=== PATIENT | male | born 1965 | race African-American/Black ===

== ENCOUNTER 2016-05-16 15:18 | Inpatient (IN) | payer SELFPAY ==
[~2016-05-16] VITALS: Ht 185.4 cm; Wt 95.3 kg
[~2016-05-16 15:18] MED LIST: ACET325T9 PO; HYDR25TA9 PO; LISI40TA PO; METO-269 PO; SILD50TA PO
--- NOTE | 2016-05-16 15:57 | EKG ---
[facility] [address] [place] [address] Test Date: 2016-05-16 Test Time: 15:32:26 Pat Name: MACARIO VINES Department: Room: Gender: M Consumer Loan Officer: : 1965 Requested By: CONSTANCE CABRAL Order Number: [id number] Reading MD: Leatha Melendez Measurements Intervals [place] Rate: 89 P: -18 MS: 142 QRS: 4 QRSD: 102 T: 122 QT: 368 QTc: 449 Interpretive Statements SINUS RHYTHM LEFT ATRIAL ABNORMALITY LVH WITH REPOLARIZATION ABNORMALITY ALSO CONSIDER MYOCARDIAL ISCHEMIA Electronically Signed On 05-20-2016 15:35:16 VALVE INSPECTOR by Leatha Melendez
[2016-05-16 16:20] LABS: BASO % 0 % (0-3); EOS % 0 % (0-3); HEMATOCRIT 45.7 % (39.0-53.0); HEMOGLOBIN 15.4 g/dL (13.0-17.5); LYMPH # 1.4 x10^3/uL (1.0-4.8); LYMPH % 11 % (24-48); MEAN CORPUSCULAR HEMOGLOBIN 30 pg (25-35); MEAN CORPUSCULAR HGB CONC 34 g/dL (31-37); MEAN CORPUSCULAR VOLUME 89 fL (79-100); MONO % 12 % (0-9); NEUT % 77 % (31-73); PLATELET COUNT 177 x10^3/uL (140-400); RED BLOOD COUNT 5.12 x10^6/uL (4.30-5.70); RED CELL DISTRIBUTION WIDTH 13.4 % (11.5-14.5); WHITE BLOOD COUNT 12.6 x10^3/uL (4.0-11.0)
--- NOTE | 2016-05-16 16:33 | RAD ---
Portable AP upright view CXR: Clinical indications: Left-sided chest pain. Pain started 4 days ago. Difficulty breathing. Comparison: September 26, 2015. Findings: Old granulomatous disease is seen. No acute lung infiltrate or pleural effusion or pulmonary edema or lung mass or pneumothorax is seen. The heart size, pulmonary vasculature, mediastinum and both josie are stable. A sternotomy is again evident. Right axillary node dissection is evident. Impression: No acute radiographic abnormality is seen.
[2016-05-16 16:37] LABS: CREATININE 1.4 mg/dL (0.7-1.3); GFR 64.9; POTASSIUM 3.8 mmol/L (3.5-5.1)
[2016-05-16 16:42] LABS: ALBUMIN 3.6 g/dL (3.4-5.0); DIRECT BILIRUBIN 0.3 mg/dL (0.0-0.2); TOTAL BILIRUBIN 1.7 mg/dL (0.2-1.0); TOTAL PROTEIN 7.8 g/dL (6.4-8.2)
[2016-05-16] MEDS ORDERED: hydrALAZINE 20 MG/ML VIAL. IVP ONE (16:45)
[2016-05-16 16:58] LABS: CKMB MASS < 0.5 ng/mL (0.0-3.6); CREATINE KINASE 129 U/L (39-308)
[2016-05-16] MEDS ORDERED: IOHEXOL 300 MG/ML 75 ML VIAL IV ONE (17:00)
[2016-05-16] MEDS ORDERED: CONTRAST GIVEN MC PRN (17:00)
[2016-05-16] MEDS ORDERED: IOHEXOL 350 MG/ML 100ML VIAL. IV ONE (17:30)
[2016-05-16] MEDS ORDERED: CLONIDINE HCL 0.1 MG TABLET PO ONE (18:30)
[2016-05-16] MEDS ORDERED: HYDROCODONE/APAP 5/325MG TABLET. PO ONE (18:45)
--- NOTE | 2016-05-16 19:37 | RAD ---
CT angiogram of the chest, abdomen, and pelvis Indication: CP AND L SIDED PAIN SINCE SATURDAY LOUIS. HTN X 2 WEEKS. PREV H/O AORTIC DISSECTION AND STENT GRAFT REPAIR PER PT. INJ 90ML OMNI 350 PREV SENT Reason: H/O AORTA REPAIR, C/O LT SIDE WEAKNESS / Spl. Instructions: / History: Comparison: July 14, 2014 CT angiogram of the chest, abdomen, and pelvis Technique: Multiple contiguous axial images were obtained through the chest, abdomen, and pelvis after intravenous administration of iodinated contrast. Coronal and sagittal MIP reformations were created. Three-dimensional reformations were also created. Findings: Chest: Again noted is a Amol a dissection. The dissection flap originates proximal to the origin of the brachiocephalic artery. The true lumen supplies the great vessels with no evidence for propagation of the dissection into these great vessels. The dissection is unchanged in appearance when compared to the previous exam from July of 2014. The diameter of the descending thoracic aorta measures 4.4 centimeters compared with 4.4 centimeters on the prior exam. The heart is normal in size. No pericardial effusion. No mediastinal hematoma. There are postsurgical changes of previous median sternotomy and presumed intervention or repair of the thoracic aorta. Calcified granulomas are again noted in the mediastinum. There is no pneumothorax. Minimal atelectasis is noted in the left lung base. Calcified granulomas are noted in the lung parenchyma. No destructive osseous lesion. Abdomen pelvis: The dissection is unchanged in is again noted to extend to the origin of the left internal iliac artery. The true lumen supplies the celiac, SMA, and bilateral renal arteries. There is no focal aneurysm. The liver and spleen are normal in size with no evidence for enhancing lesion on the provided arterial and delayed phase images. The gallbladder is nondistended. The pancreas and adrenal glands are within normal limits. The kidneys demonstrate no hydronephrosis or enhancing mass. There is no adenopathy or ascites. The appendix is normal. Urinary bladder is within normal limits. Bowel loops are normal in caliber. No destructive osseous lesion. Impression: - Chest: Unchanged appearance of the [place] a thoracic aortic dissection when compared to the previous exam from 07/14/2014. The true lumen supplies the great vessels. No significant change in size of the thoracic aortic diameter. - Abdomen pelvis: Stable size and appearance of the abdominal aortic dissection. The true lumen supplies the celiac, SMA, and bilateral renal arteries. No focal aneurysmal dilatation. - No ascites or inflammatory mass. Electronically signed by: Gokul Bermudez (May 16, 2016 19:35:26)
[2016-05-16] MEDS ORDERED: CLON0.1T PO (20:16)
--- NOTE | 2016-05-16 20:16 | PHYS DOC ---
Past Medical History Past Medical History: Hypertension Past Surgical History: Other Additional Past Surgical Histo: Aortic Repair Alcohol Use: None Drug Use: None Adult General Chief Complaint Chief Complaint: CHEST PAIN HPI HPI Patient is a 50 year old male brought to the ED by his with multiple complaints. He's had left-sided chest pain for 1-2 days. He's had a sweat all over his body, he had chills but no fever. Denies cough. Saturday night while he was watching the [employer], he had an episode where the left side of his body "locked up". That went away and has not come back. The patient has been taking his antihypertensives as prescribed, but his blood pressure has been running high. Patient has a history of a problem with his aorta in 2009, he had a procedure to fix it. His dough molder hand is Dr. Gil. Patient does not have a PCP right now. Review of Systems Review of Systems Constitutional: He has had chills and sweats but does not believe he's had a fever Eyes: Denies change in visual acuity, redness, or eye pain [] HENT: Denies nasal congestion or sore throat [] Respiratory: Denies cough , has had shortness of breath [] Cardiovascular: As in history of present illness GI: Denies abdominal pain, nausea, vomiting, bloody stools or diarrhea [] : Denies dysuria or hematuria [] Musculoskeletal: Denies back pain or joint pain [] Integument: Denies rash or skin lesions [] Neurologic: He has had a headache, left-sided symptoms on Saturday as in history of present illness Current Medications Current Medications Current Medications Medications (Trade) Dose Ordered Sig/Daljit Start Time Stop Time Status Last Admin Dose Admin Acetaminophen/ Hydrocodone Bitart 1 tab 1 tab 1X ONCE 05/16/16 18:45 05/16/16 18:46 DC 05/16/16 18:46 1 TAB Clonidine HCl (Catapres) 0.2 mg 1X ONCE 05/16/16 18:30 05/16/16 18:31 DC 05/16/16 18:43 0.2 MG Hydralazine HCl (Apresoline) 10 mg 1X ONCE 05/16/16 16:45 05/16/16 16:46 DC 05/16/16 17:09 10 MG Info (Do NOT chart on this entry -- for MONITORING) 1 each PRN DAILY PRN 05/16/16 17:00 05/18/16 16:59 Iohexol (Omnipaque 300 Mg/ml) 75 ml 1X ONCE 05/16/16 17:00 05/16/16 17:01 DC Iohexol (Omnipaque 350 Mg/ml) 90 ml 1X ONCE 05/16/16 17:30 05/16/16 17:31 DC 05/16/16 17:33 90 ML Sodium Chloride (Iv Sodium Chloride 0.9% 1000ml Bag) 1,000 ml @ 100 mls/hr Q10H 05/16/16 20:49 05/17/16 20:48 Allergies Allergies Allergies Coded Allergies Type Severity Reaction Last Updated Verified No Known Drug Allergies 07/14/14 No Physical Exam Physical Exam Constitutional: Well developed, well nourished, no acute distress, non-toxic appearance. Blood pressure elevated at 219/110 HENT: Normocephalic, atraumatic, bilateral external ears normal, oropharynx moist, no oral exudates, nose normal. [] Eyes: conjunctiva normal, no discharge. [] Neck: Normal range of motion, no stridor. [] Cardiovascular:Heart rate regular rhythm, no murmur [] Lungs & Thorax: Bilateral breath sounds clear to auscultation [] Abdomen: Bowel sounds normal, soft, no tenderness, no masses, no pulsatile masses. [] Skin: Warm, dry, no erythema, no rash. [] Extremities: No tenderness, no cyanosis, no clubbing, ROM intact, no edema. [] Neurologic: Alert and oriented X 3, normal motor function, normal sensory function, no focal deficits noted. [] Current Patient Data Vital Signs Vital Signs Date Time Temp Pulse Resp B/P Pulse Ox O2 Delivery O2 Flow Rate FiO2 05/16/16 20:00 81 18 163/76 95 Room Air 05/16/16 15:18 98.4 98.4 Lab Values Laboratory Tests Test 05/16/16 15:30 05/16/16 15:35 White Blood Count 12.6x10^3/uL (4.0-11.0) H Red Blood Count 5.12x10^6/uL (4.30-5.70) Hemoglobin 15.4g/dL (13.0-17.5) Hematocrit 45.7% (39.0-53.0) Mean Corpuscular Volume 89fL (79-100) Mean Corpuscular Hemoglobin 30pg (25-35) Mean Corpuscular Hemoglobin Concent 34g/dL (31-37) Red Cell Distribution Width 13.4% (11.5-14.5) Platelet Count 177x10^3/uL (140-400) Neutrophils (%) (Auto) 77% (31-73) H Lymphocytes (%) (Auto) 11% (24-48) L Monocytes (%) (Auto) 12% (0-9) H Eosinophils (%) (Auto) 0% (0-3) Basophils (%) (Auto) 0% (0-3) Neutrophils # (Auto) 9.7x10^3uL (1.8-7.7) H Lymphocytes # (Auto) 1.4x10^3/uL (1.0-4.8) Monocytes # (Auto) 1.5x10^3/uL (0.0-1.1) H Eosinophils # (Auto) 0.1x10^3/uL (0.0-0.7) Basophils # (Auto) 0.0x10^3/uL (0.0-0.2) Sodium Level 141mmol/L (136-145) Potassium Level 3.8mmol/L (3.5-5.1) Chloride Level 102mmol/L (98-107) Carbon Dioxide Level 32mmol/L (21-32) Anion Gap 7 (6-14) Blood Urea Nitrogen 18mg/dL (8-26) Creatinine 1.4mg/dL (0.7-1.3) H Estimated GFR (Cockcroft-Gault) 64.9 Glucose Level 125mg/dL (70-99) H Calcium Level 9.0mg/dL (8.5-10.1) Magnesium Level 2.0mg/dL (1.8-2.4) Total Bilirubin 1.7mg/dL (0.2-1.0) H Direct Bilirubin 0.3mg/dL (0.0-0.2) H Aspartate Amino Transferase (AST) 16U/L (15-37) Alanine Aminotransferase (ALT) 19U/L (16-63) Alkaline Phosphatase 68U/L (46-116) Creatine Kinase 129U/L (39-308) Creatine Kinase MB (Mass) < 0.5ng/mL (0.0-3.6) Creatine Kinase MB Relative Index % (0-4) Troponin I Quantitative < 0.017ng/mL (0.000-0.055) RW-Phc-Y-Type Natriuretic Peptide 1423pg/mL (0-124) H Total Protein 7.8g/dL (6.4-8.2) Albumin 3.6g/dL (3.4-5.0) Laboratory Tests 05/16/16 15:30 Laboratory Tests 05/16/16 15:35 EKG EKG Total bleed EKG read by me . Sinus rhythm. Heart rate 89. LVH with strain pattern. No STEMI. 1532 [] Radiology/Procedures Radiology/Procedures CT scan of the chest and abdomen interpreted by the radiologist looking at the patient's aorta abnormality. There are no acute changes in the patient's stable aorta per the radiologist. [] Course & Med Decision Making Course & Med Decision Making Pertinent Labs and Imaging studies reviewed. (See chart for details) 50-year-old male presents with a number of symptoms including chest pain and headache and a markedly elevated blood pressure at 219/110 even though he is taking antihypertensives as prescribed by his doctor. I advised the patient that I would like to start some IV blood pressure control and work him up for chest pain with the goal to admit him to the hospital. The patient was very reluctant to start on IV blood pressure control, feeling like he really did not want to be admitted to the hospital, despite the fact that his wants him to be admitted. We discussed this and agreed to try blood pressure controlled that was not an IV drip while doing his ED evaluation. The patient had an IV dose of hydralazine which didn't make much impact on his blood pressure. He had a [place] for his headache. After returning from CT, I gave him a dose of clonidine 0.2 mg. He is a fairly big rosangela, weight 229, a tall gentleman, I felt a starting dose of clonidine 0.2 for persistently elevated systolic over 200 would be a good starting point. The patient's blood pressure came down to systolic of the 160s. He felt better, his headache was gone after the [place]. CT scan did not show any acute findings. Labs unremarkable for acute findings. I returned to discuss the case with the patient and his . The patient still prefers to be discharged from the ED. I didn't have a strong reason to absolutely insists that he be admitted so I did not ask him to sign out AGAINST MEDICAL ADVICE. I prepared his discharge paperwork including a prescription for clonidine to add to his at home antihypertensive regimen. With the nurse went back to her the patient for discharge, which she had the patient stand up, he became very lightheaded, he broke out into a sweat, he had a near syncopal event and had to be helped back down on to the bed writhing ED nurse. His blood pressure at this time was systolic about 120s. I revisited the patient and his . He is now in favor of being admitted to the hospital. His blood pressure was up again to 160 after he got settled back down in bed but he was diffusely diaphoretic. We will admit the patient for chest pain and blood pressure control. I spoke with Dr. rebollar, [facility]. He will admit the patient. I wrote bridge orders. [] Dragon Disclaimer Dragon Disclaimer This electronic medical record was generated, in whole or in part, using a voice recognition dictation system. Departure Departure Impression: Primary Impression: Chest pain Additional Impression: Hypertension Disposition: 01 HOME, SELF-CARE Condition: STABLE Referrals: BRITTANY CHATMAN MD (PCP) Additional Instructions: Your blood pressure was very high in the emergency department. It did come down with clonidine. We will start you on clonidine 0.1 mg every 12 hours. Take this in addition to your blood pressure medicine that you already take. Follow-up with your doctor for a recheck of your blood pressure and recheck of your symptoms. Return to force or new symptoms. Scripts Clonidine Hcl 0.1 Mg Tablet0.1 Mg PO BID #60 TAB For high blood pressure Take this with the other medicines you are already taking Prov:CONSTANCE CABRAL MD 05/16/16 Problem Qualifiers CONSTANCE CABRAL MD May 16, 2016 20:16
[2016-05-16] MEDS: IV NORMAL SALINE 1000ML BAG 1,000 ML IV SCH (21:14)
[2016-05-16 21:54] LABS: OBC FLU VALID
--- NOTE | 2016-05-16 22:38 | PDOC1 ---
History and Physical Date of Admission Date of Admission DATE: 05/16/16 TIME: 22:28 Identification/Chief Complaint Chief Complaint chest pain, diaphoresis Source Source: Caregiver, Chart review, Patient History of Present Illness History of Present Illness Mr. Templeton, is a 50 year old male admt from ED for chest pain, diaphoresis, uncontrolled HTN on admit, now presyncope as he was trying to leave. He has unexplained marked sweats at times, and had severe left sided pain to arm and leg with weakness "my left side just locked up" Weakness was painful , muscle pain to extremities, started at rest, last 2 hours, and has not recurred. . Now, left-sided chest pain for > 24 hours. compliant with meds, has followed w. Dr. Gil Patient has a history of a problem with his aorta in 2009, he had a procedure to fix it. His environmental advisor is Dr. Gil. Past Medical History Cardiovascular: HTN, Other (aortic dissection) Past Surgical History Past Surgical History: Other (aortic repair, 2009, Dr. Augustin) Family History Family History: No Significant Social History Smoke: No ALCOHOL: none Drugs: None Current Problem List Problem List Problems Medical Problems: (1) Chest pain Status: Acute (2) Hypertension Status: Acute Problems: Current Medications Current Medications Current Medications Hydralazine HCl (Apresoline) 10 mg 1X ONCE IVP Last administered on 05/16/16 17:09; Start 05/16/16 at 16:45; Stop 05/16/16 at 16:46; Status DC Iohexol (Omnipaque 300 Mg/ml) 75 ml 1X ONCE IV ; Start 05/16/16 at 17:00; Stop 05/16/16 at 17:01; Status DC Info (Do NOT chart on this entry -- for MONITORING) 1 each PRN DAILY PRN MC SEE COMMENTS; Start 05/16/16 at 17:00; Stop 05/18/16 at 16:59 Iohexol (Omnipaque 350 Mg/ml) 90 ml 1X ONCE IV Last administered on 05/16/16 17:33; Start 05/16/16 at 17:30; Stop 05/16/16 at 17:31; Status DC Clonidine HCl (Catapres) 0.2 mg 1X ONCE PO Last administered on 05/16/16 18:43 ; Start 05/16/16 at 18:30; Stop 05/16/16 at 18:31; Status DC Acetaminophen/ Hydrocodone Bitart 1 tab 1 tab 1X ONCE PO Last administered on 05/16/16 18:46; Start 05/16/16 at 18:45; Stop 05/16/16 at 18:46; Status DC Sodium Chloride (Iv Sodium Chloride 0.9% 1000ml Bag) 1,000 ml @ 100 mls/hr Q10H IV Last administered on 05/16/16 21:14; Start 05/16/16 at 20:49; Stop at 20:48 Active Scripts Active Clonidine Hcl 0.1 Mg Tablet 0.1 Mg PO BID For high blood pressure Take this with the other medicines you are already taking Reported Hydrochlorothiazide Tablet (Hydrochlorothiazide) 25 Mg Tablet 25 Mg PO DAILY Toprol Xl (Metoprolol Succinate) 50 Mg Tab.er.24h 50 Mg PO DAILY Lisinopril 40 Mg Tablet 40 Mg PO DAILY Viagra (Sildenafil Citrate) 50 Mg Tablet 50 Mg PO ONCE Tylenol (Acetaminophen) 325 Mg Tablet 325 Mg PO Allergies Allergies: Coded Allergies: No Known Drug Allergies (Unverified , 07/14/14) ROS General: YES: Chills, Fatigue, Night Sweats, No: Appetite, Malaise, Other PSYCHOLOGICAL ROS: No: Anxiety, Behavioral Disorder, Concentration difficultie , Decreased libido, Depression, Disorientation, Hallucinations, Hostility, Irritablity, Memory difficulties, Mood Swings, Obsessive thoughts, Other, Physical abuse, Sexual abuse, Sleep disturbances, Suicidal ideation Eyes: No Blurry vision, No Decreased vision, No Double vision, No Dry eyes, No Excessive tearing, No Eye Pain, No Itchy Eyes, No Loss of vision, No Other, No Photophobia, No Scotomata, No Uses contacts, No Uses glasses HEENT: No: Epistaxis, Heacaches, Hearing change, Nasal congestion, Nasal discharge, Oral lesions, Other, Sinus pain, Sneezing, Snoring, Sore Throat, Tinnitus, Vertigo, Visual Changes, Vocal changes ENDOCRINE: No: Breast Changes, Galactorrhea, Hair Pattern Changes, Hot Flashes , Malaise/lethargy, Mood Swings, Other, Palpitations, Polydipsia/polyuria, Skin Changes, Temperature Intolerance, Unexpected Weight Changes Respiratory: No: Cough, Hemoptysis, Orthopnea, Other, Pleuritic Pain, SOB with excertion, Shortness of breath, Sputum Changes, Stridor, Tachypnea, Wheezing Cardiovascular: yes Chest Pain, No Edema, No Lt Headedness, No Orthopnea, No Other, No Palpitations, No Paroxysmal Noc. Dyspnea Gastrointestinal: Yes Nausea, No Abdominal Pain, No Constipation, No Diarrhea, No Hematochezia, No Melena, No Other, No Vomiting Genitourinary: No , No , No , No , No , No , No , No Discharge, No Dysuria, No Flank Pain, No Frequency, No Hematuria, No Incontinence, No Other, No Pain, No Retention, No Urgency Musculoskeletal: Yes Muscle Pain, Yes Muscular Weakness, No Gait Disturbance, No Joint Pain, No Joint Stiffness, No Joint Swelling, No Other, No Pain In:, No Swelling In: Neurological: No Behavorial Changes, No Bowel/Bladder ControlChng, No Confusion , No Dizziness, No Gait Disturbance, No Headaches, No Impaired Coord/balance, No Memory Loss, No Numbness/Tingling, No Other, No Seizures, No Speech Problems , No Tremors, No Visual Changes, No Weakness Skin: No Acne, No Dry Skin, No Eczema, No Hair Changes, No Lumps, No Mole Changes, No Mottling, No Nail Changes, No Other, No Pruritus, No Rash, No Skin Lesion Changes Physical Exam General: Alert, Oriented X3, Cooperative, No acute distress HEENT: Atraumatic, PERRLA, EOMI, Mucous membr. moist/pink Lungs: Clear to auscultation, Normal air movement Heart: S1S2, no murmurs Abdomen: Normal bowel sounds, Soft, No tenderness, No hepatosplenomegaly Rectal Exam: not examined Extremities: No clubbing, No edema, Normal pulses Skin: No rashes, No significant lesion Neuro: Normal gait, Normal speech, Normal tone Psych/Mental Status: Mental status NL, Mood NL Vitals Vitals Vital Signs Date Time Temp Pulse Resp B/P Pulse Ox O2 Delivery O2 Flow Rate FiO2 05/16/16 20:00 81 18 163/76 95 Room Air 05/16/16 15:18 98.4 98.4 Labs Labs Laboratory Tests Test 05/16/16 15:30 05/16/16 15:35 05/16/16 21:16 White Blood Count 12.6x10^3/uL (4.0-11.0) Red Blood Count 5.12x10^6/uL (4.30-5.70) Hemoglobin 15.4g/dL (13.0-17.5) Hematocrit 45.7% (39.0-53.0) Mean Corpuscular Volume 89fL (79-100) Mean Corpuscular Hemoglobin 30pg (25-35) Mean Corpuscular Hemoglobin Concent 34g/dL (31-37) Red Cell Distribution Width 13.4% (11.5-14.5) Platelet Count 177x10^3/uL (140-400) Neutrophils (%) (Auto) 77% (31-73) Lymphocytes (%) (Auto) 11% (24-48) Monocytes (%) (Auto) 12% (0-9) Eosinophils (%) (Auto) 0% (0-3) Basophils (%) (Auto) 0% (0-3) Neutrophils # (Auto) 9.7x10^3uL (1.8-7.7) Lymphocytes # (Auto) 1.4x10^3/uL (1.0-4.8) Monocytes # (Auto) 1.5x10^3/uL (0.0-1.1) Eosinophils # (Auto) 0.1x10^3/uL (0.0-0.7) Basophils # (Auto) 0.0x10^3/uL (0.0-0.2) Sodium Level 141mmol/L (136-145) Potassium Level 3.8mmol/L (3.5-5.1) Chloride Level 102mmol/L (98-107) Carbon Dioxide Level 32mmol/L (21-32) Anion Gap 7 (6-14) Blood Urea Nitrogen 18mg/dL (8-26) Creatinine 1.4mg/dL (0.7-1.3) Estimated GFR (Cockcroft-Gault) 64.9 Glucose Level 125mg/dL (70-99) Calcium Level 9.0mg/dL (8.5-10.1) Magnesium Level 2.0mg/dL (1.8-2.4) Total Bilirubin 1.7mg/dL (0.2-1.0) Direct Bilirubin 0.3mg/dL (0.0-0.2) Aspartate Amino Transf (AST/SGOT) 16U/L (15-37) Alanine Aminotransferase (ALT/SGPT) 19U/L (16-63) Alkaline Phosphatase 68U/L (46-116) Creatine Kinase 129U/L (39-308) Creatine Kinase MB (Mass) < 0.5ng/mL (0.0-3.6) Creatine Kinase MB Relative Index % (0-4) Troponin I Quantitative < 0.017ng/mL (0.000-0.055) XG-Ddz-Y-Type Natriuretic Peptide 1423pg/mL (0-124) Total Protein 7.8g/dL (6.4-8.2) Albumin 3.6g/dL (3.4-5.0) Influenza Type A Antigen Negative (NEGATIVE) Influenza Type B Antigen Negative (NEGATIVE) Laboratory Tests Test 05/16/16 15:30 05/16/16 15:35 05/16/16 21:16 White Blood Count 12.6x10^3/uL (4.0-11.0) Red Blood Count 5.12x10^6/uL (4.30-5.70) Hemoglobin 15.4g/dL (13.0-17.5) Hematocrit 45.7% (39.0-53.0) Mean Corpuscular Volume 89fL (79-100) Mean Corpuscular Hemoglobin 30pg (25-35) Mean Corpuscular Hemoglobin Concent 34g/dL (31-37) Red Cell Distribution Width 13.4% (11.5-14.5) Platelet Count 177x10^3/uL (140-400) Neutrophils (%) (Auto) 77% (31-73) Lymphocytes (%) (Auto) 11% (24-48) Monocytes (%) (Auto) 12% (0-9) Eosinophils (%) (Auto) 0% (0-3) Basophils (%) (Auto) 0% (0-3) Neutrophils # (Auto) 9.7x10^3uL (1.8-7.7) Lymphocytes # (Auto) 1.4x10^3/uL (1.0-4.8) Monocytes # (Auto) 1.5x10^3/uL (0.0-1.1) Eosinophils # (Auto) 0.1x10^3/uL (0.0-0.7) Basophils # (Auto) 0.0x10^3/uL (0.0-0.2) Sodium Level 141mmol/L (136-145) Potassium Level 3.8mmol/L (3.5-5.1) Chloride Level 102mmol/L (98-107) Carbon Dioxide Level 32mmol/L (21-32) Anion Gap 7 (6-14) Blood Urea Nitrogen 18mg/dL (8-26) Creatinine 1.4mg/dL (0.7-1.3) Estimated GFR (Cockcroft-Gault) 64.9 Glucose Level 125mg/dL (70-99) Calcium Level 9.0mg/dL (8.5-10.1) Magnesium Level 2.0mg/dL (1.8-2.4) Total Bilirubin 1.7mg/dL (0.2-1.0) Direct Bilirubin 0.3mg/dL (0.0-0.2) Aspartate Amino Transf (AST/SGOT) 16U/L (15-37) Alanine Aminotransferase (ALT/SGPT) 19U/L (16-63) Alkaline Phosphatase 68U/L (46-116) Creatine Kinase 129U/L (39-308) Creatine Kinase MB (Mass) < 0.5ng/mL (0.0-3.6) Creatine Kinase MB Relative Index % (0-4) Troponin I Quantitative < 0.017ng/mL (0.000-0.055) VI-Nez-E-Type Natriuretic Peptide 1423pg/mL (0-124) Total Protein 7.8g/dL (6.4-8.2) Albumin 3.6g/dL (3.4-5.0) Influenza Type A Antigen Negative (NEGATIVE) Influenza Type B Antigen Negative (NEGATIVE) VTE Prophylaxis Ordered VTE Prophylaxis Devices: No VTE Pharmacological Prophylaxi: Yes Assessment/Plan Assessment/Plan chest pain, w/ diaphoresis angina, concern for stability, r.o Acute coronary, Obs Pt has hx aortic dissection presented with Malignant Htn, clonidine given, and now relative hypotension and symptoms of orthostasis resume home htn meds, hold clonidine until CV team eval if chest w.u for symptoms neg, would consider TIA, but less likely as episode was very painful Creatinine 1.4, consider CKD 2, recheck, check UA Consult Dr. Gil, he follows KANDICE SPENCER MD May 16, 2016 22:38
[2016-05-16 22:45] VITALS: BP 127/70
[2016-05-16] MEDS ORDERED: ACETAMINOPHEN 325 MG TABLET. PO PRN (22:45)
[2016-05-17 03:27] VITALS: BP 140/72
[2016-05-17 04:32] LABS: BILIRUBIN,URINE SMALL (NEG); GLUCOSE,URINE NEGATIVE (NEG); NITRITE,URINE NEGATIVE (NEG); PROTEIN,URINE 30 mg/dL (NEG-TRACE)
[2016-05-17 04:42] LABS: BACTERIA,URINE 0 /HPF (0-FEW); SQUAMOUS EPITHELIAL CELL,UR FEW /LPF
[2016-05-17 04:44] LABS: BASO % 0 % (0-3); EOS % 0 % (0-3); HEMATOCRIT 42.1 % (39.0-53.0); HEMOGLOBIN 13.8 g/dL (13.0-17.5); LYMPH # 1.6 x10^3/uL (1.0-4.8); LYMPH % 13 % (24-48); MEAN CORPUSCULAR HEMOGLOBIN 30 pg (25-35); MEAN CORPUSCULAR HGB CONC 33 g/dL (31-37); MEAN CORPUSCULAR VOLUME 90 fL (79-100); MONO % 12 % (0-9); NEUT % 74 % (31-73); PLATELET COUNT 155 x10^3/uL (140-400); RED BLOOD COUNT 4.66 x10^6/uL (4.30-5.70); RED CELL DISTRIBUTION WIDTH 13.9 % (11.5-14.5); WHITE BLOOD COUNT 12.8 x10^3/uL (4.0-11.0)
[2016-05-17 05:17] LABS: ALBUMIN 3.1 g/dL (3.4-5.0); ALBUMIN/GLOBULIN RATIO 0.9 (1.0-1.7); CALCIUM 8.4 mg/dL (8.5-10.1); CREATININE 1.5 mg/dL (0.7-1.3); GFR 59.9; POTASSIUM 4.2 mmol/L (3.5-5.1); TOTAL BILIRUBIN 1.8 mg/dL (0.2-1.0); TOTAL PROTEIN 6.4 g/dL (6.4-8.2)
[2016-05-17 05:18] LABS: CHOLESTEROL/HDL RATIO 2.5
[2016-05-17 07:15] VITALS: BP 147/83
[2016-05-17] MEDS: IV NORMAL SALINE 1000ML BAG 1,000 ML IV SCH ×2 (08:38→16:49)
[2016-05-17] MEDS: LISINOPRIL 40 MG TABLET. PO SCH (08:38)
[2016-05-17] MEDS: METOPROLOL SUCC 24HR ER 50 MG TAB.ER.24H. PO SCH (08:39)
[2016-05-17] MEDS ORDERED: INFLUENZA VAX SCREEN BY RX. MC ONE (09:00)
[2016-05-17] MEDS ORDERED: HYDROCHLOROTHIAZIDE 25 MG TABLET PO SCH (09:00)
[2016-05-17] MEDS ORDERED: FLU VACC QUAD 2016-17 (36MOS+)/PF 0.5 ML SYRINGE. VAX IM ONE (09:00)
--- NOTE | 2016-05-17 10:17 | PDOC2 ---
OSCAR AGUILERA ELECTRICAL ASSISTANT 05/17/16 1017: CARDIAC CONSULT DATE OF CONSULT Date of Consult DATE: 05/17/16 TIME: 10:06 REASON FOR CONSULT Reason for Consult: Chest pain REFERRING PHYSICIAN Referring Physician: Javier SOURCE Source: Chart review, Patient HISTORY OF PRESENT ILLNESS HISTORY OF PRESENT ILLNESS This is a pleasant 50 yo male admitted for complains of chest pain. Reports that this started Saturday with left chest pressure to his left side and actually even radiated to his hip area. He did have some nausea, diaphoresis with it. Denies any palpitations nor dizziness. This lasted about 30 minutes at least. He also felt that he could not move his left side , feeling weak. There was no sign of visual or auditory disturbances nor facial droop, [place] or dysarthria. This weekend he had 2 episodes of diarrhea which has resolved. He has been having insomnia in the last 3 days feeling miserable. At the same time he has been taking medications which has decongestants and 3 cans of energy drinks. There was no fever but reported some chills. Reports high BP with SBP 170-190s. PAST MEDICAL HISTORY Cardiovascular: HTN, Hyperlipidemia, Other (aortic dissection; PAD) CENTRAL NERVOUS SYSTEM: Other (No pertinent history) GI: GERD Heme/Onc: No pertinent hx Hepatobiliary: No pertinent hx Psych: No pertinent hx, Other (past alcoholism) Musculoskeletal: Osteoarthritis Rheumatologic: No pertinent hx Infectious disease: No pertinent hx ENT: No pertinent hx Renal/: Chronic renal insuff (CKD3), Other (erectile dysfunction) Endocrine: No pertinent hx Dermatology: No pertinent hx PAST SURGICAL HISTORY Past Surgical History: Other (Aortic dissection type 1 12/09/2009; left aorto iliac bypass 12/26/2010) FAMILY HISTORY Family History: Coronary Artery Disease SOCIAL HISTORY Smoke: No ALCOHOL: none (quit 8 yrs ago) Drugs: None Lives: with Family CURRENT MEDICATIONS CURRENT MEDICATIONS Current Medications Medications (Trade) Dose Ordered Sig/Daljit Route PRN Reason Start Time Stop Time Status Last Admin Dose Admin Hydralazine HCl (Apresoline) 10 mg 1X ONCE IVP 05/16/16 16:45 05/16/16 16:46 DC 05/16/16 17:09 Iohexol (Omnipaque 350 Mg/ml) 90 ml 1X ONCE IV 05/16/16 17:30 05/16/16 17:31 DC 05/16/16 17:33 Clonidine HCl (Catapres) 0.2 mg 1X ONCE PO 05/16/16 18:30 05/16/16 18:31 DC 05/16/16 18:43 Acetaminophen/ Hydrocodone Bitart 1 tab 1 tab 1X ONCE PO 05/16/16 18:45 05/16/16 18:46 DC 05/16/16 18:46 Sodium Chloride (Iv Sodium Chloride 0.9% 1000ml Bag) 1,000 ml @ 100 mls/hr Q10H IV 05/16/16 20:49 05/17/16 20:48 05/17/16 08:38 Hydrochlorothiazide (Hydrodiuril) 25 mg DAILY PO 05/17/16 09:00 05/17/16 08:38 Lisinopril (Prinivil) 40 mg DAILY PO 05/17/16 09:00 05/17/16 08:38 Metoprolol Succinate (Toprol Xl) 50 mg DAILY PO 05/17/16 09:00 05/17/16 08:39 ALLERGIES ALLERGIES: Coded Allergies: No Known Drug Allergies (Unverified , 07/14/14) ROS Review of System 14 point ROS evaluated with pertinent positives noted per HPI PHYSICAL EXAM General: Alert, Oriented X3, Cooperative, No acute distress HEENT: Atraumatic, Mucous membr. moist/pink Lungs: Clear to auscultation, Normal air movement Heart: Regular rate, Normal S1, Normal S2 Abdomen: Soft, No tenderness Extremities: No cyanosis, No edema Skin: No breakdown, No significant lesion Neuro: Normal speech, Sensation intact Psych/Mental Status: Mental status NL, Mood NL MUSCULOSKELETAL: Osteoarthritic changes both hands VITALS VITALS Vital Signs Date Time Temp Pulse Resp B/P Pulse Ox O2 Delivery O2 Flow Rate FiO2 05/17/16 08:39 70 147/83 05/17/16 08:15 Nasal Cannula 2.0 05/17/16 07:15 98.8 18 98 98.8 LABS Lab: Laboratory Tests Test 05/16/16 15:30 05/16/16 15:35 05/16/16 21:16 05/17/16 04:20 White Blood Count 12.6x10^3/uL (4.0-11.0) 12.8x10^3/uL (4.0-11.0) Red Blood Count 5.12x10^6/uL (4.30-5.70) 4.66x10^6/uL (4.30-5.70) Hemoglobin 15.4g/dL (13.0-17.5) 13.8g/dL (13.0-17.5) Hematocrit 45.7% (39.0-53.0) 42.1% (39.0-53.0) Mean Corpuscular Volume 89fL (79-100) 90fL (79-100) Mean Corpuscular Hemoglobin 30pg (25-35) 30pg (25-35) Mean Corpuscular Hemoglobin Concent 34g/dL (31-37) 33g/dL (31-37) Red Cell Distribution Width 13.4% (11.5-14.5) 13.9% (11.5-14.5) Platelet Count 177x10^3/uL (140-400) 155x10^3/uL (140-400) Neutrophils (%) (Auto) 77% (31-73) 74% (31-73) Lymphocytes (%) (Auto) 11% (24-48) 13% (24-48) Monocytes (%) (Auto) 12% (0-9) 12% (0-9) Eosinophils (%) (Auto) 0% (0-3) 0% (0-3) Basophils (%) (Auto) 0% (0-3) 0% (0-3) Neutrophils # (Auto) 9.7x10^3uL (1.8-7.7) 9.5x10^3uL (1.8-7.7) Lymphocytes # (Auto) 1.4x10^3/uL (1.0-4.8) 1.6x10^3/uL (1.0-4.8) Monocytes # (Auto) 1.5x10^3/uL (0.0-1.1) 1.6x10^3/uL (0.0-1.1) Eosinophils # (Auto) 0.1x10^3/uL (0.0-0.7) 0.0x10^3/uL (0.0-0.7) Basophils # (Auto) 0.0x10^3/uL (0.0-0.2) 0.0x10^3/uL (0.0-0.2) Sodium Level 141mmol/L (136-145) 141mmol/L (136-145) Potassium Level 3.8mmol/L (3.5-5.1) 4.2mmol/L (3.5-5.1) Chloride Level 102mmol/L (98-107) 103mmol/L (98-107) Carbon Dioxide Level 32mmol/L (21-32) 27mmol/L (21-32) Anion Gap 7 (6-14) 11 (6-14) Blood Urea Nitrogen 18mg/dL (8-26) 22mg/dL (8-26) Creatinine 1.4mg/dL (0.7-1.3) 1.5mg/dL (0.7-1.3) Estimated GFR (Cockcroft-Gault) 64.9 59.9 Glucose Level 125mg/dL (70-99) 102mg/dL (70-99) Calcium Level 9.0mg/dL (8.5-10.1) 8.4mg/dL (8.5-10.1) Magnesium Level 2.0mg/dL (1.8-2.4) Total Bilirubin 1.7mg/dL (0.2-1.0) 1.8mg/dL (0.2-1.0) Direct Bilirubin 0.3mg/dL (0.0-0.2) Aspartate Amino Transf (AST/SGOT) 16U/L (15-37) 13U/L (15-37) Alanine Aminotransferase (ALT/SGPT) 19U/L (16-63) 18U/L (16-63) Alkaline Phosphatase 68U/L (46-116) 57U/L (46-116) Creatine Kinase 129U/L (39-308) Creatine Kinase MB (Mass) < 0.5ng/mL (0.0-3.6) Creatine Kinase MB Relative Index % (0-4) Troponin I Quantitative < 0.017ng/mL (0.000-0.055) < 0.017ng/mL (0.000-0.055) XH-Cob-V-Type Natriuretic Peptide 1423pg/mL (0-124) Total Protein 7.8g/dL (6.4-8.2) 6.4g/dL (6.4-8.2) Albumin 3.6g/dL (3.4-5.0) 3.1g/dL (3.4-5.0) Influenza Type A Antigen Negative (NEGATIVE) Influenza Type B Antigen Negative (NEGATIVE) BUN/Creatinine Ratio 15 (6-20) Albumin/Globulin Ratio 0.9 (1.0-1.7) Triglycerides Level 35mg/dL (0-150) Cholesterol Level 127mg/dL (0-200) LDL Cholesterol, Calculated 70mg/dL (0-100) VLDL Cholesterol, Calculated 7mg/dL (0-40) HDL Cholesterol 50mg/dL (40-60) Cholesterol/HDL Ratio 2.5 Test 05/17/16 04:22 Urine Collection Type Unknown Urine Color [place] Urine Clarity Clear Urine pH 6.0 Urine Specific [place] >=1.030 Urine Protein 30mg/dL (NEG-TRACE) Urine Glucose (UA) Negativemg/dL (NEG) Urine Ketones (Stick) Negativemg/dL (NEG) Urine Blood Trace (NEG) Urine Nitrite Negative (NEG) Urine Bilirubin Small (NEG) Urine Urobilinogen Dipstick 2.0mg/dL (0.2 mg/dL) Urine Leukocyte Esterase Negative (NEG) Urine RBC 6-10/HPF (0-2) Urine WBC 1-4/HPF (0-4) Urine Squamous Epithelial Cells Few/LPF Urine Bacteria 0/HPF (0-FEW) Urine Mucus Mod/LPF ASSESSMENT/PLAN ASSESSMENT/PLAN 1. Chest pain 2. HTN 3. HLP: lipids well controlled, has been off statin for a while 4. CKD3 5. Hx of Thoracic aortic dissection with repair in 2009: CTA chest no acute changes 6. Hx of left aorto-iliac bypass in 2010: no claudications 7. Transient left unilateral weakness 8. Dehydration: likely from prior diarrhea, decreased po hydration and significant use of caffeine Recommendations 1. TTE/MPI today 2. CT head today 3. TSH 4. Discussed avoidance of energy drinks and decongestants 5. Start on daily ECASA 81 mg. 6. Continue with antiHTN regimen 7. IVF per PCP and renal. Problems: ARMANDO ENCARNACION MD 05/17/16 2322: CARDIAC CONSULT ALLERGIES ALLERGIES: Coded Allergies: No Known Drug Allergies (Unverified , 4/8/15) ASSESSMENT/PLAN ASSESSMENT/PLAN Pt. seen and examined. Agree with above ALLERGY SPECIALIST note. 50 y.o male presenting with atypical CP Normal CV exam Echo/MPI wnl. Thanks for this consult. Pls call with questions. Problems: OSCAR AGUILERA APRN May 17, 2016 10:17 ARMANDO ENCARNACION MD May 17, 2016 23:22
[2016-05-17] MEDS ORDERED: REGADENOSON 0.4 MG/5 ML DISP.SYRIN. IV ONE (11:00)
[2016-05-17 11:04] VITALS: BP 160/88
--- NOTE | 2016-05-17 11:16 | PDOC2 ---
CONSULT Date of Consult Date of Consult DATE: 05/17/16 TIME: 11:14 Reason for Consult Reason for Consult: ^ed Creat Referring Physician Referring Physician: Dr [email or web address] Identification/Chief Complaint Chief Complaint CP Problems: Source Source: Chart review, Patient History of Present Illness Reason for Visit: as dictated Past Medical History Cardiovascular: HTN, Hyperlipidemia, Other (aortic dissection; PAD) Psych: Other (past alcoholism) Musculoskeletal: Osteoarthritis Renal/: Chronic renal insuff (CKD3), Other (erectile dysfunction) Past Surgical History Past Surgical History: Other (Aortic dissection type 1 12/09/2009; left aorto iliac bypass 12/26/2010) Family History Family History: No Significant Social History No ALCOHOL: none Drugs: None Current Problem List Problem List Problems Medical Problems: (1) Angina at rest Status: Acute (2) Chest pain Status: Acute (3) Hypertension Status: Acute Current Medications Current Medications Current Medications Hydralazine HCl (Apresoline) 10 mg 1X ONCE IVP Last administered on 05/16/16 17:09; Start 05/16/16 at 16:45; Stop 05/16/16 at 16:46; Status DC Iohexol (Omnipaque 300 Mg/ml) 75 ml 1X ONCE IV ; Start 05/16/16 at 17:00; Stop 05/16/16 at 17:01; Status DC Info (Do NOT chart on this entry -- for MONITORING) 1 each PRN DAILY PRN MC SEE COMMENTS; Start 05/16/16 at 17:00; Stop 05/18/16 at 16:59 Iohexol (Omnipaque 350 Mg/ml) 90 ml 1X ONCE IV Last administered on 05/16/16 17:33; Start 05/16/16 at 17:30; Stop 05/16/16 at 17:31; Status DC Clonidine HCl (Catapres) 0.2 mg 1X ONCE PO Last administered on 05/16/16 18:43 ; Start 05/16/16 at 18:30; Stop 05/16/16 at 18:31; Status DC Acetaminophen/ Hydrocodone Bitart 1 tab 1 tab 1X ONCE PO Last administered on 05/16/16 18:46; Start 05/16/16 at 18:45; Stop 05/16/16 at 18:46; Status DC Sodium Chloride (Iv Sodium Chloride 0.9% 1000ml Bag) 1,000 ml @ 100 mls/hr Q10H IV Last administered on 05/17/16 08:38; Start 05/16/16 at 20:49; Stop at 20:48 Acetaminophen (Tylenol) 325 mg PRN Q6HRS PRN PO pain; Start 05/16/16 at 22:45 Hydrochlorothiazide (Hydrodiuril) 25 mg DAILY PO Last administered on 05/17/16 08:38; Start 05/17/16 at 09:00 Lisinopril (Prinivil) 40 mg DAILY PO Last administered on 05/17/16 08:38; Start 05/17/16 at 09:00 Metoprolol Succinate (Toprol Xl) 50 mg DAILY PO Last administered on 05/17/16 08:39; Start 05/17/16 at 09:00 Info (Do NOT chart on this placeholder) 1 each 1X ONCE MC ; Start 05/17/16 at 09 :00; Stop 05/17/16 at 09:01; Status UNV Influenza Virus Vaccine Quadrival (Fluarix Quad 1966-1471 Syringe) 0.5 ml ONCE ONCE VAX IM ; Start 05/17/16 at 09:00; Stop 05/17/16 at 09:01; Status DC Regadenoson (Lexiscan) 0.4 mg 1X ONCE IV ; Start 05/17/16 at 11:00; Stop at 11:01; Status DC Active Scripts Active Clonidine Hcl 0.1 Mg Tablet 0.1 Mg PO BID For high blood pressure Take this with the other medicines you are already taking Reported Hydrochlorothiazide Tablet (Hydrochlorothiazide) 25 Mg Tablet 25 Mg PO DAILY Toprol Xl (Metoprolol Succinate) 50 Mg Tab.er.24h 50 Mg PO DAILY Lisinopril 40 Mg Tablet 40 Mg PO DAILY Viagra (Sildenafil Citrate) 50 Mg Tablet 50 Mg PO ONCE Tylenol (Acetaminophen) 325 Mg Tablet 325 Mg PO Allergies Allergies: Coded Allergies: No Known Drug Allergies (Unverified , 07/14/14) ROS Review of System GEN: no Fevers no Chills EYES: no new Visual Complaints ENT: no EN Drainage no Hearing deficiets CVS: no Orthopnea ? CP RESP: no SOB no OSEGUERA GI: no Nausea no Vomiting : no Dysuria no Urgency HEME: no easy bruising no Palp Ly Nodes NEURO no Focal Weakness no Sz PSYCH: no Suicidal Ideation no Depression SKIN: no Rashes ENDO: no Polyuria or Polydipsia no Hot/Cold Intolerance MU SK: occ Arthraigia no Myalgia Physical Exam Physical Exam General Appearance: Awake Alert Oriented x 3 In no Distress Eyes: VIsion Unchanged Conjunctiva Normal EN: No EN Drainage Mucous Memb. moist Neck: no JVD no JVP Supple no Thyromegaly CVS: S1 S2 ? soft Murmur No Gallop No Rub no Edema Resp: no Rales no Rhonchi no Acc. Muscle use GI: BAS +ve NO Bruit Non Tender Non Distended : no CVA tenderness; no Suprapubic Tenderness SKIN: no Rashes Breast Exam deferred Mu.Sk: Adequate ROM no Muscle Atrophy Heme: Unable to palpate Obvious LAD no palp Splenomegaly NEURO: Good Strength and Tone Cranial Nerves II - XII grossly intact Psych: not Depressed no Active hallucination Vital Signs Vital Signs Date Time Temp Pulse Resp B/P Pulse Ox O2 Delivery O2 Flow Rate FiO2 05/17/16 11:04 99.0 69 20 160/88 98 Nasal Cannula 2.0 99.0 Assessment & Plan Torie - ? CAn and Vol depletion (VMN) watch trend. ATN cannot be ruled out. Current FLuid and E-lyte status does notl necessitate emergent need for Dialysis. Will re-evaluate in am vol depeltion - IVF as Ongoing Suspect Underlying CKD III from Previously untreated HTN (since a teenager) and from AAA/ Dissection surgery HTN: Current BP meds reviewed. See orders for changes. Counselled pt re refraining from NSAIDs, hydration and BP watch. RD education Discussed Plan of Care and prognosis etc. at length with family. Labs Labs Laboratory Tests Test 05/16/16 15:30 05/16/16 15:35 05/16/16 21:16 05/17/16 04:20 White Blood Count 12.6x10^3/uL (4.0-11.0) 12.8x10^3/uL (4.0-11.0) Red Blood Count 5.12x10^6/uL (4.30-5.70) 4.66x10^6/uL (4.30-5.70) Hemoglobin 15.4g/dL (13.0-17.5) 13.8g/dL (13.0-17.5) Hematocrit 45.7% (39.0-53.0) 42.1% (39.0-53.0) Mean Corpuscular Volume 89fL (79-100) 90fL (79-100) Mean Corpuscular Hemoglobin 30pg (25-35) 30pg (25-35) Mean Corpuscular Hemoglobin Concent 34g/dL (31-37) 33g/dL (31-37) Red Cell Distribution Width 13.4% (11.5-14.5) 13.9% (11.5-14.5) Platelet Count 177x10^3/uL (140-400) 155x10^3/uL (140-400) Neutrophils (%) (Auto) 77% (31-73) 74% (31-73) Lymphocytes (%) (Auto) 11% (24-48) 13% (24-48) Monocytes (%) (Auto) 12% (0-9) 12% (0-9) Eosinophils (%) (Auto) 0% (0-3) 0% (0-3) Basophils (%) (Auto) 0% (0-3) 0% (0-3) Neutrophils # (Auto) 9.7x10^3uL (1.8-7.7) 9.5x10^3uL (1.8-7.7) Lymphocytes # (Auto) 1.4x10^3/uL (1.0-4.8) 1.6x10^3/uL (1.0-4.8) Monocytes # (Auto) 1.5x10^3/uL (0.0-1.1) 1.6x10^3/uL (0.0-1.1) Eosinophils # (Auto) 0.1x10^3/uL (0.0-0.7) 0.0x10^3/uL (0.0-0.7) Basophils # (Auto) 0.0x10^3/uL (0.0-0.2) 0.0x10^3/uL (0.0-0.2) Sodium Level 141mmol/L (136-145) 141mmol/L (136-145) Potassium Level 3.8mmol/L (3.5-5.1) 4.2mmol/L (3.5-5.1) Chloride Level 102mmol/L (98-107) 103mmol/L (98-107) Carbon Dioxide Level 32mmol/L (21-32) 27mmol/L (21-32) Anion Gap 7 (6-14) 11 (6-14) Blood Urea Nitrogen 18mg/dL (8-26) 22mg/dL (8-26) Creatinine 1.4mg/dL (0.7-1.3) 1.5mg/dL (0.7-1.3) Estimated GFR (Cockcroft-Gault) 64.9 59.9 Glucose Level 125mg/dL (70-99) 102mg/dL (70-99) Calcium Level 9.0mg/dL (8.5-10.1) 8.4mg/dL (8.5-10.1) Magnesium Level 2.0mg/dL (1.8-2.4) Total Bilirubin 1.7mg/dL (0.2-1.0) 1.8mg/dL (0.2-1.0) Direct Bilirubin 0.3mg/dL (0.0-0.2) Aspartate Amino Transf (AST/SGOT) 16U/L (15-37) 13U/L (15-37) Alanine Aminotransferase (ALT/SGPT) 19U/L (16-63) 18U/L (16-63) Alkaline Phosphatase 68U/L (46-116) 57U/L (46-116) Creatine Kinase 129U/L (39-308) Creatine Kinase MB (Mass) < 0.5ng/mL (0.0-3.6) Creatine Kinase MB Relative Index % (0-4) Troponin I Quantitative < 0.017ng/mL (0.000-0.055) < 0.017ng/mL (0.000-0.055) JI-Fdf-V-Type Natriuretic Peptide 1423pg/mL (0-124) Total Protein 7.8g/dL (6.4-8.2) 6.4g/dL (6.4-8.2) Albumin 3.6g/dL (3.4-5.0) 3.1g/dL (3.4-5.0) Influenza Type A Antigen Negative (NEGATIVE) Influenza Type B Antigen Negative (NEGATIVE) BUN/Creatinine Ratio 15 (6-20) Albumin/Globulin Ratio 0.9 (1.0-1.7) Triglycerides Level 35mg/dL (0-150) Cholesterol Level 127mg/dL (0-200) LDL Cholesterol, Calculated 70mg/dL (0-100) VLDL Cholesterol, Calculated 7mg/dL (0-40) HDL Cholesterol 50mg/dL (40-60) Cholesterol/HDL Ratio 2.5 Test 05/17/16 04:22 05/17/16 08:45 Urine Collection Type Unknown Urine Color [place] Urine Clarity Clear Urine pH 6.0 Urine Specific [place] >=1.030 Urine Protein 30mg/dL (NEG-TRACE) Urine Glucose (UA) Negativemg/dL (NEG) Urine Ketones (Stick) Negativemg/dL (NEG) Urine Blood Trace (NEG) Urine Nitrite Negative (NEG) Urine Bilirubin Small (NEG) Urine Urobilinogen Dipstick 2.0mg/dL (0.2 mg/dL) Urine Leukocyte Esterase Negative (NEG) Urine RBC 6-10/HPF (0-2) Urine WBC 1-4/HPF (0-4) Urine Squamous Epithelial Cells Few/LPF Urine Bacteria 0/HPF (0-FEW) Urine Mucus Mod/LPF Magnesium Level 2.1mg/dL (1.8-2.4) Troponin I Quantitative < 0.017ng/mL (0.000-0.055) Thyroid Stimulating Hormone (TSH) 1.231uIU/mL (0.358-3.74) Laboratory Tests Test 05/16/16 15:30 05/16/16 15:35 05/16/16 21:16 05/17/16 04:20 White Blood Count 12.6x10^3/uL (4.0-11.0) 12.8x10^3/uL (4.0-11.0) Red Blood Count 5.12x10^6/uL (4.30-5.70) 4.66x10^6/uL (4.30-5.70) Hemoglobin 15.4g/dL (13.0-17.5) 13.8g/dL (13.0-17.5) Hematocrit 45.7% (39.0-53.0) 42.1% (39.0-53.0) Mean Corpuscular Volume 89fL (79-100) 90fL (79-100) Mean Corpuscular Hemoglobin 30pg (25-35) 30pg (25-35) Mean Corpuscular Hemoglobin Concent 34g/dL (31-37) 33g/dL (31-37) Red Cell Distribution Width 13.4% (11.5-14.5) 13.9% (11.5-14.5) Platelet Count 177x10^3/uL (140-400) 155x10^3/uL (140-400) Neutrophils (%) (Auto) 77% (31-73) 74% (31-73) Lymphocytes (%) (Auto) 11% (24-48) 13% (24-48) Monocytes (%) (Auto) 12% (0-9) 12% (0-9) Eosinophils (%) (Auto) 0% (0-3) 0% (0-3) Basophils (%) (Auto) 0% (0-3) 0% (0-3) Neutrophils # (Auto) 9.7x10^3uL (1.8-7.7) 9.5x10^3uL (1.8-7.7) Lymphocytes # (Auto) 1.4x10^3/uL (1.0-4.8) 1.6x10^3/uL (1.0-4.8) Monocytes # (Auto) 1.5x10^3/uL (0.0-1.1) 1.6x10^3/uL (0.0-1.1) Eosinophils # (Auto) 0.1x10^3/uL (0.0-0.7) 0.0x10^3/uL (0.0-0.7) Basophils # (Auto) 0.0x10^3/uL (0.0-0.2) 0.0x10^3/uL (0.0-0.2) Sodium Level 141mmol/L (136-145) 141mmol/L (136-145) Potassium Level 3.8mmol/L (3.5-5.1) 4.2mmol/L (3.5-5.1) Chloride Level 102mmol/L (98-107) 103mmol/L (98-107) Carbon Dioxide Level 32mmol/L (21-32) 27mmol/L (21-32) Anion Gap 7 (6-14) 11 (6-14) Blood Urea Nitrogen 18mg/dL (8-26) 22mg/dL (8-26) Creatinine 1.4mg/dL (0.7-1.3) 1.5mg/dL (0.7-1.3) Estimated GFR (Cockcroft-Gault) 64.9 59.9 Glucose Level 125mg/dL (70-99) 102mg/dL (70-99) Calcium Level 9.0mg/dL (8.5-10.1) 8.4mg/dL (8.5-10.1) Magnesium Level 2.0mg/dL (1.8-2.4) Total Bilirubin 1.7mg/dL (0.2-1.0) 1.8mg/dL (0.2-1.0) Direct Bilirubin 0.3mg/dL (0.0-0.2) Aspartate Amino Transf (AST/SGOT) 16U/L (15-37) 13U/L (15-37) Alanine Aminotransferase (ALT/SGPT) 19U/L (16-63) 18U/L (16-63) Alkaline Phosphatase 68U/L (46-116) 57U/L (46-116) Creatine Kinase 129U/L (39-308) Creatine Kinase MB (Mass) < 0.5ng/mL (0.0-3.6) Creatine Kinase MB Relative Index % (0-4) Troponin I Quantitative < 0.017ng/mL (0.000-0.055) < 0.017ng/mL (0.000-0.055) EE-Oah-M-Type Natriuretic Peptide 1423pg/mL (0-124) Total Protein 7.8g/dL (6.4-8.2) 6.4g/dL (6.4-8.2) Albumin 3.6g/dL (3.4-5.0) 3.1g/dL (3.4-5.0) Influenza Type A Antigen Negative (NEGATIVE) Influenza Type B Antigen Negative (NEGATIVE) BUN/Creatinine Ratio 15 (6-20) Albumin/Globulin Ratio 0.9 (1.0-1.7) Triglycerides Level 35mg/dL (0-150) Cholesterol Level 127mg/dL (0-200) LDL Cholesterol, Calculated 70mg/dL (0-100) VLDL Cholesterol, Calculated 7mg/dL (0-40) HDL Cholesterol 50mg/dL (40-60) Cholesterol/HDL Ratio 2.5 Test 05/17/16 04:22 05/17/16 08:45 Urine Collection Type Unknown Urine Color [place] Urine Clarity Clear Urine pH 6.0 Urine Specific [place] >=1.030 Urine Protein 30mg/dL (NEG-TRACE) Urine Glucose (UA) Negativemg/dL (NEG) Urine Ketones (Stick) Negativemg/dL (NEG) Urine Blood Trace (NEG) Urine Nitrite Negative (NEG) Urine Bilirubin Small (NEG) Urine Urobilinogen Dipstick 2.0mg/dL (0.2 mg/dL) Urine Leukocyte Esterase Negative (NEG) Urine RBC 6-10/HPF (0-2) Urine WBC 1-4/HPF (0-4) Urine Squamous Epithelial Cells Few/LPF Urine Bacteria 0/HPF (0-FEW) Urine Mucus Mod/LPF Magnesium Level 2.1mg/dL (1.8-2.4) Troponin I Quantitative < 0.017ng/mL (0.000-0.055) Thyroid Stimulating Hormone (TSH) 1.231uIU/mL (0.358-3.74) Images Images - Chest: Unchanged appearance of the Amol a thoracic aortic dissection when compared to the previous exam from 07/14/2014. The true lumen supplies the great vessels. No significant change in size of the thoracic aortic diameter. - Abdomen pelvis: Stable size and appearance of the abdominal aortic dissection. The true lumen supplies the celiac, SMA, and bilateral renal arteries. No focal aneurysmal dilatation. - No ascites or inflammatory mass JERARDO TINAJERO MD May 17, 2016 11:16
[2016-05-17] MEDS ORDERED: MAGNESIUM SULFATE 2GM 50 ML IV PRN (11:30)
--- NOTE | 2016-05-17 12:50 | RAD ---
Indication transient left unilateral weakness. Axial images through the head were obtained and are compared to a study 06/28/2010. The calvarium appears unremarkable. The visualized paranasal sinuses appear normal. There is no subdural or epidural hematoma. The ventricles and sulci appear normal. No mass or midline shift is seen. An acute finding is not apparent. IMPRESSION: No acute or significant finding seen in the head PQRS Compliance Statement: One or more of the following individualized dose reduction techniques were utilized for this examination: 1. Automated exposure control 2. Adjustment of the mA and/or kV according to patient size 3. Use of iterative reconstruction technique
--- NOTE | 2016-05-17 13:25 | RAD ---
Indication right upper quadrant pain. Grayscale imaging was obtained and targeted to the right upper quadrant. No similar imaging is available. The liver appears unremarkable. The gallbladder appears normal. The common bile duct diameter of approximately 5 mm is normal. The visualized pancreas appears normal. The right kidney appears unremarkable. The visualized inferior vena cava appeared normal. IMPRESSION: Normal right upper quadrant abdominal ultrasound exam
--- NOTE | 2016-05-17 14:31 | PDOC ---
PROGRESS NOTES Chief Complaint Chief Complaint chest pain, w/ diaphoresis angina, hx aortic dissection Creatinine 1.4, consider CKD 2, or KORY History of Present Illness History of Present Illness feels well hoping to DC soon MPI today Vitals Vitals Vital Signs Date Time Temp Pulse Resp B/P Pulse Ox O2 Delivery O2 Flow Rate FiO2 05/17/16 11:04 99.0 69 20 160/88 98 Nasal Cannula 2.0 99.0 Physical Exam General: Alert, Oriented X3, Cooperative, No acute distress Heart: Regular rate Lungs: Clear Abdomen: Normal bowel sounds, Soft, No tenderness, No hepatosplenomegaly Extremities: No clubbing, No edema, Normal pulses Skin: No rashes, No significant lesion Labs LABS Laboratory Tests Test 05/16/16 15:30 05/16/16 15:35 05/16/16 21:16 05/17/16 04:20 White Blood Count 12.6x10^3/uL (4.0-11.0) 12.8x10^3/uL (4.0-11.0) Red Blood Count 5.12x10^6/uL (4.30-5.70) 4.66x10^6/uL (4.30-5.70) Hemoglobin 15.4g/dL (13.0-17.5) 13.8g/dL (13.0-17.5) Hematocrit 45.7% (39.0-53.0) 42.1% (39.0-53.0) Mean Corpuscular Volume 89fL (79-100) 90fL (79-100) Mean Corpuscular Hemoglobin 30pg (25-35) 30pg (25-35) Mean Corpuscular Hemoglobin Concent 34g/dL (31-37) 33g/dL (31-37) Red Cell Distribution Width 13.4% (11.5-14.5) 13.9% (11.5-14.5) Platelet Count 177x10^3/uL (140-400) 155x10^3/uL (140-400) Neutrophils (%) (Auto) 77% (31-73) 74% (31-73) Lymphocytes (%) (Auto) 11% (24-48) 13% (24-48) Monocytes (%) (Auto) 12% (0-9) 12% (0-9) Eosinophils (%) (Auto) 0% (0-3) 0% (0-3) Basophils (%) (Auto) 0% (0-3) 0% (0-3) Neutrophils # (Auto) 9.7x10^3uL (1.8-7.7) 9.5x10^3uL (1.8-7.7) Lymphocytes # (Auto) 1.4x10^3/uL (1.0-4.8) 1.6x10^3/uL (1.0-4.8) Monocytes # (Auto) 1.5x10^3/uL (0.0-1.1) 1.6x10^3/uL (0.0-1.1) Eosinophils # (Auto) 0.1x10^3/uL (0.0-0.7) 0.0x10^3/uL (0.0-0.7) Basophils # (Auto) 0.0x10^3/uL (0.0-0.2) 0.0x10^3/uL (0.0-0.2) Sodium Level 141mmol/L (136-145) 141mmol/L (136-145) Potassium Level 3.8mmol/L (3.5-5.1) 4.2mmol/L (3.5-5.1) Chloride Level 102mmol/L (98-107) 103mmol/L (98-107) Carbon Dioxide Level 32mmol/L (21-32) 27mmol/L (21-32) Anion Gap 7 (6-14) 11 (6-14) Blood Urea Nitrogen 18mg/dL (8-26) 22mg/dL (8-26) Creatinine 1.4mg/dL (0.7-1.3) 1.5mg/dL (0.7-1.3) Estimated GFR (Cockcroft-Gault) 64.9 59.9 Glucose Level 125mg/dL (70-99) 102mg/dL (70-99) Calcium Level 9.0mg/dL (8.5-10.1) 8.4mg/dL (8.5-10.1) Magnesium Level 2.0mg/dL (1.8-2.4) Total Bilirubin 1.7mg/dL (0.2-1.0) 1.8mg/dL (0.2-1.0) Direct Bilirubin 0.3mg/dL (0.0-0.2) Aspartate Amino Transf (AST/SGOT) 16U/L (15-37) 13U/L (15-37) Alanine Aminotransferase (ALT/SGPT) 19U/L (16-63) 18U/L (16-63) Alkaline Phosphatase 68U/L (46-116) 57U/L (46-116) Creatine Kinase 129U/L (39-308) Creatine Kinase MB (Mass) < 0.5ng/mL (0.0-3.6) Creatine Kinase MB Relative Index % (0-4) Troponin I Quantitative < 0.017ng/mL (0.000-0.055) < 0.017ng/mL (0.000-0.055) TE-Twn-C-Type Natriuretic Peptide 1423pg/mL (0-124) Total Protein 7.8g/dL (6.4-8.2) 6.4g/dL (6.4-8.2) Albumin 3.6g/dL (3.4-5.0) 3.1g/dL (3.4-5.0) Influenza Type A Antigen Negative (NEGATIVE) Influenza Type B Antigen Negative (NEGATIVE) BUN/Creatinine Ratio 15 (6-20) Albumin/Globulin Ratio 0.9 (1.0-1.7) Triglycerides Level 35mg/dL (0-150) Cholesterol Level 127mg/dL (0-200) LDL Cholesterol, Calculated 70mg/dL (0-100) VLDL Cholesterol, Calculated 7mg/dL (0-40) HDL Cholesterol 50mg/dL (40-60) Cholesterol/HDL Ratio 2.5 Test 05/17/16 04:22 05/17/16 08:45 Urine Collection Type Unknown Urine Color [place] Urine Clarity Clear Urine pH 6.0 Urine Specific [place] >=1.030 Urine Protein 30mg/dL (NEG-TRACE) Urine Glucose (UA) Negativemg/dL (NEG) Urine Ketones (Stick) Negativemg/dL (NEG) Urine Blood Trace (NEG) Urine Nitrite Negative (NEG) Urine Bilirubin Small (NEG) Urine Urobilinogen Dipstick 2.0mg/dL (0.2 mg/dL) Urine Leukocyte Esterase Negative (NEG) Urine RBC 6-10/HPF (0-2) Urine WBC 1-4/HPF (0-4) Urine Squamous Epithelial Cells Few/LPF Urine Bacteria 0/HPF (0-FEW) Urine Mucus Mod/LPF Magnesium Level 2.1mg/dL (1.8-2.4) Troponin I Quantitative < 0.017ng/mL (0.000-0.055) Thyroid Stimulating Hormone (TSH) 1.231uIU/mL (0.358-3.74) Review of Systems Review of Systems no n.v.d no pain today Assessment and Plan Assessmemt and Plan MPI today renal following vasomotor or KORY or CKD 3, unsure Problems Medical Problems: (1) Angina at rest Status: Acute (2) Chest pain Status: Acute (3) Hypertension Status: Acute Problems: Comment Review of Relevant I have reviewed the following items josh (where applicable) has been applied. Labs Laboratory Tests Test 05/16/16 15:30 05/16/16 15:35 05/16/16 21:16 05/17/16 04:20 White Blood Count 12.6x10^3/uL (4.0-11.0) 12.8x10^3/uL (4.0-11.0) Red Blood Count 5.12x10^6/uL (4.30-5.70) 4.66x10^6/uL (4.30-5.70) Hemoglobin 15.4g/dL (13.0-17.5) 13.8g/dL (13.0-17.5) Hematocrit 45.7% (39.0-53.0) 42.1% (39.0-53.0) Mean Corpuscular Volume 89fL (79-100) 90fL (79-100) Mean Corpuscular Hemoglobin 30pg (25-35) 30pg (25-35) Mean Corpuscular Hemoglobin Concent 34g/dL (31-37) 33g/dL (31-37) Red Cell Distribution Width 13.4% (11.5-14.5) 13.9% (11.5-14.5) Platelet Count 177x10^3/uL (140-400) 155x10^3/uL (140-400) Neutrophils (%) (Auto) 77% (31-73) 74% (31-73) Lymphocytes (%) (Auto) 11% (24-48) 13% (24-48) Monocytes (%) (Auto) 12% (0-9) 12% (0-9) Eosinophils (%) (Auto) 0% (0-3) 0% (0-3) Basophils (%) (Auto) 0% (0-3) 0% (0-3) Neutrophils # (Auto) 9.7x10^3uL (1.8-7.7) 9.5x10^3uL (1.8-7.7) Lymphocytes # (Auto) 1.4x10^3/uL (1.0-4.8) 1.6x10^3/uL (1.0-4.8) Monocytes # (Auto) 1.5x10^3/uL (0.0-1.1) 1.6x10^3/uL (0.0-1.1) Eosinophils # (Auto) 0.1x10^3/uL (0.0-0.7) 0.0x10^3/uL (0.0-0.7) Basophils # (Auto) 0.0x10^3/uL (0.0-0.2) 0.0x10^3/uL (0.0-0.2) Sodium Level 141mmol/L (136-145) 141mmol/L (136-145) Potassium Level 3.8mmol/L (3.5-5.1) 4.2mmol/L (3.5-5.1) Chloride Level 102mmol/L (98-107) 103mmol/L (98-107) Carbon Dioxide Level 32mmol/L (21-32) 27mmol/L (21-32) Anion Gap 7 (6-14) 11 (6-14) Blood Urea Nitrogen 18mg/dL (8-26) 22mg/dL (8-26) Creatinine 1.4mg/dL (0.7-1.3) 1.5mg/dL (0.7-1.3) Estimated GFR (Cockcroft-Gault) 64.9 59.9 Glucose Level 125mg/dL (70-99) 102mg/dL (70-99) Calcium Level 9.0mg/dL (8.5-10.1) 8.4mg/dL (8.5-10.1) Magnesium Level 2.0mg/dL (1.8-2.4) Total Bilirubin 1.7mg/dL (0.2-1.0) 1.8mg/dL (0.2-1.0) Direct Bilirubin 0.3mg/dL (0.0-0.2) Aspartate Amino Transf (AST/SGOT) 16U/L (15-37) 13U/L (15-37) Alanine Aminotransferase (ALT/SGPT) 19U/L (16-63) 18U/L (16-63) Alkaline Phosphatase 68U/L (46-116) 57U/L (46-116) Creatine Kinase 129U/L (39-308) Creatine Kinase MB (Mass) < 0.5ng/mL (0.0-3.6) Creatine Kinase MB Relative Index % (0-4) Troponin I Quantitative < 0.017ng/mL (0.000-0.055) < 0.017ng/mL (0.000-0.055) CQ-Zno-G-Type Natriuretic Peptide 1423pg/mL (0-124) Total Protein 7.8g/dL (6.4-8.2) 6.4g/dL (6.4-8.2) Albumin 3.6g/dL (3.4-5.0) 3.1g/dL (3.4-5.0) Influenza Type A Antigen Negative (NEGATIVE) Influenza Type B Antigen Negative (NEGATIVE) BUN/Creatinine Ratio 15 (6-20) Albumin/Globulin Ratio 0.9 (1.0-1.7) Triglycerides Level 35mg/dL (0-150) Cholesterol Level 127mg/dL (0-200) LDL Cholesterol, Calculated 70mg/dL (0-100) VLDL Cholesterol, Calculated 7mg/dL (0-40) HDL Cholesterol 50mg/dL (40-60) Cholesterol/HDL Ratio 2.5 Test 05/17/16 04:22 05/17/16 08:45 Urine Collection Type Unknown Urine Color [place] Urine Clarity Clear Urine pH 6.0 Urine Specific [place] >=1.030 Urine Protein 30mg/dL (NEG-TRACE) Urine Glucose (UA) Negativemg/dL (NEG) Urine Ketones (Stick) Negativemg/dL (NEG) Urine Blood Trace (NEG) Urine Nitrite Negative (NEG) Urine Bilirubin Small (NEG) Urine Urobilinogen Dipstick 2.0mg/dL (0.2 mg/dL) Urine Leukocyte Esterase Negative (NEG) Urine RBC 6-10/HPF (0-2) Urine WBC 1-4/HPF (0-4) Urine Squamous Epithelial Cells Few/LPF Urine Bacteria 0/HPF (0-FEW) Urine Mucus Mod/LPF Magnesium Level 2.1mg/dL (1.8-2.4) Troponin I Quantitative < 0.017ng/mL (0.000-0.055) Thyroid Stimulating Hormone (TSH) 1.231uIU/mL (0.358-3.74) Laboratory Tests Test 05/16/16 15:30 05/16/16 15:35 05/16/16 21:16 05/17/16 04:20 White Blood Count 12.6x10^3/uL (4.0-11.0) 12.8x10^3/uL (4.0-11.0) Red Blood Count 5.12x10^6/uL (4.30-5.70) 4.66x10^6/uL (4.30-5.70) Hemoglobin 15.4g/dL (13.0-17.5) 13.8g/dL (13.0-17.5) Hematocrit 45.7% (39.0-53.0) 42.1% (39.0-53.0) Mean Corpuscular Volume 89fL (79-100) 90fL (79-100) Mean Corpuscular Hemoglobin 30pg (25-35) 30pg (25-35) Mean Corpuscular Hemoglobin Concent 34g/dL (31-37) 33g/dL (31-37) Red Cell Distribution Width 13.4% (11.5-14.5) 13.9% (11.5-14.5) Platelet Count 177x10^3/uL (140-400) 155x10^3/uL (140-400) Neutrophils (%) (Auto) 77% (31-73) 74% (31-73) Lymphocytes (%) (Auto) 11% (24-48) 13% (24-48) Monocytes (%) (Auto) 12% (0-9) 12% (0-9) Eosinophils (%) (Auto) 0% (0-3) 0% (0-3) Basophils (%) (Auto) 0% (0-3) 0% (0-3) Neutrophils # (Auto) 9.7x10^3uL (1.8-7.7) 9.5x10^3uL (1.8-7.7) Lymphocytes # (Auto) 1.4x10^3/uL (1.0-4.8) 1.6x10^3/uL (1.0-4.8) Monocytes # (Auto) 1.5x10^3/uL (0.0-1.1) 1.6x10^3/uL (0.0-1.1) Eosinophils # (Auto) 0.1x10^3/uL (0.0-0.7) 0.0x10^3/uL (0.0-0.7) Basophils # (Auto) 0.0x10^3/uL (0.0-0.2) 0.0x10^3/uL (0.0-0.2) Sodium Level 141mmol/L (136-145) 141mmol/L (136-145) Potassium Level 3.8mmol/L (3.5-5.1) 4.2mmol/L (3.5-5.1) Chloride Level 102mmol/L (98-107) 103mmol/L (98-107) Carbon Dioxide Level 32mmol/L (21-32) 27mmol/L (21-32) Anion Gap 7 (6-14) 11 (6-14) Blood Urea Nitrogen 18mg/dL (8-26) 22mg/dL (8-26) Creatinine 1.4mg/dL (0.7-1.3) 1.5mg/dL (0.7-1.3) Estimated GFR (Cockcroft-Gault) 64.9 59.9 Glucose Level 125mg/dL (70-99) 102mg/dL (70-99) Calcium Level 9.0mg/dL (8.5-10.1) 8.4mg/dL (8.5-10.1) Magnesium Level 2.0mg/dL (1.8-2.4) Total Bilirubin 1.7mg/dL (0.2-1.0) 1.8mg/dL (0.2-1.0) Direct Bilirubin 0.3mg/dL (0.0-0.2) Aspartate Amino Transf (AST/SGOT) 16U/L (15-37) 13U/L (15-37) Alanine Aminotransferase (ALT/SGPT) 19U/L (16-63) 18U/L (16-63) Alkaline Phosphatase 68U/L (46-116) 57U/L (46-116) Creatine Kinase 129U/L (39-308) Creatine Kinase MB (Mass) < 0.5ng/mL (0.0-3.6) Creatine Kinase MB Relative Index % (0-4) Troponin I Quantitative < 0.017ng/mL (0.000-0.055) < 0.017ng/mL (0.000-0.055) HP-Ttt-Y-Type Natriuretic Peptide 1423pg/mL (0-124) Total Protein 7.8g/dL (6.4-8.2) 6.4g/dL (6.4-8.2) Albumin 3.6g/dL (3.4-5.0) 3.1g/dL (3.4-5.0) Influenza Type A Antigen Negative (NEGATIVE) Influenza Type B Antigen Negative (NEGATIVE) BUN/Creatinine Ratio 15 (6-20) Albumin/Globulin Ratio 0.9 (1.0-1.7) Triglycerides Level 35mg/dL (0-150) Cholesterol Level 127mg/dL (0-200) LDL Cholesterol, Calculated 70mg/dL (0-100) VLDL Cholesterol, Calculated 7mg/dL (0-40) HDL Cholesterol 50mg/dL (40-60) Cholesterol/HDL Ratio 2.5 Test 05/17/16 04:22 05/17/16 08:45 Urine Collection Type Unknown Urine Color [place] Urine Clarity Clear Urine pH 6.0 Urine Specific [place] >=1.030 Urine Protein 30mg/dL (NEG-TRACE) Urine Glucose (UA) Negativemg/dL (NEG) Urine Ketones (Stick) Negativemg/dL (NEG) Urine Blood Trace (NEG) Urine Nitrite Negative (NEG) Urine Bilirubin Small (NEG) Urine Urobilinogen Dipstick 2.0mg/dL (0.2 mg/dL) Urine Leukocyte Esterase Negative (NEG) Urine RBC 6-10/HPF (0-2) Urine WBC 1-4/HPF (0-4) Urine Squamous Epithelial Cells Few/LPF Urine Bacteria 0/HPF (0-FEW) Urine Mucus Mod/LPF Magnesium Level 2.1mg/dL (1.8-2.4) Troponin I Quantitative < 0.017ng/mL (0.000-0.055) Thyroid Stimulating Hormone (TSH) 1.231uIU/mL (0.358-3.74) Medications Current Medications Hydralazine HCl (Apresoline) 10 mg 1X ONCE IVP Last administered on 05/16/16 17:09; Start 05/16/16 at 16:45; Stop 05/16/16 at 16:46; Status DC Iohexol (Omnipaque 300 Mg/ml) 75 ml 1X ONCE IV ; Start 05/16/16 at 17:00; Stop 05/16/16 at 17:01; Status DC Info (Do NOT chart on this entry -- for MONITORING) 1 each PRN DAILY PRN MC SEE COMMENTS; Start 05/16/16 at 17:00; Stop 05/18/16 at 16:59 Iohexol (Omnipaque 350 Mg/ml) 90 ml 1X ONCE IV Last administered on 05/16/16 17:33; Start 05/16/16 at 17:30; Stop 05/16/16 at 17:31; Status DC Clonidine HCl (Catapres) 0.2 mg 1X ONCE PO Last administered on 05/16/16 18:43 ; Start 05/16/16 at 18:30; Stop 05/16/16 at 18:31; Status DC Acetaminophen/ Hydrocodone Bitart 1 tab 1 tab 1X ONCE PO Last administered on 05/16/16 18:46; Start 05/16/16 at 18:45; Stop 05/16/16 at 18:46; Status DC Sodium Chloride (Iv Sodium Chloride 0.9% 1000ml Bag) 1,000 ml @ 100 mls/hr Q10H IV Last administered on 05/17/16 08:38; Start 05/16/16 at 20:49; Stop at 20:48 Acetaminophen (Tylenol) 325 mg PRN Q6HRS PRN PO pain; Start 05/16/16 at 22:45 Hydrochlorothiazide (Hydrodiuril) 25 mg DAILY PO Last administered on 05/17/16 08:38; Start 05/17/16 at 09:00; Stop 05/17/16 at 11:35; Status DC Lisinopril (Prinivil) 40 mg DAILY PO Last administered on 05/17/16 08:38; Start 05/17/16 at 09:00 Metoprolol Succinate (Toprol Xl) 50 mg DAILY PO Last administered on 05/17/16 08:39; Start 05/17/16 at 09:00 Info (Do NOT chart on this placeholder) 1 each 1X ONCE MC ; Start 05/17/16 at 09 :00; Stop 05/17/16 at 09:01; Status UNV Influenza Virus Vaccine Quadrival (Fluarix Quad [id number] Syringe) 0.5 ml ONCE ONCE VAX IM ; Start 05/17/16 at 09:00; Stop 05/17/16 at 09:01; Status DC Regadenoson (Lexiscan) 0.4 mg 1X ONCE IV Last administered on 05/17/16 12:31; Start 05/17/16 at 11:00; Stop 05/17/16 at 11:01; Status DC Aspirin 81 mg 81 mg DAILYWBKFT PO ; Start 05/17/16 at 11:30 Magnesium Sulfate/ Dextrose (Magnesium Sulfate PREMIX 2GM) 50 ml @ 25 mls/hr PRN DAILY PRN IV for Mag < 1.7 on am labs; Start 05/17/16 at 11:30 Active Scripts Active Clonidine Hcl 0.1 Mg Tablet 0.1 Mg PO BID For high blood pressure Take this with the other medicines you are already taking Reported Hydrochlorothiazide Tablet (Hydrochlorothiazide) 25 Mg Tablet 25 Mg PO DAILY Toprol Xl (Metoprolol Succinate) 50 Mg Tab.er.24h 50 Mg PO DAILY Lisinopril 40 Mg Tablet 40 Mg PO DAILY Viagra (Sildenafil Citrate) 50 Mg Tablet 50 Mg PO ONCE Tylenol (Acetaminophen) 325 Mg Tablet 325 Mg PO Vitals/I & O Vital Sign - Last 24 Hours 05/16/16 05/16/16 05/16/16 05/16/16 15:18 17:09 17:10 18:15 Temp 98.4 98.4 Pulse 57 90 91 92 Resp 24 22 22 B/P 229/108 222/117 190/114 209/101 Pulse Ox 94 98 95 O2 Delivery Room Air Room Air Room Air 05/16/16 05/16/16 05/16/16 05/16/16 18:43 18:46 19:15 19:21 Pulse 98 93 94 Resp 22 18 18 B/P 209/101 196/101 197/101 Pulse Ox 96 96 O2 Delivery Room Air Room Air 05/16/16 05/16/16 05/16/16 05/16/16 19:30 19:45 20:00 20:14 Pulse 89 82 81 77 Resp 22 18 18 B/P 187/88 174/89 163/76 138/58 Pulse Ox 96 96 95 93 O2 Delivery Room Air Room Air Room Air Room Air 05/16/16 05/16/16 05/16/16 05/16/16 20:16 20:20 20:46 21:16 Pulse 77 88 86 Resp 18 B/P 121/74 130/81 168/97 151/77 Pulse Ox 93 90 94 O2 Delivery Room Air Room Air Nasal Cannula O2 Flow Rate 2 05/16/16 05/16/16 05/16/16 05/16/16 21:46 22:16 22:45 22:45 Temp 97.7 97.7 97.7 97.7 Pulse 72 72 72 72 Resp 18 18 16 16 B/P 117/61 117/66 127/70 127/70 Pulse Ox 94 95 97 97 O2 Delivery Nasal Cannula Nasal Cannula Nasal Cannula Nasal Cannula O2 Flow Rate 2 2 2.0 2.0 05/17/16 05/17/16 05/17/16 05/17/16 03:27 07:15 08:15 08:38 Temp 98.4 98.8 98.4 98.8 Pulse 69 70 70 Resp 20 18 B/P 140/72 147/83 147/83 Pulse Ox 98 98 O2 Delivery Nasal Cannula Nasal Cannula Nasal Cannula O2 Flow Rate 2.0 2.0 2.0 05/17/16 05/17/16 08:39 11:04 Temp 99.0 99.0 Pulse 70 69 Resp 20 B/P 147/83 160/88 Pulse Ox 98 O2 Delivery Nasal Cannula O2 Flow Rate 2.0 Intake and Output 05/16/16 05/16/16 05/17/16 15:00 23:00 07:00 Intake Total 300 ml Balance 300 ml KANDICE SPENCER MD May 17, 2016 14:31
--- NOTE | 2016-05-17 14:57 | RAD ---
APPROVED REPORT Test Type: Pharmacological Stress Nurse/Tech: SANDRA Sandoval RN Test Indications: Chest pain Cardiac History: Aorta repair, HTN, see EHR Medications: see EHR Medical History: see EHR Resting ECG: SR twave inversion/biphasic in Inferolateral leads Resting Heart Rate: 75 bpm Resting Blood Pressure: 169/91mmHg Pretest Chest Pain: No chest pain Nurse/Tech Notes Lungs CTA, heart tones WNL Consent: The procedure was explained to the patient in lay terms. Informed consent was witnessed. Perez eout was entered into [employer]. History and Stress Test performed by RT Crista (Taye) (N) Pharm. Details Pharmacologic stress testing was performed using 0.4mg per 5ml of regadenoson given intravenously ove r 7-10 seconds. Stress Symptoms No chest pain, c/o dizziness. POST EXERCISE Reason for Termination: Infusion complete Max HR: 103 bpm 71% of Maximum Predicted HR: 144 bpm Max Blood Pressure: 177/88mmHg Chest Pain: No. Arrhythmia: Yes. PVC's with stress ST Change: No. No change from baseline, II, III, AVF, V5, V6 INTERPRETATION Stress EKG Conclusion: Baseline EKG showed sinus rhythm, LVH with repolarization abnormality. Non di agnostic changes at peak stress. PVC's without any significant arrhythmias. Imaging Protocol IMAGE PROTOCOL: Rest Tc-99m/stress Tc-99m 1 day Rest: Stress: Viability: Radiopharm.Tc99m IclyeshiqBv17u Sestamibi Dvaa60xBl 35mCi Duration 20min. 15min. Img Date 05/17/2016 05/17/2016 Inj-Img [id number]. 90min. Rest Admin Site:IV - Left AntecubitalAdministrator:RT Crista (R)(N) Stress Admin Site: IV - Left AntecubitalAdministrator: RT Donato (Taye)(N) STRESS DATA End Diast. Vol.257.0mlAv. Heart Rate84.0bpm LVEDV index BSA4.0mlCardiac Output0.1L/min End Syst. Vol.149.0mlCO Index BSA9.0L/min LVESV index BSA2.0mlMyocardial Bhey637.0g Eject. Exlzxdez99.0% Stress Rates Pk. Fill Rate2.19EDV/secLVtime Pk. Fill 163.14msec Pk. Empty Rate2.70ESV/secLVtime Pk. Dzhpd090.64msec 1/3 Pk. Fill1.08EDV/sec Stress Scores Regional WT3.00Summed WT34.00 Regional WM0.00Summed WM18.00 Study quality was good. Left Ventricular size was Normal at Rest and Stress. Lung uptake was Normal. Left Ventricular ejection fraction is 55%. LV Perfusion Scintigraphic images did not show any significant fixed or reversible defects. Wall Motion Abnormal septal motion with ejection fraction 55%. LV Perf. Quant 17 Seg. SSS6.00 17 Seg. SRS6.00 17 Seg. SDS4.00 Stress Defect Extent (% LAD)0.00Rest Defect Extent (% LAD)26.30Rev. Defect Extent (% LAD)0.00 Stress Defect Extent (% LCX) 32.50Rest Defect Extent (% LCX)35.00Rev. Defect Extent (% LCX)32.50 Stress Defect Extent (% RCA)11.10Rest Defect Extent (% RCA)4.40Rev. Defect Extent (% RCA)11.10 Stress Defect Extent (% KESHAV)9.10Rest Defect Extent (% KESHAV)19.10Rev. Defect Extent (% KESHAV)9.10 Conclusion 1. Regadenoson cardioisotope stress test did not show any evidence of ischemia or infarct. 2. Abnormal septal motion with ejection fraction 55%. 3. Low risk for cardiac events.
[2016-05-17] MEDS: ASPIRIN ENTERIC COATED 81 MG TABLET.DR. PO SCH (15:09)
[2016-05-17 15:15] VITALS: BP 159/86
--- NOTE | 2016-05-17 17:12 | CARD ---
APPROVED REPORT EXAM: Two-dimensional and M-mode echocardiogram with Doppler and color Doppler. Other Information Quality : Average Rhythm : NSR INDICATION Chest Pain history of thoracic aortic dissection 2D DIMENSIONS RVDd2.5 (2.9-3.5cm)Left Atrium(2D)3.2 (1.6-4.0cm) IVSd1.7 (0.7-1.1cm)Aortic Root(2D)3.5 (2.0-3.7cm) LVDd5.6 (3.9-5.9cm)LVOT Diameter2.3 (1.8-2.4cm) PWd1.7 (0.7-1.1cm)LVDs4.1 (2.5-4.0cm) FS (%) 27.1 %SV80.1 ml LVEF(%)52.2 (>50%) Aortic Valve AoV Peak Mainor.143.3cm/sAoV VTI31.3cm AO Peak GR.8.2mmHgLVOT Peak Mainor.88.9cm/s AO Mean GR.5mmHgAVA (VMAX)2.57cm2 MONTEZ (VTI)2.80dq5EM P 1/2 Vuxn830cm Mitral Valve MV E Cquqwhqb49.6cm/sMV E Peak Gr.4mmHg MV DECEL [id number] A Wlwvjzkm63.7cm/s MV E Mean Gr.2mmHgMV CJX37pz E/A Ratio1.2MV A Rtjbqcmi836rt MVA (PHT)4.56cm2 Tricuspid Valve TR P. Qrrtqebf874vd/sRAP OINTCDLJ6wmOc TR Peak Gr.97teBuKJWC16jmZy LEFT VENTRICLE The left ventricle is normal size. There is moderate concentric left ventricular hypertrophy. Left ve ntricle systolic function is normal. The Ejection Fraction is 55%. There is normal LV segmental wall motion. The left ventricular diastolic function and filling is normal for age. RIGHT VENTRICLE The right ventricle is normal size. The right ventricular systolic function is normal. ATRIA The left atrium size is normal. The right atrium size is normal. The interatrial septum is intact wit h no evidence for an atrial septal defect or patent foramen ovale as noted on 2-D or Doppler imaging. AORTIC VALVE The aortic valve is normal in structure and function. The aortic valve is trileaflet. Doppler and Col or Flow revealed mild aortic regurgitation. There is no significant aortic valvular stenosis. MITRAL VALVE The mitral valve is normal in structure and function. There is no mitral valve stenosis. Doppler and Color Flow revealed no mitral valve regurgitation noted. TRICUSPID VALVE The tricuspid valve is normal in structure and function. Doppler and Color Flow revealed trace tricus pid regurgitation. The PA pressure was estimated at 23 mmHg. There is no tricuspid valve stenosis. PULMONIC VALVE The pulmonic valve is not well visualized. Doppler and Color Flow revealed no pulmonic valvular regur gitation. There is no pulmonic valvular stenosis. GREAT VESSELS The aortic root is normal in size. The IVC is normal in size and collapses >50% with inspiration. PERICARDIAL EFFUSION There is no evidence of significant pericardial effusion. Critical Notification Critical Value: No <Conclusion> Left ventricle systolic function is normal. The Ejection Fraction is 55%. There is normal LV segmental wall motion. Mild aortic regurgitation. Trace tricuspid regurgitation. The PA pressure was estimated at 23 mmHg. There is no evidence of significant pericardial effusion.
[2016-05-17 19:20] VITALS: BP 175/98
[2016-05-17] MEDS ORDERED: ZOLPIDEM 5 MG TABLET. PO PRN (22:00)
[2016-05-17 23:31] VITALS: BP 188/80
[2016-05-18 03:23] VITALS: BP 179/104
[2016-05-18 05:53] LABS: ALBUMIN 3.2 g/dL (3.4-5.0); CALCIUM 8.5 mg/dL (8.5-10.1); CREATININE 1.3 mg/dL (0.7-1.3); GFR 70.7; PHOSPHORUS 3.1 mg/dL (2.6-4.7); POTASSIUM 3.8 mmol/L (3.5-5.1)
[2016-05-18 07:32] VITALS: BP 161/90
[2016-05-18] MEDS: LISINOPRIL 40 MG TABLET. PO SCH (08:25)
[2016-05-18] MEDS: METOPROLOL SUCC 24HR ER 50 MG TAB.ER.24H. PO SCH (08:25)
[2016-05-18] MEDS: ASPIRIN ENTERIC COATED 81 MG TABLET.DR. PO SCH (08:25)
--- NOTE | 2016-05-18 10:40 | PDOC ---
SUBJECTIVE ROS KORY f/up doing better OBJECTIVE Vital Signs Vital Signs Date Time Temp Pulse Resp B/P Pulse Ox O2 Delivery O2 Flow Rate FiO2 05/18/16 08:25 69 161/90 05/18/16 08:00 Room Air 05/18/16 07:32 98.3 18 96 98.3 05/17/16 11:04 2.0 I & 0 Intake and Output 05/18/16 07:00 Intake Total 3191 ml Output Total 500 ml Balance 2691 ml Intake Oral 1191 ml IV Total 2000 ml Output Urine Total 500 ml # Voids 3 PHYSICAL EXAM Physical Exam General Appearance: Awake: Alert Oriented x 3 Neck: No JVD or JVP Chest: CTA German Heart: S1 S2 Abdomen - Soft NTND Extremities - No Edema DIAGNOSIS/ASSESSMENT Assessment & Plan Kory - Multifactorial (VMN) now resolved. vol depeltion - resolved IVF as Ongoing HTN:defer to cardiology to optimize for CV risk factors Counselled pt re refraining from NSAIDs, hydration and BP watch. RD education mallorie be avail prn - pl call Problems: COMMENT/RELEVANT DATA Meds Current Medications Medications (Trade) Dose Ordered Sig/Daljit Start Time Stop Time Status Last Admin Dose Admin Acetaminophen (Tylenol) 325 mg PRN Q6HRS PRN 05/16/16 22:45 05/18/16 03:06 325 MG Acetaminophen/ Hydrocodone Bitart 1 tab 1 tab 1X ONCE 05/16/16 18:45 05/16/16 18:46 DC 05/16/16 18:46 1 TAB Aspirin 81 mg 81 mg [id number] 05/17/16 11:30 05/18/16 08:25 81 MG Clonidine HCl (Catapres) 0.2 mg 1X ONCE 05/16/16 18:30 05/16/16 18:31 DC 05/16/16 18:43 0.2 MG Hydralazine HCl (Apresoline) 10 mg 1X ONCE 05/16/16 16:45 05/16/16 16:46 DC 05/16/16 17:09 10 MG Hydrochlorothiazide (Hydrodiuril) 25 mg DAILY 05/17/16 09:00 05/17/16 11:35 DC 05/17/16 08:38 25 MG Influenza Virus Vaccine Quadrival (Fluarix Quad [id number] Syringe) 0.5 ml ONCE ONCE 05/17/16 09:00 05/17/16 09:01 DC Info (Do NOT chart on this entry -- for MONITORING) 1 each PRN DAILY PRN 05/16/16 17:00 05/18/16 16:59 Info (Do NOT chart on this placeholder) 1 each 1X ONCE 05/17/16 09:00 05/17/16 09:01 UNV Iohexol (Omnipaque 300 Mg/ml) 75 ml 1X ONCE 05/16/16 17:00 05/16/16 17:01 DC Iohexol (Omnipaque 350 Mg/ml) 90 ml 1X ONCE 05/16/16 17:30 05/16/16 17:31 DC 05/16/16 17:33 90 ML Lisinopril (Prinivil) 40 mg DAILY 05/17/16 09:00 05/18/16 08:25 40 MG Magnesium Sulfate/ Dextrose (Magnesium Sulfate PREMIX 2GM) 50 ml @ 25 mls/hr PRN DAILY PRN 05/17/16 11:30 Metoprolol Succinate (Toprol Xl) 50 mg DAILY 05/17/16 09:00 05/18/16 08:25 50 MG Regadenoson (Lexiscan) 0.4 mg 1X ONCE 05/17/16 11:00 05/17/16 11:01 DC 05/17/16 12:31 0.4 MG Sodium Chloride (Iv Sodium Chloride 0.9% 1000ml Bag) 1,000 ml @ 100 mls/hr Q10H 05/16/16 20:49 05/17/16 20:48 DC 05/17/16 08:38 100 MLS/HR Zolpidem Tartrate (Ambien) 5 mg PRN QHS PRN 05/17/16 22:00 05/17/16 22:16 5 MG Lab Laboratory Tests Test 05/18/16 04:02 Hemoglobin 13.6g/dL (13.0-17.5) Sodium Level 140mmol/L (136-145) Potassium Level 3.8mmol/L (3.5-5.1) Chloride Level 103mmol/L (98-107) Carbon Dioxide Level 27mmol/L (21-32) Anion Gap 10 (6-14) Blood Urea Nitrogen 22mg/dL (8-26) Creatinine 1.3mg/dL (0.7-1.3) Estimated GFR (Cockcroft-Gault) 70.7 Glucose Level 96mg/dL (70-99) Calcium Level 8.5mg/dL (8.5-10.1) Phosphorus Level 3.1mg/dL (2.6-4.7) Albumin 3.2g/dL (3.4-5.0) JERARDO TINAJERO MD May 18, 2016 10:40
[2016-05-18 10:57] VITALS: BP 168/101
--- NOTE | 2016-05-18 14:17 | CONS ---
DATE OF CONSULTATION: PRIMARY PHYSICIAN: Gracy Miranda MD REASON FOR CONSULTATION: Elevated creatinine. HISTORY OF PRESENT ILLNESS: The patient has a 50-year-old -[place]ese gentleman, who is known to have had aortic dissection/questionable AAA in 2009. He underwent open repair of the same by Dr. Gregory, by his reports. He was informed that he may have CKD as a result of the same. They also thought he might have diabetes as a result of the same. He was admitted with chest pain to this facility. He underwent a CTA for evaluation of the same. This does not show any renal compromise per se. He claims he has always hydrated himself pretty well. He is known to have hypertension since he was a teenager. He claims he has been taking his antihypertensives, but blood pressures have been running somewhat on the high side. He does admit that his hypertension was untreated for quite a while. He does drink energy drinks also at least 3 a day. Of late, he has had some nasal congestion, has been taking decongestants. His blood pressures were elevated on arrival, are much better now. For rest of details, see electronic records. JERARDO TINAJERO MD DR: JULIA/meghann JOB#: [id number] / [id number]
[2016-05-18 15:00] VITALS: BP 160/89
== END 2016-05-18 16:15 | disposition home or self-care (01) | DRG 684 ==
LOC: ER 15:18 → 5 SOUTH 21:05
PROVIDERS: ADMIT Internal Medicine; ATTEND Internal Medicine
DX: N17.0 Acute kidney failure with tubular necrosis (principal); E78.5 Hyperlipidemia, unspecified; F10.21 Alcohol dependence, in remission; G47.00 Insomnia, unspecified; I12.9 Hypertensive chronic kidney disease with stage 1 through stage 4 chronic kidney disease, or unspecified chronic kidney disease; K21.9 Gastro-esophageal reflux disease without esophagitis; N18.3 Chronic kidney disease, stage 3 (moderate); M19.90 Unspecified osteoarthritis, unspecified site; I95.9 Hypotension, unspecified; R55 Syncope and collapse; Z82.49 Family history of ischemic heart disease and other diseases of the circulatory system
CPT/HCPCS: 36415; 70450; 71010; 71275; 74174; 76705; 78452; 80048; 80053; 80061; 80069; 80076; 81001; 82533; 82553; 83735; 83880; 84443; 84484; 85018; 85027; 87804; 93005; 93017; 93306; 96374; 96375; 96376; A9500; J0360; J2785; J7030; Q9967; 99285-25

== ENCOUNTER 2018-06-18 08:03 | Inpatient (IN) | payer SELFPAY ==
[~2018-06-18] VITALS: Ht 182.9 cm; Wt 92.1 kg
[2018-06-18] VITALS (8 sets, daily range): BP systolic 151–182; BP diastolic 76–118
[~2018-06-18 08:03] MED LIST changes: +CLON0.1T PO; +HYDR-2145 PO; -HYDR25TA9 PO; +LISI-130 PO; -LISI40TA PO
[2018-06-18] MEDS ORDERED: ASPIRIN 325 MG TABLET PO ONE (08:15)
[2018-06-18] MEDS ORDERED: NITROGLYCERIN SUBLINGUAL 0.4 MG BOTTLE OF 25. SL PRN ×2 (08:15→10:30)
[2018-06-18] MEDS ORDERED: MORPHINE SULFATE 2 MG/ML VIAL. IV/SQ PRN (08:15)
[2018-06-18] MEDS ORDERED: METOPROLOL TARTRATE 5 MG/5 ML VIAL. IVP ONE (08:45)
[2018-06-18 08:50] LABS: CALCIUM 8.7 mg/dL (8.5-10.1); CREATININE 1.9 mg/dL (0.7-1.3); GFR 45.3; POTASSIUM 3.8 mmol/L (3.5-5.1)
[2018-06-18 08:56] LABS: ALBUMIN 3.6 g/dL (3.4-5.0); ALBUMIN/GLOBULIN RATIO 1.2 (1.0-1.7); MAGNESIUM 2.1 mg/dL (1.8-2.4); TOTAL BILIRUBIN 1.6 mg/dL (0.2-1.0); TOTAL PROTEIN 6.7 g/dL (6.4-8.2)
[2018-06-18] MEDS ORDERED: IPRATRPIUM/ALBUTEROL 0.5/2.5MG 3 ML NEBU. NEB ONE (09:00)
--- NOTE | 2018-06-18 09:01 | PHYS DOC ---
Past Medical History Past Medical History: Hypertension, Other Additional Past Medical Histor: AAA REPAIR Past Surgical History: Other Additional Past Surgical Histo: Aortic Repair Alcohol Use: None Drug Use: None Adult General Chief Complaint Chief Complaint: CHEST PAIN HPI HPI Patient is a 52 year old female with history of hypertension, aorta collapse who presents to the ED today complaining of a 10 out of 10 bilateral anterior chest pain described as "people stepping on my chest" that began a week ago. Patient denies anything specifically exacerbating the pain though he states he was diagnosed with pneumonia a month ago and has been treated twice at urgent care, he states he just completed a round of antibiotic a week ago. Patient cannot remember the name of the antibiotic. He states he has episodes of shortness of breath on exertion. Denies any fever. Review of Systems Review of Systems Constitutional: Denies fever or chills [] Eyes: Denies change in visual acuity, redness, or eye pain [] HENT: Denies nasal congestion or sore throat [] Respiratory: Reports cough. Shortness of breath [] Cardiovascular: Reports chest pain GI: Denies abdominal pain, nausea, vomiting, bloody stools or diarrhea [] : Denies dysuria or hematuria [] Musculoskeletal: Denies back pain or joint pain [] Integument: Denies rash or skin lesions [] Neurologic: Denies headache, focal weakness or sensory changes [] All other systems were reviewed and found to be within normal limits, except as documented in this note. Current Medications Current Medications Current Medications Medications (Trade) Dose Ordered Sig/Daljit Start Time Stop Time Status Last Admin Dose Admin Albuterol/ Ipratropium (Duoneb) 3 ml 1X ONCE 06/18/18 09:00 06/18/18 09:01 DC 06/18/18 09:09 3 ML Aspirin (Dorinda Aspirin) 325 mg 1X ONCE 06/18/18 08:15 06/18/18 08:22 DC 06/18/18 08:51 325 MG Furosemide (Lasix) 40 mg 1X ONCE 06/18/18 10:30 06/18/18 10:31 Metoprolol Tartrate (Lopressor Vial) 5 mg 1X ONCE 06/18/18 08:45 06/18/18 08:46 DC 06/18/18 08:53 5 MG Morphine Sulfate (Morphine Sulfate) 2 mg PRN Q15MIN PRN 06/18/18 08:15 06/19/18 08:14 06/18/18 09:03 2 MG Nitroglycerin (Nitrostat) 0.4 mg PRN Q5MIN PRN 06/18/18 08:15 06/19/18 08:14 06/18/18 09:21 0.4 MG Allergies Allergies Allergies Coded Allergies Type Severity Reaction Last Updated Verified No Known Drug Allergies 07/14/14 No Physical Exam Physical Exam Constitutional: Well developed, well nourished, no acute distress, non-toxic appearance. [] HENT: Normocephalic, atraumatic, bilateral external ears normal, oropharynx moist, no oral exudates, nose normal. [] Eyes: PERRLA, EOMI, conjunctiva normal, no discharge. [] Neck: Normal range of motion, no tenderness, supple, no stridor. [] Cardiovascular:Heart rate regular rhythm, no murmur [] Lungs & Thorax: Bilateral breath sounds clear to auscultation [] Abdomen: Bowel sounds normal, soft, no tenderness, no masses, no pulsatile masses. [] Skin: Warm, dry, no erythema, no rash. [] Back: No tenderness, no CVA tenderness. [] Extremities: No tenderness, no cyanosis, no clubbing, ROM intact, no edema. [] Neurologic: Alert and oriented X 3, normal motor function, normal sensory function, no focal deficits noted. [] Psychologic: Affect normal, judgement normal, mood normal. [] Current Patient Data Vital Signs Vital Signs Date Time Temp Pulse Resp B/P (MAP) Pulse Ox O2 Delivery O2 Flow Rate FiO2 06/18/18 09:21 84 191/118 06/18/18 09:09 96 Nasal Cannula 2.0 06/18/18 09:03 16 06/18/18 08:04 97.8 97.8 Lab Values Laboratory Tests Test 06/18/18 08:20 06/18/18 09:15 Sodium Level 141 mmol/L (136-145) Potassium Level 3.8 mmol/L (3.5-5.1) Chloride Level 104 mmol/L (98-107) Carbon Dioxide Level 24 mmol/L (21-32) Anion Gap 13 (6-14) Blood Urea Nitrogen 26 mg/dL (8-26) Creatinine 1.9 mg/dL (0.7-1.3) H Estimated GFR (Cockcroft-Gault) 45.3 BUN/Creatinine Ratio 14 (6-20) Glucose Level 164 mg/dL (70-99) H Calcium Level 8.7 mg/dL (8.5-10.1) Magnesium Level 2.1 mg/dL (1.8-2.4) Total Bilirubin 1.6 mg/dL (0.2-1.0) H Aspartate Amino Transferase (AST) 43 U/L (15-37) H Alanine Aminotransferase (ALT) 62 U/L (16-63) Alkaline Phosphatase 62 U/L (46-116) Creatine Kinase 196 U/L (39-308) Creatine Kinase MB (Mass) 2.0 ng/mL (0.0-3.6) Creatine Kinase MB Relative Index 1.0 % (0-4) Troponin I Quantitative 0.060 ng/mL (0.000-0.055) VH-Ztj-I-Type Natriuretic Peptide 05589 pg/mL (0-124) H Total Protein 6.7 g/dL (6.4-8.2) Albumin 3.6 g/dL (3.4-5.0) Albumin/Globulin Ratio 1.2 (1.0-1.7) Thyroid Stimulating Hormone (TSH) 3.110 uIU/mL (0.358-3.74) White Blood Count 9.3 x10^3/uL (4.0-11.0) Red Blood Count 4.68 x10^6/uL (4.30-5.70) Hemoglobin 14.1 g/dL (13.0-17.5) Hematocrit 43.2 % (39.0-53.0) Mean Corpuscular Volume 92 fL (79-100) Mean Corpuscular Hemoglobin 30 pg (25-35) Mean Corpuscular Hemoglobin Concent 33 g/dL (31-37) Red Cell Distribution Width 14.4 % (11.5-14.5) Platelet Count 228 x10^3/uL (140-400) Neutrophils (%) (Auto) 78 % (31-73) H Lymphocytes (%) (Auto) 14 % (24-48) L Monocytes (%) (Auto) 7 % (0-9) Eosinophils (%) (Auto) 1 % (0-3) Basophils (%) (Auto) 0 % (0-3) Neutrophils # (Auto) 7.2 x10^3uL (1.8-7.7) Lymphocytes # (Auto) 1.3 x10^3/uL (1.0-4.8) Monocytes # (Auto) 0.7 x10^3/uL (0.0-1.1) Eosinophils # (Auto) 0.1 x10^3/uL (0.0-0.7) Basophils # (Auto) 0.0 x10^3/uL (0.0-0.2) Prothrombin Time 17.0 SEC (11.7-14.0) H Prothrombin Time INR 1.4 (0.8-1.1) H Laboratory Tests 06/18/18 09:15 Laboratory Tests 06/18/18 08:20 EKG EKG Interpreted by Dr. Apple Sinus rhythm, left ventricular strain, HR 89 no STEMI, EKg similar to the one done 05/16/2016[] Radiology/Procedures Radiology/Procedures []PROCEDURE: PORTABLE CHEST 1V Single view chest dated 06/18/2018. Comparison made to 05/16/2016. CLINICAL INDICATION: Difficulty breathing. Chest pain. FINDINGS: Single upright portable exam performed. Heart size is mildly enlarged. Patient is status post median sternotomy. Lungs are somewhat hyperinflated but otherwise clear. No consolidation or pleural effusion. No pneumothorax. Tortuosity and ectasia of the thoracic aorta, unchanged. IMPRESSION: 1. No apparent acute abnormality. 2. Mild cardiomegaly Electronically signed by: Bryan Chen MD (06/18/2018 8:58 AM) [id number] DICTATED and SIGNED BY: BRYAN CHEN MD DATE: 06/18/18 0858 Course & Med Decision Making Course & Med Decision Making Pertinent Labs and Imaging studies reviewed. (See chart for details) This is a 52-year-old male patient presented to the ED today with chest pain. See history of present illness, patient has been treated for pneumonia twice in the last 1 month. Patient was given an aspirin on arrival to the ED. CBC with a normal WBC, CMP with creatinine of 1.9, BUN is normal. BNP 27,571- given lasik 40 mg IV X1. Troponin 0.060. Also given metoprolol for his blood pressure which she takes daily. Called Dr. Ocasio office. Spoke with Beena who will pass msg to polysomnography tech. Chest xray is negative. Spoke with Arielle cardiology [employer] TECHNICIAN who requested Echo to be ordered Spoke with Dr. Buchanan who accepted patient for admission. Dorcas Disclaimer Madyon Disclaimer This electronic medical record was generated, in whole or in part, using a voice recognition dictation system. Departure Departure Impression: Primary Impression: Chest pain Additional Impressions: NSTEMI (non-ST elevated myocardial infarction) Acute renal failure Hypertension Disposition: ADMITTED INPATIENT Condition: STABLE Problem Qualifiers Primary Impression: Chest pain Chest pain type: unspecified Qualified Codes: R07.9 - Chest pain, unspecified Additional Impressions: Acute renal failure Acute renal failure type: unspecified Qualified Codes: N17.9 - Acute kidney failure, unspecified Hypertension Hypertension type: unspecified Qualified Codes: I10 - Essential (primary) hypertension PEPE GOMEZ APRN Jun 18, 2018 09:01
[2018-06-18 09:30] LABS: BASO % 0 % (0-3); EOS # 0.1 x10^3/uL (0.0-0.7); EOS % 1 % (0-3); HEMATOCRIT 43.2 % (39.0-53.0); HEMOGLOBIN 14.1 g/dL (13.0-17.5); LYMPH # 1.3 x10^3/uL (1.0-4.8); LYMPH % 14 % (24-48); MEAN CORPUSCULAR HEMOGLOBIN 30 pg (25-35); MEAN CORPUSCULAR HGB CONC 33 g/dL (31-37); MEAN CORPUSCULAR VOLUME 92 fL (79-100); MONO # 0.7 x10^3/uL (0.0-1.1); MONO % 7 % (0-9); NEUT # 7.2 x10^3uL (1.8-7.7); NEUT % 78 % (31-73); PLATELET COUNT 228 x10^3/uL (140-400); RED BLOOD COUNT 4.68 x10^6/uL (4.30-5.70); RED CELL DISTRIBUTION WIDTH 14.4 % (11.5-14.5); WHITE BLOOD COUNT 9.3 x10^3/uL (4.0-11.0)
[2018-06-18] MEDS ORDERED: FUROSEMIDE 40 MG/4 ML VIAL. IVP ONE ×2 (10:30→23:00)
[2018-06-18] MEDS ORDERED: ONDANSETRON PF 4 MG/2 ML VIAL. IV PRN ×2 (10:30→10:45)
[2018-06-18] MEDS ORDERED: NON FORMULARY ITEM (Sildenafil Citrate (Viagra) 50 MG) PO SCH (10:45)
[2018-06-18] MEDS ORDERED: LABETALOL 20 MG/4 ML DISP.SYRIN. IVP PRN (10:45)
[2018-06-18] MEDS ORDERED: ACETAMINOPHEN 500 MG TABLET PO PRN (10:45)
[2018-06-18] MEDS: cloNIDine HCL 0.1 MG TABLET PO SCH ×2 (11:22→21:00)
[2018-06-18] MEDS: hydroCHLOROthiazide 25 MG TABLET PO SCH (11:24)
[2018-06-18] MEDS: METOPROLOL SUCC 24HR ER 50 MG TAB.ER.24H. PO SCH (11:25)
[2018-06-18] MEDS: LISINOPRIL 20 MG TABLET PO SCH (11:26)
[2018-06-18 12:03] LABS: INFLUENZA A PATIENT NEGATIVE (NEGATIVE); INFLUENZA B PATIENT NEGATIVE (NEGATIVE)
[2018-06-18 12:05] LABS: BILIRUBIN,URINE NEGATIVE (NEG); CLARITY,URINE CLEAR; COLOR,URINE YELLOW; NITRITE,URINE NEGATIVE (NEG); PH,URINE 5.5; PROTEIN,URINE 100 mg/dL (NEG-TRACE)
[2018-06-18 12:09] LABS: AMPHETAMINE/METHAMPHETAMINE NEG (NEG); BARBITURATES NEG (NEG); BENZODIAZEPINES NEG (NEG); CANNABINOIDS NEG (NEG); COCAINE NEG (NEG); METHADONE NEG (NEG); OPIATES POS (NEG); PHENCYCLIDINE NEG (NEG)
[2018-06-18 12:14] LABS: HYALINE CASTS, URINE MODERATE /HPF; SQUAMOUS EPITHELIAL CELL,UR FEW /LPF
[2018-06-18 12:15] LABS: BACTERIA,URINE 0 /HPF (0-FEW); WBC,URINE OCC /HPF (0-4)
[2018-06-18] MEDS ORDERED: guaiFENesin DM 200MG/20MG 10 ML SYRUP PO PRN (12:15)
--- NOTE | 2018-06-18 12:15 | PDOC1 ---
History and Physical Date of Admission Date of Admission DATE: 06/18/18 TIME: 12:09 Identification/Chief Complaint Chief Complaint Chest pain Source Source: Caregiver, Chart review, Patient History of Present Illness History of Present Illness 62-year-old -[place] male known patient of Dr. Gil, history of aortic rupture needed open heart surgery 2009. Maintained on lisinopril beta jeanne and other medications- no aspirin. Comes in because of chest pain and high blood pressure. His symptoms are actually more like infectious in origin he claims he thinks he has a pneumonia, sinus congestion, coughing, no fever, maybe pleuritic chest pain. But admitted because troponin is 0.06 with a BNP of 27,000. He maintains compliance with his beta jeanne and lisinopril. Total bili is 1.8 no abd sxs. . His aortic rupture surgery was in 2009. He was just seen by cards as OP 3 months ago or 3 weeks ago and was everything was okay. Blood pressure on the high side today Looking at May 28 records when he was last here, creatinine was already elevated and diagnosis of CK D stage III which he is unaware of. Creatinine today is 1.9. I did discuss with's with patient and family at bedside about long-standing hypertension and CKD We will admit, cards consulted, avoid nephrotoxins, resume ROD inhibitor and beta jeanne. Treat symptomatically for sinus congestion and some URI symptoms. Can check for flu. He tells me few days ago he was at urgent care was told units 2 spots of pneumonia diagnosed by 2 views of chest x-ray. We'll treat for now, if symptoms persist and may be warranted to repeat a chest x-ray 2 views this time. Plan of care discussed with family, family and is agreeable. Past Medical History Cardiovascular: HTN, Hyperlipidemia, Other CENTRAL NERVOUS SYSTEM: Other GI: GERD Heme/Onc: No pertinent hx Hepatobiliary: No pertinent hx Psych: No pertinent hx, Other Musculoskeletal: Osteoarthritis Rheumatologic: No pertinent hx Infectious disease: No pertinent hx Renal/: Chronic renal insuff, Other Endocrine: No pertinent hx Past Surgical History Past Surgical History: Other (open heart surgery for aortic rupture repair) Family History Family History: Coronary Artery Disease Social History Smoke: No ALCOHOL: none Drugs: None Current Problem List Problem List Problems Medical Problems: (1) Acute renal failure Status: Acute (2) Chest pain Status: Acute (3) Hypertension Status: Acute (4) NSTEMI (non-ST elevated myocardial infarction) Status: Acute Current Medications Current Medications Current Medications Aspirin ([employer] Aspirin) 325 mg 1X ONCE PO Last administered on 06/18/18at 08:51 ; Start 06/18/18 at 08:15; Stop 06/18/18 at 08:22; Status DC Nitroglycerin (Nitrostat) 0.4 mg PRN Q5MIN PRN SL CP RATING > 1/10 Last administered on 06/18/18at 09:21; Start 06/18/18 at 08:15; Stop 06/19/18 at 08:14 Morphine Sulfate (Morphine Sulfate) 2 mg PRN Q15MIN PRN IV/SQ PAIN GREATER THAN 3/10 Last administered on 06/18/18at 09:03; Start 06/18/18 at 08:15; Stop at 18:00 Metoprolol Tartrate (Lopressor Vial) 5 mg 1X ONCE IVP Last administered on at 08:53; Start 06/18/18 at 08:45; Stop 06/18/18 at 08:46; Status DC Albuterol/ Ipratropium (Duoneb) 3 ml 1X ONCE NEB Last administered on at 09:09; Start 06/18/18 at 09:00; Stop 06/18/18 at 09:01; Status DC Furosemide (Lasix) 40 mg 1X ONCE IVP Last administered on 06/18/18at 11:12; Start 06/18/18 at 10:30; Stop 06/18/18 at 10:31; Status DC Ondansetron HCl (Zofran) 4 mg PRN Q8HRS PRN IV NAUSEA/VOMITING; Start 06/18/18 at 10:30; Stop 06/18/18 at 10:39; Status DC Morphine Sulfate (Morphine Sulfate) 4 mg PRN Q2HR PRN IV PAIN; Start 06/18/18 at 10:30; Stop 06/19/18 at 10:29 Nitroglycerin (Nitrostat) 0.4 mg PRN Q5MIN PRN SL CHEST PAIN; Start 06/18/18 at 10:30; Stop 06/19/18 at 10:29; Status Cancel Ondansetron HCl (Zofran) 4 mg PRN Q6HRS PRN IV NAUSEA/VOMITING; Start 06/18/18 at 10:45 Acetaminophen (Tylenol) 500 mg PRN Q6HRS PRN PO MILD PAIN / TEMP; Start at 10:45 Acetaminophen/ Codeine Phosphate (Tylenol #3) 1 tab PRN Q6HRS PRN PO MODERATE PAIN; Start 06/18/18 at 10:45 Labetalol HCl (Normodyne Iv Push) 10 mg PRN Q2HR PRN IVP GIVE FOR SBP > 160; Start 06/18/18 at 10:45 Acetaminophen (Tylenol) 325 mg DAILY PO ; Start 06/19/18 at 09:00 Clonidine HCl (Catapres) 0.1 mg BID PO Last administered on 06/18/18at 11:22; Start 06/18/18 at 11:00 Hydrochlorothiazide (Hydrodiuril) 25 mg DAILY PO Last administered on at 11:24; Start 06/18/18 at 11:00 Lisinopril (Prinivil) 40 mg DAILY PO Last administered on 06/18/18at 11:26; Start 06/18/18 at 11:00 Metoprolol Succinate (Toprol Xl) 50 mg DAILY PO Last administered on 06/18/18at 11:25; Start 06/18/18 at 11:00 Non-Formulary Medication (Sildenafil Citrate (Viagra)) 50 mg ONCE PO ; Start at 10:45; Status UNV Active Scripts Active Clonidine Hcl 0.1 Mg Tablet 0.1 Mg PO BID For high blood pressure Take this with the other medicines you are already taking Reported Hydrochlorothiazide Tablet (Hydrochlorothiazide) 25 Mg Tablet 25 Mg PO DAILY Toprol Xl (Metoprolol Succinate) 50 Mg Tab.er.24h 50 Mg PO DAILY Lisinopril 40 Mg Tablet 40 Mg PO DAILY Viagra (Sildenafil Citrate) 50 Mg Tablet 50 Mg PO ONCE Tylenol (Acetaminophen) 325 Mg Tablet 325 Mg PO Allergies Allergies: Coded Allergies: No Known Drug Allergies (Unverified , 07/14/14) ROS Review of System History of present illness, the rest of ROS 14 point negative Physical Exam General: Alert, Oriented X3, Cooperative, No acute distress HEENT: PERRLA Lungs: Clear to auscultation, Normal air movement Heart: S1S2, RRR, no thrills, no rubs Cardiovascular: S1, S2 Breasts: Normal, Rt breast nml w/o mass, Lt breast nml w/o mass, Nipples normal Abdomen: Normal bowel sounds, Soft, No tenderness, No hepatosplenomegaly, No masses Rectal Exam: not examined PELVIC: Nml ext genitalia Extremities: No clubbing, No cyanosis, No edema, Normal pulses, No tenderness/ swelling Skin: No rashes, No breakdown, No significant lesion Neuro: Normal gait, Normal speech, Strength at 5/5 X4 ext, Normal tone, Sensation intact, Cranial nerves 3-12 NL, Reflexes 2+ Psych/Mental Status: Mental status NL, Mood NL Vitals Vitals Vital Signs Date Time Temp Pulse Resp B/P (MAP) Pulse Ox O2 Delivery O2 Flow Rate FiO2 06/18/18 11:30 88 24 196/145 (162) 95 Nasal Cannula 2.0 06/18/18 08:04 97.8 97.8 Labs Labs Laboratory Tests Test 06/18/18 08:20 06/18/18 09:15 06/18/18 11:31 Sodium Level 141 mmol/L (136-145) Potassium Level 3.8 mmol/L (3.5-5.1) Chloride Level 104 mmol/L (98-107) Carbon Dioxide Level 24 mmol/L (21-32) Anion Gap 13 (6-14) Blood Urea Nitrogen 26 mg/dL (8-26) Creatinine 1.9 mg/dL (0.7-1.3) Estimated GFR (Cockcroft-Gault) 45.3 BUN/Creatinine Ratio 14 (6-20) Glucose Level 164 mg/dL (70-99) Calcium Level 8.7 mg/dL (8.5-10.1) Magnesium Level 2.1 mg/dL (1.8-2.4) Total Bilirubin 1.6 mg/dL (0.2-1.0) Aspartate Amino Transf (AST/SGOT) 43 U/L (15-37) Alanine Aminotransferase (ALT/SGPT) 62 U/L (16-63) Alkaline Phosphatase 62 U/L (46-116) Creatine Kinase 196 U/L (39-308) Creatine Kinase MB (Mass) 2.0 ng/mL (0.0-3.6) Creatine Kinase MB Relative Index 1.0 % (0-4) Troponin I Quantitative 0.060 ng/mL (0.000-0.055) KK-Zrl-T-Type Natriuretic Peptide 75563 pg/mL (0-124) Total Protein 6.7 g/dL (6.4-8.2) Albumin 3.6 g/dL (3.4-5.0) Albumin/Globulin Ratio 1.2 (1.0-1.7) Thyroid Stimulating Hormone (TSH) 3.110 uIU/mL (0.358-3.74) White Blood Count 9.3 x10^3/uL (4.0-11.0) Red Blood Count 4.68 x10^6/uL (4.30-5.70) Hemoglobin 14.1 g/dL (13.0-17.5) Hematocrit 43.2 % (39.0-53.0) Mean Corpuscular Volume 92 fL (79-100) Mean Corpuscular Hemoglobin 30 pg (25-35) Mean Corpuscular Hemoglobin Concent 33 g/dL (31-37) Red Cell Distribution Width 14.4 % (11.5-14.5) Platelet Count 228 x10^3/uL (140-400) Neutrophils (%) (Auto) 78 % (31-73) Lymphocytes (%) (Auto) 14 % (24-48) Monocytes (%) (Auto) 7 % (0-9) Eosinophils (%) (Auto) 1 % (0-3) Basophils (%) (Auto) 0 % (0-3) Neutrophils # (Auto) 7.2 x10^3uL (1.8-7.7) Lymphocytes # (Auto) 1.3 x10^3/uL (1.0-4.8) Monocytes # (Auto) 0.7 x10^3/uL (0.0-1.1) Eosinophils # (Auto) 0.1 x10^3/uL (0.0-0.7) Basophils # (Auto) 0.0 x10^3/uL (0.0-0.2) Prothrombin Time 17.0 SEC (11.7-14.0) Prothromb Time International Ratio 1.4 (0.8-1.1) Influenza Type A Antigen Negative (NEGATIVE) Influenza Type B Antigen Negative (NEGATIVE) Laboratory Tests Test 06/18/18 08:20 06/18/18 09:15 06/18/18 11:31 Sodium Level 141 mmol/L (136-145) Potassium Level 3.8 mmol/L (3.5-5.1) Chloride Level 104 mmol/L (98-107) Carbon Dioxide Level 24 mmol/L (21-32) Anion Gap 13 (6-14) Blood Urea Nitrogen 26 mg/dL (8-26) Creatinine 1.9 mg/dL (0.7-1.3) Estimated GFR (Cockcroft-Gault) 45.3 BUN/Creatinine Ratio 14 (6-20) Glucose Level 164 mg/dL (70-99) Calcium Level 8.7 mg/dL (8.5-10.1) Magnesium Level 2.1 mg/dL (1.8-2.4) Total Bilirubin 1.6 mg/dL (0.2-1.0) Aspartate Amino Transf (AST/SGOT) 43 U/L (15-37) Alanine Aminotransferase (ALT/SGPT) 62 U/L (16-63) Alkaline Phosphatase 62 U/L (46-116) Creatine Kinase 196 U/L (39-308) Creatine Kinase MB (Mass) 2.0 ng/mL (0.0-3.6) Creatine Kinase MB Relative Index 1.0 % (0-4) Troponin I Quantitative 0.060 ng/mL (0.000-0.055) GH-Qxm-N-Type Natriuretic Peptide 64729 pg/mL (0-124) Total Protein 6.7 g/dL (6.4-8.2) Albumin 3.6 g/dL (3.4-5.0) Albumin/Globulin Ratio 1.2 (1.0-1.7) Thyroid Stimulating Hormone (TSH) 3.110 uIU/mL (0.358-3.74) White Blood Count 9.3 x10^3/uL (4.0-11.0) Red Blood Count 4.68 x10^6/uL (4.30-5.70) Hemoglobin 14.1 g/dL (13.0-17.5) Hematocrit 43.2 % (39.0-53.0) Mean Corpuscular Volume 92 fL (79-100) Mean Corpuscular Hemoglobin 30 pg (25-35) Mean Corpuscular Hemoglobin Concent 33 g/dL (31-37) Red Cell Distribution Width 14.4 % (11.5-14.5) Platelet Count 228 x10^3/uL (140-400) Neutrophils (%) (Auto) 78 % (31-73) Lymphocytes (%) (Auto) 14 % (24-48) Monocytes (%) (Auto) 7 % (0-9) Eosinophils (%) (Auto) 1 % (0-3) Basophils (%) (Auto) 0 % (0-3) Neutrophils # (Auto) 7.2 x10^3uL (1.8-7.7) Lymphocytes # (Auto) 1.3 x10^3/uL (1.0-4.8) Monocytes # (Auto) 0.7 x10^3/uL (0.0-1.1) Eosinophils # (Auto) 0.1 x10^3/uL (0.0-0.7) Basophils # (Auto) 0.0 x10^3/uL (0.0-0.2) Prothrombin Time 17.0 SEC (11.7-14.0) Prothromb Time International Ratio 1.4 (0.8-1.1) Influenza Type A Antigen Negative (NEGATIVE) Influenza Type B Antigen Negative (NEGATIVE) VTE Prophylaxis Ordered VTE Prophylaxis Devices: Yes VTE Pharmacological Prophylaxi: Yes Assessment/Plan Assessment/Plan Chest pain, sinus congestion Recent diagnosis of pneumonia, 2 spots urgent care Elevated total Bili with no abd symptoms Elevated BNP CK D stage III Accel hypertension POA History of aortic rupture with open heart surgery 2009 Trop leak PLAN: admit 2 mN cardiac floor, cards consulted, trend cardiac enzymes Avoid nephrotoxins Check for flu If symptoms don't get better might need to check 2 views x-ray few days to come Address high BP, reconciled home meds H1 antagonists for sinus symptoms Seen at ER, discussed with him ISMAEL SHAH MD Jun 18, 2018 12:15
--- NOTE | 2018-06-18 12:58 | EKG ---
[facility] [address] [place] [address] Test Date: 2018-06-18 Test Time: 08:15:49 Pat Name: MACARIO VINES Department: Room: ED HOLD 18 Gender: M Client Service Supervisor: : 1965 Requested By: PEPE GOMEZ Order Number: [id number] Reading MD: Omi Galarza MD Measurements Intervals [place] Rate: 89 P: 29 AK: 202 QRS: 46 QRSD: 108 T: 180 QT: 402 QTc: 490 Interpretive Statements SINUS RHYTHM LEFT ATRIAL ABNORMALITY LVH WITH REPOLARIZATION ABNORMALITY CONSIDER ANTEROLATERAL ISCHEMIA Electronically Signed On 06-26-2018 9:41:50 CDT by Omi Galarza MD
[2018-06-18] MEDS: CETIRIZINE HCL 10 MG TABLET. PO SCH (13:21)
--- NOTE | 2018-06-18 14:52 | PDOC2 ---
JASON CASTILLO AMMUNITION STORAGE SUPERINTENDENT 06/18/18 1452: CARDIAC CONSULT DATE OF CONSULT Date of Consult DATE: 06/18/18 TIME: 14:51 REASON FOR CONSULT Reason for Consult: cp HISTORY OF PRESENT ILLNESS HISTORY OF PRESENT ILLNESS Mr Templeton is a 52 year old male with a prior history of thoracic aortic aneurysm rupture and repair and hypertension who presented to the ED with complaints of dyspnea and chest pain. He report recent pneumonia with outpatient antibiotics but no improvement in symptoms of dyspnea or fatigue. He reports chest pressure across his upper chest with heaviness in both arms off and on, mostly with exertion for several days. He reports associated dyspnea, nausea and diaphoresis. His symptoms typically last for about 5 minutes and resolve spontaneously. He had been having significantly elevated blood pressure due to not taking meds for a couple weeks but was able to get refills about 1 week ago and despite taking his antihypertensives regularly his blood pressure was remaining significantly elevated. He is currently pain free after tx with NTG, morphine and aspirin in the ED. He denies congestive symptoms or edema. He complains of progressive fatigue. He does complain of some sharp intermittent chest pain as well that is brief and atypical in nature. PAST MEDICAL HISTORY Past Medical History aortic aneurysm with repair by Dr Augustin in about 2009, accelerated hypertension , hyperlipidemia, recent pneumonia, PAST SURGICAL HISTORY Past Surgical History aortic aneurysm repair FAMILY HISTORY Family History: Cancer, Coronary Artery Disease SOCIAL HISTORY Social History non smoker, no significant ETOH, no illicit drugs CURRENT MEDICATIONS CURRENT MEDICATIONS Current Medications Medications (Trade) Dose Ordered Sig/Daljit Route PRN Reason Start Time Stop Time Status Last Admin Dose Admin Aspirin (Dorinda Aspirin) 325 mg 1X ONCE PO 06/18/18 08:15 06/18/18 08:22 DC 06/18/18 08:51 Nitroglycerin (Nitrostat) 0.4 mg PRN Q5MIN PRN SL CP RATING > 1/10 06/18/18 08:15 06/19/18 08:14 06/18/18 09:21 Morphine Sulfate (Morphine Sulfate) 2 mg PRN Q15MIN PRN IV/SQ PAIN GREATER THAN 3/10 06/18/18 08:15 06/18/18 18:00 06/18/18 09:03 Metoprolol Tartrate (Lopressor Vial) 5 mg 1X ONCE IVP 06/18/18 08:45 06/18/18 08:46 DC 06/18/18 08:53 Albuterol/ Ipratropium (Duoneb) 3 ml 1X ONCE NEB 06/18/18 09:00 06/18/18 09:01 DC 06/18/18 09:09 Furosemide (Lasix) 40 mg 1X ONCE IVP 06/18/18 10:30 06/18/18 10:31 DC 06/18/18 11:12 Clonidine HCl (Catapres) 0.1 mg BID PO 06/18/18 11:00 06/18/18 11:22 Hydrochlorothiazide (Hydrodiuril) 25 mg DAILY PO 06/18/18 11:00 06/18/18 11:24 Lisinopril (Prinivil) 40 mg DAILY PO 06/18/18 11:00 06/18/18 11:26 Metoprolol Succinate (Toprol Xl) 50 mg DAILY PO 06/18/18 11:00 06/18/18 11:25 Cetirizine HCl (ZyrTEC) 10 mg DAILY PO 06/18/18 12:15 06/18/18 13:21 ALLERGIES ALLERGIES: Coded Allergies: No Known Drug Allergies (Unverified , 07/14/14) ROS Review of System as per HPI or neg PHYSICAL EXAM General: Alert, Oriented X3, Cooperative, No acute distress HEENT: Atraumatic, EOMI, Other (mild JVD) Lungs: Clear to auscultation Heart: Normal S1, Normal S2, Other (no gallops, clicks or rubs) Abdomen: Normal bowel sounds, Soft, No tenderness Extremities: No cyanosis, No edema, Normal pulses Neuro: Normal speech, Strength at 5/5 X4 ext Psych/Mental Status: Mental status NL, Mood NL VITALS VITALS Vital Signs Date Time Temp Pulse Resp B/P (MAP) Pulse Ox O2 Delivery O2 Flow Rate FiO2 06/18/18 14:08 80 20 169/106 (127) 96 Nasal Cannula 2.0 06/18/18 08:04 97.8 97.8 LABS Lab: Laboratory Tests Test 06/18/18 08:20 06/18/18 09:15 06/18/18 11:31 06/18/18 11:55 Sodium Level 141 mmol/L (136-145) Potassium Level 3.8 mmol/L (3.5-5.1) Chloride Level 104 mmol/L (98-107) Carbon Dioxide Level 24 mmol/L (21-32) Anion Gap 13 (6-14) Blood Urea Nitrogen 26 mg/dL (8-26) Creatinine 1.9 mg/dL (0.7-1.3) Estimated GFR (Cockcroft-Gault) 45.3 BUN/Creatinine Ratio 14 (6-20) Glucose Level 164 mg/dL (70-99) Calcium Level 8.7 mg/dL (8.5-10.1) Magnesium Level 2.1 mg/dL (1.8-2.4) Total Bilirubin 1.6 mg/dL (0.2-1.0) Aspartate Amino Transf (AST/SGOT) 43 U/L (15-37) Alanine Aminotransferase (ALT/SGPT) 62 U/L (16-63) Alkaline Phosphatase 62 U/L (46-116) Creatine Kinase 196 U/L (39-308) Creatine Kinase MB (Mass) 2.0 ng/mL (0.0-3.6) Creatine Kinase MB Relative Index 1.0 % (0-4) Troponin I Quantitative 0.060 ng/mL (0.000-0.055) KX-Ntn-U-Type Natriuretic Peptide 11885 pg/mL (0-124) Total Protein 6.7 g/dL (6.4-8.2) Albumin 3.6 g/dL (3.4-5.0) Albumin/Globulin Ratio 1.2 (1.0-1.7) Thyroid Stimulating Hormone (TSH) 3.110 uIU/mL (0.358-3.74) White Blood Count 9.3 x10^3/uL (4.0-11.0) Red Blood Count 4.68 x10^6/uL (4.30-5.70) Hemoglobin 14.1 g/dL (13.0-17.5) Hematocrit 43.2 % (39.0-53.0) Mean Corpuscular Volume 92 fL (79-100) Mean Corpuscular Hemoglobin 30 pg (25-35) Mean Corpuscular Hemoglobin Concent 33 g/dL (31-37) Red Cell Distribution Width 14.4 % (11.5-14.5) Platelet Count 228 x10^3/uL (140-400) Neutrophils (%) (Auto) 78 % (31-73) Lymphocytes (%) (Auto) 14 % (24-48) Monocytes (%) (Auto) 7 % (0-9) Eosinophils (%) (Auto) 1 % (0-3) Basophils (%) (Auto) 0 % (0-3) Neutrophils # (Auto) 7.2 x10^3uL (1.8-7.7) Lymphocytes # (Auto) 1.3 x10^3/uL (1.0-4.8) Monocytes # (Auto) 0.7 x10^3/uL (0.0-1.1) Eosinophils # (Auto) 0.1 x10^3/uL (0.0-0.7) Basophils # (Auto) 0.0 x10^3/uL (0.0-0.2) Prothrombin Time 17.0 SEC (11.7-14.0) Prothromb Time International Ratio 1.4 (0.8-1.1) Influenza Type A Antigen Negative (NEGATIVE) Influenza Type B Antigen Negative (NEGATIVE) Urine Collection Type Void Urine Color Yellow Urine Clarity Clear Urine pH 5.5 Urine Specific [place] 1.015 Urine Protein 100 mg/dL (NEG-TRACE) Urine Glucose (UA) Negative mg/dL (NEG) Urine Ketones (Stick) Negative mg/dL (NEG) Urine Blood Moderate (NEG) Urine Nitrite Negative (NEG) Urine Bilirubin Negative (NEG) Urine Urobilinogen Dipstick 1.0 mg/dL (0.2 mg/dL) Urine Leukocyte Esterase Negative (NEG) Urine RBC 1-2 /HPF (0-2) Urine WBC Occ /HPF (0-4) Urine Squamous Epithelial Cells Few /LPF Urine Bacteria 0 /HPF (0-FEW) Urine Hyaline Casts Moderate /HPF Urine Mucus Mod /LPF Urine Opiates Screen Pos (NEG) Urine Methadone Screen Neg (NEG) Urine Barbiturates Neg (NEG) Urine Phencyclidine Screen Neg (NEG) Urine Amphetamine/Methamphetamine Neg (NEG) Urine Benzodiazepines Screen Neg (NEG) Urine Cocaine Screen Neg (NEG) Urine Cannabinoids Screen Neg (NEG) Urine Ethyl Alcohol Neg (NEG) Test 06/18/18 12:35 Troponin I Quantitative 2.997 ng/mL (0.000-0.055) IMAGES IMAGES CXR - IMPRESSION: 1. No apparent acute abnormality. 2. Mild cardiomegaly EKG - EKG EKG sinus rhythm, diffuse nonspecific st/t on current EKG ECHOCARDIOGRAM ECHOCARDIOGRAM 05/17/16 Left ventricle systolic function is normal. The Ejection Fraction is 55%. There is normal LV segmental wall motion. Mild aortic regurgitation. Trace tricuspid regurgitation. The PA pressure was estimated at 23 mmHg. There is no evidence of significant pericardial effusion. Repeat echo pending STRESS TEST STRESS TEST 05/16/16 Conclusion 1. Regadenoson cardioisotope stress test did not show any evidence of ischemia or infarct. 2. Abnormal septal motion with ejection fraction 55%. 3. Low risk for cardiac events. ASSESSMENT/PLAN ASSESSMENT/PLAN 1. NSTEMI, unstable angina - heparin, nitrates, aspirin, beta jeanne, npo after MN and plan for cath in am. await echo and lipids. monitor serial cardiac enzymes. 2. uncontrolled hypertension - resume beta jeanne, ACEI, add prn Hydralazine, . 3. Elevated BNP - no pulmonary congsetion by CXR, ? ischemic 4. renal insufficiency - Hold HCTZ for now. IV lasix given in ED. IVF in prep for cardiac cath CHANDAN CONTRERAS MD 06/19/18 0658: CARDIAC CONSULT ASSESSMENT/PLAN ASSESSMENT/PLAN Patient seen and examined 06/18/18. Agree with LEAD SYSTEMS ENGINEER's assessment and plan. Patient with non-STEMI complaining of chest pain not relieved with nitroglycerin Continue heparin infusion per protocol 2-D echo showed LVEF 10-15%, significantly decreased from prior 2-D echocardiogram in 2016 Plan for cardiac catheterization and possible angioplasty Risks and benefits were explained Continue to titrate oral antihypertensives for better blood pressure control Thank you for your consultation JASON CASTILLO APRN Jun 18, 2018 14:52 CHANDAN CONTRERAS MD Jun 19, 2018 06:58
--- NOTE | 2018-06-18 15:09 | EKG ---
[facility] [address] [place] [address] Test Date: 2018-06-18 Test Time: 14:59:50 Pat Name: MACARIO VINES Department: Room: 248 1 Gender: M Chief Port Director: AT : 1965 Requested By: JASON CASTILLO Order Number: [id number] Reading MD: Omi Galarza MD Measurements Intervals [place] Rate: 82 P: 34 LA: 210 QRS: 79 QRSD: 106 T: -116 QT: 434 QTc: 511 Interpretive Statements SINUS RHYTHM LEFT ATRIAL ABNORMALITY LVH WITH REPOLARIZATION ABNORMALITY CONSIDER LATERAL ISCHEMIA Electronically Signed On 06-18-2018 19:32:21 CDT by Omi Galarza MD
[2018-06-18] MEDS ORDERED: IV 1/2 NORMAL SALINE 1,000 ML IV SCH (15:17)
[2018-06-18] MEDS ORDERED: hydrALAZINE 20 MG/ML VIAL. IVP PRN (15:30)
[2018-06-18] MEDS: HEPARIN 25,000UTS/500ML PREMIX 500 ML IV PRN (15:53)
[2018-06-18] MEDS: MORPHINE SULFATE 4 MG/ML VIAL. IV PRN ×3 (16:00→23:53)
[2018-06-18] MEDS: NITROGLYCERIN OINT 1 GM PACKET. TP SCH (16:04)
[2018-06-18] MEDS ORDERED: HEPARIN for IV BOLUS 10,000 UNIT/10 ML VIAL. IV ONE (16:15)
--- NOTE | 2018-06-18 17:34 | CARD ---
MR#: [id number] Date of Study: 06/18/2018 Ordering Physician: PEPE GOMEZ, Referring Physician: ISMAEL SHAH, Tech: Arlene Henderson APPROVED REPORT EXAM: Two-dimensional and M-mode echocardiogram with Doppler and color Doppler. Other Information Quality : GoodHR: 77bpm Rhythm : NSR INDICATION Chest Pain RISK FACTORS Hypertension 2D DIMENSIONS RVDd3.6 (2.9-3.5cm)Left Atrium(2D)3.5 (1.6-4.0cm) IVSd1.8 (0.7-1.1cm)Aortic Root(2D)3.6 (2.0-3.7cm) LVDd6.3 (3.9-5.9cm)LVOT Diameter2.3 (1.8-2.4cm) PWd1.5 (0.7-1.1cm)LVDs4.7 (2.5-4.0cm) FS (%) 25.6 %SV98.6 ml Aortic Valve AoV Peak Mainor.99.2cm/sAoV VTI17.9cm AO Peak GR.3.9mmHgLVOT VTI 11.04cm AO Mean GR.3mmHgAI P 1/2 [id number] Mitral Valve MV E Twytgptp80.7cm/sMV DECEL DHBS225tp MV A Whipuyhb83.8cm/sE/A Ratio2.3 TDI Lateral E' P. V3.96cm/sMedial E' P. V4.57cm/s E/Lateral E'22.9E/Medial E'19.8 Tricuspid Valve TR P. Gsbzgjky591cb/sRAP MRLVYAPQ0nwDo TR Peak Gr.42szAhPYAP79dtVt Pulmonary Vein S1 Odxcuwgl12.5cm/sS2 Zwiufyad08.40cm/s D2 Aooclhtv06.4cm/sPVa [id number] LEFT VENTRICLE The Left Ventricle is mildly dilated. There is moderate to severe concentric left ventricular hypertr ophy. The left ventricular systolic function is severely impaired. The Ejection Fraction is 10-15%. T here is global hypokinesis of the left ventricle. The left ventricular diastolic function and filling is normal for age. RIGHT VENTRICLE The right ventricle is normal size. There is normal right ventricular wall thickness. The right ventr icular systolic function is normal. ATRIA The left atrium is mildly dilated. The right atrium is mildly dilated. The interatrial septum is inta ct with no evidence for an atrial septal defect or patent foramen ovale as noted on 2-D or Doppler im aging. AORTIC VALVE The aortic valve is normal in structure and function. Doppler and Color Flow revealed mild aortic reg urgitation. There is no significant aortic valvular stenosis. MITRAL VALVE The mitral valve is normal in structure and function. There is no evidence of mitral valve prolapse. There is no mitral valve stenosis. Doppler and Color-flow revealed trace mitral regurgitation. TRICUSPID VALVE The tricuspid valve is normal in structure and function. Doppler and Color Flow revealed trace tricus pid regurgitation. There is no tricuspid valve stenosis. PULMONIC VALVE The pulmonary valve is normal in structure and function. Doppler and Color Flow revealed trace pulmon ic valvular regurgitation. GREAT VESSELS The aortic root is normal in size. The IVC is dilated and collapses >50% with inspiration. PERICARDIAL EFFUSION There is no evidence of significant pericardial effusion. Critical Notification Physician Notified Date: 06/18/2018 Time: 17:07 Critical Value: Yes <Conclusion> The left ventricular systolic function is severely impaired. The Ejection Fraction is 10-15%. Mild aortic regurgitation. Trace mitral regurgitation. Trace tricuspid regurgitation. There is no evidence of significant pericardial effusion. Signed by : Dwayne Trejo, Electronically Approved : 06/18/2018 17:33:36
[2018-06-18] MEDS ORDERED: NITROGLYCERIN PREMIX 250 ML IV ONE ×2 (19:45→21:48)
--- NOTE | 2018-06-18 20:43 | PDOC ---
Provider Note Provider Note Called by nursing staff regarding persistent chest pain. Discussed with patient regarding his NSTEMI progression, severe CMP and persistent chest pain despite hep, ntg and morphine and continued elevated troponins discussed r/b/a to urgent cath. Patient and family wish to proceed. Discussed high risk nature due to his current state. ARMANDO ENCARNACION MD Jun 18, 2018 20:41
[2018-06-18] MEDS ORDERED: LIDOCAINE 1% Multi-Dose 20 ML VIAL. ONE (20:56)
[2018-06-18] MEDS ORDERED: IODIXANOL 320 MG/ML 100 ML VIAL. ONE (20:56)
[2018-06-18] MEDS ORDERED: HEPARIN for ARTERIAL LINE 1,500 ML ONE (20:56)
[2018-06-18] MEDS ORDERED: fentaNYL PF VIAL 100 MCG/2 ML VIAL ONE (20:57)
[2018-06-18] MEDS ORDERED: HEPARIN for IV BOLUS 10,000 UNIT/10 ML VIAL. ONE (20:58)
[2018-06-18] MEDS ORDERED: VERAPAMIL 5 MG/2 ML VIAL. ONE ×2 (20:58→21:00)
[2018-06-18] MEDS ORDERED: MIDAZOLAM HCL/PF 5 MG/5 ML VIAL. ONE (20:58)
[2018-06-18] MEDS ORDERED: NITROGLYCERIN 200 MCG/2 ML SYRINGE FOR CATH/VASC LAB. ONE (20:58)
[2018-06-18] MEDS ORDERED: hydrALAZINE 20 MG/ML VIAL. ONE (21:28)
[2018-06-18] MEDS ORDERED: MIDAZOLAM HCL/PF 5 MG/5 ML VIAL. IV ONE (21:45)
[2018-06-18] MEDS ORDERED: IODIXANOL 320 MG/ML 100 ML VIAL. IART ONE (22:00)
[2018-06-18] MEDS ORDERED: LIDOCAINE 1% Multi-Dose 20 ML VIAL. INJ ONE (22:00)
[2018-06-18] MEDS ORDERED: hydrALAZINE 20 MG/ML VIAL. IVP ONE (22:00)
[2018-06-18] MEDS ORDERED: fentaNYL PF VIAL 100 MCG/2 ML VIAL IV ONE (22:00)
[2018-06-19] VITALS (24 sets, daily range): BP systolic 89–172; BP diastolic 52–98
--- NOTE | 2018-06-19 00:38 | NUR ---
Patient arrived on unit at 2225 accompanied by CL RNs. Patient alert and oriented, able to answer questions appropriately when asked, denied any pain, felt slightly short of air but is more related to anxiety than oxygenation problem. Family at bedside. Spoke with Dr. Galarza regarding orders, received the order to hold clonidine PO, only use the nitro gtt, and titrate to keep BP around 120/80. Sepsis screen on transfer was negative. Will continue to monitor.
[2018-06-19] MEDS ORDERED: NITROGLYCERIN PREMIX 250 ML IV PRN (03:30)
[2018-06-19] MEDS: MORPHINE SULFATE 4 MG/ML VIAL. IV PRN (04:04)
[2018-06-19 05:23] LABS: BASO % 0 % (0-3); EOS # 0.1 x10^3/uL (0.0-0.7); EOS % 1 % (0-3); HEMATOCRIT 39.6 % (39.0-53.0); HEMOGLOBIN 13.3 g/dL (13.0-17.5); LYMPH # 0.8 x10^3/uL (1.0-4.8); LYMPH % 8 % (24-48); MEAN CORPUSCULAR HEMOGLOBIN 31 pg (25-35); MEAN CORPUSCULAR HGB CONC 34 g/dL (31-37); MEAN CORPUSCULAR VOLUME 92 fL (79-100); MONO # 1.2 x10^3/uL (0.0-1.1); MONO % 12 % (0-9); NEUT # 7.7 x10^3uL (1.8-7.7); NEUT % 79 % (31-73); PLATELET COUNT 223 x10^3/uL (140-400); RED BLOOD COUNT 4.33 x10^6/uL (4.30-5.70); RED CELL DISTRIBUTION WIDTH 14.6 % (11.5-14.5); WHITE BLOOD COUNT 9.8 x10^3/uL (4.0-11.0)
[2018-06-19] MEDS: NITROGLYCERIN OINT 1 GM PACKET. TP SCH ×2 (05:33)
[2018-06-19 05:47] LABS: CALCIUM 8.1 mg/dL (8.5-10.1); CREATININE 1.5 mg/dL (0.7-1.3); GFR 59.5; POTASSIUM 3.1 mmol/L (3.5-5.1)
[2018-06-19] MEDS: hydroCHLOROthiazide 25 MG TABLET PO SCH (08:56)
[2018-06-19] MEDS: METOPROLOL SUCC 24HR ER 50 MG TAB.ER.24H. PO SCH (08:57)
[2018-06-19] MEDS: ACETAMINOPHEN/CODEINE 300/30MG TABLET. PO PRN ×2 (08:58→19:25)
[2018-06-19] MEDS: cloNIDine HCL 0.1 MG TABLET PO SCH (08:58)
[2018-06-19] MEDS: CETIRIZINE HCL 10 MG TABLET. PO SCH (08:59)
[2018-06-19] MEDS: LISINOPRIL 20 MG TABLET PO SCH (09:00)
[2018-06-19] MEDS ORDERED: ACETAMINOPHEN 325 MG TABLET. PO SCH (09:00)
--- NOTE | 2018-06-19 09:24 | NUR ---
NN: C/O generalized SWEENEY. PO analgesic w other ordered am meds. Ice bag to back of neck and forehead. NTG gtt off at this time w CLASS C DRIVER ( [place] ).Refused breakfast... NOT to his taste
--- NOTE | 2018-06-19 09:35 | PDOC ---
OSCAR AGUILERA MEAT TEAM LEAD 06/19/18 0935: CARDIO Progress Notes Date and Time Date of Service 06/19/2018 Time of Evaluation 0920 Subjective Subjective: No Chest Pain, No shortness of breath, No Palpitations Vitals Vitals Vital Signs Date Time Temp Pulse Resp B/P (MAP) Pulse Ox O2 Delivery O2 Flow Rate FiO2 06/19/18 09:00 97 150/88 06/19/18 08:58 26 90 Room Air 06/19/18 06:00 2.0 06/19/18 04:00 98.7 98.7 Weight Weight [ ] Input and Output Intake and Output Intake and Output 06/19/18 06:59 Intake Total 514 ml Output Total 3000 ml Balance -2486 ml Intake Oral 100 ml IV Total 414 ml Output Urine Total 3000 ml Laboratory Labs Laboratory Tests Test 06/18/18 11:31 06/18/18 11:55 06/18/18 12:35 06/18/18 17:15 Influenza Type A Antigen Negative (NEGATIVE) Influenza Type B Antigen Negative (NEGATIVE) Urine Collection Type Void Urine Color Yellow Urine Clarity Clear Urine pH 5.5 Urine Specific [place] 1.015 Urine Protein 100 mg/dL (NEG-TRACE) Urine Glucose (UA) Negative mg/dL (NEG) Urine Ketones (Stick) Negative mg/dL (NEG) Urine Blood Moderate (NEG) Urine Nitrite Negative (NEG) Urine Bilirubin Negative (NEG) Urine Urobilinogen Dipstick 1.0 mg/dL (0.2 mg/dL) Urine Leukocyte Esterase Negative (NEG) Urine RBC 1-2 /HPF (0-2) Urine WBC Occ /HPF (0-4) Urine Squamous Epithelial Cells Few /LPF Urine Bacteria 0 /HPF (0-FEW) Urine Hyaline Casts Moderate /HPF Urine Mucus Mod /LPF Urine Opiates Screen Pos (NEG) Urine Methadone Screen Neg (NEG) Urine Barbiturates Neg (NEG) Urine Phencyclidine Screen Neg (NEG) Urine Amphetamine/Methamphetamine Neg (NEG) Urine Benzodiazepines Screen Neg (NEG) Urine Cocaine Screen Neg (NEG) Urine Cannabinoids Screen Neg (NEG) Urine Ethyl Alcohol Neg (NEG) Troponin I Quantitative 2.997 ng/mL (0.000-0.055) 12.948 ng/mL (0.000-0.055) Test 06/19/18 04:50 White Blood Count 9.8 x10^3/uL (4.0-11.0) Red Blood Count 4.33 x10^6/uL (4.30-5.70) Hemoglobin 13.3 g/dL (13.0-17.5) Hematocrit 39.6 % (39.0-53.0) Mean Corpuscular Volume 92 fL (79-100) Mean Corpuscular Hemoglobin 31 pg (25-35) Mean Corpuscular Hemoglobin Concent 34 g/dL (31-37) Red Cell Distribution Width 14.6 % (11.5-14.5) Platelet Count 223 x10^3/uL (140-400) Neutrophils (%) (Auto) 79 % (31-73) Lymphocytes (%) (Auto) 8 % (24-48) Monocytes (%) (Auto) 12 % (0-9) Eosinophils (%) (Auto) 1 % (0-3) Basophils (%) (Auto) 0 % (0-3) Neutrophils # (Auto) 7.7 x10^3uL (1.8-7.7) Lymphocytes # (Auto) 0.8 x10^3/uL (1.0-4.8) Monocytes # (Auto) 1.2 x10^3/uL (0.0-1.1) Eosinophils # (Auto) 0.1 x10^3/uL (0.0-0.7) Basophils # (Auto) 0.0 x10^3/uL (0.0-0.2) Heparin Anti-Xa Act, Unfractionated 0.22 IU/mL (0.30-0.70) Sodium Level 141 mmol/L (136-145) Potassium Level 3.1 mmol/L (3.5-5.1) Chloride Level 103 mmol/L (98-107) Carbon Dioxide Level 29 mmol/L (21-32) Anion Gap 9 (6-14) Blood Urea Nitrogen 21 mg/dL (8-26) Creatinine 1.5 mg/dL (0.7-1.3) Estimated GFR (Cockcroft-Gault) 59.5 Glucose Level 132 mg/dL (70-99) Calcium Level 8.1 mg/dL (8.5-10.1) Physical Exam HEENT: Neck Supple W Full Motion Chest: Symmetric LUNGS: Clear to Auscultation Heart: S1S2, RRR (SR with PVCs) Abdomen: Soft N/T Extremities: Other (1+ bilateral LE pitting edema) Neurology: alert, oriented, follow commands Other Exams right groin arteriotomy site intact with moderate bruising, no swelling or erythema, neurovascular status intact,. Assessment Assessment 1. NSTEMI: likely embolic in etiology. LHC revealed nonobstructive CAD 2. NICM: EF at 10-15%, clinically compensated 3. HTN: labile episodes 4. Acute systolic CHF: appears compensated 5. KORY: Cr better Recommendations 1. DC heparin 24 hours post LHC. Repeat trop 2. DC NTG drip and paste with associated SWEENEY 3. Will need to titrate off clonidine. Change toprol to coreg for better BP control and will start on hydralazine and imdur 4. Continue on lisinopril. Will eval as an outp for entresto use. 5. Consider for lifevest if pt is able to afford 6. ASA, lipitor. Optimize BP control. Continue with lasix therapy. Replace K. 7. Cardiac rehab and CHF clinic as an outpt. CHANDAN CONTRERAS MD 06/20/18 0922: CARDIO Progress Notes Assessment Assessment Patient seen and examined 06/19/18. Agree with RECEIVING MANAGER's assessment and plan. Non-STEMI secondary to thrombus in the diagonal branch, probably embolic Acute systolic heart failure better compensated Consider LifeVest upon discharge Optimize medical therapy and repeat 2-D echo in 3 months to evaluate the need for AICD implantation OSCAR AGUILERA APRN Jun 19, 2018 09:35 CHANDAN CONTRERAS MD Jun 20, 2018 09:22
[2018-06-19] MEDS: ASPIRIN ENTERIC COATED 81 MG TABLET.DR. PO SCH (10:17)
[2018-06-19] MEDS: FLUTICASONE 50MCG/NASAL SPRAY 16GM BOTTLE. NS SCH (10:17)
[2018-06-19] MEDS: FUROSEMIDE 40 MG TABLET. PO SCH (10:17)
[2018-06-19] MEDS: POTASSIUM CHLORIDE 20 MEQ TABLET.ER. PO SCH ×2 (10:19→15:38)
--- NOTE | 2018-06-19 10:23 | PDOC ---
PROGRESS NOTES History of Present Illness History of Present Illness Assessment/Plan Assessment/Plan Chest pain, sinus congestion Recent diagnosis of pneumonia, 2 spots urgent care Elevated total Bili with no abd symptoms Elevated BNP CK D stage III Accel hypertension POA History of aortic rupture with open heart surgery 2009 acute VT, embolic PLAN: icu bed cards consulted, trend cardiac enzymes Avoid nephrotoxins Check for flu Address high BP, reconciled home meds H1 antagonists for sinus symptoms 34 min cc time PROCEDURE NARRATIVE After explaining the risks and benefits of the procedure and alternatives, informed consent was obtained. The patient was brought electively to the cardiac catheterization lab in a fasting state. A timeout was performed confirming the patient's name, date of , procedure, and site of procedure. All necessary personnel were wearing the appropriate protective equipment and radiation monitor devices. (See nursing notes for medications administered). The right groin was sterilely prepped and draped in the usual fashion. The right groin was infiltrated with 10 mL of 2% lidocaine for subcutaneous anesthesia. A 6 F sheath was inserted into the right femoral artery without difficulty. Right and left coronary angiography was performed using a JR4 and JL4 catheter. Left ventricular end diastolic pressure was obtained with a pigtail catheter and pullback was performed and supravalvular aortography was performed. All catheter exchanges and advancements were performed over a guidewire. At case completion the right femoral sheath was removed and hemostasis was achieved with an Angioseal Device after limited femoral angiography confirmed adequate vessel size and anatomy. There were no acute complications. HEMODYNAMICS: AO: 160/80 LVEDP 32 mm Hg No gradient on LV to aortic pullback. LEFT VENTRICULOGRAM: Deferred due to renal insufficiency. SUPRAVALVULAR AORTOGRAPHY: The aortic sinuses are enlarged, the proximal ascending aorta is normal in caliber, no staining or obvious dissection is evident. CORONARY ANGIOGRAPHY: LM is a large caliber vessel with normal angiographic appearance. LAD is a large caliber vessel with normal angiographic appearance. LCx is a large caliber non-dominant vessel with normal angiographic appearance. OM1 is a moderate caliber vessel with normal angiographic appearance. LPL1 is a large caliber vessel with thrombus noted in the apical segments, likely culprit for NSTEMI. RCA is a large caliber dominant vessel with a mid 50% stenosis. RPDA is a moderate caliber vessels with normal angiographic appearance. Conclusion 1. Severe non-ischemic CMP with culprit for NSTEMI likely embolic. 2. LVEDP 33 mm Hg consistent with severe left ventricular volume overload. 3. Mild to moderate non-obstructive coronary disease. Recommendations Aggressive Medical Therapy Signed by : Armando Galarza, Electronically Approved : 06/19/2018 10:29:37 DICTATED and SIGNED BY: ARMANDO GALARZA MD DATE: 06/19/18 1029 [id number] 0 [id number] CC: ARMANDO GALARZA MD; NO PCP; ISMAEL SHAH MD ~ Page of Vitals Vitals Vital Signs Date Time Temp Pulse Resp B/P (MAP) Pulse Ox O2 Delivery O2 Flow Rate FiO2 06/19/18 09:00 98 32 138/98 (111) 93 Room Air 06/19/18 07:00 99.1 99.1 06/19/18 06:00 2.0 Physical Exam General: Alert, Oriented X3, Cooperative, No acute distress Heart: Normal S1, Normal S2, Other (no gallops, clicks or rubs) Lungs: Clear Abdomen: Normal bowel sounds, Soft, No tenderness Extremities: No cyanosis, No edema, Normal pulses Skin: No rashes, No breakdown, No significant lesion Labs LABS Comparison made to 05/16/2016. CLINICAL INDICATION: Difficulty breathing. Chest pain. FINDINGS: Single upright portable exam performed. Heart size is mildly enlarged. Patient is status post median sternotomy. Lungs are somewhat hyperinflated but otherwise clear. No consolidation or pleural effusion. No pneumothorax. Tortuosity and ectasia of the thoracic aorta, unchanged. IMPRESSION: 1. No apparent acute abnormality. 2. Mild cardiomegaly Electronically signed by: Bryan Chen MD (06/18/2018 8:58 AM) [id number] DICTATED and SIGNED BY: BRYAN CHEN MD DATE: 06/18/18 0858 Laboratory Tests Test 06/18/18 11:31 06/18/18 11:55 06/18/18 12:35 06/18/18 17:15 Influenza Type A Antigen Negative (NEGATIVE) Influenza Type B Antigen Negative (NEGATIVE) Urine Collection Type Void Urine Color Yellow Urine Clarity Clear Urine pH 5.5 Urine Specific [place] 1.015 Urine Protein 100 mg/dL (NEG-TRACE) Urine Glucose (UA) Negative mg/dL (NEG) Urine Ketones (Stick) Negative mg/dL (NEG) Urine Blood Moderate (NEG) Urine Nitrite Negative (NEG) Urine Bilirubin Negative (NEG) Urine Urobilinogen Dipstick 1.0 mg/dL (0.2 mg/dL) Urine Leukocyte Esterase Negative (NEG) Urine RBC 1-2 /HPF (0-2) Urine WBC Occ /HPF (0-4) Urine Squamous Epithelial Cells Few /LPF Urine Bacteria 0 /HPF (0-FEW) Urine Hyaline Casts Moderate /HPF Urine Mucus Mod /LPF Urine Opiates Screen Pos (NEG) Urine Methadone Screen Neg (NEG) Urine Barbiturates Neg (NEG) Urine Phencyclidine Screen Neg (NEG) Urine Amphetamine/Methamphetamine Neg (NEG) Urine Benzodiazepines Screen Neg (NEG) Urine Cocaine Screen Neg (NEG) Urine Cannabinoids Screen Neg (NEG) Urine Ethyl Alcohol Neg (NEG) Troponin I Quantitative 2.997 ng/mL (0.000-0.055) 12.948 ng/mL (0.000-0.055) Test 06/19/18 04:50 White Blood Count 9.8 x10^3/uL (4.0-11.0) Red Blood Count 4.33 x10^6/uL (4.30-5.70) Hemoglobin 13.3 g/dL (13.0-17.5) Hematocrit 39.6 % (39.0-53.0) Mean Corpuscular Volume 92 fL (79-100) Mean Corpuscular Hemoglobin 31 pg (25-35) Mean Corpuscular Hemoglobin Concent 34 g/dL (31-37) Red Cell Distribution Width 14.6 % (11.5-14.5) Platelet Count 223 x10^3/uL (140-400) Neutrophils (%) (Auto) 79 % (31-73) Lymphocytes (%) (Auto) 8 % (24-48) Monocytes (%) (Auto) 12 % (0-9) Eosinophils (%) (Auto) 1 % (0-3) Basophils (%) (Auto) 0 % (0-3) Neutrophils # (Auto) 7.7 x10^3uL (1.8-7.7) Lymphocytes # (Auto) 0.8 x10^3/uL (1.0-4.8) Monocytes # (Auto) 1.2 x10^3/uL (0.0-1.1) Eosinophils # (Auto) 0.1 x10^3/uL (0.0-0.7) Basophils # (Auto) 0.0 x10^3/uL (0.0-0.2) Heparin Anti-Xa Act, Unfractionated 0.22 IU/mL (0.30-0.70) Sodium Level 141 mmol/L (136-145) Potassium Level 3.1 mmol/L (3.5-5.1) Chloride Level 103 mmol/L (98-107) Carbon Dioxide Level 29 mmol/L (21-32) Anion Gap 9 (6-14) Blood Urea Nitrogen 21 mg/dL (8-26) Creatinine 1.5 mg/dL (0.7-1.3) Estimated GFR (Cockcroft-Gault) 59.5 Glucose Level 132 mg/dL (70-99) Calcium Level 8.1 mg/dL (8.5-10.1) Assessment and Plan Assessmemt and Plan Problems Medical Problems: (1) Acute renal failure Status: Acute (2) Chest pain Status: Acute (3) Hypertension Status: Acute (4) NSTEMI (non-ST elevated myocardial infarction) Status: Acute Comment Review of Relevant I have reviewed the following items josh (where applicable) has been applied. Labs Laboratory Tests Test 06/18/18 08:20 06/18/18 09:15 06/18/18 11:31 06/18/18 11:55 Sodium Level 141 mmol/L (136-145) Potassium Level 3.8 mmol/L (3.5-5.1) Chloride Level 104 mmol/L (98-107) Carbon Dioxide Level 24 mmol/L (21-32) Anion Gap 13 (6-14) Blood Urea Nitrogen 26 mg/dL (8-26) Creatinine 1.9 mg/dL (0.7-1.3) Estimated GFR (Cockcroft-Gault) 45.3 BUN/Creatinine Ratio 14 (6-20) Glucose Level 164 mg/dL (70-99) Calcium Level 8.7 mg/dL (8.5-10.1) Magnesium Level 2.1 mg/dL (1.8-2.4) Total Bilirubin 1.6 mg/dL (0.2-1.0) Aspartate Amino Transf (AST/SGOT) 43 U/L (15-37) Alanine Aminotransferase (ALT/SGPT) 62 U/L (16-63) Alkaline Phosphatase 62 U/L (46-116) Creatine Kinase 196 U/L (39-308) Creatine Kinase MB (Mass) 2.0 ng/mL (0.0-3.6) Creatine Kinase MB Relative Index 1.0 % (0-4) Troponin I Quantitative 0.060 ng/mL (0.000-0.055) [id number]-[id number]-Type Natriuretic Peptide 49673 pg/mL (0-124) Total Protein 6.7 g/dL (6.4-8.2) Albumin 3.6 g/dL (3.4-5.0) Albumin/Globulin Ratio 1.2 (1.0-1.7) Triglycerides Level 55 mg/dL (0-150) Cholesterol Level 116 mg/dL (0-200) LDL Cholesterol, Calculated 76 mg/dL (0-100) VLDL Cholesterol, Calculated 11 mg/dL (0-40) Non-HDL Cholesterol Calculated 87 mg/dL (0-129) HDL Cholesterol 29 mg/dL (40-60) Cholesterol/HDL Ratio 4.0 Thyroid Stimulating Hormone (TSH) 3.110 uIU/mL (0.358-3.74) White Blood Count 9.3 x10^3/uL (4.0-11.0) Red Blood Count 4.68 x10^6/uL (4.30-5.70) Hemoglobin 14.1 g/dL (13.0-17.5) Hematocrit 43.2 % (39.0-53.0) Mean Corpuscular Volume 92 fL (79-100) Mean Corpuscular Hemoglobin 30 pg (25-35) Mean Corpuscular Hemoglobin Concent 33 g/dL (31-37) Red Cell Distribution Width 14.4 % (11.5-14.5) Platelet Count 228 x10^3/uL (140-400) Neutrophils (%) (Auto) 78 % (31-73) Lymphocytes (%) (Auto) 14 % (24-48) Monocytes (%) (Auto) 7 % (0-9) Eosinophils (%) (Auto) 1 % (0-3) Basophils (%) (Auto) 0 % (0-3) Neutrophils # (Auto) 7.2 x10^3uL (1.8-7.7) Lymphocytes # (Auto) 1.3 x10^3/uL (1.0-4.8) Monocytes # (Auto) 0.7 x10^3/uL (0.0-1.1) Eosinophils # (Auto) 0.1 x10^3/uL (0.0-0.7) Basophils # (Auto) 0.0 x10^3/uL (0.0-0.2) Prothrombin Time 17.0 SEC (11.7-14.0) Prothromb Time International Ratio 1.4 (0.8-1.1) Influenza Type A Antigen Negative (NEGATIVE) Influenza Type B Antigen Negative (NEGATIVE) Urine Collection Type Void Urine Color Yellow Urine Clarity Clear Urine pH 5.5 Urine Specific [place] 1.015 Urine Protein 100 mg/dL (NEG-TRACE) Urine Glucose (UA) Negative mg/dL (NEG) Urine Ketones (Stick) Negative mg/dL (NEG) Urine Blood Moderate (NEG) Urine Nitrite Negative (NEG) Urine Bilirubin Negative (NEG) Urine Urobilinogen Dipstick 1.0 mg/dL (0.2 mg/dL) Urine Leukocyte Esterase Negative (NEG) Urine RBC 1-2 /HPF (0-2) Urine WBC Occ /HPF (0-4) Urine Squamous Epithelial Cells Few /LPF Urine Bacteria 0 /HPF (0-FEW) Urine Hyaline Casts Moderate /HPF Urine Mucus Mod /LPF Urine Opiates Screen Pos (NEG) Urine Methadone Screen Neg (NEG) Urine Barbiturates Neg (NEG) Urine Phencyclidine Screen Neg (NEG) Urine Amphetamine/Methamphetamine Neg (NEG) Urine Benzodiazepines Screen Neg (NEG) Urine Cocaine Screen Neg (NEG) Urine Cannabinoids Screen Neg (NEG) Urine Ethyl Alcohol Neg (NEG) Test 06/18/18 12:35 06/18/18 17:15 06/19/18 04:50 Troponin I Quantitative 2.997 ng/mL (0.000-0.055) 12.948 ng/mL (0.000-0.055) White Blood Count 9.8 x10^3/uL (4.0-11.0) Red Blood Count 4.33 x10^6/uL (4.30-5.70) Hemoglobin 13.3 g/dL (13.0-17.5) Hematocrit 39.6 % (39.0-53.0) Mean Corpuscular Volume 92 fL (79-100) Mean Corpuscular Hemoglobin 31 pg (25-35) Mean Corpuscular Hemoglobin Concent 34 g/dL (31-37) Red Cell Distribution Width 14.6 % (11.5-14.5) Platelet Count 223 x10^3/uL (140-400) Neutrophils (%) (Auto) 79 % (31-73) Lymphocytes (%) (Auto) 8 % (24-48) Monocytes (%) (Auto) 12 % (0-9) Eosinophils (%) (Auto) 1 % (0-3) Basophils (%) (Auto) 0 % (0-3) Neutrophils # (Auto) 7.7 x10^3uL (1.8-7.7) Lymphocytes # (Auto) 0.8 x10^3/uL (1.0-4.8) Monocytes # (Auto) 1.2 x10^3/uL (0.0-1.1) Eosinophils # (Auto) 0.1 x10^3/uL (0.0-0.7) Basophils # (Auto) 0.0 x10^3/uL (0.0-0.2) Heparin Anti-Xa Act, Unfractionated 0.22 IU/mL (0.30-0.70) Sodium Level 141 mmol/L (136-145) Potassium Level 3.1 mmol/L (3.5-5.1) Chloride Level 103 mmol/L (98-107) Carbon Dioxide Level 29 mmol/L (21-32) Anion Gap 9 (6-14) Blood Urea Nitrogen 21 mg/dL (8-26) Creatinine 1.5 mg/dL (0.7-1.3) Estimated GFR (Cockcroft-Gault) 59.5 Glucose Level 132 mg/dL (70-99) Calcium Level 8.1 mg/dL (8.5-10.1) Laboratory Tests Test 06/18/18 11:31 06/18/18 11:55 06/18/18 12:35 06/18/18 17:15 Influenza Type A Antigen Negative (NEGATIVE) Influenza Type B Antigen Negative (NEGATIVE) Urine Collection Type Void Urine Color Yellow Urine Clarity Clear Urine pH 5.5 Urine Specific [place] 1.015 Urine Protein 100 mg/dL (NEG-TRACE) Urine Glucose (UA) Negative mg/dL (NEG) Urine Ketones (Stick) Negative mg/dL (NEG) Urine Blood Moderate (NEG) Urine Nitrite Negative (NEG) Urine Bilirubin Negative (NEG) Urine Urobilinogen Dipstick 1.0 mg/dL (0.2 mg/dL) Urine Leukocyte Esterase Negative (NEG) Urine RBC 1-2 /HPF (0-2) Urine WBC Occ /HPF (0-4) Urine Squamous Epithelial Cells Few /LPF Urine Bacteria 0 /HPF (0-FEW) Urine Hyaline Casts Moderate /HPF Urine Mucus Mod /LPF Urine Opiates Screen Pos (NEG) Urine Methadone Screen Neg (NEG) Urine Barbiturates Neg (NEG) Urine Phencyclidine Screen Neg (NEG) Urine Amphetamine/Methamphetamine Neg (NEG) Urine Benzodiazepines Screen Neg (NEG) Urine Cocaine Screen Neg (NEG) Urine Cannabinoids Screen Neg (NEG) Urine Ethyl Alcohol Neg (NEG) Troponin I Quantitative 2.997 ng/mL (0.000-0.055) 12.948 ng/mL (0.000-0.055) Test 06/19/18 04:50 White Blood Count 9.8 x10^3/uL (4.0-11.0) Red Blood Count 4.33 x10^6/uL (4.30-5.70) Hemoglobin 13.3 g/dL (13.0-17.5) Hematocrit 39.6 % (39.0-53.0) Mean Corpuscular Volume 92 fL (79-100) Mean Corpuscular Hemoglobin 31 pg (25-35) Mean Corpuscular Hemoglobin Concent 34 g/dL (31-37) Red Cell Distribution Width 14.6 % (11.5-14.5) Platelet Count 223 x10^3/uL (140-400) Neutrophils (%) (Auto) 79 % (31-73) Lymphocytes (%) (Auto) 8 % (24-48) Monocytes (%) (Auto) 12 % (0-9) Eosinophils (%) (Auto) 1 % (0-3) Basophils (%) (Auto) 0 % (0-3) Neutrophils # (Auto) 7.7 x10^3uL (1.8-7.7) Lymphocytes # (Auto) 0.8 x10^3/uL (1.0-4.8) Monocytes # (Auto) 1.2 x10^3/uL (0.0-1.1) Eosinophils # (Auto) 0.1 x10^3/uL (0.0-0.7) Basophils # (Auto) 0.0 x10^3/uL (0.0-0.2) Heparin Anti-Xa Act, Unfractionated 0.22 IU/mL (0.30-0.70) Sodium Level 141 mmol/L (136-145) Potassium Level 3.1 mmol/L (3.5-5.1) Chloride Level 103 mmol/L (98-107) Carbon Dioxide Level 29 mmol/L (21-32) Anion Gap 9 (6-14) Blood Urea Nitrogen 21 mg/dL (8-26) Creatinine 1.5 mg/dL (0.7-1.3) Estimated GFR (Cockcroft-Gault) 59.5 Glucose Level 132 mg/dL (70-99) Calcium Level 8.1 mg/dL (8.5-10.1) Medications Current Medications Aspirin (Relative.ai Aspirin) 325 mg 1X ONCE PO Last administered on 06/18/18at 08:51 ; Start 06/18/18 at 08:15; Stop 06/18/18 at 08:22; Status DC Nitroglycerin (Nitrostat) 0.4 mg PRN Q5MIN PRN SL CP RATING > 1/10 Last administered on 06/18/18at 09:21; Start 06/18/18 at 08:15; Stop 06/19/18 at 08:14 ; Status DC Morphine Sulfate (Morphine Sulfate) 2 mg PRN Q15MIN PRN IV/SQ PAIN GREATER THAN 3/10 Last administered on 06/18/18at 09:03; Start 06/18/18 at 08:15; Stop at 18:00; Status DC Metoprolol Tartrate (Lopressor Vial) 5 mg 1X ONCE IVP Last administered on at 08:53; Start 06/18/18 at 08:45; Stop 06/18/18 at 08:46; Status DC Albuterol/ Ipratropium (Duoneb) 3 ml 1X ONCE NEB Last administered on at 09:09; Start 06/18/18 at 09:00; Stop 06/18/18 at 09:01; Status DC Furosemide (Lasix) 40 mg 1X ONCE IVP Last administered on 06/18/18 11:12; Start 06/18/18 at 10:30; Stop 06/18/18 at 10:31; Status DC Ondansetron HCl (Zofran) 4 mg PRN Q8HRS PRN IV NAUSEA/VOMITING; Start 06/18/18 at 10:30; Stop 06/18/18 at 10:39; Status DC Morphine Sulfate (Morphine Sulfate) 4 mg PRN Q2HR PRN IV PAIN Last administered on 06/19/18 04:04; Start 06/18/18 at 10:30; Stop 06/19/18 at 10:29 Nitroglycerin (Nitrostat) 0.4 mg PRN Q5MIN PRN SL CHEST PAIN; Start 06/18/18 at 10:30; Stop 06/19/18 at 10:29; Status Cancel Ondansetron HCl (Zofran) 4 mg PRN Q6HRS PRN IV NAUSEA/VOMITING; Start 06/18/18 at 10:45 Acetaminophen (Tylenol) 500 mg PRN Q6HRS PRN PO MILD PAIN / TEMP; Start at 10:45 Acetaminophen/ Codeine Phosphate (Tylenol #3) 1 tab PRN Q6HRS PRN PO MODERATE PAIN Last administered on 06/19/18 08:58; Start 06/18/18 at 10:45 Labetalol HCl (Normodyne Iv Push) 10 mg PRN Q2HR PRN IVP GIVE FOR SBP > 160 Last administered on 06/18/18 19:20; Start 06/18/18 at 10:45 Acetaminophen (Tylenol) 325 mg DAILY PO Last administered on 06/19/18 10:17; Start 06/19/18 at 09:00 Clonidine HCl (Catapres) 0.1 mg BID PO Last administered on 06/19/18 08:58; Start 06/18/18 at 11:00 Hydrochlorothiazide (Hydrodiuril) 25 mg DAILY PO Last administered on 08:56; Start 06/18/18 at 11:00 Lisinopril (Prinivil) 40 mg DAILY PO Last administered on 06/19/18 09:00; Start 06/18/18 at 11:00 Metoprolol Succinate (Toprol Xl) 50 mg DAILY PO Last administered on 06/19/18 08:57; Start 06/18/18 at 11:00 Non-Formulary Medication (Sildenafil Citrate (Viagra)) 50 mg ONCE PO ; Start at 10:45; Status UNV Fluticasone Propionate (Flonase) 2 spray DAILY NS Last administered on 10:17; Start 06/19/18 at 09:00 Guaifenesin (Robitussin Dm) 10 ml PRN Q6HRS PRN PO COUGH; Start 06/18/18 at 12: 15 Cetirizine HCl (ZyrTEC) 10 mg DAILY PO Last administered on 06/19/18 08:59; Start 06/18/18 at 12:15 Heparin Sodium/ Dextrose 500 ml @ 20 mls/hr CONT PRN IV SEE I/O RECORD Last administered on 06/18/18at 15:53; Start 06/18/18 at 15:15 Heparin Sodium (Porcine) (Heparin Sodium) 2,350 unit PRN Q6HRS PRN IV FOR UFH LEVEL LESS THAN 0.2; Start 06/18/18 at 15:15 Nitroglycerin (Nitro-Bid Oint) 1 inch Q6HRS TP Last administered on 06/18/18 16:04; Start 06/18/18 at 16:00; Stop 06/19/18 at 09:34; Status DC Sodium Chloride 1,000 ml @ 60 mls/hr [id number] IV Last administered on 16:15; Start 06/18/18 at 15:17; Stop 06/19/18 at 00:41; Status DC Hydralazine HCl (Apresoline Inj) 10 mg PRN Q4HRS PRN IVP ELEVATED BP, SEE COMMENTS Last administered on 06/18/18at 17:05; Start 06/18/18 at 15:30 Heparin Sodium (Porcine) (Heparin Sodium) 4,000 unit 1X ONCE IV Last administered on 06/18/18 16:04; Start 06/18/18 at 16:15; Stop 06/18/18 at 16:16 ; Status DC Nitroglycerin/ Dextrose 250 ml @ 9 mls/hr 1X ONCE IV Last administered on 3/13 /19at 22:17; Start 06/18/18 at 19:45; Stop 06/19/18 at 23:31 Iodixanol (Visipaque 320) 100 ml STK-MED ONCE .ROUTE ; Start 06/18/18 at 20:56; Stop 06/18/18 at 20:57; Status DC Lidocaine HCl (Lidocaine 1% 20ml Vial) 20 ml STK-MED ONCE .ROUTE ; Start at 20:56; Stop 06/18/18 at 20:57; Status DC Heparin Sodium/ Sodium Chloride 1,500 ml @ As Directed STK-MED ONCE .ROUTE ; Start 06/18/18 at 20:56; Stop 06/18/18 at 20:57; Status DC Fentanyl Citrate (Fentanyl 2ml Vial) 100 mcg STK-MED ONCE .ROUTE ; Start at 20:57; Stop 06/18/18 at 20:58; Status DC Midazolam HCl (Versed) 5 mg STK-MED ONCE .ROUTE ; Start 06/18/18 at 20:58; Stop 06/18/18 at 20:59; Status DC Heparin Sodium (Porcine) (Heparin Sodium) 10,000 unit STK-MED ONCE .ROUTE ; Start 06/18/18 at 20:58; Stop 06/18/18 at 20:59; Status DC Verapamil HCl (Verapamil) 5 mg STK-MED ONCE .ROUTE ; Start 06/18/18 at 20:58; Stop 06/18/18 at 20:59; Status DC Nitroglycerin (Nitroglycerin) 200 mcg STK-MED ONCE .ROUTE ; Start 06/18/18 at 20 :58; Stop 06/18/18 at 20:59; Status DC Hydralazine HCl (Apresoline Inj) 20 mg STK-MED ONCE .ROUTE ; Start 06/18/18 at 21:28; Stop 06/18/18 at 21:29; Status DC Heparin Sodium/ Sodium Chloride (HEPARIN for ARTERIAL LINE FLUSH) 1,000 unit 1X ONCE IART Last administered on 06/18/18at 22:13; Start 06/18/18 at 22:00; Stop 06/18/18 at 22:01; Status DC Heparin Sodium/ Sodium Chloride (HEPARIN for ARTERIAL LINE FLUSH) 1,000 unit 1X ONCE IART Last administered on 06/18/18 22:13; Start 06/18/18 at 22:00; Stop 06/18/18 at 22:01; Status DC Midazolam HCl (Versed) 5 mg 1X ONCE IV Last administered on 06/18/18 22:15; Start 06/18/18 at 21:45; Stop 06/18/18 at 21:47; Status DC Fentanyl Citrate (Fentanyl 2ml Vial) 100 mcg 1X ONCE IV Last administered on 22:15; Start 06/18/18 at 22:00; Stop 06/18/18 at 22:01; Status DC Iodixanol (Visipaque 320) 100 ml 1X ONCE IART Last administered on 06/18/18 22:13; Start 06/18/18 at 22:00; Stop 06/18/18 at 22:01; Status DC Lidocaine HCl (Lidocaine 1% 20ml Vial) 20 ml 1X ONCE INJ Last administered on 06/18/18 22:14; Start 06/18/18 at 22:00; Stop 06/18/18 at 22:01; Status DC Hydralazine HCl (Apresoline Inj) 20 mg 1X ONCE IVP Last administered on 22:15; Start 06/18/18 at 22:00; Stop 06/18/18 at 22:01; Status DC Nitroglycerin/ Dextrose 250 ml @ As Directed STK-MED ONCE IV ; Start 06/18/18 at 21:48; Stop 06/18/18 at 21:49; Status DC Furosemide (Lasix) 40 mg 1X ONCE IVP Last administered on 06/18/18at 22:50; Start 06/18/18 at 23:00; Stop 06/18/18 at 23:01; Status DC Nitroglycerin/ Dextrose 250 ml @ 1.5 mls/hr CONT PRN IV SEE I/O RECORD Last administered on 06/19/18 03:24; Start 06/19/18 at 03:30; Stop 06/19/18 at 09:27 ; Status DC Verapamil HCl (Verapamil) 5 mg STK-MED ONCE .ROUTE ; Start 06/18/18 at 21:00; Stop 06/19/18 at 08:56; Status DC Aspirin (Ecotrin) 81 mg DAILYWBKFT PO Last administered on 06/19/18at 10:17; Start 06/19/18 at 10:00 Atorvastatin Calcium (Lipitor) 40 mg QHS PO ; Start 06/19/18 at 21:00 Potassium Chloride (Klor-Con) 40 meq Q4H PO Last administered on 06/19/18at 10: 19; Start 06/19/18 at 10:00; Stop 06/19/18 at 14:01 Furosemide (Lasix) 40 mg DAILY PO Last administered on 06/19/18at 10:17; Start 06/19/18 at 10:00 Active Scripts Active Clonidine Hcl 0.1 Mg Tablet 0.1 Mg PO BID For high blood pressure Take this with the other medicines you are already taking Reported Hydrochlorothiazide Tablet (Hydrochlorothiazide) 25 Mg Tablet 25 Mg PO DAILY Toprol Xl (Metoprolol Succinate) 50 Mg Tab.er.24h 50 Mg PO DAILY Lisinopril 40 Mg Tablet 40 Mg PO DAILY Viagra (Sildenafil Citrate) 50 Mg Tablet 50 Mg PO ONCE Tylenol (Acetaminophen) 325 Mg Tablet 325 Mg PO Vitals/I & O Vital Sign - Last 24 Hours 06/18/18 06/18/18 06/18/18 06/18/18 10:30 11:00 11:22 11:25 Pulse 86 88 87 88 Resp 24 23 B/P (MAP) 198/136 (156) 177/144 (155) 177/144 177/144 Pulse Ox 97 96 O2 Delivery Nasal Cannula Nasal Cannula O2 Flow Rate 2.0 2.0 06/18/18 06/18/18 06/18/18 06/18/18 11:26 11:30 12:08 12:38 Pulse 86 88 84 88 Resp 24 10 31 B/P (MAP) 196/145 196/145 (162) 196/123 (147) 188/123 (144) Pulse Ox 95 95 O2 Delivery Nasal Cannula Nasal Cannula Nasal Cannula O2 Flow Rate 2.0 2.0 2.0 06/18/18 06/18/18 06/18/18 06/18/18 13:08 13:25 13:38 14:08 Pulse 82 80 80 80 Resp 19 20 20 20 B/P (MAP) 187/114 (138) 168/97 (120) 176/101 (126) 169/106 (127) Pulse Ox 97 96 94 96 O2 Delivery Nasal Cannula Nasal Cannula Nasal Cannula Nasal Cannula O2 Flow Rate 2.0 2.0 2.0 2.0 06/18/18 06/18/18 06/18/18 06/18/18 15:04 16:00 16:04 17:05 Temp 97.5 97.5 Pulse 78 78 78 Resp 18 20 B/P (MAP) 182/104 (130) 182/104 192/132 Pulse Ox 96 O2 Delivery Nasal Cannula O2 Flow Rate 2.0 06/18/18 06/18/18 06/18/18 06/18/18 17:19 19:05 19:20 20:36 Temp 97.5 97.5 Pulse 86 83 83 Resp 16 18 B/P (MAP) 162/118 (133) 173/107 (129) 173/107 Pulse Ox 95 95 O2 Delivery Nasal Cannula Nasal Cannula O2 Flow Rate 2.0 2.0 06/18/18 06/18/18 06/18/18 06/18/18 22:06 22:15 22:15 22:30 Temp 98.6 98.6 Pulse 92 92 85 Resp 21 21 16 B/P (MAP) 180/121 151/87 (108) Pulse Ox 94 95 94 O2 Delivery Nasal Cannula Nasal Cannula Nasal Cannula O2 Flow Rate 2.0 2.0 2.0 06/18/18 06/18/18 06/18/18 06/18/18 22:45 22:45 23:00 23:15 Pulse 88 88 86 Resp 16 20 18 16 B/P (MAP) 156/87 (110) 154/76 (102) 162/78 (106) Pulse Ox 94 95 95 94 O2 Delivery Nasal Cannula Nasal Cannula Nasal Cannula Nasal Cannula O2 Flow Rate 2.0 2.0 2.0 2.0 06/18/18 06/19/18 06/19/18 06/19/18 23:53 00:00 00:00 00:30 Pulse 89 Resp 20 19 B/P (MAP) 164/84 (110) 127/75 (92) Pulse Ox 94 94 O2 Delivery Nasal Cannula Nasal Cannula Nasal Cannula O2 Flow Rate 2.0 2.0 2.0 06/19/18 06/19/18 06/19/18 06/19/18 01:00 02:00 02:30 03:00 Pulse 95 93 94 Resp 22 20 23 B/P (MAP) 128/65 (86) 150/52 (84) 89/56 (67) 117/69 (85) Pulse Ox 95 93 96 O2 Delivery Nasal Cannula Nasal Cannula Nasal Cannula O2 Flow Rate 2.0 2.0 2.0 06/19/18 06/19/18 06/19/18 06/19/18 03:30 04:00 04:04 04:34 Temp 98.7 98.7 Pulse 94 Resp 20 22 17 B/P (MAP) 114/67 (83) Pulse Ox 92 96 95 O2 Delivery Nasal Cannula Nasal Cannula Nasal Cannula Nasal Cannula O2 Flow Rate 2.0 2.0 2.0 2.0 06/19/18 06/19/18 06/19/18 06/19/18 05:00 06:00 07:00 08:00 Temp 99.1 99.1 Pulse 97 93 98 Resp 24 14 16 B/P (MAP) 136/67 (90) 109/75 (86) 150/81 (104) Pulse Ox 95 94 96 O2 Delivery Nasal Cannula Nasal Cannula Room Air Room Air O2 Flow Rate 2.0 2.0 06/19/18 06/19/18 06/19/18 06/19/18 08:00 08:57 08:58 08:58 Pulse 92 98 91 Resp 26 26 B/P (MAP) 172/78 (109) 150/79 150/88 Pulse Ox 92 90 O2 Delivery Room Air Room Air 06/19/18 06/19/18 09:00 09:00 Pulse 97 98 Resp 32 B/P (MAP) 150/88 138/98 (111) Pulse Ox 93 O2 Delivery Room Air Intake and Output 06/18/18 06/18/18 06/19/18 15:00 23:00 07:00 Intake Total 0 ml 514 ml Output Total 850 ml 2150 ml Balance -850 ml -1636 ml SOPHIA SANDOVAL MD Jun 19, 2018 10:23
--- NOTE | 2018-06-19 10:30 | CARD ---
MR#: [id number] Date of Study: 06/18/2018 Ordering Physician: ARMANDO ENCARNACION, Referring Physician: ISMAEL SHAH Tech: RT Dusty (R) APPROVED REPORT Technologist: RT Dusty (R) Nurse: Maryjo Marie R.N. Procedure(s) performed: Sedation Time: 48 Minutes [facility] Clinical Frailty Scale [facility] Clinical Frailty Scale: Severely Frail Heart Failure Heart Failure: Yes If Yes, Newly Diagnosed: Yes If Yes, HF Type: Diastolic Systolic If Yes, NYHA Class: Class III CASE TECHNIQUE During this case, Fluoroscopy and low osmolar contrast were used for imaging. PROCEDURE NARRATIVE After explaining the risks and benefits of the procedure and alternatives, informed consent was obtai yury. The patient was brought electively to the cardiac catheterization lab in a fasting state. A ronald eout was performed confirming the patient's name, date of , procedure, and site of procedure. A ll necessary personnel were wearing the appropriate protective equipment and radiation monitor device s. (See nursing notes for medications administered). The right groin was sterilely prepped and drap ed in the usual fashion. The right groin was infiltrated with 10 mL of 2% lidocaine for subcutaneous anesthesia. A 6 F sheath was inserted into the right femoral artery without difficulty. Right and left coronary angiography was performed using a JR4 and JL4 catheter. Left ventricular end diastolic pressure was obtained with a pigtail catheter and pullback was performed and supravalvular aortograp hy was performed. All catheter exchanges and advancements were performed over a guidewire. At case completion the right femoral sheath was removed and hemostasis was achieved with an Angioseal Device after limited femoral angiography confirmed adequate vessel size and anatomy. There were no acute co mplications. HEMODYNAMICS: AO: 160/80 LVEDP 32 mm Hg No gradient on LV to aortic pullback. LEFT VENTRICULOGRAM: Deferred due to renal insufficiency. SUPRAVALVULAR AORTOGRAPHY: The aortic sinuses are enlarged, the proximal ascending aorta is normal in caliber, no staining or obvious dissection is evident. CORONARY ANGIOGRAPHY: LM is a large caliber vessel with normal angiographic appearance. LAD is a large caliber vessel with normal angiographic appearance. LCx is a large caliber non-dominant vessel with normal angiographic appearance. OM1 is a moderate caliber vessel with normal angiographic appearance. LPL1 is a large caliber vessel with thrombus noted in the apical segments, likely culprit for NSTEMI. RCA is a large caliber dominant vessel with a mid 50% stenosis. RPDA is a moderate caliber vessels with normal angiographic appearance. Conclusion 1. Severe non-ischemic CMP with culprit for NSTEMI likely embolic. 2. LVEDP 33 mm Hg consistent with severe left ventricular volume overload. 3. Mild to moderate non-obstructive coronary disease. Recommendations Aggressive Medical Therapy Signed by : Armando Encarnacion, Electronically Approved : 06/19/2018 10:29:37
[2018-06-19] MEDS ORDERED: MORPHINE SULFATE 2 MG/ML VIAL. IV ONE (13:30)
[2018-06-19] MEDS ORDERED: hydrALAZINE 25 MG TABLET PO SCH (14:00)
[2018-06-19] MEDS: ISOSORBIDE MONONITRATE ER 30 MG TAB.ER.24H PO SCH (15:39)
--- NOTE | 2018-06-19 15:58 | NUR ---
SS following for discharge planning. SS reviewed pt chart. Pt is self pay pt. Pt is from home and is currently on room air. No discharge needs noted at this time. SS will continue to follow for pending discharge needs.
--- NOTE | 2018-06-19 16:06 | NUR ---
Venous oozing from earlier am abated after 15 min manual pressure/pressure dressing/immobility. Dr Trejo in ,detailed information on NSTEMI,possible clot related ie reasons for him being on blood thinners. Weak LV function "may have been caused " by a virus also explained to patient and family with 'Hopeful " improvement of LV w ordered meds expected to be seen in an approximate 3 month period of time. Life vest covered and reason for vest pending AICD/pacer placement in prevention of sudden related to low EF statistics. Need for diuretics and K+ replacement explained. Pertinent questions answered. No transfer orders ay this time. Continue POC
[2018-06-19] MEDS ORDERED: POTASSIUM CHLORIDE 20 MEQ TABLET.ER. PO ONE (16:30)
[2018-06-19] MEDS: CARVEDILOL 12.5 MG TABLET. PO SCH (17:38)
[2018-06-19] MEDS: ATORVASTATIN CALCIUM 40 MG TABLET. PO SCH (20:36)
[2018-06-20] VITALS (9 sets, daily range): BP systolic 91–129; BP diastolic 43–80
[2018-06-20 04:48] LABS: BASO % 0 % (0-3); EOS # 0.1 x10^3/uL (0.0-0.7); EOS % 1 % (0-3); HEMATOCRIT 38.5 % (39.0-53.0); HEMOGLOBIN 12.3 g/dL (13.0-17.5); LYMPH # 1.3 x10^3/uL (1.0-4.8); LYMPH % 11 % (24-48); MEAN CORPUSCULAR HEMOGLOBIN 30 pg (25-35); MEAN CORPUSCULAR HGB CONC 32 g/dL (31-37); MEAN CORPUSCULAR VOLUME 93 fL (79-100); MONO # 1.7 x10^3/uL (0.0-1.1); MONO % 14 % (0-9); NEUT % 74 % (31-73); PLATELET COUNT 183 x10^3/uL (140-400); RED BLOOD COUNT 4.15 x10^6/uL (4.30-5.70); RED CELL DISTRIBUTION WIDTH 14.6 % (11.5-14.5); WHITE BLOOD COUNT 12.1 x10^3/uL (4.0-11.0)
[2018-06-20 05:25] LABS: ALBUMIN 2.7 g/dL (3.4-5.0); ALBUMIN/GLOBULIN RATIO 0.9 (1.0-1.7); CALCIUM 8.1 mg/dL (8.5-10.1); CREATININE 2.1 mg/dL (0.7-1.3); GFR 40.3; POTASSIUM 4.1 mmol/L (3.5-5.1); TOTAL BILIRUBIN 1.8 mg/dL (0.2-1.0); TOTAL PROTEIN 5.7 g/dL (6.4-8.2)
[2018-06-20] MEDS: POTASSIUM CHLORIDE 20 MEQ TABLET.ER. PO SCH (08:00)
[2018-06-20] MEDS ORDERED: DOCUSATE SODIUM 100 MG CAPSULE. PO PRN (08:15)
[2018-06-20] MEDS ORDERED: SENNOSIDES/DOCUSATE 8.6/50MG TABLET. PO PRN (08:15)
[2018-06-20] MEDS: FUROSEMIDE 40 MG TABLET. PO SCH (09:00)
[2018-06-20] MEDS: hydroCHLOROthiazide 25 MG TABLET PO SCH (09:00)
[2018-06-20] MEDS: FLUTICASONE 50MCG/NASAL SPRAY 16GM BOTTLE. NS SCH (09:00)
--- NOTE | 2018-06-20 09:07 | PDOC ---
OSCAR AGUILERA DERRICK BARGE OPERATOR 06/20/18 0907: CARDIO Progress Notes Date and Time Date of Service 06/20/2018 Time of Evaluation 0840 Subjective Subjective: No Chest Pain, No shortness of breath, No Palpitations Vitals Vitals Vital Signs Date Time Temp Pulse Resp B/P (MAP) Pulse Ox O2 Delivery O2 Flow Rate FiO2 06/20/18 04:00 98.3 77 20 125/64 (84) 96 Nasal Cannula 2.0 98.3 Weight Weight [ ] Input and Output Intake and Output Intake and Output 06/20/18 07:00 Intake Total 1409 ml Output Total 800 ml Balance 609 ml Intake Oral 964 ml IV Total 445 ml Output Urine Total 800 ml Laboratory Labs Laboratory Tests Test 06/19/18 09:20 06/19/18 11:35 06/19/18 17:55 06/20/18 04:00 Nasal Screen MRSA (PCR) Negative (Negative) Heparin Anti-Xa Act, Unfractionated 0.32 IU/mL (0.30-0.70) 0.36 IU/mL (0.30-0.70) 0.28 IU/mL (0.30-0.70) Troponin I Quantitative 50.413 ng/mL (0.000-0.055) 30.728 ng/mL (0.000-0.055) White Blood Count 12.1 x10^3/uL (4.0-11.0) Red Blood Count 4.15 x10^6/uL (4.30-5.70) Hemoglobin 12.3 g/dL (13.0-17.5) Hematocrit 38.5 % (39.0-53.0) Mean Corpuscular Volume 93 fL (79-100) Mean Corpuscular Hemoglobin 30 pg (25-35) Mean Corpuscular Hemoglobin Concent 32 g/dL (31-37) Red Cell Distribution Width 14.6 % (11.5-14.5) Platelet Count 183 x10^3/uL (140-400) Neutrophils (%) (Auto) 74 % (31-73) Lymphocytes (%) (Auto) 11 % (24-48) Monocytes (%) (Auto) 14 % (0-9) Eosinophils (%) (Auto) 1 % (0-3) Basophils (%) (Auto) 0 % (0-3) Neutrophils # (Auto) 9.0 x10^3uL (1.8-7.7) Lymphocytes # (Auto) 1.3 x10^3/uL (1.0-4.8) Monocytes # (Auto) 1.7 x10^3/uL (0.0-1.1) Eosinophils # (Auto) 0.1 x10^3/uL (0.0-0.7) Basophils # (Auto) 0.0 x10^3/uL (0.0-0.2) Sodium Level 138 mmol/L (136-145) Potassium Level 4.1 mmol/L (3.5-5.1) Chloride Level 99 mmol/L (98-107) Carbon Dioxide Level 30 mmol/L (21-32) Anion Gap 9 (6-14) Blood Urea Nitrogen 26 mg/dL (8-26) Creatinine 2.1 mg/dL (0.7-1.3) Estimated GFR (Cockcroft-Gault) 40.3 BUN/Creatinine Ratio 12 (6-20) Glucose Level 99 mg/dL (70-99) Calcium Level 8.1 mg/dL (8.5-10.1) Total Bilirubin 1.8 mg/dL (0.2-1.0) Aspartate Amino Transf (AST/SGOT) 141 U/L (15-37) Alanine Aminotransferase (ALT/SGPT) 51 U/L (16-63) Alkaline Phosphatase 44 U/L (46-116) Total Protein 5.7 g/dL (6.4-8.2) Albumin 2.7 g/dL (3.4-5.0) Albumin/Globulin Ratio 0.9 (1.0-1.7) Physical Exam HEENT: Neck Supple W Full Motion Chest: Symmetric LUNGS: Other (diminished bases) Heart: S1S2, RRR (SR without ectopies) Abdomen: Soft N/T Extremities: Other (1+ bilateral LE pitting edema) Neurology: alert, oriented, follow commands Other Exams right groin arteriotomy site, soft, no significant circumscribed bruising extensions, neurovascular status to bilateral LE intact. Assessment Assessment 1. NSTEMI: likely embolic in etiology. LHC revealed nonobstructive CAD 2. NICM: EF at 10-15%, clinically compensated 3. HTN: BP well controlled with current regimen 4. Acute systolic CHF 5. KORY: Cr up to 2.1 with good UOP overnight Recommendations 1. Continue heparin drip. May need PO anticoagulation with suspected coronary thrombus in the form of coumadin for affordability 2. Continue with current BP regimen. 3. PCXR today, still needing O2. Lasix. 4. Continue on lisinopril. would be a candidate for entresto 5. Consider for lifevest if pt is able to afford 6. Encouraged cardiac rehab and CHF clinic as an outpt. 7. Discussed significantly in regards to limited option for optimization and further treatment with lack of health insurance. CM/SS to discuss with pt in regards to disability 8. Anticipate DC tomorrow. Encouraged follow up in 4 weeks. 8. CHF education. Transfer to [facility] CHANDAN CONTRERAS MD 06/20/181951: CARDIO Progress Notes Assessment Assessment Patient seen and examined. Agree with CATH LAB TECH's assessment and plan. NSTEMI embolic etiology, presently chest pain free Acute systolic heart failure better compensated Continue current meds and repeat echo in 3 mos to evaluate need for AICD OSCAR AGUILERA APRN Jun 20, 2018 09:07 CHANDAN CONTRERAS MD Jun 20, 2018 19:52
--- NOTE | 2018-06-20 10:05 | PDOC ---
PROGRESS NOTES History of Present Illness History of Present Illness Assessment/Plan Chest pain, unstable Severe non-ischemic CMP with culprit for NSTEMI likely embolic. sinus congestion Recent diagnosis of pneumonia, Elevated total Bili with no abd symptoms Elevated BNP CK D stage III Accelerated hypertension POA History of aortic rupture with open heart surgery 2009 acute [place], embolic PLAN: lifevest icu bed cards consulted, trend cardiac enzymes Avoid nephrotoxins Check for flu NEG Address high BP, reconciled home meds H1 antagonists for sinus symptoms 36 min cc time PROCEDURE NARRATIVE After explaining the risks and benefits of the procedure and alternatives, informed consent was obtained. The patient was brought electively to the cardiac catheterization lab in a fasting state. A timeout was performed confirming the patient's name, date of , procedure, and site of procedure. All necessary personnel were wearing the appropriate protective equipment and radiation monitor devices. (See nursing notes for medications administered). The right groin was sterilely prepped and draped in the usual fashion. The right groin was infiltrated with 10 mL of 2% lidocaine for subcutaneous anesthesia. A 6 F sheath was inserted into the right femoral artery without difficulty. Right and left coronary angiography was performed using a JR4 and JL4 catheter. Left ventricular end diastolic pressure was obtained with a pigtail catheter and pullback was performed and supravalvular aortography was performed. All catheter exchanges and advancements were performed over a guidewire. At case completion the right femoral sheath was removed and hemostasis was achieved with an Angioseal Device after limited femoral angiography confirmed adequate vessel size and anatomy. There were no acute complications. HEMODYNAMICS: AO: 160/80 LVEDP 32 mm Hg No gradient on LV to aortic pullback. LEFT VENTRICULOGRAM: Deferred due to renal insufficiency. SUPRAVALVULAR AORTOGRAPHY: The aortic sinuses are enlarged, the proximal ascending aorta is normal in caliber, no staining or obvious dissection is evident. CORONARY ANGIOGRAPHY: LM is a large caliber vessel with normal angiographic appearance. LAD is a large caliber vessel with normal angiographic appearance. LCx is a large caliber non-dominant vessel with normal angiographic appearance. OM1 is a moderate caliber vessel with normal angiographic appearance. LPL1 is a large caliber vessel with thrombus noted in the apical segments, likely culprit for NSTEMI. RCA is a large caliber dominant vessel with a mid 50% stenosis. RPDA is a moderate caliber vessels with normal angiographic appearance. Conclusion 1. Severe non-ischemic CMP with culprit for NSTEMI likely embolic. 2. LVEDP 33 mm Hg consistent with severe left ventricular volume overload. 3. Mild to moderate non-obstructive coronary disease. Recommendations Aggressive Medical Therapy Signed by : Armando Encarnacion, Electronically Approved : 06/19/2018 10:29:37 DICTATED and SIGNED BY: ARMANDO ENCARNACION MD DATE: 06/19/18 1029 MTH0 0 [id number] CC: ARMANDO ENCARNACION MD; NO PCP; ISMAEL SHAH MD ~ Page of Vitals Vitals Vital Signs Date Time Temp Pulse Resp B/P (MAP) Pulse Ox O2 Delivery O2 Flow Rate FiO2 06/20/18 04:00 98.3 77 20 125/64 (84) 96 Nasal Cannula 2.0 98.3 Physical Exam General: Alert, Oriented X3, Cooperative, No acute distress Heart: Normal S1, Normal S2, Other (no gallops, clicks or rubs) Lungs: Clear Abdomen: Normal bowel sounds, Soft, No tenderness Extremities: No clubbing, No cyanosis, No edema, Normal pulses Skin: No rashes, No breakdown, No significant lesion Labs LABS Laboratory Tests Test 06/19/18 11:35 06/19/18 17:55 06/20/18 04:00 Heparin Anti-Xa Act, Unfractionated 0.32 IU/mL (0.30-0.70) 0.36 IU/mL (0.30-0.70) 0.28 IU/mL (0.30-0.70) Troponin I Quantitative 50.413 ng/mL (0.000-0.055) 30.728 ng/mL (0.000-0.055) White Blood Count 12.1 x10^3/uL (4.0-11.0) Red Blood Count 4.15 x10^6/uL (4.30-5.70) Hemoglobin 12.3 g/dL (13.0-17.5) Hematocrit 38.5 % (39.0-53.0) Mean Corpuscular Volume 93 fL (79-100) Mean Corpuscular Hemoglobin 30 pg (25-35) Mean Corpuscular Hemoglobin Concent 32 g/dL (31-37) Red Cell Distribution Width 14.6 % (11.5-14.5) Platelet Count 183 x10^3/uL (140-400) Neutrophils (%) (Auto) 74 % (31-73) Lymphocytes (%) (Auto) 11 % (24-48) Monocytes (%) (Auto) 14 % (0-9) Eosinophils (%) (Auto) 1 % (0-3) Basophils (%) (Auto) 0 % (0-3) Neutrophils # (Auto) 9.0 x10^3uL (1.8-7.7) Lymphocytes # (Auto) 1.3 x10^3/uL (1.0-4.8) Monocytes # (Auto) 1.7 x10^3/uL (0.0-1.1) Eosinophils # (Auto) 0.1 x10^3/uL (0.0-0.7) Basophils # (Auto) 0.0 x10^3/uL (0.0-0.2) Sodium Level 138 mmol/L (136-145) Potassium Level 4.1 mmol/L (3.5-5.1) Chloride Level 99 mmol/L (98-107) Carbon Dioxide Level 30 mmol/L (21-32) Anion Gap 9 (6-14) Blood Urea Nitrogen 26 mg/dL (8-26) Creatinine 2.1 mg/dL (0.7-1.3) Estimated GFR (Cockcroft-Gault) 40.3 BUN/Creatinine Ratio 12 (6-20) Glucose Level 99 mg/dL (70-99) Calcium Level 8.1 mg/dL (8.5-10.1) Total Bilirubin 1.8 mg/dL (0.2-1.0) Aspartate Amino Transf (AST/SGOT) 141 U/L (15-37) Alanine Aminotransferase (ALT/SGPT) 51 U/L (16-63) Alkaline Phosphatase 44 U/L (46-116) Total Protein 5.7 g/dL (6.4-8.2) Albumin 2.7 g/dL (3.4-5.0) Albumin/Globulin Ratio 0.9 (1.0-1.7) Assessment and Plan Assessmemt and Plan Problems Medical Problems: (1) Acute renal failure Status: Acute (2) Chest pain Status: Acute (3) Hypertension Status: Acute (4) NSTEMI (non-ST elevated myocardial infarction) Status: Acute Comment Review of Relevant I have reviewed the following items josh (where applicable) has been applied. Labs Laboratory Tests Test 06/18/18 11:31 06/18/18 11:55 06/18/18 12:35 06/18/18 17:15 Influenza Type A Antigen Negative (NEGATIVE) Influenza Type B Antigen Negative (NEGATIVE) Urine Collection Type Void Urine Color Yellow Urine Clarity Clear Urine pH 5.5 Urine Specific Helper 1.015 Urine Protein 100 mg/dL (NEG-TRACE) Urine Glucose (UA) Negative mg/dL (NEG) Urine Ketones (Stick) Negative mg/dL (NEG) Urine Blood Moderate (NEG) Urine Nitrite Negative (NEG) Urine Bilirubin Negative (NEG) Urine Urobilinogen Dipstick 1.0 mg/dL (0.2 mg/dL) Urine Leukocyte Esterase Negative (NEG) Urine RBC 1-2 /HPF (0-2) Urine WBC Occ /HPF (0-4) Urine Squamous Epithelial Cells Few /LPF Urine Bacteria 0 /HPF (0-FEW) Urine Hyaline Casts Moderate /HPF Urine Mucus Mod /LPF Urine Opiates Screen Pos (NEG) Urine Methadone Screen Neg (NEG) Urine Barbiturates Neg (NEG) Urine Phencyclidine Screen Neg (NEG) Urine Amphetamine/Methamphetamine Neg (NEG) Urine Benzodiazepines Screen Neg (NEG) Urine Cocaine Screen Neg (NEG) Urine Cannabinoids Screen Neg (NEG) Urine Ethyl Alcohol Neg (NEG) Troponin I Quantitative 2.997 ng/mL (0.000-0.055) 12.948 ng/mL (0.000-0.055) Test 06/19/18 04:50 06/19/18 09:20 06/19/18 11:35 06/19/18 17:55 White Blood Count 9.8 x10^3/uL (4.0-11.0) Red Blood Count 4.33 x10^6/uL (4.30-5.70) Hemoglobin 13.3 g/dL (13.0-17.5) Hematocrit 39.6 % (39.0-53.0) Mean Corpuscular Volume 92 fL (79-100) Mean Corpuscular Hemoglobin 31 pg (25-35) Mean Corpuscular Hemoglobin Concent 34 g/dL (31-37) Red Cell Distribution Width 14.6 % (11.5-14.5) Platelet Count 223 x10^3/uL (140-400) Neutrophils (%) (Auto) 79 % (31-73) Lymphocytes (%) (Auto) 8 % (24-48) Monocytes (%) (Auto) 12 % (0-9) Eosinophils (%) (Auto) 1 % (0-3) Basophils (%) (Auto) 0 % (0-3) Neutrophils # (Auto) 7.7 x10^3uL (1.8-7.7) Lymphocytes # (Auto) 0.8 x10^3/uL (1.0-4.8) Monocytes # (Auto) 1.2 x10^3/uL (0.0-1.1) Eosinophils # (Auto) 0.1 x10^3/uL (0.0-0.7) Basophils # (Auto) 0.0 x10^3/uL (0.0-0.2) Heparin Anti-Xa Act, Unfractionated 0.22 IU/mL (0.30-0.70) 0.32 IU/mL (0.30-0.70) 0.36 IU/mL (0.30-0.70) Sodium Level 141 mmol/L (136-145) Potassium Level 3.1 mmol/L (3.5-5.1) Chloride Level 103 mmol/L (98-107) Carbon Dioxide Level 29 mmol/L (21-32) Anion Gap 9 (6-14) Blood Urea Nitrogen 21 mg/dL (8-26) Creatinine 1.5 mg/dL (0.7-1.3) Estimated GFR (Cockcroft-Gault) 59.5 Glucose Level 132 mg/dL (70-99) Calcium Level 8.1 mg/dL (8.5-10.1) Magnesium Level 1.8 mg/dL (1.8-2.4) Nasal Screen MRSA (PCR) Negative (Negative) Troponin I Quantitative 50.413 ng/mL (0.000-0.055) Test 06/20/18 04:00 White Blood Count 12.1 x10^3/uL (4.0-11.0) Red Blood Count 4.15 x10^6/uL (4.30-5.70) Hemoglobin 12.3 g/dL (13.0-17.5) Hematocrit 38.5 % (39.0-53.0) Mean Corpuscular Volume 93 fL (79-100) Mean Corpuscular Hemoglobin 30 pg (25-35) Mean Corpuscular Hemoglobin Concent 32 g/dL (31-37) Red Cell Distribution Width 14.6 % (11.5-14.5) Platelet Count 183 x10^3/uL (140-400) Neutrophils (%) (Auto) 74 % (31-73) Lymphocytes (%) (Auto) 11 % (24-48) Monocytes (%) (Auto) 14 % (0-9) Eosinophils (%) (Auto) 1 % (0-3) Basophils (%) (Auto) 0 % (0-3) Neutrophils # (Auto) 9.0 x10^3uL (1.8-7.7) Lymphocytes # (Auto) 1.3 x10^3/uL (1.0-4.8) Monocytes # (Auto) 1.7 x10^3/uL (0.0-1.1) Eosinophils # (Auto) 0.1 x10^3/uL (0.0-0.7) Basophils # (Auto) 0.0 x10^3/uL (0.0-0.2) Heparin Anti-Xa Act, Unfractionated 0.28 IU/mL (0.30-0.70) Sodium Level 138 mmol/L (136-145) Potassium Level 4.1 mmol/L (3.5-5.1) Chloride Level 99 mmol/L (98-107) Carbon Dioxide Level 30 mmol/L (21-32) Anion Gap 9 (6-14) Blood Urea Nitrogen 26 mg/dL (8-26) Creatinine 2.1 mg/dL (0.7-1.3) Estimated GFR (Cockcroft-Gault) 40.3 BUN/Creatinine Ratio 12 (6-20) Glucose Level 99 mg/dL (70-99) Calcium Level 8.1 mg/dL (8.5-10.1) Total Bilirubin 1.8 mg/dL (0.2-1.0) Aspartate Amino Transf (AST/SGOT) 141 U/L (15-37) Alanine Aminotransferase (ALT/SGPT) 51 U/L (16-63) Alkaline Phosphatase 44 U/L (46-116) Troponin I Quantitative 30.728 ng/mL (0.000-0.055) Total Protein 5.7 g/dL (6.4-8.2) Albumin 2.7 g/dL (3.4-5.0) Albumin/Globulin Ratio 0.9 (1.0-1.7) Laboratory Tests Test 06/19/18 11:35 06/19/18 17:55 06/20/18 04:00 Heparin Anti-Xa Act, Unfractionated 0.32 IU/mL (0.30-0.70) 0.36 IU/mL (0.30-0.70) 0.28 IU/mL (0.30-0.70) Troponin I Quantitative 50.413 ng/mL (0.000-0.055) 30.728 ng/mL (0.000-0.055) White Blood Count 12.1 x10^3/uL (4.0-11.0) Red Blood Count 4.15 x10^6/uL (4.30-5.70) Hemoglobin 12.3 g/dL (13.0-17.5) Hematocrit 38.5 % (39.0-53.0) Mean Corpuscular Volume 93 fL (79-100) Mean Corpuscular Hemoglobin 30 pg (25-35) Mean Corpuscular Hemoglobin Concent 32 g/dL (31-37) Red Cell Distribution Width 14.6 % (11.5-14.5) Platelet Count 183 x10^3/uL (140-400) Neutrophils (%) (Auto) 74 % (31-73) Lymphocytes (%) (Auto) 11 % (24-48) Monocytes (%) (Auto) 14 % (0-9) Eosinophils (%) (Auto) 1 % (0-3) Basophils (%) (Auto) 0 % (0-3) Neutrophils # (Auto) 9.0 x10^3uL (1.8-7.7) Lymphocytes # (Auto) 1.3 x10^3/uL (1.0-4.8) Monocytes # (Auto) 1.7 x10^3/uL (0.0-1.1) Eosinophils # (Auto) 0.1 x10^3/uL (0.0-0.7) Basophils # (Auto) 0.0 x10^3/uL (0.0-0.2) Sodium Level 138 mmol/L (136-145) Potassium Level 4.1 mmol/L (3.5-5.1) Chloride Level 99 mmol/L (98-107) Carbon Dioxide Level 30 mmol/L (21-32) Anion Gap 9 (6-14) Blood Urea Nitrogen 26 mg/dL (8-26) Creatinine 2.1 mg/dL (0.7-1.3) Estimated GFR (Cockcroft-Gault) 40.3 BUN/Creatinine Ratio 12 (6-20) Glucose Level 99 mg/dL (70-99) Calcium Level 8.1 mg/dL (8.5-10.1) Total Bilirubin 1.8 mg/dL (0.2-1.0) Aspartate Amino Transf (AST/SGOT) 141 U/L (15-37) Alanine Aminotransferase (ALT/SGPT) 51 U/L (16-63) Alkaline Phosphatase 44 U/L (46-116) Total Protein 5.7 g/dL (6.4-8.2) Albumin 2.7 g/dL (3.4-5.0) Albumin/Globulin Ratio 0.9 (1.0-1.7) Medications Current Medications Aspirin ([employer] Aspirin) 325 mg 1X ONCE PO Last administered on 06/18/18at 08:51 ; Start 06/18/18 at 08:15; Stop 06/18/18 at 08:22; Status DC Nitroglycerin (Nitrostat) 0.4 mg PRN Q5MIN PRN SL CP RATING > 1/10 Last administered on 06/18/18at 09:21; Start 06/18/18 at 08:15; Stop 06/19/18 at 08:14 ; Status DC Morphine Sulfate (Morphine Sulfate) 2 mg PRN Q15MIN PRN IV/SQ PAIN GREATER THAN 3/10 Last administered on 06/18/18at 09:03; Start 06/18/18 at 08:15; Stop at 18:00; Status DC Metoprolol Tartrate (Lopressor Vial) 5 mg 1X ONCE IVP Last administered on at 08:53; Start 06/18/18 at 08:45; Stop 06/18/18 at 08:46; Status DC Albuterol/ Ipratropium (Duoneb) 3 ml 1X ONCE NEB Last administered on 09:09; Start 06/18/18 at 09:00; Stop 06/18/18 at 09:01; Status DC Furosemide (Lasix) 40 mg 1X ONCE IVP Last administered on 06/18/18at 11:12; Start 06/18/18 at 10:30; Stop 06/18/18 at 10:31; Status DC Ondansetron HCl (Zofran) 4 mg PRN Q8HRS PRN IV NAUSEA/VOMITING; Start 06/18/18 at 10:30; Stop 06/18/18 at 10:39; Status DC Morphine Sulfate (Morphine Sulfate) 4 mg PRN Q2HR PRN IV PAIN Last administered on 06/19/18at 04:04; Start 06/18/18 at 10:30; Stop 06/19/18 at 10:29 ; Status DC Nitroglycerin (Nitrostat) 0.4 mg PRN Q5MIN PRN SL CHEST PAIN; Start 06/18/18 at 10:30; Stop 06/19/18 at 10:29; Status Cancel Ondansetron HCl (Zofran) 4 mg PRN Q6HRS PRN IV NAUSEA/VOMITING; Start 06/18/18 at 10:45 Acetaminophen (Tylenol) 500 mg PRN Q6HRS PRN PO MILD PAIN / TEMP; Start at 10:45 Acetaminophen/ Codeine Phosphate (Tylenol #3) 1 tab PRN Q6HRS PRN PO MODERATE PAIN Last administered on 06/19/18at 19:25; Start 06/18/18 at 10:45 Labetalol HCl (Normodyne Iv Push) 10 mg PRN Q2HR PRN IVP GIVE FOR SBP > 160 Last administered on 06/18/18 19:20; Start 06/18/18 at 10:45 Acetaminophen (Tylenol) 325 mg DAILY PO Last administered on 06/19/18 10:17; Start 06/19/18 at 09:00; Stop 06/19/18 at 16:26; Status DC Clonidine HCl (Catapres) 0.1 mg BID PO Last administered on 06/19/18at 08:58; Start 06/18/18 at 11:00; Stop 06/19/18 at 16:26; Status DC Hydrochlorothiazide (Hydrodiuril) 25 mg DAILY PO Last administered on 08:56; Start 06/18/18 at 11:00 Lisinopril (Prinivil) 40 mg DAILY PO Last administered on 06/19/18at 09:00; Start 06/18/18 at 11:00 Metoprolol Succinate (Toprol Xl) 50 mg DAILY PO Last administered on 06/19/18 08:57; Start 06/18/18 at 11:00; Stop 06/19/18 at 14:02; Status DC Non-Formulary Medication (Sildenafil Citrate (Viagra)) 50 mg ONCE PO ; Start at 10:45; Status UNV Fluticasone Propionate (Flonase) 2 spray DAILY NS Last administered on 10:17; Start 06/19/18 at 09:00 Guaifenesin (Robitussin Dm) 10 ml PRN Q6HRS PRN PO COUGH; Start 06/18/18 at 12: 15; Stop 06/19/18 at 16:26; Status DC Cetirizine HCl (ZyrTEC) 10 mg DAILY PO Last administered on 06/19/18 08:59; Start 06/18/18 at 12:15 Heparin Sodium/ Dextrose 500 ml @ 20 mls/hr CONT PRN IV SEE I/O RECORD Last administered on 06/18/18at 15:53; Start 06/18/18 at 15:15 Heparin Sodium (Porcine) (Heparin Sodium) 2,350 unit PRN Q6HRS PRN IV FOR UFH LEVEL LESS THAN 0.2; Start 06/18/18 at 15:15 Nitroglycerin (Nitro-Bid Oint) 1 inch Q6HRS TP Last administered on 06/18/18 16:04; Start 06/18/18 at 16:00; Stop 06/19/18 at 09:34; Status DC Sodium Chloride 1,000 ml @ 60 mls/hr [id number] IV Last administered on 16:15; Start 06/18/18 at 15:17; Stop 06/19/18 at 00:41; Status DC Hydralazine HCl (Apresoline Inj) 10 mg PRN Q4HRS PRN IVP ELEVATED BP, SEE COMMENTS Last administered on 06/18/18at 17:05; Start 06/18/18 at 15:30; Stop at 08:13; Status DC Heparin Sodium (Porcine) (Heparin Sodium) 4,000 unit 1X ONCE IV Last administered on 06/18/18at 16:04; Start 06/18/18 at 16:15; Stop 06/18/18 at 16:16 ; Status DC Nitroglycerin/ Dextrose 250 ml @ 9 mls/hr 1X ONCE IV Last administered on 06/18at 22:17; Start 06/18/18 at 19:45; Stop 06/19/18 at 23:31; Status DC Iodixanol (Visipaque 320) 100 ml STK-MED ONCE .ROUTE ; Start 06/18/18 at 20:56; Stop 06/18/18 at 20:57; Status DC Lidocaine HCl (Lidocaine 1% 20ml Vial) 20 ml STK-MED ONCE .ROUTE ; Start at 20:56; Stop 06/18/18 at 20:57; Status DC Heparin Sodium/ Sodium Chloride 1,500 ml @ As Directed STK-MED ONCE .ROUTE ; Start 06/18/18 at 20:56; Stop 06/18/18 at 20:57; Status DC Fentanyl Citrate (Fentanyl 2ml Vial) 100 mcg STK-MED ONCE .ROUTE ; Start at 20:57; Stop 06/18/18 at 20:58; Status DC Midazolam HCl (Versed) 5 mg STK-MED ONCE .ROUTE ; Start 06/18/18 at 20:58; Stop 06/18/18 at 20:59; Status DC Heparin Sodium (Porcine) (Heparin Sodium) 10,000 unit STK-MED ONCE .ROUTE ; Start 06/18/18 at 20:58; Stop 06/18/18 at 20:59; Status DC Verapamil HCl (Verapamil) 5 mg STK-MED ONCE .ROUTE ; Start 06/18/18 at 20:58; Stop 06/18/18 at 20:59; Status DC Nitroglycerin (Nitroglycerin) 200 mcg STK-MED ONCE .ROUTE ; Start 06/18/18 at 20 :58; Stop 06/18/18 at 20:59; Status DC Hydralazine HCl (Apresoline Inj) 20 mg STK-MED ONCE .ROUTE ; Start 06/18/18 at 21:28; Stop 06/18/18 at 21:29; Status DC Heparin Sodium/ Sodium Chloride (HEPARIN for ARTERIAL LINE FLUSH) 1,000 unit 1X ONCE IART Last administered on 06/18/18at 22:13; Start 06/18/18 at 22:00; Stop 06/18/18 at 22:01; Status DC Heparin Sodium/ Sodium Chloride (HEPARIN for ARTERIAL LINE FLUSH) 1,000 unit 1X ONCE IART Last administered on 06/18/18at 22:13; Start 06/18/18 at 22:00; Stop 06/18/18 at 22:01; Status DC Midazolam HCl (Versed) 5 mg 1X ONCE IV Last administered on 06/18/18 22:15; Start 06/18/18 at 21:45; Stop 06/18/18 at 21:47; Status DC Fentanyl Citrate (Fentanyl 2ml Vial) 100 mcg 1X ONCE IV Last administered on 22:15; Start 06/18/18 at 22:00; Stop 06/18/18 at 22:01; Status DC Iodixanol (Visipaque 320) 100 ml 1X ONCE IART Last administered on 06/18/18 22:13; Start 06/18/18 at 22:00; Stop 06/18/18 at 22:01; Status DC Lidocaine HCl (Lidocaine 1% 20ml Vial) 20 ml 1X ONCE INJ Last administered on 06/18/18at 22:14; Start 06/18/18 at 22:00; Stop 06/18/18 at 22:01; Status DC Hydralazine HCl (Apresoline Inj) 20 mg 1X ONCE IVP Last administered on 22:15; Start 06/18/18 at 22:00; Stop 06/18/18 at 22:01; Status DC Nitroglycerin/ Dextrose 250 ml @ As Directed STK-MED ONCE IV ; Start 06/18/18 at 21:48; Stop 06/18/18 at 21:49; Status DC Furosemide (Lasix) 40 mg 1X ONCE IVP Last administered on 06/18/18at 22:50; Start 06/18/18 at 23:00; Stop 06/18/18 at 23:01; Status DC Nitroglycerin/ Dextrose 250 ml @ 1.5 mls/hr CONT PRN IV SEE I/O RECORD Last administered on 06/19/18 03:24; Start 06/19/18 at 03:30; Stop 06/19/18 at 09:27 ; Status DC Verapamil HCl (Verapamil) 5 mg STK-MED ONCE .ROUTE ; Start 06/18/18 at 21:00; Stop 06/19/18 at 08:56; Status DC Aspirin (Ecotrin) 81 mg DAILYWBKFT PO Last administered on 06/19/18at 10:17; Start 06/19/18 at 10:00 Atorvastatin Calcium (Lipitor) 40 mg QHS PO Last administered on 06/19/18 20: 36; Start 06/19/18 at 21:00 Potassium Chloride (Klor-Con) 40 meq Q4H PO Last administered on 06/19/18 15: 38; Start 06/19/18 at 10:00; Stop 06/19/18 at 14:01; Status DC Furosemide (Lasix) 40 mg DAILY PO Last administered on 06/19/18at 10:17; Start 06/19/18 at 10:00 Morphine Sulfate (Morphine Sulfate) 2 mg 1X ONCE IV Last administered on 13:31; Start 06/19/18 at 13:30; Stop 06/19/18 at 13:31; Status DC Carvedilol (Coreg) 12.5 mg BIDWMEALS PO Last administered on 06/19/18 17:38; Start 06/19/18 at 17:00 Isosorbide Mononitrate (Imdur) 30 mg DAILY PO Last administered on 06/19/18at 15 :39; Start 06/19/18 at 14:00 Hydralazine HCl (Apresoline) 25 mg TID PO Last administered on 06/19/18at 15:39 ; Start 06/19/18 at 14:00; Stop 06/20/18 at 08:12; Status DC Potassium Chloride (Klor-Con) 40 meq 1X ONCE PO Last administered on 17:39; Start 06/19/18 at 16:30; Stop 06/19/18 at 16:31; Status DC Potassium Chloride (Klor-Con) 20 meq DAILYWBKFT PO ; Start 06/20/18 at 08:00 Senna/Docusate Sodium (Senna Plus) 2 tab PRN BID PRN PO CONSTIPATION (1st Choice); Start 06/20/18 at 08:15 Docusate Sodium (Colace) 100 mg PRN DAILY PRN PO CONSTIPATION (2nd Choice); Start 06/20/18 at 08:15 Info (Anti-Coagulation Monitoring By Pharmacy) 1 each PRN DAILY PRN MC SEE COMMENTS; Start 06/20/18 at 09:30 Active Scripts Active Clonidine Hcl 0.1 Mg Tablet 0.1 Mg PO BID For high blood pressure Take this with the other medicines you are already taking Reported Hydrochlorothiazide Tablet (Hydrochlorothiazide) 25 Mg Tablet 25 Mg PO DAILY Toprol Xl (Metoprolol Succinate) 50 Mg Tab.er.24h 50 Mg PO DAILY Lisinopril 40 Mg Tablet 40 Mg PO DAILY Viagra (Sildenafil Citrate) 50 Mg Tablet 50 Mg PO ONCE Tylenol (Acetaminophen) 325 Mg Tablet 325 Mg PO Vitals/I & O Vital Sign - Last 24 Hours 06/19/18 06/19/18 06/19/18 06/19/18 11:00 12:00 12:00 13:00 Temp 98.9 98.9 Pulse 94 92 90 Resp 13 16 15 B/P (MAP) 114/74 (87) 134/74 (94) 123/72 (89) O2 Delivery Room Air Room Air Room Air Room Air 06/19/18 06/19/18 06/19/18 06/19/18 13:31 14:00 15:00 15:39 Pulse 92 84 92 Resp 16 29 14 B/P (MAP) 110/65 (80) 132/67 (88) 110/65 O2 Delivery Room Air Room Air Room Air 06/19/18 06/19/18 06/19/18 06/19/18 15:39 16:00 16:00 17:00 Pulse 92 86 Resp 26 B/P (MAP) 110/65 158/94 (115) 144/82 (102) O2 Delivery Room Air Room Air Room Air 06/19/18 06/19/18 06/19/18 06/19/18 17:38 18:00 19:00 19:25 Pulse 86 83 Resp 24 12 B/P (MAP) 158/94 150/91 (110) 113/91 (98) Pulse Ox 94 94 94 O2 Delivery Room Air Room Air Room Air O2 Flow Rate 94.0 06/19/18 06/19/18 06/19/18 06/19/18 20:00 20:00 20:25 21:00 Temp 98.3 98.3 Pulse 80 80 Resp 28 17 17 B/P (MAP) 101/91 (94) 109/91 (97) Pulse Ox 94 96 96 O2 Delivery Room Air Room Air Room Air Nasal Cannula O2 Flow Rate 2.0 2.0 06/20/18 06/20/18 00:00 04:00 Temp 98.8 98.3 98.8 98.3 Pulse 72 77 Resp 20 20 B/P (MAP) 91/49 (63) 125/64 (84) Pulse Ox 96 96 O2 Delivery Nasal Cannula Nasal Cannula O2 Flow Rate 2.0 2.0 Intake and Output 06/19/18 06/19/18 06/20/18 15:00 23:00 07:00 Intake Total 774 ml 635 ml Output Total 475 ml 200 ml 125 ml Balance 299 ml 435 ml -125 ml SOPHIA SANDOVAL MD Jun 20, 2018 10:05
[2018-06-20] MEDS: LISINOPRIL 20 MG TABLET PO SCH (10:45)
[2018-06-20] MEDS: CETIRIZINE HCL 10 MG TABLET. PO SCH (10:45)
[2018-06-20] MEDS: ASPIRIN ENTERIC COATED 81 MG TABLET.DR. PO SCH (10:46)
[2018-06-20] MEDS: CARVEDILOL 12.5 MG TABLET. PO SCH ×2 (10:46→17:34)
--- NOTE | 2018-06-20 11:28 | NUR ---
K+ 4.1/ Cr 2.1. Lab discussed w MACR Friedman. Will hold lasix this am and the po K+ based o am lab. Activated to chair for breakfast. Right groin hemostasis maintained . Area 8/10 discomfort during activation abated /diminished w rest. Printed information on cardiomeggaly,NSTEMI, and meds provided. Continue POC
[2018-06-20] MEDS: ISOSORBIDE MONONITRATE ER 30 MG TAB.ER.24H PO SCH (13:16)
[2018-06-20] MEDS: ACETAMINOPHEN/CODEINE 300/30MG TABLET. PO PRN ×2 (13:16→19:31)
[2018-06-20] MEDS: ANTI-COAG MONITOR BY PHARMACY. MC PRN (14:39)
--- NOTE | 2018-06-20 15:05 | RAD ---
Portable chest, 06/20/2018: HISTORY: Congestive heart failure Comparison is made to a study from 06/18/2018. Sternal wires are present. Surgical clips are projected over the right infraclavicular region. The heart is moderately enlarged. The pulmonary vascularity is normal. No pulmonary infiltrate is seen. There is no evidence of pleural fluid. IMPRESSION: 1. Cardiomegaly. 2. No acute abnormality is detected. Electronically signed by: Sravan Alan MD (06/20/2018 3:02 PM) [facility]
[2018-06-20] MEDS: HEPARIN for IV BOLUS 10,000 UNIT/10 ML VIAL. IV PRN (20:46)
[2018-06-20] MEDS: ATORVASTATIN CALCIUM 40 MG TABLET. PO SCH (21:00)
[2018-06-20] MEDS ORDERED: fentaNYL PF VIAL 100 MCG/2 ML VIAL IV PRN (23:30)
[2018-06-21] VITALS (8 sets, daily range): BP systolic 106–166; BP diastolic 70–97
--- NOTE | 2018-06-21 00:47 | RAD ---
Indication:left scapula pain post cardiac cath today TECHNIQUE:Portable AP chest X-ray COMPARISON:None FINDINGS: Median sternotomy noted. Heart is mildly enlarged in size. Lungs are clear. No pneumothorax or pleural effusion. Visualized bony thorax is within normal limits. IMPRESSION: Mild cardiomegaly. No acute pulmonary process. Electronically signed by: Deng Banegas DO (06/21/2018 12:44 AM) [facility]
--- NOTE | 2018-06-21 00:48 | RAD ---
Indication:left scapula pain post cardiac cath today, ABDOMEN PAIN TECHNIQUE:AP view of the abdomen and pelvis COMPARISON: None FINDINGS: Visualized lung bases are clear. No abnormally dilated bowel loops or air-fluid levels. No abnormal calcific densities projecting over the kidneys to suggest apparent renal stones. Visualized bones are within normal limits. IMPRESSION: No acute radiographic findings. Electronically signed by: Deng Banegas DO (06/21/2018 12:46 AM) [facility]
[2018-06-21 03:02] LABS: BASO % 0 % (0-3); EOS # 0.1 x10^3/uL (0.0-0.7); EOS % 1 % (0-3); HEMATOCRIT 35.5 % (39.0-53.0); HEMOGLOBIN 11.7 g/dL (13.0-17.5); LYMPH # 1.6 x10^3/uL (1.0-4.8); LYMPH % 16 % (24-48); MEAN CORPUSCULAR HEMOGLOBIN 30 pg (25-35); MEAN CORPUSCULAR HGB CONC 33 g/dL (31-37); MEAN CORPUSCULAR VOLUME 92 fL (79-100); MONO # 1.2 x10^3/uL (0.0-1.1); MONO % 12 % (0-9); NEUT # 7.2 x10^3uL (1.8-7.7); NEUT % 71 % (31-73); PLATELET COUNT 181 x10^3/uL (140-400); RED BLOOD COUNT 3.86 x10^6/uL (4.30-5.70); RED CELL DISTRIBUTION WIDTH 14.7 % (11.5-14.5); WHITE BLOOD COUNT 10.2 x10^3/uL (4.0-11.0)
[2018-06-21] MEDS: HEPARIN 25,000UTS/500ML PREMIX 500 ML IV PRN ×2 (03:19→17:05)
[2018-06-21 03:34] LABS: CREATININE 2.1 mg/dL (0.7-1.3); GFR 40.3; POTASSIUM 3.3 mmol/L (3.5-5.1)
[2018-06-21] MEDS: ANTI-COAG MONITOR BY PHARMACY. MC PRN (08:11)
[2018-06-21] MEDS: FUROSEMIDE 40 MG TABLET. PO SCH (08:28)
[2018-06-21] MEDS: CARVEDILOL 12.5 MG TABLET. PO SCH ×2 (08:28→17:04)
[2018-06-21] MEDS: LISINOPRIL 20 MG TABLET PO SCH (08:29)
[2018-06-21] MEDS: CETIRIZINE HCL 10 MG TABLET. PO SCH (08:29)
[2018-06-21] MEDS: POTASSIUM CHLORIDE 20 MEQ TABLET.ER. PO SCH (08:29)
[2018-06-21] MEDS: ISOSORBIDE MONONITRATE ER 30 MG TAB.ER.24H PO SCH (08:29)
[2018-06-21] MEDS: ASPIRIN ENTERIC COATED 81 MG TABLET.DR. PO SCH (08:29)
[2018-06-21] MEDS: FLUTICASONE 50MCG/NASAL SPRAY 16GM BOTTLE. NS SCH (08:30)
[2018-06-21] MEDS: hydroCHLOROthiazide 25 MG TABLET PO SCH (08:30)
--- NOTE | 2018-06-21 09:23 | PDOC ---
PROGRESS NOTES History of Present Illness History of Present Illness Assessment/Plan Chest pain, unstable Severe non-ischemic CMP with culprit for NSTEMI likely embolic. sinus congestion Recent diagnosis of pneumonia, Elevated total Bili with no abd symptoms Elevated BNP CK D stage III-4 CR NOW 2.1 Accelerated hypertension POA History of aortic rupture with open heart surgery 2009 acute NM, embolic hypokalemia PLAN: lifevest replace k cvc bed cards following trend cardiac enzymes Avoid nephrotoxins flu NEG IV HEPARIN RENAL PANEL IN am Address high BP, BETTER CONTROL H1 antagonists for sinus symptoms very high risk patient for sudden cardiac 47 min pt visit, chart reviewe, pt care coordination, pt exam lab review > 50% time spent review, exam, chart review pt care coordination PROCEDURE NARRATIVE After explaining the risks and benefits of the procedure and alternatives, informed consent was obtained. The patient was brought electively to the cardiac catheterization lab in a fasting state. A timeout was performed confirming the patient's name, date of , procedure, and site of procedure. All necessary personnel were wearing the appropriate protective equipment and radiation monitor devices. (See nursing notes for medications administered). The right groin was sterilely prepped and draped in the usual fashion. The right groin was infiltrated with 10 mL of 2% lidocaine for subcutaneous anesthesia. A 6 F sheath was inserted into the right femoral artery without difficulty. Right and left coronary angiography was performed using a JR4 and JL4 catheter. Left ventricular end diastolic pressure was obtained with a pigtail catheter and pullback was performed and supravalvular aortography was performed. All catheter exchanges and advancements were performed over a guidewire. At case completion the right femoral sheath was removed and hemostasis was achieved with an Angioseal Device after limited femoral angiography confirmed adequate vessel size and anatomy. There were no acute complications. HEMODYNAMICS: AO: 160/80 LVEDP 32 mm Hg No gradient on LV to aortic pullback. LEFT VENTRICULOGRAM: Deferred due to renal insufficiency. SUPRAVALVULAR AORTOGRAPHY: The aortic sinuses are enlarged, the proximal ascending aorta is normal in caliber, no staining or obvious dissection is evident. CORONARY ANGIOGRAPHY: LM is a large caliber vessel with normal angiographic appearance. LAD is a large caliber vessel with normal angiographic appearance. LCx is a large caliber non-dominant vessel with normal angiographic appearance. OM1 is a moderate caliber vessel with normal angiographic appearance. LPL1 is a large caliber vessel with thrombus noted in the apical segments, likely culprit for NSTEMI. RCA is a large caliber dominant vessel with a mid 50% stenosis. RPDA is a moderate caliber vessels with normal angiographic appearance. Conclusion 1. Severe non-ischemic CMP with culprit for NSTEMI likely embolic. 2. LVEDP 33 mm Hg consistent with severe left ventricular volume overload. 3. Mild to moderate non-obstructive coronary disease. Recommendations Aggressive Medical Therapy Signed by : Armando Galarza, Electronically Approved : 06/19/2018 10:29:37 DICTATED and SIGNED BY: ARMANDO GALARZA MD DATE: 06/19/18 1029 [id number] CC: ARMANDO GALARZA MD; NO PCP; ISMAEL SHAH MD ~ Page of Vitals Vitals Vital Signs Date Time Temp Pulse Resp B/P (MAP) Pulse Ox O2 Delivery O2 Flow Rate FiO2 06/21/18 08:29 78 126/73 06/21/18 08:00 Room Air 2.0 06/21/18 07:00 98.7 20 94 98.7 Physical Exam General: Alert, Oriented X3, Cooperative, No acute distress Heart: Regular rate, Normal S1, Normal S2, Other (no gallops, clicks or rubs) Lungs: Clear Abdomen: Normal bowel sounds, Soft, No tenderness Extremities: No clubbing, No cyanosis, No edema, Normal pulses Skin: No rashes, No breakdown, No significant lesion Labs LABS Indication:left scapula pain post cardiac cath today TECHNIQUE:Portable AP chest X-ray COMPARISON:None FINDINGS: Median sternotomy noted. Heart is mildly enlarged in size. Lungs are clear. No pneumothorax or pleural effusion. Visualized bony thorax is within normal limits. IMPRESSION: Mild cardiomegaly. No acute pulmonary process. Electronically signed by: Deng Banegas DO (06/21/2018 12:44 AM) [id number] Laboratory Tests Test 06/20/18 19:45 06/21/18 01:50 06/21/18 02:00 Heparin Anti-Xa Act, Unfractionated 0.14 IU/mL (0.30-0.70) 0.38 IU/mL (0.30-0.70) White Blood Count 10.2 x10^3/uL (4.0-11.0) Red Blood Count 3.86 x10^6/uL (4.30-5.70) Hemoglobin 11.7 g/dL (13.0-17.5) Hematocrit 35.5 % (39.0-53.0) Mean Corpuscular Volume 92 fL (79-100) Mean Corpuscular Hemoglobin 30 pg (25-35) Mean Corpuscular Hemoglobin Concent 33 g/dL (31-37) Red Cell Distribution Width 14.7 % (11.5-14.5) Platelet Count 181 x10^3/uL (140-400) Neutrophils (%) (Auto) 71 % (31-73) Lymphocytes (%) (Auto) 16 % (24-48) Monocytes (%) (Auto) 12 % (0-9) Eosinophils (%) (Auto) 1 % (0-3) Basophils (%) (Auto) 0 % (0-3) Neutrophils # (Auto) 7.2 x10^3uL (1.8-7.7) Lymphocytes # (Auto) 1.6 x10^3/uL (1.0-4.8) Monocytes # (Auto) 1.2 x10^3/uL (0.0-1.1) Eosinophils # (Auto) 0.1 x10^3/uL (0.0-0.7) Basophils # (Auto) 0.0 x10^3/uL (0.0-0.2) Sodium Level 136 mmol/L (136-145) Potassium Level 3.3 mmol/L (3.5-5.1) Chloride Level 99 mmol/L (98-107) Carbon Dioxide Level 29 mmol/L (21-32) Anion Gap 8 (6-14) Blood Urea Nitrogen 27 mg/dL (8-26) Creatinine 2.1 mg/dL (0.7-1.3) Estimated GFR (Cockcroft-Gault) 40.3 Glucose Level 146 mg/dL (70-99) Calcium Level 8.0 mg/dL (8.5-10.1) Assessment and Plan Assessmemt and Plan Problems Medical Problems: (1) Acute renal failure Status: Acute (2) Chest pain Status: Acute (3) Hypertension Status: Acute (4) NSTEMI (non-ST elevated myocardial infarction) Status: Acute Comment Review of Relevant I have reviewed the following items josh (where applicable) has been applied. Labs Laboratory Tests Test 06/19/18 11:35 06/19/18 17:55 06/20/18 04:00 06/20/18 19:45 Heparin Anti-Xa Act, Unfractionated 0.32 IU/mL (0.30-0.70) 0.36 IU/mL (0.30-0.70) 0.28 IU/mL (0.30-0.70) 0.14 IU/mL (0.30-0.70) Troponin I Quantitative 50.413 ng/mL (0.000-0.055) 30.728 ng/mL (0.000-0.055) White Blood Count 12.1 x10^3/uL (4.0-11.0) Red Blood Count 4.15 x10^6/uL (4.30-5.70) Hemoglobin 12.3 g/dL (13.0-17.5) Hematocrit 38.5 % (39.0-53.0) Mean Corpuscular Volume 93 fL (79-100) Mean Corpuscular Hemoglobin 30 pg (25-35) Mean Corpuscular Hemoglobin Concent 32 g/dL (31-37) Red Cell Distribution Width 14.6 % (11.5-14.5) Platelet Count 183 x10^3/uL (140-400) Neutrophils (%) (Auto) 74 % (31-73) Lymphocytes (%) (Auto) 11 % (24-48) Monocytes (%) (Auto) 14 % (0-9) Eosinophils (%) (Auto) 1 % (0-3) Basophils (%) (Auto) 0 % (0-3) Neutrophils # (Auto) 9.0 x10^3uL (1.8-7.7) Lymphocytes # (Auto) 1.3 x10^3/uL (1.0-4.8) Monocytes # (Auto) 1.7 x10^3/uL (0.0-1.1) Eosinophils # (Auto) 0.1 x10^3/uL (0.0-0.7) Basophils # (Auto) 0.0 x10^3/uL (0.0-0.2) Sodium Level 138 mmol/L (136-145) Potassium Level 4.1 mmol/L (3.5-5.1) Chloride Level 99 mmol/L (98-107) Carbon Dioxide Level 30 mmol/L (21-32) Anion Gap 9 (6-14) Blood Urea Nitrogen 26 mg/dL (8-26) Creatinine 2.1 mg/dL (0.7-1.3) Estimated GFR (Cockcroft-Gault) 40.3 BUN/Creatinine Ratio 12 (6-20) Glucose Level 99 mg/dL (70-99) Calcium Level 8.1 mg/dL (8.5-10.1) Total Bilirubin 1.8 mg/dL (0.2-1.0) Aspartate Amino Transf (AST/SGOT) 141 U/L (15-37) Alanine Aminotransferase (ALT/SGPT) 51 U/L (16-63) Alkaline Phosphatase 44 U/L (46-116) Total Protein 5.7 g/dL (6.4-8.2) Albumin 2.7 g/dL (3.4-5.0) Albumin/Globulin Ratio 0.9 (1.0-1.7) Test 06/21/18 01:50 06/21/18 02:00 Heparin Anti-Xa Act, Unfractionated 0.38 IU/mL (0.30-0.70) White Blood Count 10.2 x10^3/uL (4.0-11.0) Red Blood Count 3.86 x10^6/uL (4.30-5.70) Hemoglobin 11.7 g/dL (13.0-17.5) Hematocrit 35.5 % (39.0-53.0) Mean Corpuscular Volume 92 fL (79-100) Mean Corpuscular Hemoglobin 30 pg (25-35) Mean Corpuscular Hemoglobin Concent 33 g/dL (31-37) Red Cell Distribution Width 14.7 % (11.5-14.5) Platelet Count 181 x10^3/uL (140-400) Neutrophils (%) (Auto) 71 % (31-73) Lymphocytes (%) (Auto) 16 % (24-48) Monocytes (%) (Auto) 12 % (0-9) Eosinophils (%) (Auto) 1 % (0-3) Basophils (%) (Auto) 0 % (0-3) Neutrophils # (Auto) 7.2 x10^3uL (1.8-7.7) Lymphocytes # (Auto) 1.6 x10^3/uL (1.0-4.8) Monocytes # (Auto) 1.2 x10^3/uL (0.0-1.1) Eosinophils # (Auto) 0.1 x10^3/uL (0.0-0.7) Basophils # (Auto) 0.0 x10^3/uL (0.0-0.2) Sodium Level 136 mmol/L (136-145) Potassium Level 3.3 mmol/L (3.5-5.1) Chloride Level 99 mmol/L (98-107) Carbon Dioxide Level 29 mmol/L (21-32) Anion Gap 8 (6-14) Blood Urea Nitrogen 27 mg/dL (8-26) Creatinine 2.1 mg/dL (0.7-1.3) Estimated GFR (Cockcroft-Gault) 40.3 Glucose Level 146 mg/dL (70-99) Calcium Level 8.0 mg/dL (8.5-10.1) Laboratory Tests Test 06/20/18 19:45 06/21/18 01:50 06/21/18 02:00 Heparin Anti-Xa Act, Unfractionated 0.14 IU/mL (0.30-0.70) 0.38 IU/mL (0.30-0.70) White Blood Count 10.2 x10^3/uL (4.0-11.0) Red Blood Count 3.86 x10^6/uL (4.30-5.70) Hemoglobin 11.7 g/dL (13.0-17.5) Hematocrit 35.5 % (39.0-53.0) Mean Corpuscular Volume 92 fL (79-100) Mean Corpuscular Hemoglobin 30 pg (25-35) Mean Corpuscular Hemoglobin Concent 33 g/dL (31-37) Red Cell Distribution Width 14.7 % (11.5-14.5) Platelet Count 181 x10^3/uL (140-400) Neutrophils (%) (Auto) 71 % (31-73) Lymphocytes (%) (Auto) 16 % (24-48) Monocytes (%) (Auto) 12 % (0-9) Eosinophils (%) (Auto) 1 % (0-3) Basophils (%) (Auto) 0 % (0-3) Neutrophils # (Auto) 7.2 x10^3uL (1.8-7.7) Lymphocytes # (Auto) 1.6 x10^3/uL (1.0-4.8) Monocytes # (Auto) 1.2 x10^3/uL (0.0-1.1) Eosinophils # (Auto) 0.1 x10^3/uL (0.0-0.7) Basophils # (Auto) 0.0 x10^3/uL (0.0-0.2) Sodium Level 136 mmol/L (136-145) Potassium Level 3.3 mmol/L (3.5-5.1) Chloride Level 99 mmol/L (98-107) Carbon Dioxide Level 29 mmol/L (21-32) Anion Gap 8 (6-14) Blood Urea Nitrogen 27 mg/dL (8-26) Creatinine 2.1 mg/dL (0.7-1.3) Estimated GFR (Cockcroft-Gault) 40.3 Glucose Level 146 mg/dL (70-99) Calcium Level 8.0 mg/dL (8.5-10.1) Medications Current Medications Aspirin (WaveDeck Aspirin) 325 mg 1X ONCE PO Last administered on 06/18/18at 08:51 ; Start 06/18/18 at 08:15; Stop 06/18/18 at 08:22; Status DC Nitroglycerin (Nitrostat) 0.4 mg PRN Q5MIN PRN SL CP RATING > 1/10 Last administered on 06/18/18at 09:21; Start 06/18/18 at 08:15; Stop 06/19/18 at 08:14 ; Status DC Morphine Sulfate (Morphine Sulfate) 2 mg PRN Q15MIN PRN IV/SQ PAIN GREATER THAN 3/10 Last administered on 06/18/18at 09:03; Start 06/18/18 at 08:15; Stop at 18:00; Status DC Metoprolol Tartrate (Lopressor Vial) 5 mg 1X ONCE IVP Last administered on at 08:53; Start 06/18/18 at 08:45; Stop 06/18/18 at 08:46; Status DC Albuterol/ Ipratropium (Duoneb) 3 ml 1X ONCE NEB Last administered on 09:09; Start 06/18/18 at 09:00; Stop 06/18/18 at 09:01; Status DC Furosemide (Lasix) 40 mg 1X ONCE IVP Last administered on 06/18/18 11:12; Start 06/18/18 at 10:30; Stop 06/18/18 at 10:31; Status DC Ondansetron HCl (Zofran) 4 mg PRN Q8HRS PRN IV NAUSEA/VOMITING; Start 06/18/18 at 10:30; Stop 06/18/18 at 10:39; Status DC Morphine Sulfate (Morphine Sulfate) 4 mg PRN Q2HR PRN IV PAIN Last administered on 06/19/18at 04:04; Start 06/18/18 at 10:30; Stop 06/19/18 at 10:29 ; Status DC Nitroglycerin (Nitrostat) 0.4 mg PRN Q5MIN PRN SL CHEST PAIN; Start 06/18/18 at 10:30; Stop 06/19/18 at 10:29; Status Cancel Ondansetron HCl (Zofran) 4 mg PRN Q6HRS PRN IV NAUSEA/VOMITING; Start 06/18/18 at 10:45 Acetaminophen (Tylenol) 500 mg PRN Q6HRS PRN PO MILD PAIN / TEMP; Start at 10:45 Acetaminophen/ Codeine Phosphate (Tylenol #3) 1 tab PRN Q6HRS PRN PO MODERATE PAIN Last administered on 06/20/18at 19:31; Start 06/18/18 at 10:45 Labetalol HCl (Normodyne Iv Push) 10 mg PRN Q2HR PRN IVP GIVE FOR SBP > 160 Last administered on 06/18/18at 19:20; Start 06/18/18 at 10:45 Acetaminophen (Tylenol) 325 mg DAILY PO Last administered on 06/19/18 10:17; Start 06/19/18 at 09:00; Stop 06/19/18 at 16:26; Status DC Clonidine HCl (Catapres) 0.1 mg BID PO Last administered on 06/19/18 08:58; Start 06/18/18 at 11:00; Stop 06/19/18 at 16:26; Status DC Hydrochlorothiazide (Hydrodiuril) 25 mg DAILY PO Last administered on 08:30; Start 06/18/18 at 11:00 Lisinopril (Prinivil) 40 mg DAILY PO Last administered on 06/21/18 08:29; Start 06/18/18 at 11:00 Metoprolol Succinate (Toprol Xl) 50 mg DAILY PO Last administered on 06/19/18 08:57; Start 06/18/18 at 11:00; Stop 06/19/18 at 14:02; Status DC Non-Formulary Medication (Sildenafil Citrate (Viagra)) 50 mg ONCE PO ; Start at 10:45; Status UNV Fluticasone Propionate (Flonase) 2 spray DAILY NS Last administered on 08:30; Start 06/19/18 at 09:00 Guaifenesin (Robitussin Dm) 10 ml PRN Q6HRS PRN PO COUGH; Start 06/18/18 at 12: 15; Stop 06/19/18 at 16:26; Status DC Cetirizine HCl (ZyrTEC) 10 mg DAILY PO Last administered on 06/21/18 08:29; Start 06/18/18 at 12:15 Heparin Sodium/ Dextrose 500 ml @ 20 mls/hr CONT PRN IV SEE I/O RECORD Last administered on 06/21/18 03:19; Start 06/18/18 at 15:15 Heparin Sodium (Porcine) (Heparin Sodium) 2,350 unit PRN Q6HRS PRN IV FOR UFH LEVEL LESS THAN 0.2 Last administered on 06/20/18at 20:46; Start 06/18/18 at 15: 15 Nitroglycerin (Nitro-Bid Oint) 1 inch Q6HRS TP Last administered on 06/18/18 16:04; Start 06/18/18 at 16:00; Stop 06/19/18 at 09:34; Status DC Sodium Chloride 1,000 ml @ 60 mls/hr [id number] IV Last administered on 16:15; Start 06/18/18 at 15:17; Stop 06/19/18 at 00:41; Status DC Hydralazine HCl (Apresoline Inj) 10 mg PRN Q4HRS PRN IVP ELEVATED BP, SEE COMMENTS Last administered on 06/18/18at 17:05; Start 06/18/18 at 15:30; Stop at 08:13; Status DC Heparin Sodium (Porcine) (Heparin Sodium) 4,000 unit 1X ONCE IV Last administered on 06/18/18at 16:04; Start 06/18/18 at 16:15; Stop 06/18/18 at 16:16 ; Status DC Nitroglycerin/ Dextrose 250 ml @ 9 mls/hr 1X ONCE IV Last administered on 06/18at 22:17; Start 06/18/18 at 19:45; Stop 06/19/18 at 23:31; Status DC Iodixanol (Visipaque 320) 100 ml STK-MED ONCE .ROUTE ; Start 06/18/18 at 20:56; Stop 06/18/18 at 20:57; Status DC Lidocaine HCl (Lidocaine 1% 20ml Vial) 20 ml STK-MED ONCE .ROUTE ; Start at 20:56; Stop 06/18/18 at 20:57; Status DC Heparin Sodium/ Sodium Chloride 1,500 ml @ As Directed STK-MED ONCE .ROUTE ; Start 06/18/18 at 20:56; Stop 06/18/18 at 20:57; Status DC Fentanyl Citrate (Fentanyl 2ml Vial) 100 mcg STK-MED ONCE .ROUTE ; Start at 20:57; Stop 06/18/18 at 20:58; Status DC Midazolam HCl (Versed) 5 mg STK-MED ONCE .ROUTE ; Start 06/18/18 at 20:58; Stop 06/18/18 at 20:59; Status DC Heparin Sodium (Porcine) (Heparin Sodium) 10,000 unit STK-MED ONCE .ROUTE ; Start 06/18/18 at 20:58; Stop 06/18/18 at 20:59; Status DC Verapamil HCl (Verapamil) 5 mg STK-MED ONCE .ROUTE ; Start 06/18/18 at 20:58; Stop 06/18/18 at 20:59; Status DC Nitroglycerin (Nitroglycerin) 200 mcg STK-MED ONCE .ROUTE ; Start 06/18/18 at 20 :58; Stop 06/18/18 at 20:59; Status DC Hydralazine HCl (Apresoline Inj) 20 mg STK-MED ONCE .ROUTE ; Start 06/18/18 at 21:28; Stop 06/18/18 at 21:29; Status DC Heparin Sodium/ Sodium Chloride (HEPARIN for ARTERIAL LINE FLUSH) 1,000 unit 1X ONCE IART Last administered on 06/18/18 22:13; Start 06/18/18 at 22:00; Stop 06/18/18 at 22:01; Status DC Heparin Sodium/ Sodium Chloride (HEPARIN for ARTERIAL LINE FLUSH) 1,000 unit 1X ONCE IART Last administered on 06/18/18at 22:13; Start 06/18/18 at 22:00; Stop 06/18/18 at 22:01; Status DC Midazolam HCl (Versed) 5 mg 1X ONCE IV Last administered on 06/18/18 22:15; Start 06/18/18 at 21:45; Stop 06/18/18 at 21:47; Status DC Fentanyl Citrate (Fentanyl 2ml Vial) 100 mcg 1X ONCE IV Last administered on 22:15; Start 06/18/18 at 22:00; Stop 06/18/18 at 22:01; Status DC Iodixanol (Visipaque 320) 100 ml 1X ONCE IART Last administered on 06/18/18 22:13; Start 06/18/18 at 22:00; Stop 06/18/18 at 22:01; Status DC Lidocaine HCl (Lidocaine 1% 20ml Vial) 20 ml 1X ONCE INJ Last administered on 06/18/18at 22:14; Start 06/18/18 at 22:00; Stop 06/18/18 at 22:01; Status DC Hydralazine HCl (Apresoline Inj) 20 mg 1X ONCE IVP Last administered on 22:15; Start 06/18/18 at 22:00; Stop 06/18/18 at 22:01; Status DC Nitroglycerin/ Dextrose 250 ml @ As Directed STK-MED ONCE IV ; Start 06/18/18 at 21:48; Stop 06/18/18 at 21:49; Status DC Furosemide (Lasix) 40 mg 1X ONCE IVP Last administered on 06/18/18at 22:50; Start 06/18/18 at 23:00; Stop 06/18/18 at 23:01; Status DC Nitroglycerin/ Dextrose 250 ml @ 1.5 mls/hr CONT PRN IV SEE I/O RECORD Last administered on 06/19/18 03:24; Start 06/19/18 at 03:30; Stop 06/19/18 at 09:27 ; Status DC Verapamil HCl (Verapamil) 5 mg STK-MED ONCE .ROUTE ; Start 06/18/18 at 21:00; Stop 06/19/18 at 08:56; Status DC Aspirin (Ecotrin) 81 mg DAILYWBKFT PO Last administered on 06/21/18at 08:29; Start 06/19/18 at 10:00 Atorvastatin Calcium (Lipitor) 40 mg QHS PO Last administered on 06/20/18at 21: 00; Start 06/19/18 at 21:00 Potassium Chloride (Klor-Con) 40 meq Q4H PO Last administered on 06/19/18at 15: 38; Start 06/19/18 at 10:00; Stop 06/19/18 at 14:01; Status DC Furosemide (Lasix) 40 mg DAILY PO Last administered on 06/21/18 08:28; Start 06/19/18 at 10:00 Morphine Sulfate (Morphine Sulfate) 2 mg 1X ONCE IV Last administered on 13:31; Start 06/19/18 at 13:30; Stop 06/19/18 at 13:31; Status DC Carvedilol (Coreg) 12.5 mg BIDWMEALS PO Last administered on 06/21/18 08:28; Start 06/19/18 at 17:00 Isosorbide Mononitrate (Imdur) 30 mg DAILY PO Last administered on 06/21/18at 08 :29; Start 06/19/18 at 14:00 Hydralazine HCl (Apresoline) 25 mg TID PO Last administered on 06/19/18 15:39 ; Start 06/19/18 at 14:00; Stop 06/20/18 at 08:12; Status DC Potassium Chloride (Klor-Con) 40 meq 1X ONCE PO Last administered on 17:39; Start 06/19/18 at 16:30; Stop 06/19/18 at 16:31; Status DC Potassium Chloride (Klor-Con) 20 meq DAILYWBKFT PO Last administered on 08:29; Start 06/20/18 at 08:00 Senna/Docusate Sodium (Senna Plus) 2 tab PRN BID PRN PO CONSTIPATION (1st Choice) Last administered on 06/20/18 16:05; Start 06/20/18 at 08:15 Docusate Sodium (Colace) 100 mg PRN DAILY PRN PO CONSTIPATION (2nd Choice) Last administered on 06/20/18 16:05; Start 06/20/18 at 08:15 Info (Anti-Coagulation Monitoring By Pharmacy) 1 each PRN DAILY PRN MC SEE COMMENTS Last administered on 06/21/18 08:11; Start 06/20/18 at 09:30 Fentanyl Citrate (Fentanyl 2ml Vial) 50 mcg PRN Q3HRS PRN IV SEVERE PAIN Last administered on 06/20/18 23:26; Start 06/20/18 at 23:30 Active Scripts Active Clonidine Hcl 0.1 Mg Tablet 0.1 Mg PO BID For high blood pressure Take this with the other medicines you are already taking Reported Hydrochlorothiazide Tablet (Hydrochlorothiazide) 25 Mg Tablet 25 Mg PO DAILY Toprol Xl (Metoprolol Succinate) 50 Mg Tab.er.24h 50 Mg PO DAILY Lisinopril 40 Mg Tablet 40 Mg PO DAILY Viagra (Sildenafil Citrate) 50 Mg Tablet 50 Mg PO ONCE Tylenol (Acetaminophen) 325 Mg Tablet 325 Mg PO Vitals/I & O Vital Sign - Last 24 Hours 06/20/18 06/20/18 06/20/18 06/20/18 10:45 10:46 12:00 13:16 Pulse 77 77 90 Resp 17 B/P (MAP) 125/64 125/64 128/80 (96) Pulse Ox 92 O2 Delivery Room Air Room Air O2 Flow Rate 2.0 06/20/18 06/20/18 06/20/18 06/20/18 13:16 14:20 16:00 17:34 Temp 98.9 98.9 Pulse 89 76 80 Resp 20 B/P (MAP) 128/80 129/78 (95) 128/70 Pulse Ox 92 95 O2 Delivery Room Air O2 Flow Rate 2.0 06/20/18 06/20/18 06/20/18 06/20/18 19:31 19:39 19:45 20:35 Temp 97.7 97.7 Pulse 77 Resp 18 18 18 B/P (MAP) 118/65 (82) Pulse Ox 93 O2 Delivery Room Air Room Air Room Air Room Air O2 Flow Rate 2.0 06/20/18 06/20/18 06/21/18 06/21/18 23:26 23:36 00:00 03:40 Temp 98.0 98.6 98.0 98.6 Pulse 71 72 Resp 18 16 17 B/P (MAP) 109/43 (65) 106/70 (82) Pulse Ox 93 91 O2 Delivery Room Air Room Air Room Air 06/21/18 06/21/18 06/21/18 06/21/18 07:00 08:00 08:28 08:29 Temp 98.7 98.7 Pulse 78 78 78 Resp 20 B/P (MAP) 126/73 (90) 126/73 126/73 Pulse Ox 94 O2 Delivery Room Air Room Air O2 Flow Rate 2.0 06/21/18 08:29 Pulse 78 B/P (MAP) 126/73 Intake and Output 06/20/18 06/20/18 06/21/18 15:00 23:00 07:00 Intake Total 740 ml 200 ml 500 ml Output Total 450 ml 400 ml 400 ml Balance 290 ml -200 ml 100 ml SOPHIA SANDOVAL MD Jun 21, 2018 09:23
[2018-06-21 10:02] LABS: HEMATOCRIT 38.5 % (39.0-53.0); HEMOGLOBIN 12.8 g/dL (13.0-17.5); RED BLOOD COUNT 4.17 x10^6/uL (4.30-5.70); RED CELL DISTRIBUTION WIDTH 14.5 % (11.5-14.5)
[2018-06-21] MEDS ORDERED: POTASSIUM CHLORIDE 20 MEQ TABLET.ER. PO ONE (16:30)
--- NOTE | 2018-06-21 22:13 | RAD ---
Ultrasound the abdomen complete. HISTORY: Renal failure Ultrasound was used to evaluate the abdomen. Pancreas was normal in appearance. Vena cava is unremarkable. There is an aortic dissection which involves the proximal abdominal aorta. Gallbladder is distended without gallstones or gallbladder wall thickening. Liver is normal in appearance. Right kidney is 11.6 cm in length without a mass or hydronephrosis. Common duct was normal measuring 5 mm. Spleen was normal in size. Left kidney is 11.5 cm in length without a mass or hydronephrosis. There is a small left renal cyst. IMPRESSION: 1. Aortic dissection. 2. No hydronephrosis in the kidneys. 3. Distended gallbladder without gallstones. Electronically signed by: Faisal Cantu MD (06/21/2018 10:10 PM) [id number]
[2018-06-21] MEDS: ATORVASTATIN CALCIUM 40 MG TABLET. PO SCH (22:42)
[2018-06-21] MEDS ORDERED: LABETALOL 20 MG/4 ML DISP.SYRIN. IVP PRN (22:45)
[2018-06-21] MEDS ORDERED: amLODIPine BESYLATE 5 MG TABLET PO ONE (23:00)
--- NOTE | 2018-06-21 23:32 | PDOC ---
Provider Note Provider Note Called by RN regarding abnormal ultrasound report regarding abdominal aortic dissection. This is NOT a new finding. 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 The abdominal aorta has a known dissection from CT scan in 2014 and 2016. No further plans from CV standpoint. No acute surgical indications from a CV perspective. Defer CT or vascular surgery consultation to primary team. Thanks ARMANDO ENCARNACION MD Jun 21, 2018 23:32
[2018-06-21] MEDS ORDERED: CONTRAST GIVEN. MC PRN (23:45)
[2018-06-21] MEDS ORDERED: IOHEXOL 350 MG/ML 100 ML VIAL. IV ONE (23:45)
[2018-06-22] MEDS: ACETAMINOPHEN/CODEINE 300/30MG TABLET. PO PRN (00:50)
--- NOTE | 2018-06-22 01:30 | RAD ---
CT angiogram of the chest, abdomen and pelvis with contrast: Reason for examination: Abdominal aortic dissection. Helical images were obtained through the chest abdomen pelvis with intravenous administration of 75 cc Omnipaque 350 using angiographic protocol. 3-D MIPS reconstruction was performed in sagittal and coronal planes and volume rendered image was obtained. Exposure: One or more of the following individualized dose reduction techniques were utilized for this examination: 1. Automated exposure control 2. Adjustment of the mA and/or kV according to patient size 3. Use of iterative reconstruction technique. No abnormality seen at the thyroid gland. The trachea and mainstem bronchi show no intraluminal lesions. No abnormality seen at the esophagus but there is a small hiatal hernia. The heart size is mildly enlarged. There is no pericardial effusion seen. The thoracic aorta shows dissection extending from the thoracic arch just distal to the origin of the left subclavian artery and extends through the aortic bifurcation into the left common iliac artery. The lung brown show some linear atelectasis at the left lung base. No infiltrates. There is a small left pleural effusion present No abnormality seen at the liver, spleen, adrenal glands, pancreas or gallbladder. The kidneys show a 1.7 cm circumscribed lesion at the lower pole the right kidney which probably represents a cyst. No renal calculi, hydronephrosis or obstructive uropathy is seen. The abdominal aorta again shows a dissection with contrast seen both in the true and false lumen. The celiac axis, superior mesenteric arteries, renal arteries and inferior mesenteric artery arise from the true lumen. The dissection continues into the left common iliac artery with the false lumen providing flow to the left external iliac artery and common femoral artery. The intestinal tract shows no abnormally dilated or thickened rajput and no bowel obstruction is seen. No abnormality seen at the stomach. No abnormality seen at the bladder, prostate gland or seminal vesicles. No free fluid or free air is seen in the abdomen or pelvis. No acute abnormalities are seen in the bone structures but there are severe degenerative changes at the L5-S1 disc level. IMPRESSION: Aortic dissection which starts just distal to the origin of the left subclavian artery and extends into the left common iliac artery. The celiac axis, superior mesenteric artery, renal arteries and inferior mesenteric artery arise from the true lumen. The left external iliac artery and common femoral artery our continuations of the false lumen. Small hiatal hernia is present. Heart size is mildly enlarged. Some minimal linear atelectasis present at the left lung base. Small left pleural effusion. 1.7 cm cystic-appearing lesion at the lower pole the right kidney. Severe degenerative changes at the L5-S1 disc level. Electronically signed by: Jacquelyn Mosqueda MD (06/22/2018 1:27 AM) [facility]
--- NOTE | 2018-06-22 02:31 | PDOC ---
PROGRESS NOTES Subjective Subjective called RE: aortic dissection on abd U/S I asked for CTA --> films reviewed -- dissection with large lumen at the hiatus - I recommend contacting CT surgery at for transfer start esmolol and cardene drips and keep SBP near 100 systolic, no heparin Objective Objective Vital Signs Date Time Temp Pulse Resp B/P (MAP) Pulse Ox O2 Delivery O2 Flow Rate FiO2 06/22/18 00:50 20 97 Room Air 06/21/18 23:44 98.7 85 98.7 06/21/18 08:00 2.0 Intake and Output 06/22/18 06:59 Intake Total 450 ml Output Total 3175 ml Balance -2725 ml Intake Oral 450 ml Output Urine Total 3175 ml Assessment Assessment Problems Medical Problems: (1) Acute renal failure Status: Acute (2) Chest pain Status: Acute (3) Hypertension Status: Acute (4) NSTEMI (non-ST elevated myocardial infarction) Status: Acute Comment Review of Relevant I have reviewed the following items josh (where applicable) has been applied. Labs Laboratory Tests Test 06/20/18 04:00 06/20/18 19:45 06/21/18 01:50 06/21/18 02:00 White Blood Count 12.1 x10^3/uL (4.0-11.0) 10.2 x10^3/uL (4.0-11.0) Red Blood Count 4.15 x10^6/uL (4.30-5.70) 3.86 x10^6/uL (4.30-5.70) Hemoglobin 12.3 g/dL (13.0-17.5) 11.7 g/dL (13.0-17.5) Hematocrit 38.5 % (39.0-53.0) 35.5 % (39.0-53.0) Mean Corpuscular Volume 93 fL (79-100) 92 fL (79-100) Mean Corpuscular Hemoglobin 30 pg (25-35) 30 pg (25-35) Mean Corpuscular Hemoglobin Concent 32 g/dL (31-37) 33 g/dL (31-37) Red Cell Distribution Width 14.6 % (11.5-14.5) 14.7 % (11.5-14.5) Platelet Count 183 x10^3/uL (140-400) 181 x10^3/uL (140-400) Neutrophils (%) (Auto) 74 % (31-73) 71 % (31-73) Lymphocytes (%) (Auto) 11 % (24-48) 16 % (24-48) Monocytes (%) (Auto) 14 % (0-9) 12 % (0-9) Eosinophils (%) (Auto) 1 % (0-3) 1 % (0-3) Basophils (%) (Auto) 0 % (0-3) 0 % (0-3) Neutrophils # (Auto) 9.0 x10^3uL (1.8-7.7) 7.2 x10^3uL (1.8-7.7) Lymphocytes # (Auto) 1.3 x10^3/uL (1.0-4.8) 1.6 x10^3/uL (1.0-4.8) Monocytes # (Auto) 1.7 x10^3/uL (0.0-1.1) 1.2 x10^3/uL (0.0-1.1) Eosinophils # (Auto) 0.1 x10^3/uL (0.0-0.7) 0.1 x10^3/uL (0.0-0.7) Basophils # (Auto) 0.0 x10^3/uL (0.0-0.2) 0.0 x10^3/uL (0.0-0.2) Heparin Anti-Xa Act, Unfractionated 0.28 IU/mL (0.30-0.70) 0.14 IU/mL (0.30-0.70) 0.38 IU/mL (0.30-0.70) Sodium Level 138 mmol/L (136-145) 136 mmol/L (136-145) Potassium Level 4.1 mmol/L (3.5-5.1) 3.3 mmol/L (3.5-5.1) Chloride Level 99 mmol/L (98-107) 99 mmol/L (98-107) Carbon Dioxide Level 30 mmol/L (21-32) 29 mmol/L (21-32) Anion Gap 9 (6-14) 8 (6-14) Blood Urea Nitrogen 26 mg/dL (8-26) 27 mg/dL (8-26) Creatinine 2.1 mg/dL (0.7-1.3) 2.1 mg/dL (0.7-1.3) Estimated GFR (Cockcroft-Gault) 40.3 40.3 BUN/Creatinine Ratio 12 (6-20) Glucose Level 99 mg/dL (70-99) 146 mg/dL (70-99) Calcium Level 8.1 mg/dL (8.5-10.1) 8.0 mg/dL (8.5-10.1) Total Bilirubin 1.8 mg/dL (0.2-1.0) Aspartate Amino Transf (AST/SGOT) 141 U/L (15-37) Alanine Aminotransferase (ALT/SGPT) 51 U/L (16-63) Alkaline Phosphatase 44 U/L (46-116) Troponin I Quantitative 30.728 ng/mL (0.000-0.055) Total Protein 5.7 g/dL (6.4-8.2) Albumin 2.7 g/dL (3.4-5.0) Albumin/Globulin Ratio 0.9 (1.0-1.7) Test 06/21/18 09:13 06/21/18 16:25 06/21/18 20:30 White Blood Count 10.0 x10^3/uL (4.0-11.0) Red Blood Count 4.17 x10^6/uL (4.30-5.70) Hemoglobin 12.8 g/dL (13.0-17.5) Hematocrit 38.5 % (39.0-53.0) Mean Corpuscular Volume 92 fL (79-100) Mean Corpuscular Hemoglobin 31 pg (25-35) Mean Corpuscular Hemoglobin Concent 33 g/dL (31-37) Red Cell Distribution Width 14.5 % (11.5-14.5) Platelet Count 181 x10^3/uL (140-400) Heparin Anti-Xa Act, Unfractionated 0.28 IU/mL (0.30-0.70) 0.44 IU/mL (0.30-0.70) 0.42 IU/mL (0.30-0.70) Laboratory Tests Test 06/21/18 09:13 06/21/18 16:25 06/21/18 20:30 White Blood Count 10.0 x10^3/uL (4.0-11.0) Red Blood Count 4.17 x10^6/uL (4.30-5.70) Hemoglobin 12.8 g/dL (13.0-17.5) Hematocrit 38.5 % (39.0-53.0) Mean Corpuscular Volume 92 fL (79-100) Mean Corpuscular Hemoglobin 31 pg (25-35) Mean Corpuscular Hemoglobin Concent 33 g/dL (31-37) Red Cell Distribution Width 14.5 % (11.5-14.5) Platelet Count 181 x10^3/uL (140-400) Heparin Anti-Xa Act, Unfractionated 0.28 IU/mL (0.30-0.70) 0.44 IU/mL (0.30-0.70) 0.42 IU/mL (0.30-0.70) Medications Current Medications Aspirin (Dorinda Aspirin) 325 mg 1X ONCE PO Last administered on 06/18/18at 08:51 ; Start 06/18/18 at 08:15; Stop 06/18/18 at 08:22; Status DC Nitroglycerin (Nitrostat) 0.4 mg PRN Q5MIN PRN SL CP RATING > 1/10 Last administered on 06/18/18at 09:21; Start 06/18/18 at 08:15; Stop 06/19/18 at 08:14 ; Status DC Morphine Sulfate (Morphine Sulfate) 2 mg PRN Q15MIN PRN IV/SQ PAIN GREATER THAN 3/10 Last administered on 06/18/18at 09:03; Start 06/18/18 at 08:15; Stop at 18:00; Status DC Metoprolol Tartrate (Lopressor Vial) 5 mg 1X ONCE IVP Last administered on at 08:53; Start 06/18/18 at 08:45; Stop 06/18/18 at 08:46; Status DC Albuterol/ Ipratropium (Duoneb) 3 ml 1X ONCE NEB Last administered on at 09:09; Start 06/18/18 at 09:00; Stop 06/18/18 at 09:01; Status DC Furosemide (Lasix) 40 mg 1X ONCE IVP Last administered on 06/18/18at 11:12; Start 06/18/18 at 10:30; Stop 06/18/18 at 10:31; Status DC Ondansetron HCl (Zofran) 4 mg PRN Q8HRS PRN IV NAUSEA/VOMITING; Start 06/18/18 at 10:30; Stop 06/18/18 at 10:39; Status DC Morphine Sulfate (Morphine Sulfate) 4 mg PRN Q2HR PRN IV PAIN Last administered on 06/19/18at 04:04; Start 06/18/18 at 10:30; Stop 06/19/18 at 10:29 ; Status DC Nitroglycerin (Nitrostat) 0.4 mg PRN Q5MIN PRN SL CHEST PAIN; Start 06/18/18 at 10:30; Stop 06/19/18 at 10:29; Status Cancel Ondansetron HCl (Zofran) 4 mg PRN Q6HRS PRN IV NAUSEA/VOMITING; Start 06/18/18 at 10:45 Acetaminophen (Tylenol) 500 mg PRN Q6HRS PRN PO MILD PAIN / TEMP; Start at 10:45 Acetaminophen/ Codeine Phosphate (Tylenol #3) 1 tab PRN Q6HRS PRN PO MODERATE PAIN Last administered on 06/22/18at 00:50; Start 06/18/18 at 10:45 Labetalol HCl (Normodyne Iv Push) 10 mg PRN Q2HR PRN IVP GIVE FOR SBP > 160 Last administered on 06/18/18at 19:20; Start 06/18/18 at 10:45; Stop 06/21/18 at 22:34; Status DC Acetaminophen (Tylenol) 325 mg DAILY PO Last administered on 06/19/18at 10:17; Start 06/19/18 at 09:00; Stop 06/19/18 at 16:26; Status DC Clonidine HCl (Catapres) 0.1 mg BID PO Last administered on 06/19/18at 08:58; Start 06/18/18 at 11:00; Stop 06/19/18 at 16:26; Status DC Hydrochlorothiazide (Hydrodiuril) 25 mg DAILY PO Last administered on at 08:30; Start 06/18/18 at 11:00 Lisinopril (Prinivil) 40 mg DAILY PO Last administered on 06/21/18 08:29; Start 06/18/18 at 11:00 Metoprolol Succinate (Toprol Xl) 50 mg DAILY PO Last administered on 06/19/18 08:57; Start 06/18/18 at 11:00; Stop 06/19/18 at 14:02; Status DC Non-Formulary Medication (Sildenafil Citrate (Viagra)) 50 mg ONCE PO ; Start at 10:45; Status UNV Fluticasone Propionate (Flonase) 2 spray DAILY NS Last administered on 08:30; Start 06/19/18 at 09:00 Guaifenesin (Robitussin Dm) 10 ml PRN Q6HRS PRN PO COUGH; Start 06/18/18 at 12: 15; Stop 06/19/18 at 16:26; Status DC Cetirizine HCl (ZyrTEC) 10 mg DAILY PO Last administered on 06/21/18 08:29; Start 06/18/18 at 12:15 Heparin Sodium/ Dextrose 500 ml @ 20 mls/hr CONT PRN IV SEE I/O RECORD Last administered on 06/21/18 17:05; Start 06/18/18 at 15:15 Heparin Sodium (Porcine) (Heparin Sodium) 2,350 unit PRN Q6HRS PRN IV FOR UFH LEVEL LESS THAN 0.2 Last administered on 06/20/18at 20:46; Start 06/18/18 at 15: 15 Nitroglycerin (Nitro-Bid Oint) 1 inch Q6HRS TP Last administered on 06/18/18 16:04; Start 06/18/18 at 16:00; Stop 06/19/18 at 09:34; Status DC Sodium Chloride 1,000 ml @ 60 mls/hr [id number] IV Last administered on 16:15; Start 06/18/18 at 15:17; Stop 06/19/18 at 00:41; Status DC Hydralazine HCl (Apresoline Inj) 10 mg PRN Q4HRS PRN IVP ELEVATED BP, SEE COMMENTS Last administered on 06/18/18at 17:05; Start 06/18/18 at 15:30; Stop at 08:13; Status DC Heparin Sodium (Porcine) (Heparin Sodium) 4,000 unit 1X ONCE IV Last administered on 06/18/18at 16:04; Start 06/18/18 at 16:15; Stop 06/18/18 at 16:16 ; Status DC Nitroglycerin/ Dextrose 250 ml @ 9 mls/hr 1X ONCE IV Last administered on 06/18at 22:17; Start 06/18/18 at 19:45; Stop 06/19/18 at 23:31; Status DC Iodixanol (Visipaque 320) 100 ml STK-MED ONCE .ROUTE ; Start 06/18/18 at 20:56; Stop 06/18/18 at 20:57; Status DC Lidocaine HCl (Lidocaine 1% 20ml Vial) 20 ml STK-MED ONCE .ROUTE ; Start at 20:56; Stop 06/18/18 at 20:57; Status DC Heparin Sodium/ Sodium Chloride 1,500 ml @ As Directed STK-MED ONCE .ROUTE ; Start 06/18/18 at 20:56; Stop 06/18/18 at 20:57; Status DC Fentanyl Citrate (Fentanyl 2ml Vial) 100 mcg STK-MED ONCE .ROUTE ; Start at 20:57; Stop 06/18/18 at 20:58; Status DC Midazolam HCl (Versed) 5 mg STK-MED ONCE .ROUTE ; Start 06/18/18 at 20:58; Stop 06/18/18 at 20:59; Status DC Heparin Sodium (Porcine) (Heparin Sodium) 10,000 unit STK-MED ONCE .ROUTE ; Start 06/18/18 at 20:58; Stop 06/18/18 at 20:59; Status DC Verapamil HCl (Verapamil) 5 mg STK-MED ONCE .ROUTE ; Start 06/18/18 at 20:58; Stop 06/18/18 at 20:59; Status DC Nitroglycerin (Nitroglycerin) 200 mcg STK-MED ONCE .ROUTE ; Start 06/18/18 at 20 :58; Stop 06/18/18 at 20:59; Status DC Hydralazine HCl (Apresoline Inj) 20 mg STK-MED ONCE .ROUTE ; Start 06/18/18 at 21:28; Stop 06/18/18 at 21:29; Status DC Heparin Sodium/ Sodium Chloride (HEPARIN for ARTERIAL LINE FLUSH) 1,000 unit 1X ONCE IART Last administered on 06/18/18 22:13; Start 06/18/18 at 22:00; Stop 06/18/18 at 22:01; Status DC Heparin Sodium/ Sodium Chloride (HEPARIN for ARTERIAL LINE FLUSH) 1,000 unit 1X ONCE IART Last administered on 06/18/18 22:13; Start 06/18/18 at 22:00; Stop 06/18/18 at 22:01; Status DC Midazolam HCl (Versed) 5 mg 1X ONCE IV Last administered on 06/18/18 22:15; Start 06/18/18 at 21:45; Stop 06/18/18 at 21:47; Status DC Fentanyl Citrate (Fentanyl 2ml Vial) 100 mcg 1X ONCE IV Last administered on 22:15; Start 06/18/18 at 22:00; Stop 06/18/18 at 22:01; Status DC Iodixanol (Visipaque 320) 100 ml 1X ONCE IART Last administered on 06/18/18 22:13; Start 06/18/18 at 22:00; Stop 06/18/18 at 22:01; Status DC Lidocaine HCl (Lidocaine 1% 20ml Vial) 20 ml 1X ONCE INJ Last administered on 06/18/18 22:14; Start 06/18/18 at 22:00; Stop 06/18/18 at 22:01; Status DC Hydralazine HCl (Apresoline Inj) 20 mg 1X ONCE IVP Last administered on 22:15; Start 06/18/18 at 22:00; Stop 06/18/18 at 22:01; Status DC Nitroglycerin/ Dextrose 250 ml @ As Directed STK-MED ONCE IV ; Start 06/18/18 at 21:48; Stop 06/18/18 at 21:49; Status DC Furosemide (Lasix) 40 mg 1X ONCE IVP Last administered on 06/18/18at 22:50; Start 06/18/18 at 23:00; Stop 06/18/18 at 23:01; Status DC Nitroglycerin/ Dextrose 250 ml @ 1.5 mls/hr CONT PRN IV SEE I/O RECORD Last administered on 06/19/18at 03:24; Start 06/19/18 at 03:30; Stop 06/19/18 at 09:27 ; Status DC Verapamil HCl (Verapamil) 5 mg STK-MED ONCE .ROUTE ; Start 06/18/18 at 21:00; Stop 06/19/18 at 08:56; Status DC Aspirin (Ecotrin) 81 mg DAILYWBKFT PO Last administered on 06/21/18 08:29; Start 06/19/18 at 10:00 Atorvastatin Calcium (Lipitor) 40 mg QHS PO Last administered on 06/21/18 22: 42; Start 06/19/18 at 21:00 Potassium Chloride (Klor-Con) 40 meq Q4H PO Last administered on 06/19/18 15: 38; Start 06/19/18 at 10:00; Stop 06/19/18 at 14:01; Status DC Furosemide (Lasix) 40 mg DAILY PO Last administered on 06/21/18 08:28; Start 06/19/18 at 10:00 Morphine Sulfate (Morphine Sulfate) 2 mg 1X ONCE IV Last administered on 13:31; Start 06/19/18 at 13:30; Stop 06/19/18 at 13:31; Status DC Carvedilol (Coreg) 12.5 mg BIDWMEALS PO Last administered on 06/21/18 17:04; Start 06/19/18 at 17:00 Isosorbide Mononitrate (Imdur) 30 mg DAILY PO Last administered on 06/21/18 08 :29; Start 06/19/18 at 14:00 Hydralazine HCl (Apresoline) 25 mg TID PO Last administered on 06/19/18 15:39 ; Start 06/19/18 at 14:00; Stop 06/20/18 at 08:12; Status DC Potassium Chloride (Klor-Con) 40 meq 1X ONCE PO Last administered on 17:39; Start 06/19/18 at 16:30; Stop 06/19/18 at 16:31; Status DC Potassium Chloride (Klor-Con) 20 meq DAILYWBKFT PO Last administered on 08:29; Start 06/20/18 at 08:00 Senna/Docusate Sodium (Senna Plus) 2 tab PRN BID PRN PO CONSTIPATION (1st Choice) Last administered on 06/20/18 16:05; Start 06/20/18 at 08:15 Docusate Sodium (Colace) 100 mg PRN DAILY PRN PO CONSTIPATION (2nd Choice) Last administered on 06/20/18at 16:05; Start 06/20/18 at 08:15 Info (Anti-Coagulation Monitoring By Pharmacy) 1 each PRN DAILY PRN MC SEE COMMENTS Last administered on 06/21/18 08:11; Start 06/20/18 at 09:30 Fentanyl Citrate (Fentanyl 2ml Vial) 50 mcg PRN Q3HRS PRN IV SEVERE PAIN Last administered on 06/20/18at 23:26; Start 06/20/18 at 23:30 Potassium Chloride (Klor-Con) 40 meq 1X ONCE PO Last administered on at 17:04; Start 06/21/18 at 16:30; Stop 06/21/18 at 16:31; Status DC Labetalol HCl (Normodyne Iv Push) 20 mg PRN Q2HR PRN IVP GIVE FOR SBP > 140 Last administered on 06/21/18at 22:44; Start 06/21/18 at 22:45 Amlodipine Besylate (Norvasc) 2.5 mg 1X ONCE PO Last administered on at 22:42; Start 06/21/18 at 23:00; Stop 06/21/18 at 23:01; Status DC Iohexol (Omnipaque 350 Mg/ml) 75 ml 1X ONCE IV Last administered on 06/22/18at 00:13; Start 06/21/18 at 23:45; Stop 06/21/18 at 23:46; Status DC Info (CONTRAST GIVEN -- Rx MONITORING) 1 each PRN DAILY PRN MC SEE COMMENTS; Start 06/21/18 at 23:45; Stop 06/23/18 at 23:44 Active Scripts Active Clonidine Hcl 0.1 Mg Tablet 0.1 Mg PO BID For high blood pressure Take this with the other medicines you are already taking Reported Hydrochlorothiazide Tablet (Hydrochlorothiazide) 25 Mg Tablet 25 Mg PO DAILY Toprol Xl (Metoprolol Succinate) 50 Mg Tab.er.24h 50 Mg PO DAILY Lisinopril 40 Mg Tablet 40 Mg PO DAILY Viagra (Sildenafil Citrate) 50 Mg Tablet 50 Mg PO ONCE Tylenol (Acetaminophen) 325 Mg Tablet 325 Mg PO Vitals/I & O Vital Sign - Last 24 Hours 06/21/18 06/21/18 06/21/18 06/21/18 03:40 07:00 08:00 08:28 Temp 98.6 98.7 98.6 98.7 Pulse 72 78 78 Resp 17 20 B/P (MAP) 106/70 (82) 126/73 (90) 126/73 Pulse Ox 91 94 O2 Delivery Room Air Room Air Room Air O2 Flow Rate 2.0 06/21/18 06/21/18 06/21/18 06/21/18 08:29 08:29 11:15 16:45 Temp 98.9 98.9 Pulse 78 78 86 Resp 12 B/P (MAP) 126/73 126/73 142/86 (104) O2 Delivery Room Air 06/21/18 06/21/18 06/21/18 06/21/18 17:04 19:50 20:00 22:42 Temp 98.2 98.2 Pulse 86 89 89 Resp 22 B/P (MAP) 142/86 155/97 (116) 155/97 Pulse Ox 95 O2 Delivery Room Air Room Air 06/21/18 06/21/18 06/21/18 06/21/18 22:43 22:44 22:47 22:49 Pulse 88 89 88 84 B/P (MAP) 166/90 (115) 166/90 146/87 (106) 156/80 (105) 06/21/18 06/21/18 06/22/18 23:03 23:44 00:50 Temp 98.7 98.7 Pulse 85 85 Resp 22 20 B/P (MAP) 165/83 (110) Pulse Ox 97 97 O2 Delivery Room Air Room Air Intake and Output 06/21/18 06/21/18 06/22/18 14:59 22:59 06:59 Intake Total 450 ml 0 ml Output Total 2775 ml 400 ml Balance -2325 ml -400 ml ELLA JONES MD Jun 22, 2018 02:31
[2018-06-22 03:45] VITALS: BP 133/68
--- NOTE | 2018-06-22 04:30 | NUR ---
Spoke with Dr Guillaume about acute vs chronic dissection. Notified him of Dr Galarza's notes and comparisons from CT scan from 2015. Dr Guillaume was unable to compare pt's CT from 2015 with present one and had only read present one. Pt is symptom free and resting comfortably at this time. Call light within reach. Pt's family at bedside. Will continue to monitor.
[2018-06-22 06:52] LABS: BASO # 0.1 x10^3/uL (0.0-0.2); BASO % 1 % (0-3); EOS # 0.1 x10^3/uL (0.0-0.7); EOS % 1 % (0-3); HEMATOCRIT 36.9 % (39.0-53.0); HEMOGLOBIN 12.1 g/dL (13.0-17.5); LYMPH # 1.3 x10^3/uL (1.0-4.8); LYMPH % 12 % (24-48); MEAN CORPUSCULAR HEMOGLOBIN 30 pg (25-35); MEAN CORPUSCULAR HGB CONC 33 g/dL (31-37); MEAN CORPUSCULAR VOLUME 92 fL (79-100); MONO # 1.4 x10^3/uL (0.0-1.1); MONO % 13 % (0-9); NEUT # 7.8 x10^3uL (1.8-7.7); NEUT % 73 % (31-73); PLATELET COUNT 211 x10^3/uL (140-400); RED CELL DISTRIBUTION WIDTH 14.7 % (11.5-14.5); WHITE BLOOD COUNT 10.7 x10^3/uL (4.0-11.0)
[2018-06-22 06:53] LABS: ALBUMIN 2.2 g/dL (3.4-5.0); CALCIUM 8.2 mg/dL (8.5-10.1); CREATININE 1.5 mg/dL (0.7-1.3); GFR 59.5; PHOSPHORUS 3.7 mg/dL (2.6-4.7); POTASSIUM 4.2 mmol/L (3.5-5.1)
[2018-06-22 07:09] VITALS: BP 150/71
[2018-06-22] MEDS: HEPARIN 25,000UTS/500ML PREMIX 500 ML IV PRN ×2 (07:29→23:33)
[2018-06-22] MEDS: FUROSEMIDE 40 MG TABLET. PO SCH (08:32)
[2018-06-22] MEDS: FLUTICASONE 50MCG/NASAL SPRAY 16GM BOTTLE. NS SCH (08:32)
[2018-06-22] MEDS: ASPIRIN ENTERIC COATED 81 MG TABLET.DR. PO SCH (08:32)
[2018-06-22] MEDS: LISINOPRIL 20 MG TABLET PO SCH (08:32)
[2018-06-22] MEDS: POTASSIUM CHLORIDE 20 MEQ TABLET.ER. PO SCH (08:33)
[2018-06-22] MEDS: ISOSORBIDE MONONITRATE ER 30 MG TAB.ER.24H PO SCH (08:33)
[2018-06-22] MEDS: hydroCHLOROthiazide 25 MG TABLET PO SCH (08:33)
[2018-06-22] MEDS: CETIRIZINE HCL 10 MG TABLET. PO SCH (08:34)
[2018-06-22] MEDS: CARVEDILOL 12.5 MG TABLET. PO SCH ×2 (08:34→17:17)
--- NOTE | 2018-06-22 09:56 | PDOC ---
Provider Note Provider Note No acute events overnight. No chest pain. CT scan films reviewed with Dr. Spivey in radiology. Only significant change per over-reading radiologist from 2017 is a small descending thoracic ulcer (non -penetrating). Culprit for patient's chest pain is likely embolic disease from LV into the coronaries due to severe LV dysfunction rather than chronic dissection. Case reviewed with Dr. Arceo - He will review films and make any further recommendations. No acute indication for surgical indication. Continue current BP meds: Coreg, lisinopril, hctz, atorvastatin, imdur, lasix and asa. After CT surgical evaluation, if no immediate surgical plans, would plan for initiation of anticoagulation given severe LV dysfunction and possible emboli Discussed with family. Will need to involve social work for disability etc as he has no insurance for outpt elective treatment of thoracic aortic ulcer. Will follow along. Thanks ARMANDO ENCARNACION MD Jun 22, 2018 09:56
[2018-06-22 11:05] VITALS: BP 124/65
--- NOTE | 2018-06-22 11:24 | PDOC ---
PROGRESS NOTES History of Present Illness History of Present Illness Assessment/Plan Chest pain, unstable LVEDP 33 mm Hg consistent with severe left ventricular volume overload. Severe non-ischemic CMP with culprit for NSTEMI likely embolic. sinus congestion Recent diagnosis of pneumonia, Elevated total Bili with no abd symptoms Elevated BNP CK D stage III-4 CR NOW 2.1 Accelerated hypertension POA History of aortic rupture with open heart surgery 2009 abdominal aorta again shows a dissection with contrast seen both in the true and false lumen. The celiac axis, superior mesenteric arteries, renal arteries and inferior mesenteric artery arise from the true lumen. The dissection continues into the left common iliac artery with the false lumen providing flow to the left external iliac artery and common femoral artery. The intestinal tract shows no abnormally dilated or thickened rajput and no bowel obstruction is seen. No abnormality seen at the stomach. Culprit for patient's chest pain is likely embolic disease from LV into the coronaries due to severe LV dysfunction rather than chronic dissection. acute PA, embolic hypokalemia PLAN: CTS CONSULTED lifevest replace k cvc bed cards following trend cardiac enzymes Avoid nephrotoxins flu NEG IV HEPARIN RENAL PANEL IN am Address high BP, BETTER CONTROL INC IV LABETALOL TO 20MG Q 2-3 HRS PRN BP CONTROL H1 antagonists for sinus symptoms very high risk patient for sudden cardiac 42 min pt visit, chart revieweD, pt care coordination, pt exam lab review > 50% time spent review, exam, chart review pt care coordination PROCEDURE NARRATIVE After explaining the risks and benefits of the procedure and alternatives, informed consent was obtained. The patient was brought electively to the cardiac catheterization lab in a fasting state. A timeout was performed confirming the patient's name, date of , procedure, and site of procedure. All necessary personnel were wearing the appropriate protective equipment and radiation monitor devices. (See nursing notes for medications administered). The right groin was sterilely prepped and draped in the usual fashion. The right groin was infiltrated with 10 mL of 2% lidocaine for subcutaneous anesthesia. A 6 F sheath was inserted into the right femoral artery without difficulty. Right and left coronary angiography was performed using a JR4 and JL4 catheter. Left ventricular end diastolic pressure was obtained with a pigtail catheter and pullback was performed and supravalvular aortography was performed. All catheter exchanges and advancements were performed over a guidewire. At case completion the right femoral sheath was removed and hemostasis was achieved with an Angioseal Device after limited femoral angiography confirmed adequate vessel size and anatomy. There were no acute complications. HEMODYNAMICS: AO: 160/80 LVEDP 32 mm Hg No gradient on LV to aortic pullback. LEFT VENTRICULOGRAM: Deferred due to renal insufficiency. SUPRAVALVULAR AORTOGRAPHY: The aortic sinuses are enlarged, the proximal ascending aorta is normal in caliber, no staining or obvious dissection is evident. CORONARY ANGIOGRAPHY: LM is a large caliber vessel with normal angiographic appearance. LAD is a large caliber vessel with normal angiographic appearance. LCx is a large caliber non-dominant vessel with normal angiographic appearance. OM1 is a moderate caliber vessel with normal angiographic appearance. LPL1 is a large caliber vessel with thrombus noted in the apical segments, likely culprit for NSTEMI. RCA is a large caliber dominant vessel with a mid 50% stenosis. RPDA is a moderate caliber vessels with normal angiographic appearance. Conclusion 1. Severe non-ischemic CMP with culprit for NSTEMI likely embolic. 2. LVEDP 33 mm Hg consistent with severe left ventricular volume overload. 3. Mild to moderate non-obstructive coronary disease. Recommendations Aggressive Medical Therapy Signed by : Armando Galarza, Electronically Approved : 06/19/2018 10:29:37 DICTATED and SIGNED BY: ARMANDO GALARZA MD DATE: 06/19/18 1029 [id number] CC: ARMANDO GALARZA MD; NO PCP; ISMAEL SHAH MD ~ Page of Vitals Vitals Vital Signs Date Time Temp Pulse Resp B/P (MAP) Pulse Ox O2 Delivery O2 Flow Rate FiO2 06/22/18 11:05 98.3 78 18 124/65 (84) 96 Room Air 98.3 06/22/18 08:00 2.0 Physical Exam General: Alert, Oriented X3, Cooperative, No acute distress Heart: Regular rate, Normal S1, Normal S2, Other (no gallops, clicks or rubs) Lungs: Clear Abdomen: Normal bowel sounds, Soft, No tenderness Extremities: No clubbing, No cyanosis, No edema, Normal pulses Skin: No rashes, No breakdown, No significant lesion Labs LABS PROCEDURE: CT ANGIO CHEST ABD PELVIS CT angiogram of the chest, abdomen and pelvis with contrast: Reason for examination: Abdominal aortic dissection. Helical images were obtained through the chest abdomen pelvis with intravenous administration of 75 cc Omnipaque 350 using angiographic protocol. 3-D MIPS reconstruction was performed in sagittal and coronal planes and volume rendered image was obtained. Exposure: One or more of the following individualized dose reduction techniques were utilized for this examination: 1. Automated exposure control 2. Adjustment of the mA and/or kV according to patient size 3. Use of iterative reconstruction technique. No abnormality seen at the thyroid gland. The trachea and mainstem bronchi show no intraluminal lesions. No abnormality seen at the esophagus but there is a small hiatal hernia. The heart size is mildly enlarged. There is no pericardial effusion seen. The thoracic aorta shows dissection extending from the thoracic arch just distal to the origin of the left subclavian artery and extends through the aortic bifurcation into the left common iliac artery. The lung brown show some linear atelectasis at the left lung base. No infiltrates. There is a small left pleural effusion present No abnormality seen at the liver, spleen, adrenal glands, pancreas or gallbladder. The kidneys show a 1.7 cm circumscribed lesion at the lower pole the right kidney which probably represents a cyst. No renal calculi, hydronephrosis or obstructive uropathy is seen. The abdominal aorta again shows a dissection with contrast seen both in the true and false lumen. The celiac axis, superior mesenteric arteries, renal arteries and inferior mesenteric artery arise from the true lumen. The dissection continues into the left common iliac artery with the false lumen providing flow to the left external iliac artery and common femoral artery. The intestinal tract shows no abnormally dilated or thickened rajput and no bowel obstruction is seen. No abnormality seen at the stomach. No abnormality seen at the bladder, prostate gland or seminal vesicles. No free fluid or free air is seen in the abdomen or pelvis. No acute abnormalities are seen in the bone structures but there are severe degenerative changes at the L5-S1 disc level. IMPRESSION: Aortic dissection which starts just distal to the origin of the left subclavian artery and extends into the left common iliac artery. The celiac axis, superior mesenteric artery, renal arteries and inferior mesenteric artery arise from the true lumen. The left external iliac artery and common femoral artery our continuations of the false lumen. Small hiatal hernia is present. Heart size is mildly enlarged. Some minimal linear atelectasis present at the left lung base. Small left pleural effusion. 1.7 cm cystic-appearing lesion at the lower pole the right kidney. Severe degenerative changes at the L5-S1 disc level. Electronically signed by: Jacquelyn Marmolejo MD (06/22/2018 1:27 AM) [facility] [place] DICTATED and SIGNED BY: JACQUELYN MARMOLEJO MD DATE: 06/22/18 0127 Laboratory Tests Test 06/21/18 16:25 06/21/18 20:30 06/22/18 06:05 Heparin Anti-Xa Act, Unfractionated 0.44 IU/mL (0.30-0.70) 0.42 IU/mL (0.30-0.70) 0.53 IU/mL (0.30-0.70) White Blood Count 10.7 x10^3/uL (4.0-11.0) Red Blood Count 4.00 x10^6/uL (4.30-5.70) Hemoglobin 12.1 g/dL (13.0-17.5) Hematocrit 36.9 % (39.0-53.0) Mean Corpuscular Volume 92 fL (79-100) Mean Corpuscular Hemoglobin 30 pg (25-35) Mean Corpuscular Hemoglobin Concent 33 g/dL (31-37) Red Cell Distribution Width 14.7 % (11.5-14.5) Platelet Count 211 x10^3/uL (140-400) Neutrophils (%) (Auto) 73 % (31-73) Lymphocytes (%) (Auto) 12 % (24-48) Monocytes (%) (Auto) 13 % (0-9) Eosinophils (%) (Auto) 1 % (0-3) Basophils (%) (Auto) 1 % (0-3) Neutrophils # (Auto) 7.8 x10^3uL (1.8-7.7) Lymphocytes # (Auto) 1.3 x10^3/uL (1.0-4.8) Monocytes # (Auto) 1.4 x10^3/uL (0.0-1.1) Eosinophils # (Auto) 0.1 x10^3/uL (0.0-0.7) Basophils # (Auto) 0.1 x10^3/uL (0.0-0.2) Sodium Level 137 mmol/L (136-145) Potassium Level 4.2 mmol/L (3.5-5.1) Chloride Level 101 mmol/L (98-107) Carbon Dioxide Level 32 mmol/L (21-32) Anion Gap 4 (6-14) Blood Urea Nitrogen 19 mg/dL (8-26) Creatinine 1.5 mg/dL (0.7-1.3) Estimated GFR (Cockcroft-Gault) 59.5 Glucose Level 127 mg/dL (70-99) Calcium Level 8.2 mg/dL (8.5-10.1) Phosphorus Level 3.7 mg/dL (2.6-4.7) Albumin 2.2 g/dL (3.4-5.0) Assessment and Plan Assessmemt and Plan Problems Medical Problems: (1) Acute renal failure Status: Acute (2) Chest pain Status: Acute (3) Hypertension Status: Acute (4) NSTEMI (non-ST elevated myocardial infarction) Status: Acute Comment Review of Relevant I have reviewed the following items josh (where applicable) has been applied. Labs Laboratory Tests Test 06/20/18 19:45 06/21/18 01:50 06/21/18 02:00 06/21/18 09:13 Heparin Anti-Xa Act, Unfractionated 0.14 IU/mL (0.30-0.70) 0.38 IU/mL (0.30-0.70) 0.28 IU/mL (0.30-0.70) White Blood Count 10.2 x10^3/uL (4.0-11.0) 10.0 x10^3/uL (4.0-11.0) Red Blood Count 3.86 x10^6/uL (4.30-5.70) 4.17 x10^6/uL (4.30-5.70) Hemoglobin 11.7 g/dL (13.0-17.5) 12.8 g/dL (13.0-17.5) Hematocrit 35.5 % (39.0-53.0) 38.5 % (39.0-53.0) Mean Corpuscular Volume 92 fL (79-100) 92 fL (79-100) Mean Corpuscular Hemoglobin 30 pg (25-35) 31 pg (25-35) Mean Corpuscular Hemoglobin Concent 33 g/dL (31-37) 33 g/dL (31-37) Red Cell Distribution Width 14.7 % (11.5-14.5) 14.5 % (11.5-14.5) Platelet Count 181 x10^3/uL (140-400) 181 x10^3/uL (140-400) Neutrophils (%) (Auto) 71 % (31-73) Lymphocytes (%) (Auto) 16 % (24-48) Monocytes (%) (Auto) 12 % (0-9) Eosinophils (%) (Auto) 1 % (0-3) Basophils (%) (Auto) 0 % (0-3) Neutrophils # (Auto) 7.2 x10^3uL (1.8-7.7) Lymphocytes # (Auto) 1.6 x10^3/uL (1.0-4.8) Monocytes # (Auto) 1.2 x10^3/uL (0.0-1.1) Eosinophils # (Auto) 0.1 x10^3/uL (0.0-0.7) Basophils # (Auto) 0.0 x10^3/uL (0.0-0.2) Sodium Level 136 mmol/L (136-145) Potassium Level 3.3 mmol/L (3.5-5.1) Chloride Level 99 mmol/L (98-107) Carbon Dioxide Level 29 mmol/L (21-32) Anion Gap 8 (6-14) Blood Urea Nitrogen 27 mg/dL (8-26) Creatinine 2.1 mg/dL (0.7-1.3) Estimated GFR (Cockcroft-Gault) 40.3 Glucose Level 146 mg/dL (70-99) Calcium Level 8.0 mg/dL (8.5-10.1) Test 06/21/18 16:25 06/21/18 20:30 06/22/18 06:05 Heparin Anti-Xa Act, Unfractionated 0.44 IU/mL (0.30-0.70) 0.42 IU/mL (0.30-0.70) 0.53 IU/mL (0.30-0.70) White Blood Count 10.7 x10^3/uL (4.0-11.0) Red Blood Count 4.00 x10^6/uL (4.30-5.70) Hemoglobin 12.1 g/dL (13.0-17.5) Hematocrit 36.9 % (39.0-53.0) Mean Corpuscular Volume 92 fL (79-100) Mean Corpuscular Hemoglobin 30 pg (25-35) Mean Corpuscular Hemoglobin Concent 33 g/dL (31-37) Red Cell Distribution Width 14.7 % (11.5-14.5) Platelet Count 211 x10^3/uL (140-400) Neutrophils (%) (Auto) 73 % (31-73) Lymphocytes (%) (Auto) 12 % (24-48) Monocytes (%) (Auto) 13 % (0-9) Eosinophils (%) (Auto) 1 % (0-3) Basophils (%) (Auto) 1 % (0-3) Neutrophils # (Auto) 7.8 x10^3uL (1.8-7.7) Lymphocytes # (Auto) 1.3 x10^3/uL (1.0-4.8) Monocytes # (Auto) 1.4 x10^3/uL (0.0-1.1) Eosinophils # (Auto) 0.1 x10^3/uL (0.0-0.7) Basophils # (Auto) 0.1 x10^3/uL (0.0-0.2) Sodium Level 137 mmol/L (136-145) Potassium Level 4.2 mmol/L (3.5-5.1) Chloride Level 101 mmol/L (98-107) Carbon Dioxide Level 32 mmol/L (21-32) Anion Gap 4 (6-14) Blood Urea Nitrogen 19 mg/dL (8-26) Creatinine 1.5 mg/dL (0.7-1.3) Estimated GFR (Cockcroft-Gault) 59.5 Glucose Level 127 mg/dL (70-99) Calcium Level 8.2 mg/dL (8.5-10.1) Phosphorus Level 3.7 mg/dL (2.6-4.7) Albumin 2.2 g/dL (3.4-5.0) Laboratory Tests Test 06/21/18 16:25 06/21/18 20:30 06/22/18 06:05 Heparin Anti-Xa Act, Unfractionated 0.44 IU/mL (0.30-0.70) 0.42 IU/mL (0.30-0.70) 0.53 IU/mL (0.30-0.70) White Blood Count 10.7 x10^3/uL (4.0-11.0) Red Blood Count 4.00 x10^6/uL (4.30-5.70) Hemoglobin 12.1 g/dL (13.0-17.5) Hematocrit 36.9 % (39.0-53.0) Mean Corpuscular Volume 92 fL (79-100) Mean Corpuscular Hemoglobin 30 pg (25-35) Mean Corpuscular Hemoglobin Concent 33 g/dL (31-37) Red Cell Distribution Width 14.7 % (11.5-14.5) Platelet Count 211 x10^3/uL (140-400) Neutrophils (%) (Auto) 73 % (31-73) Lymphocytes (%) (Auto) 12 % (24-48) Monocytes (%) (Auto) 13 % (0-9) Eosinophils (%) (Auto) 1 % (0-3) Basophils (%) (Auto) 1 % (0-3) Neutrophils # (Auto) 7.8 x10^3uL (1.8-7.7) Lymphocytes # (Auto) 1.3 x10^3/uL (1.0-4.8) Monocytes # (Auto) 1.4 x10^3/uL (0.0-1.1) Eosinophils # (Auto) 0.1 x10^3/uL (0.0-0.7) Basophils # (Auto) 0.1 x10^3/uL (0.0-0.2) Sodium Level 137 mmol/L (136-145) Potassium Level 4.2 mmol/L (3.5-5.1) Chloride Level 101 mmol/L (98-107) Carbon Dioxide Level 32 mmol/L (21-32) Anion Gap 4 (6-14) Blood Urea Nitrogen 19 mg/dL (8-26) Creatinine 1.5 mg/dL (0.7-1.3) Estimated GFR (Cockcroft-Gault) 59.5 Glucose Level 127 mg/dL (70-99) Calcium Level 8.2 mg/dL (8.5-10.1) Phosphorus Level 3.7 mg/dL (2.6-4.7) Albumin 2.2 g/dL (3.4-5.0) Medications Current Medications Aspirin (Dorinda Aspirin) 325 mg 1X ONCE PO Last administered on 06/18/18at 08:51 ; Start 06/18/18 at 08:15; Stop 06/18/18 at 08:22; Status DC Nitroglycerin (Nitrostat) 0.4 mg PRN Q5MIN PRN SL CP RATING > 1/10 Last administered on 06/18/18at 09:21; Start 06/18/18 at 08:15; Stop 06/19/18 at 08:14 ; Status DC Morphine Sulfate (Morphine Sulfate) 2 mg PRN Q15MIN PRN IV/SQ PAIN GREATER THAN 3/10 Last administered on 06/18/18at 09:03; Start 06/18/18 at 08:15; Stop at 18:00; Status DC Metoprolol Tartrate (Lopressor Vial) 5 mg 1X ONCE IVP Last administered on at 08:53; Start 06/18/18 at 08:45; Stop 06/18/18 at 08:46; Status DC Albuterol/ Ipratropium (Duoneb) 3 ml 1X ONCE NEB Last administered on at 09:09; Start 06/18/18 at 09:00; Stop 06/18/18 at 09:01; Status DC Furosemide (Lasix) 40 mg 1X ONCE IVP Last administered on 06/18/18at 11:12; Start 06/18/18 at 10:30; Stop 06/18/18 at 10:31; Status DC Ondansetron HCl (Zofran) 4 mg PRN Q8HRS PRN IV NAUSEA/VOMITING; Start 06/18/18 at 10:30; Stop 06/18/18 at 10:39; Status DC Morphine Sulfate (Morphine Sulfate) 4 mg PRN Q2HR PRN IV PAIN Last administered on 06/19/18at 04:04; Start 06/18/18 at 10:30; Stop 06/19/18 at 10:29 ; Status DC Nitroglycerin (Nitrostat) 0.4 mg PRN Q5MIN PRN SL CHEST PAIN; Start 06/18/18 at 10:30; Stop 06/19/18 at 10:29; Status Cancel Ondansetron HCl (Zofran) 4 mg PRN Q6HRS PRN IV NAUSEA/VOMITING; Start 06/18/18 at 10:45 Acetaminophen (Tylenol) 500 mg PRN Q6HRS PRN PO MILD PAIN / TEMP; Start at 10:45 Acetaminophen/ Codeine Phosphate (Tylenol #3) 1 tab PRN Q6HRS PRN PO MODERATE PAIN Last administered on 06/22/18at 00:50; Start 06/18/18 at 10:45 Labetalol HCl (Normodyne Iv Push) 10 mg PRN Q2HR PRN IVP GIVE FOR SBP > 160 Last administered on 06/18/18at 19:20; Start 06/18/18 at 10:45; Stop 06/21/18 at 22:34; Status DC Acetaminophen (Tylenol) 325 mg DAILY PO Last administered on 06/19/18at 10:17; Start 06/19/18 at 09:00; Stop 06/19/18 at 16:26; Status DC Clonidine HCl (Catapres) 0.1 mg BID PO Last administered on 06/19/18at 08:58; Start 06/18/18 at 11:00; Stop 06/19/18 at 16:26; Status DC Hydrochlorothiazide (Hydrodiuril) 25 mg DAILY PO Last administered on at 08:33; Start 06/18/18 at 11:00 Lisinopril (Prinivil) 40 mg DAILY PO Last administered on 06/22/18at 08:32; Start 06/18/18 at 11:00 Metoprolol Succinate (Toprol Xl) 50 mg DAILY PO Last administered on 06/19/18at 08:57; Start 06/18/18 at 11:00; Stop 06/19/18 at 14:02; Status DC Non-Formulary Medication (Sildenafil Citrate (Viagra)) 50 mg ONCE PO ; Start at 10:45; Status UNV Fluticasone Propionate (Flonase) 2 spray DAILY NS Last administered on at 08:32; Start 06/19/18 at 09:00 Guaifenesin (Robitussin Dm) 10 ml PRN Q6HRS PRN PO COUGH; Start 06/18/18 at 12: 15; Stop 06/19/18 at 16:26; Status DC Cetirizine HCl (ZyrTEC) 10 mg DAILY PO Last administered on 06/22/18at 08:34; Start 06/18/18 at 12:15 Heparin Sodium/ Dextrose 500 ml @ 20 mls/hr CONT PRN IV SEE I/O RECORD Last administered on 06/22/18at 07:29; Start 06/18/18 at 15:15 Heparin Sodium (Porcine) (Heparin Sodium) 2,350 unit PRN Q6HRS PRN IV FOR UFH LEVEL LESS THAN 0.2 Last administered on 06/20/18at 20:46; Start 06/18/18 at 15: 15 Nitroglycerin (Nitro-Bid Oint) 1 inch Q6HRS TP Last administered on 06/18/18at 16:04; Start 06/18/18 at 16:00; Stop 06/19/18 at 09:34; Status DC Sodium Chloride 1,000 ml @ 60 mls/hr [id number] IV Last administered on at 16:15; Start 06/18/18 at 15:17; Stop 06/19/18 at 00:41; Status DC Hydralazine HCl (Apresoline Inj) 10 mg PRN Q4HRS PRN IVP ELEVATED BP, SEE COMMENTS Last administered on 06/18/18at 17:05; Start 06/18/18 at 15:30; Stop at 08:13; Status DC Heparin Sodium (Porcine) (Heparin Sodium) 4,000 unit 1X ONCE IV Last administered on 06/18/18at 16:04; Start 06/18/18 at 16:15; Stop 06/18/18 at 16:16 ; Status DC Nitroglycerin/ Dextrose 250 ml @ 9 mls/hr 1X ONCE IV Last administered on 06/18at 22:17; Start 06/18/18 at 19:45; Stop 06/19/18 at 23:31; Status DC Iodixanol (Visipaque 320) 100 ml STK-MED ONCE .ROUTE ; Start 06/18/18 at 20:56; Stop 06/18/18 at 20:57; Status DC Lidocaine HCl (Lidocaine 1% 20ml Vial) 20 ml STK-MED ONCE .ROUTE ; Start at 20:56; Stop 06/18/18 at 20:57; Status DC Heparin Sodium/ Sodium Chloride 1,500 ml @ As Directed STK-MED ONCE .ROUTE ; Start 06/18/18 at 20:56; Stop 06/18/18 at 20:57; Status DC Fentanyl Citrate (Fentanyl 2ml Vial) 100 mcg STK-MED ONCE .ROUTE ; Start at 20:57; Stop 06/18/18 at 20:58; Status DC Midazolam HCl (Versed) 5 mg STK-MED ONCE .ROUTE ; Start 06/18/18 at 20:58; Stop 06/18/18 at 20:59; Status DC Heparin Sodium (Porcine) (Heparin Sodium) 10,000 unit STK-MED ONCE .ROUTE ; Start 06/18/18 at 20:58; Stop 06/18/18 at 20:59; Status DC Verapamil HCl (Verapamil) 5 mg STK-MED ONCE .ROUTE ; Start 06/18/18 at 20:58; Stop 06/18/18 at 20:59; Status DC Nitroglycerin (Nitroglycerin) 200 mcg STK-MED ONCE .ROUTE ; Start 06/18/18 at 20 :58; Stop 06/18/18 at 20:59; Status DC Hydralazine HCl (Apresoline Inj) 20 mg STK-MED ONCE .ROUTE ; Start 06/18/18 at 21:28; Stop 06/18/18 at 21:29; Status DC Heparin Sodium/ Sodium Chloride (HEPARIN for ARTERIAL LINE FLUSH) 1,000 unit 1X ONCE IART Last administered on 06/18/18at 22:13; Start 06/18/18 at 22:00; Stop 06/18/18 at 22:01; Status DC Heparin Sodium/ Sodium Chloride (HEPARIN for ARTERIAL LINE FLUSH) 1,000 unit 1X ONCE IART Last administered on 06/18/18at 22:13; Start 06/18/18 at 22:00; Stop 06/18/18 at 22:01; Status DC Midazolam HCl (Versed) 5 mg 1X ONCE IV Last administered on 06/18/18at 22:15; Start 06/18/18 at 21:45; Stop 06/18/18 at 21:47; Status DC Fentanyl Citrate (Fentanyl 2ml Vial) 100 mcg 1X ONCE IV Last administered on at 22:15; Start 06/18/18 at 22:00; Stop 06/18/18 at 22:01; Status DC Iodixanol (Visipaque 320) 100 ml 1X ONCE IART Last administered on 06/18/18at 22:13; Start 06/18/18 at 22:00; Stop 06/18/18 at 22:01; Status DC Lidocaine HCl (Lidocaine 1% 20ml Vial) 20 ml 1X ONCE INJ Last administered on 06/18/18at 22:14; Start 06/18/18 at 22:00; Stop 06/18/18 at 22:01; Status DC Hydralazine HCl (Apresoline Inj) 20 mg 1X ONCE IVP Last administered on at 22:15; Start 06/18/18 at 22:00; Stop 06/18/18 at 22:01; Status DC Nitroglycerin/ Dextrose 250 ml @ As Directed STK-MED ONCE IV ; Start 06/18/18 at 21:48; Stop 06/18/18 at 21:49; Status DC Furosemide (Lasix) 40 mg 1X ONCE IVP Last administered on 06/18/18at 22:50; Start 06/18/18 at 23:00; Stop 06/18/18 at 23:01; Status DC Nitroglycerin/ Dextrose 250 ml @ 1.5 mls/hr CONT PRN IV SEE I/O RECORD Last administered on 06/19/18at 03:24; Start 06/19/18 at 03:30; Stop 06/19/18 at 09:27 ; Status DC Verapamil HCl (Verapamil) 5 mg STK-MED ONCE .ROUTE ; Start 06/18/18 at 21:00; Stop 06/19/18 at 08:56; Status DC Aspirin (Ecotrin) 81 mg DAILYWBKFT PO Last administered on 06/22/18at 08:32; Start 06/19/18 at 10:00 Atorvastatin Calcium (Lipitor) 40 mg QHS PO Last administered on 06/21/18at 22: 42; Start 06/19/18 at 21:00 Potassium Chloride (Klor-Con) 40 meq Q4H PO Last administered on 06/19/18at 15: 38; Start 06/19/18 at 10:00; Stop 06/19/18 at 14:01; Status DC Furosemide (Lasix) 40 mg DAILY PO Last administered on 06/22/18 08:32; Start 06/19/18 at 10:00 Morphine Sulfate (Morphine Sulfate) 2 mg 1X ONCE IV Last administered on 13:31; Start 06/19/18 at 13:30; Stop 06/19/18 at 13:31; Status DC Carvedilol (Coreg) 12.5 mg BIDWMEALS PO Last administered on 06/22/18 08:34; Start 06/19/18 at 17:00 Isosorbide Mononitrate (Imdur) 30 mg DAILY PO Last administered on 06/22/18 08 :33; Start 06/19/18 at 14:00 Hydralazine HCl (Apresoline) 25 mg TID PO Last administered on 06/19/18 15:39 ; Start 06/19/18 at 14:00; Stop 06/20/18 at 08:12; Status DC Potassium Chloride (Klor-Con) 40 meq 1X ONCE PO Last administered on 17:39; Start 06/19/18 at 16:30; Stop 06/19/18 at 16:31; Status DC Potassium Chloride (Klor-Con) 20 meq DAILYWBKFT PO Last administered on 08:33; Start 06/20/18 at 08:00 Senna/Docusate Sodium (Senna Plus) 2 tab PRN BID PRN PO CONSTIPATION (1st Choice) Last administered on 06/20/18 16:05; Start 06/20/18 at 08:15 Docusate Sodium (Colace) 100 mg PRN DAILY PRN PO CONSTIPATION (2nd Choice) Last administered on 06/20/18 16:05; Start 06/20/18 at 08:15 Info (Anti-Coagulation Monitoring By Pharmacy) 1 each PRN DAILY PRN MC SEE COMMENTS Last administered on 06/21/18 08:11; Start 06/20/18 at 09:30 Fentanyl Citrate (Fentanyl 2ml Vial) 50 mcg PRN Q3HRS PRN IV SEVERE PAIN Last administered on 06/20/18 23:26; Start 06/20/18 at 23:30 Potassium Chloride (Klor-Con) 40 meq 1X ONCE PO Last administered on 17:04; Start 06/21/18 at 16:30; Stop 06/21/18 at 16:31; Status DC Labetalol HCl (Normodyne Iv Push) 20 mg PRN Q2HR PRN IVP GIVE FOR SBP > 140 Last administered on 06/21/18at 22:44; Start 06/21/18 at 22:45 Amlodipine Besylate (Norvasc) 2.5 mg 1X ONCE PO Last administered on at 22:42; Start 06/21/18 at 23:00; Stop 06/21/18 at 23:01; Status DC Iohexol (Omnipaque 350 Mg/ml) 75 ml 1X ONCE IV Last administered on 06/22/18at 00:13; Start 06/21/18 at 23:45; Stop 06/21/18 at 23:46; Status DC Info (CONTRAST GIVEN -- Rx MONITORING) 1 each PRN DAILY PRN MC SEE COMMENTS; Start 06/21/18 at 23:45; Stop 06/23/18 at 23:44 Active Scripts Active Clonidine Hcl 0.1 Mg Tablet 0.1 Mg PO BID For high blood pressure Take this with the other medicines you are already taking Reported Hydrochlorothiazide Tablet (Hydrochlorothiazide) 25 Mg Tablet 25 Mg PO DAILY Toprol Xl (Metoprolol Succinate) 50 Mg Tab.er.24h 50 Mg PO DAILY Lisinopril 40 Mg Tablet 40 Mg PO DAILY Viagra (Sildenafil Citrate) 50 Mg Tablet 50 Mg PO ONCE Tylenol (Acetaminophen) 325 Mg Tablet 325 Mg PO Vitals/I & O Vital Sign - Last 24 Hours 06/21/18 06/21/18 06/21/18 06/21/18 16:45 17:04 19:50 20:00 Temp 98.2 98.2 Pulse 86 89 Resp 22 B/P (MAP) 142/86 155/97 (116) Pulse Ox 95 O2 Delivery Room Air Room Air Room Air 06/21/18 06/21/18 06/21/18 06/21/18 22:42 22:43 22:44 22:47 Pulse 89 88 89 88 B/P (MAP) 155/97 166/90 (115) 166/90 146/87 (106) 06/21/18 06/21/18 06/21/18 06/22/18 22:49 23:03 23:44 00:50 Temp 98.7 98.7 Pulse 84 85 85 Resp 22 20 B/P (MAP) 156/80 (105) 165/83 (110) Pulse Ox 97 97 O2 Delivery Room Air Room Air 06/22/18 06/22/18 06/22/18 06/22/18 01:50 03:45 07:09 08:00 Temp 98.1 98.1 Pulse 69 80 Resp 18 22 22 B/P (MAP) 133/68 (89) 150/71 (97) Pulse Ox 92 92 93 O2 Delivery Room Air Room Air Room Air Room Air O2 Flow Rate 2.0 06/22/18 06/22/18 06/22/18 06/22/18 08:32 08:33 08:34 11:05 Temp 98.3 98.3 Pulse 80 80 80 78 Resp 18 B/P (MAP) 150/71 150/71 150/71 124/65 (84) Pulse Ox 96 O2 Delivery Room Air Intake and Output 06/21/18 06/21/18 06/22/18 14:59 22:59 06:59 Intake Total 450 ml 240 ml Output Total 2775 ml 600 ml Balance -2325 ml -360 ml SOPHIA SANDOVAL MD Jun 22, 2018 11:24
--- NOTE | 2018-06-22 11:29 | PDOC2 ---
CONSULT Date of Consult Date of Consult DATE: 06/22/18 TIME: 11:23 Reason for Consult Reason for Consult: Aortic dissection Identification/Chief Complaint Chief Complaint Abdominal pain, chest pain Source Source: Caregiver, Chart review History of Present Illness Reason for Visit: Patient is a 52-year-old -Swedish maleconsult called me in the middle the night by RN stating patient is having abdominal pain and an arterial duplex showed an abdominal aortic dissection. Per report that time the patient had an ascending dissection repair in the past. Given the findings on duplex I advised RN that patient likely has a complex dissection from the thoracic aorta into the abdomen and lower extremities. I was very clear with her that this is not a problem of vascular surgery will address at this institution and that if there is concern about this being acute problem that primary team should consider a CT angiogram chest abdomen and pelvis to further define the pathology and if there is concern for acute pathology the patient will need to be transferred to cardiothoracic surgery who manages these problems. CT findings were called to me and I reviewed the CAT scan showing a dissection recommended blood pressure control and above . RN contact me felt primary team did not want to transfer the patient. Again, I was clear that this is not a problem I will be addressing and that if the patient needed acute intervention for this problem per primary team the patient transferred to CT surgery a . Past Medical History Past Medical History Aortic dissection ascending repair apparently in the past Cardiovascular: HTN, Hyperlipidemia, Other Pulmonary: No pertinent hx CENTRAL NERVOUS SYSTEM: Other GI: No pertinent hx, GERD Heme/Onc: No pertinent hx Hepatobiliary: No pertinent hx Psych: No pertinent hx, Other Musculoskeletal: Osteoarthritis Rheumatologic: No pertinent hx Infectious disease: No pertinent hx Renal/: Chronic renal insuff, Other Endocrine: No pertinent hx Past Surgical History Past Surgical History As per admitting H&P Past Surgical History: Other (open heart surgery for aortic rupture repair) Family History Family History: Cancer, Coronary Artery Disease Social History No ALCOHOL: none Drugs: None Lives: with Family Current Problem List Problem List Problems Medical Problems: (1) Acute renal failure Status: Acute (2) Chest pain Status: Acute (3) Hypertension Status: Acute (4) NSTEMI (non-ST elevated myocardial infarction) Status: Acute Current Medications Current Medications Current Medications Aspirin (Dorinda Aspirin) 325 mg 1X ONCE PO Last administered on 06/18/18at 08:51 ; Start 06/18/18 at 08:15; Stop 06/18/18 at 08:22; Status DC Nitroglycerin (Nitrostat) 0.4 mg PRN Q5MIN PRN SL CP RATING > 1/10 Last administered on 06/18/18at 09:21; Start 06/18/18 at 08:15; Stop 06/19/18 at 08:14 ; Status DC Morphine Sulfate (Morphine Sulfate) 2 mg PRN Q15MIN PRN IV/SQ PAIN GREATER THAN 3/10 Last administered on 06/18/18at 09:03; Start 06/18/18 at 08:15; Stop at 18:00; Status DC Metoprolol Tartrate (Lopressor Vial) 5 mg 1X ONCE IVP Last administered on at 08:53; Start 06/18/18 at 08:45; Stop 06/18/18 at 08:46; Status DC Albuterol/ Ipratropium (Duoneb) 3 ml 1X ONCE NEB Last administered on at 09:09; Start 06/18/18 at 09:00; Stop 06/18/18 at 09:01; Status DC Furosemide (Lasix) 40 mg 1X ONCE IVP Last administered on 06/18/18at 11:12; Start 06/18/18 at 10:30; Stop 06/18/18 at 10:31; Status DC Ondansetron HCl (Zofran) 4 mg PRN Q8HRS PRN IV NAUSEA/VOMITING; Start 06/18/18 at 10:30; Stop 06/18/18 at 10:39; Status DC Morphine Sulfate (Morphine Sulfate) 4 mg PRN Q2HR PRN IV PAIN Last administered on 06/19/18at 04:04; Start 06/18/18 at 10:30; Stop 06/19/18 at 10:29 ; Status DC Nitroglycerin (Nitrostat) 0.4 mg PRN Q5MIN PRN SL CHEST PAIN; Start 06/18/18 at 10:30; Stop 06/19/18 at 10:29; Status Cancel Ondansetron HCl (Zofran) 4 mg PRN Q6HRS PRN IV NAUSEA/VOMITING; Start 06/18/18 at 10:45 Acetaminophen (Tylenol) 500 mg PRN Q6HRS PRN PO MILD PAIN / TEMP; Start at 10:45 Acetaminophen/ Codeine Phosphate (Tylenol #3) 1 tab PRN Q6HRS PRN PO MODERATE PAIN Last administered on 06/22/18at 00:50; Start 06/18/18 at 10:45 Labetalol HCl (Normodyne Iv Push) 10 mg PRN Q2HR PRN IVP GIVE FOR SBP > 160 Last administered on 06/18/18at 19:20; Start 06/18/18 at 10:45; Stop 06/21/18 at 22:34; Status DC Acetaminophen (Tylenol) 325 mg DAILY PO Last administered on 06/19/18 10:17; Start 06/19/18 at 09:00; Stop 06/19/18 at 16:26; Status DC Clonidine HCl (Catapres) 0.1 mg BID PO Last administered on 06/19/18 08:58; Start 06/18/18 at 11:00; Stop 06/19/18 at 16:26; Status DC Hydrochlorothiazide (Hydrodiuril) 25 mg DAILY PO Last administered on 08:33; Start 06/18/18 at 11:00 Lisinopril (Prinivil) 40 mg DAILY PO Last administered on 06/22/18 08:32; Start 06/18/18 at 11:00 Metoprolol Succinate (Toprol Xl) 50 mg DAILY PO Last administered on 06/19/18 08:57; Start 06/18/18 at 11:00; Stop 06/19/18 at 14:02; Status DC Non-Formulary Medication (Sildenafil Citrate (Viagra)) 50 mg ONCE PO ; Start at 10:45; Status UNV Fluticasone Propionate (Flonase) 2 spray DAILY NS Last administered on at 08:32; Start 06/19/18 at 09:00 Guaifenesin (Robitussin Dm) 10 ml PRN Q6HRS PRN PO COUGH; Start 06/18/18 at 12: 15; Stop 06/19/18 at 16:26; Status DC Cetirizine HCl (ZyrTEC) 10 mg DAILY PO Last administered on 06/22/18at 08:34; Start 06/18/18 at 12:15 Heparin Sodium/ Dextrose 500 ml @ 20 mls/hr CONT PRN IV SEE I/O RECORD Last administered on 06/22/18at 07:29; Start 06/18/18 at 15:15 Heparin Sodium (Porcine) (Heparin Sodium) 2,350 unit PRN Q6HRS PRN IV FOR UFH LEVEL LESS THAN 0.2 Last administered on 06/20/18at 20:46; Start 06/18/18 at 15: 15 Nitroglycerin (Nitro-Bid Oint) 1 inch Q6HRS TP Last administered on 06/18/18at 16:04; Start 06/18/18 at 16:00; Stop 06/19/18 at 09:34; Status DC Sodium Chloride 1,000 ml @ 60 mls/hr [id number] IV Last administered on at 16:15; Start 06/18/18 at 15:17; Stop 06/19/18 at 00:41; Status DC Hydralazine HCl (Apresoline Inj) 10 mg PRN Q4HRS PRN IVP ELEVATED BP, SEE COMMENTS Last administered on 06/18/18at 17:05; Start 06/18/18 at 15:30; Stop at 08:13; Status DC Heparin Sodium (Porcine) (Heparin Sodium) 4,000 unit 1X ONCE IV Last administered on 06/18/18at 16:04; Start 06/18/18 at 16:15; Stop 06/18/18 at 16:16 ; Status DC Nitroglycerin/ Dextrose 250 ml @ 9 mls/hr 1X ONCE IV Last administered on 06/18at 22:17; Start 06/18/18 at 19:45; Stop 06/19/18 at 23:31; Status DC Iodixanol (Visipaque 320) 100 ml STK-MED ONCE .ROUTE ; Start 06/18/18 at 20:56; Stop 06/18/18 at 20:57; Status DC Lidocaine HCl (Lidocaine 1% 20ml Vial) 20 ml STK-MED ONCE .ROUTE ; Start at 20:56; Stop 06/18/18 at 20:57; Status DC Heparin Sodium/ Sodium Chloride 1,500 ml @ As Directed STK-MED ONCE .ROUTE ; Start 06/18/18 at 20:56; Stop 06/18/18 at 20:57; Status DC Fentanyl Citrate (Fentanyl 2ml Vial) 100 mcg STK-MED ONCE .ROUTE ; Start at 20:57; Stop 06/18/18 at 20:58; Status DC Midazolam HCl (Versed) 5 mg STK-MED ONCE .ROUTE ; Start 06/18/18 at 20:58; Stop 06/18/18 at 20:59; Status DC Heparin Sodium (Porcine) (Heparin Sodium) 10,000 unit STK-MED ONCE .ROUTE ; Start 06/18/18 at 20:58; Stop 06/18/18 at 20:59; Status DC Verapamil HCl (Verapamil) 5 mg STK-MED ONCE .ROUTE ; Start 06/18/18 at 20:58; Stop 06/18/18 at 20:59; Status DC Nitroglycerin (Nitroglycerin) 200 mcg STK-MED ONCE .ROUTE ; Start 06/18/18 at 20 :58; Stop 06/18/18 at 20:59; Status DC Hydralazine HCl (Apresoline Inj) 20 mg STK-MED ONCE .ROUTE ; Start 06/18/18 at 21:28; Stop 06/18/18 at 21:29; Status DC Heparin Sodium/ Sodium Chloride (HEPARIN for ARTERIAL LINE FLUSH) 1,000 unit 1X ONCE IART Last administered on 06/18/18at 22:13; Start 06/18/18 at 22:00; Stop 06/18/18 at 22:01; Status DC Heparin Sodium/ Sodium Chloride (HEPARIN for ARTERIAL LINE FLUSH) 1,000 unit 1X ONCE IART Last administered on 06/18/18at 22:13; Start 06/18/18 at 22:00; Stop 06/18/18 at 22:01; Status DC Midazolam HCl (Versed) 5 mg 1X ONCE IV Last administered on 06/18/18at 22:15; Start 06/18/18 at 21:45; Stop 06/18/18 at 21:47; Status DC Fentanyl Citrate (Fentanyl 2ml Vial) 100 mcg 1X ONCE IV Last administered on at 22:15; Start 06/18/18 at 22:00; Stop 06/18/18 at 22:01; Status DC Iodixanol (Visipaque 320) 100 ml 1X ONCE IART Last administered on 06/18/18 22:13; Start 06/18/18 at 22:00; Stop 06/18/18 at 22:01; Status DC Lidocaine HCl (Lidocaine 1% 20ml Vial) 20 ml 1X ONCE INJ Last administered on 06/18/18 22:14; Start 06/18/18 at 22:00; Stop 06/18/18 at 22:01; Status DC Hydralazine HCl (Apresoline Inj) 20 mg 1X ONCE IVP Last administered on 22:15; Start 06/18/18 at 22:00; Stop 06/18/18 at 22:01; Status DC Nitroglycerin/ Dextrose 250 ml @ As Directed STK-MED ONCE IV ; Start 06/18/18 at 21:48; Stop 06/18/18 at 21:49; Status DC Furosemide (Lasix) 40 mg 1X ONCE IVP Last administered on 06/18/18 22:50; Start 06/18/18 at 23:00; Stop 06/18/18 at 23:01; Status DC Nitroglycerin/ Dextrose 250 ml @ 1.5 mls/hr CONT PRN IV SEE I/O RECORD Last administered on 06/19/18 03:24; Start 06/19/18 at 03:30; Stop 06/19/18 at 09:27 ; Status DC Verapamil HCl (Verapamil) 5 mg STK-MED ONCE .ROUTE ; Start 06/18/18 at 21:00; Stop 06/19/18 at 08:56; Status DC Aspirin (Ecotrin) 81 mg DAILYWBKFT PO Last administered on 06/22/18 08:32; Start 06/19/18 at 10:00 Atorvastatin Calcium (Lipitor) 40 mg QHS PO Last administered on 06/21/18 22: 42; Start 06/19/18 at 21:00 Potassium Chloride (Klor-Con) 40 meq Q4H PO Last administered on 06/19/18 15: 38; Start 06/19/18 at 10:00; Stop 06/19/18 at 14:01; Status DC Furosemide (Lasix) 40 mg DAILY PO Last administered on 06/22/18 08:32; Start 06/19/18 at 10:00 Morphine Sulfate (Morphine Sulfate) 2 mg 1X ONCE IV Last administered on 3/14/ 19at 13:31; Start 06/19/18 at 13:30; Stop 06/19/18 at 13:31; Status DC Carvedilol (Coreg) 12.5 mg BIDWMEALS PO Last administered on 06/22/18 08:34; Start 06/19/18 at 17:00 Isosorbide Mononitrate (Imdur) 30 mg DAILY PO Last administered on 06/22/18 08 :33; Start 06/19/18 at 14:00 Hydralazine HCl (Apresoline) 25 mg TID PO Last administered on 06/19/18 15:39 ; Start 06/19/18 at 14:00; Stop 06/20/18 at 08:12; Status DC Potassium Chloride (Klor-Con) 40 meq 1X ONCE PO Last administered on 17:39; Start 06/19/18 at 16:30; Stop 06/19/18 at 16:31; Status DC Potassium Chloride (Klor-Con) 20 meq DAILYWBKFT PO Last administered on 08:33; Start 06/20/18 at 08:00 Senna/Docusate Sodium (Senna Plus) 2 tab PRN BID PRN PO CONSTIPATION (1st Choice) Last administered on 06/20/18 16:05; Start 06/20/18 at 08:15 Docusate Sodium (Colace) 100 mg PRN DAILY PRN PO CONSTIPATION (2nd Choice) Last administered on 06/20/18 16:05; Start 06/20/18 at 08:15 Info (Anti-Coagulation Monitoring By Pharmacy) 1 each PRN DAILY PRN MC SEE COMMENTS Last administered on 06/21/18 08:11; Start 06/20/18 at 09:30 Fentanyl Citrate (Fentanyl 2ml Vial) 50 mcg PRN Q3HRS PRN IV SEVERE PAIN Last administered on 06/20/18 23:26; Start 06/20/18 at 23:30 Potassium Chloride (Klor-Con) 40 meq 1X ONCE PO Last administered on 17:04; Start 06/21/18 at 16:30; Stop 06/21/18 at 16:31; Status DC Labetalol HCl (Normodyne Iv Push) 20 mg PRN Q2HR PRN IVP GIVE FOR SBP > 140 Last administered on 06/21/18at 22:44; Start 06/21/18 at 22:45 Amlodipine Besylate (Norvasc) 2.5 mg 1X ONCE PO Last administered on at 22:42; Start 06/21/18 at 23:00; Stop 06/21/18 at 23:01; Status DC Iohexol (Omnipaque 350 Mg/ml) 75 ml 1X ONCE IV Last administered on 06/22/18at 00:13; Start 06/21/18 at 23:45; Stop 06/21/18 at 23:46; Status DC Info (CONTRAST GIVEN -- Rx MONITORING) 1 each PRN DAILY PRN MC SEE COMMENTS; Start 06/21/18 at 23:45; Stop 06/23/18 at 23:44 Active Scripts Active Clonidine Hcl 0.1 Mg Tablet 0.1 Mg PO BID For high blood pressure Take this with the other medicines you are already taking Reported Hydrochlorothiazide Tablet (Hydrochlorothiazide) 25 Mg Tablet 25 Mg PO DAILY Toprol Xl (Metoprolol Succinate) 50 Mg Tab.er.24h 50 Mg PO DAILY Lisinopril 40 Mg Tablet 40 Mg PO DAILY Viagra (Sildenafil Citrate) 50 Mg Tablet 50 Mg PO ONCE Tylenol (Acetaminophen) 325 Mg Tablet 325 Mg PO Allergies Allergies: Coded Allergies: No Known Drug Allergies (Unverified , 07/14/14) Physical Exam Physical Exam Abdomen soft, nontender, normal bowel signs Palpable femoral pulses bilaterally, normal neurologic exam of both lower extremities Vitals VITALS Vital Signs Date Time Temp Pulse Resp B/P (MAP) Pulse Ox O2 Delivery O2 Flow Rate FiO2 06/22/18 11:05 98.3 78 18 124/65 (84) 96 Room Air 98.3 06/22/18 08:00 2.0 Labs Labs Laboratory Tests Test 06/20/18 19:45 06/21/18 01:50 06/21/18 02:00 06/21/18 09:13 Heparin Anti-Xa Act, Unfractionated 0.14 IU/mL (0.30-0.70) 0.38 IU/mL (0.30-0.70) 0.28 IU/mL (0.30-0.70) White Blood Count 10.2 x10^3/uL (4.0-11.0) 10.0 x10^3/uL (4.0-11.0) Red Blood Count 3.86 x10^6/uL (4.30-5.70) 4.17 x10^6/uL (4.30-5.70) Hemoglobin 11.7 g/dL (13.0-17.5) 12.8 g/dL (13.0-17.5) Hematocrit 35.5 % (39.0-53.0) 38.5 % (39.0-53.0) Mean Corpuscular Volume 92 fL (79-100) 92 fL (79-100) Mean Corpuscular Hemoglobin 30 pg (25-35) 31 pg (25-35) Mean Corpuscular Hemoglobin Concent 33 g/dL (31-37) 33 g/dL (31-37) Red Cell Distribution Width 14.7 % (11.5-14.5) 14.5 % (11.5-14.5) Platelet Count 181 x10^3/uL (140-400) 181 x10^3/uL (140-400) Neutrophils (%) (Auto) 71 % (31-73) Lymphocytes (%) (Auto) 16 % (24-48) Monocytes (%) (Auto) 12 % (0-9) Eosinophils (%) (Auto) 1 % (0-3) Basophils (%) (Auto) 0 % (0-3) Neutrophils # (Auto) 7.2 x10^3uL (1.8-7.7) Lymphocytes # (Auto) 1.6 x10^3/uL (1.0-4.8) Monocytes # (Auto) 1.2 x10^3/uL (0.0-1.1) Eosinophils # (Auto) 0.1 x10^3/uL (0.0-0.7) Basophils # (Auto) 0.0 x10^3/uL (0.0-0.2) Sodium Level 136 mmol/L (136-145) Potassium Level 3.3 mmol/L (3.5-5.1) Chloride Level 99 mmol/L (98-107) Carbon Dioxide Level 29 mmol/L (21-32) Anion Gap 8 (6-14) Blood Urea Nitrogen 27 mg/dL (8-26) Creatinine 2.1 mg/dL (0.7-1.3) Estimated GFR (Cockcroft-Gault) 40.3 Glucose Level 146 mg/dL (70-99) Calcium Level 8.0 mg/dL (8.5-10.1) Test 06/21/18 16:25 06/21/18 20:30 06/22/18 06:05 Heparin Anti-Xa Act, Unfractionated 0.44 IU/mL (0.30-0.70) 0.42 IU/mL (0.30-0.70) 0.53 IU/mL (0.30-0.70) White Blood Count 10.7 x10^3/uL (4.0-11.0) Red Blood Count 4.00 x10^6/uL (4.30-5.70) Hemoglobin 12.1 g/dL (13.0-17.5) Hematocrit 36.9 % (39.0-53.0) Mean Corpuscular Volume 92 fL (79-100) Mean Corpuscular Hemoglobin 30 pg (25-35) Mean Corpuscular Hemoglobin Concent 33 g/dL (31-37) Red Cell Distribution Width 14.7 % (11.5-14.5) Platelet Count 211 x10^3/uL (140-400) Neutrophils (%) (Auto) 73 % (31-73) Lymphocytes (%) (Auto) 12 % (24-48) Monocytes (%) (Auto) 13 % (0-9) Eosinophils (%) (Auto) 1 % (0-3) Basophils (%) (Auto) 1 % (0-3) Neutrophils # (Auto) 7.8 x10^3uL (1.8-7.7) Lymphocytes # (Auto) 1.3 x10^3/uL (1.0-4.8) Monocytes # (Auto) 1.4 x10^3/uL (0.0-1.1) Eosinophils # (Auto) 0.1 x10^3/uL (0.0-0.7) Basophils # (Auto) 0.1 x10^3/uL (0.0-0.2) Sodium Level 137 mmol/L (136-145) Potassium Level 4.2 mmol/L (3.5-5.1) Chloride Level 101 mmol/L (98-107) Carbon Dioxide Level 32 mmol/L (21-32) Anion Gap 4 (6-14) Blood Urea Nitrogen 19 mg/dL (8-26) Creatinine 1.5 mg/dL (0.7-1.3) Estimated GFR (Cockcroft-Gault) 59.5 Glucose Level 127 mg/dL (70-99) Calcium Level 8.2 mg/dL (8.5-10.1) Phosphorus Level 3.7 mg/dL (2.6-4.7) Albumin 2.2 g/dL (3.4-5.0) Laboratory Tests Test 06/21/18 16:25 06/21/18 20:30 06/22/18 06:05 Heparin Anti-Xa Act, Unfractionated 0.44 IU/mL (0.30-0.70) 0.42 IU/mL (0.30-0.70) 0.53 IU/mL (0.30-0.70) White Blood Count 10.7 x10^3/uL (4.0-11.0) Red Blood Count 4.00 x10^6/uL (4.30-5.70) Hemoglobin 12.1 g/dL (13.0-17.5) Hematocrit 36.9 % (39.0-53.0) Mean Corpuscular Volume 92 fL (79-100) Mean Corpuscular Hemoglobin 30 pg (25-35) Mean Corpuscular Hemoglobin Concent 33 g/dL (31-37) Red Cell Distribution Width 14.7 % (11.5-14.5) Platelet Count 211 x10^3/uL (140-400) Neutrophils (%) (Auto) 73 % (31-73) Lymphocytes (%) (Auto) 12 % (24-48) Monocytes (%) (Auto) 13 % (0-9) Eosinophils (%) (Auto) 1 % (0-3) Basophils (%) (Auto) 1 % (0-3) Neutrophils # (Auto) 7.8 x10^3uL (1.8-7.7) Lymphocytes # (Auto) 1.3 x10^3/uL (1.0-4.8) Monocytes # (Auto) 1.4 x10^3/uL (0.0-1.1) Eosinophils # (Auto) 0.1 x10^3/uL (0.0-0.7) Basophils # (Auto) 0.1 x10^3/uL (0.0-0.2) Sodium Level 137 mmol/L (136-145) Potassium Level 4.2 mmol/L (3.5-5.1) Chloride Level 101 mmol/L (98-107) Carbon Dioxide Level 32 mmol/L (21-32) Anion Gap 4 (6-14) Blood Urea Nitrogen 19 mg/dL (8-26) Creatinine 1.5 mg/dL (0.7-1.3) Estimated GFR (Cockcroft-Gault) 59.5 Glucose Level 127 mg/dL (70-99) Calcium Level 8.2 mg/dL (8.5-10.1) Phosphorus Level 3.7 mg/dL (2.6-4.7) Albumin 2.2 g/dL (3.4-5.0) Images Images CT does suggest stable dissection from previous 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 If this continues to progress the patient will potentially require thoracic abdominal aneurysm repair which I do not perform. Recommend follow-up with CT surgery clinic at Assessment/Plan Assessment/Plan Complex dissection involving the descending thoracic aorta and the abdominal aorta and left iliac Appears stablemild aneurysmal degeneration at the perivisceral segment not amenable to endovascular repair Recommend follow-up with CT surgery clinic at ELLA JONES MD Jun 22, 2018 11:29
[2018-06-22] MEDS: ANTI-COAG MONITOR BY PHARMACY. MC PRN (11:54)
--- NOTE | 2018-06-22 13:48 | PDOC ---
Provider Note Provider Note 52 year old male, with previous repair of a type A dissection. Known to have a chronic type B dissection. I was called last night after an abdominal U/s demonstrated the known dissection. I have reviewed his CTA. His chronic type B dissection remains stable since 2013 , which is the earliest CT on record at [facility]. No aneurysmal degeneration. Re- entry tear just distal to the takeoff of the left subclavian, but no flow in the false lumen. No issues with his aortic root and ascending aortic graft. Known to have chronic renal insufficiency. Creatinine now back to baseline after slight increase to 2,1. No other malperfusion phenomena. No intervention warranted at present. Needs active surveillance with annual CTAs. JOEL CALLAWAY MD Jun 22, 2018 13:48
[2018-06-22 15:41] VITALS: BP 131/70
--- NOTE | 2018-06-22 19:43 | PDOC2 ---
CONSULT Date of Consult Date of Consult DATE: 06/22/18 TIME: 19:40 Reason for Consult Reason for Consult: Chest discomfort History of Present Illness Reason for Visit: Patient is 52 a year old man with prior history of thoracic aortic aneurysm rupture repair. Patient also has history of hypertension. Patient presented with chest pain, shortness of breath. Patient denies any difficulty speaking tingling numbness on the face. Patient denies any focal extremity weakness. Patient denies any complaint of dizziness lightheadedness, headache nausea or vomiting. Past Medical History Cardiovascular: HTN, Hyperlipidemia, Other Pulmonary: No pertinent hx CENTRAL NERVOUS SYSTEM: Other GI: No pertinent hx, GERD Heme/Onc: No pertinent hx Hepatobiliary: No pertinent hx Psych: No pertinent hx, Other Musculoskeletal: Osteoarthritis Rheumatologic: No pertinent hx Infectious disease: No pertinent hx Renal/: Chronic renal insuff, Other Endocrine: No pertinent hx Past Surgical History Past Surgical History: Other (open heart surgery for aortic rupture repair) Family History Family History: Cancer, Coronary Artery Disease Social History No ALCOHOL: none Drugs: None Lives: with Family Current Problem List Problem List Problems Medical Problems: (1) Acute renal failure Status: Acute (2) Chest pain Status: Acute (3) Hypertension Status: Acute (4) NSTEMI (non-ST elevated myocardial infarction) Status: Acute Current Medications Current Medications Current Medications Aspirin (Dorinda Aspirin) 325 mg 1X ONCE PO Last administered on 06/18/18at 08:51 ; Start 06/18/18 at 08:15; Stop 06/18/18 at 08:22; Status DC Nitroglycerin (Nitrostat) 0.4 mg PRN Q5MIN PRN SL CP RATING > 1/10 Last administered on 06/18/18at 09:21; Start 06/18/18 at 08:15; Stop 06/19/18 at 08:14 ; Status DC Morphine Sulfate (Morphine Sulfate) 2 mg PRN Q15MIN PRN IV/SQ PAIN GREATER THAN 3/10 Last administered on 06/18/18at 09:03; Start 06/18/18 at 08:15; Stop at 18:00; Status DC Metoprolol Tartrate (Lopressor Vial) 5 mg 1X ONCE IVP Last administered on at 08:53; Start 06/18/18 at 08:45; Stop 06/18/18 at 08:46; Status DC Albuterol/ Ipratropium (Duoneb) 3 ml 1X ONCE NEB Last administered on 09:09; Start 06/18/18 at 09:00; Stop 06/18/18 at 09:01; Status DC Furosemide (Lasix) 40 mg 1X ONCE IVP Last administered on 06/18/18at 11:12; Start 06/18/18 at 10:30; Stop 06/18/18 at 10:31; Status DC Ondansetron HCl (Zofran) 4 mg PRN Q8HRS PRN IV NAUSEA/VOMITING; Start 06/18/18 at 10:30; Stop 06/18/18 at 10:39; Status DC Morphine Sulfate (Morphine Sulfate) 4 mg PRN Q2HR PRN IV PAIN Last administered on 06/19/18at 04:04; Start 06/18/18 at 10:30; Stop 06/19/18 at 10:29 ; Status DC Nitroglycerin (Nitrostat) 0.4 mg PRN Q5MIN PRN SL CHEST PAIN; Start 06/18/18 at 10:30; Stop 06/19/18 at 10:29; Status Cancel Ondansetron HCl (Zofran) 4 mg PRN Q6HRS PRN IV NAUSEA/VOMITING; Start 06/18/18 at 10:45 Acetaminophen (Tylenol) 500 mg PRN Q6HRS PRN PO MILD PAIN / TEMP; Start at 10:45 Acetaminophen/ Codeine Phosphate (Tylenol #3) 1 tab PRN Q6HRS PRN PO MODERATE PAIN Last administered on 06/22/18at 00:50; Start 06/18/18 at 10:45 Labetalol HCl (Normodyne Iv Push) 10 mg PRN Q2HR PRN IVP GIVE FOR SBP > 160 Last administered on 06/18/18at 19:20; Start 06/18/18 at 10:45; Stop 06/21/18 at 22:34; Status DC Acetaminophen (Tylenol) 325 mg DAILY PO Last administered on 06/19/18at 10:17; Start 06/19/18 at 09:00; Stop 06/19/18 at 16:26; Status DC Clonidine HCl (Catapres) 0.1 mg BID PO Last administered on 06/19/18 08:58; Start 06/18/18 at 11:00; Stop 06/19/18 at 16:26; Status DC Hydrochlorothiazide (Hydrodiuril) 25 mg DAILY PO Last administered on 08:33; Start 06/18/18 at 11:00 Lisinopril (Prinivil) 40 mg DAILY PO Last administered on 06/22/18 08:32; Start 06/18/18 at 11:00 Metoprolol Succinate (Toprol Xl) 50 mg DAILY PO Last administered on 06/19/18 08:57; Start 06/18/18 at 11:00; Stop 06/19/18 at 14:02; Status DC Non-Formulary Medication (Sildenafil Citrate (Viagra)) 50 mg ONCE PO ; Start at 10:45; Status UNV Fluticasone Propionate (Flonase) 2 spray DAILY NS Last administered on 08:32; Start 06/19/18 at 09:00 Guaifenesin (Robitussin Dm) 10 ml PRN Q6HRS PRN PO COUGH; Start 06/18/18 at 12: 15; Stop 06/19/18 at 16:26; Status DC Cetirizine HCl (ZyrTEC) 10 mg DAILY PO Last administered on 06/22/18 08:34; Start 06/18/18 at 12:15 Heparin Sodium/ Dextrose 500 ml @ 20 mls/hr CONT PRN IV SEE I/O RECORD Last administered on 06/22/18 07:29; Start 06/18/18 at 15:15 Heparin Sodium (Porcine) (Heparin Sodium) 2,350 unit PRN Q6HRS PRN IV FOR UFH LEVEL LESS THAN 0.2 Last administered on 06/20/18 20:46; Start 06/18/18 at 15: 15 Nitroglycerin (Nitro-Bid Oint) 1 inch Q6HRS TP Last administered on 06/18/18 16:04; Start 06/18/18 at 16:00; Stop 06/19/18 at 09:34; Status DC Sodium Chloride 1,000 ml @ 60 mls/hr [id number] IV Last administered on 16:15; Start 06/18/18 at 15:17; Stop 06/19/18 at 00:41; Status DC Hydralazine HCl (Apresoline Inj) 10 mg PRN Q4HRS PRN IVP ELEVATED BP, SEE COMMENTS Last administered on 06/18/18at 17:05; Start 06/18/18 at 15:30; Stop at 08:13; Status DC Heparin Sodium (Porcine) (Heparin Sodium) 4,000 unit 1X ONCE IV Last administered on 06/18/18at 16:04; Start 06/18/18 at 16:15; Stop 06/18/18 at 16:16 ; Status DC Nitroglycerin/ Dextrose 250 ml @ 9 mls/hr 1X ONCE IV Last administered on 06/18at 22:17; Start 06/18/18 at 19:45; Stop 06/19/18 at 23:31; Status DC Iodixanol (Visipaque 320) 100 ml STK-MED ONCE .ROUTE ; Start 06/18/18 at 20:56; Stop 06/18/18 at 20:57; Status DC Lidocaine HCl (Lidocaine 1% 20ml Vial) 20 ml STK-MED ONCE .ROUTE ; Start at 20:56; Stop 06/18/18 at 20:57; Status DC Heparin Sodium/ Sodium Chloride 1,500 ml @ As Directed STK-MED ONCE .ROUTE ; Start 06/18/18 at 20:56; Stop 06/18/18 at 20:57; Status DC Fentanyl Citrate (Fentanyl 2ml Vial) 100 mcg STK-MED ONCE .ROUTE ; Start at 20:57; Stop 06/18/18 at 20:58; Status DC Midazolam HCl (Versed) 5 mg STK-MED ONCE .ROUTE ; Start 06/18/18 at 20:58; Stop 06/18/18 at 20:59; Status DC Heparin Sodium (Porcine) (Heparin Sodium) 10,000 unit STK-MED ONCE .ROUTE ; Start 06/18/18 at 20:58; Stop 06/18/18 at 20:59; Status DC Verapamil HCl (Verapamil) 5 mg STK-MED ONCE .ROUTE ; Start 06/18/18 at 20:58; Stop 06/18/18 at 20:59; Status DC Nitroglycerin (Nitroglycerin) 200 mcg STK-MED ONCE .ROUTE ; Start 06/18/18 at 20 :58; Stop 06/18/18 at 20:59; Status DC Hydralazine HCl (Apresoline Inj) 20 mg STK-MED ONCE .ROUTE ; Start 06/18/18 at 21:28; Stop 06/18/18 at 21:29; Status DC Heparin Sodium/ Sodium Chloride (HEPARIN for ARTERIAL LINE FLUSH) 1,000 unit 1X ONCE IART Last administered on 06/18/18 22:13; Start 06/18/18 at 22:00; Stop 06/18/18 at 22:01; Status DC Heparin Sodium/ Sodium Chloride (HEPARIN for ARTERIAL LINE FLUSH) 1,000 unit 1X ONCE IART Last administered on 06/18/18 22:13; Start 06/18/18 at 22:00; Stop 06/18/18 at 22:01; Status DC Midazolam HCl (Versed) 5 mg 1X ONCE IV Last administered on 06/18/18 22:15; Start 06/18/18 at 21:45; Stop 06/18/18 at 21:47; Status DC Fentanyl Citrate (Fentanyl 2ml Vial) 100 mcg 1X ONCE IV Last administered on 22:15; Start 06/18/18 at 22:00; Stop 06/18/18 at 22:01; Status DC Iodixanol (Visipaque 320) 100 ml 1X ONCE IART Last administered on 06/18/18 22:13; Start 06/18/18 at 22:00; Stop 06/18/18 at 22:01; Status DC Lidocaine HCl (Lidocaine 1% 20ml Vial) 20 ml 1X ONCE INJ Last administered on 06/18/18at 22:14; Start 06/18/18 at 22:00; Stop 06/18/18 at 22:01; Status DC Hydralazine HCl (Apresoline Inj) 20 mg 1X ONCE IVP Last administered on 22:15; Start 06/18/18 at 22:00; Stop 06/18/18 at 22:01; Status DC Nitroglycerin/ Dextrose 250 ml @ As Directed STK-MED ONCE IV ; Start 06/18/18 at 21:48; Stop 06/18/18 at 21:49; Status DC Furosemide (Lasix) 40 mg 1X ONCE IVP Last administered on 06/18/18at 22:50; Start 06/18/18 at 23:00; Stop 06/18/18 at 23:01; Status DC Nitroglycerin/ Dextrose 250 ml @ 1.5 mls/hr CONT PRN IV SEE I/O RECORD Last administered on 06/19/18at 03:24; Start 06/19/18 at 03:30; Stop 06/19/18 at 09:27 ; Status DC Verapamil HCl (Verapamil) 5 mg STK-MED ONCE .ROUTE ; Start 06/18/18 at 21:00; Stop 06/19/18 at 08:56; Status DC Aspirin (Ecotrin) 81 mg DAILYWBKFT PO Last administered on 06/22/18 08:32; Start 06/19/18 at 10:00 Atorvastatin Calcium (Lipitor) 40 mg QHS PO Last administered on 06/21/18at 22: 42; Start 06/19/18 at 21:00 Potassium Chloride (Klor-Con) 40 meq Q4H PO Last administered on 06/19/18at 15: 38; Start 06/19/18 at 10:00; Stop 06/19/18 at 14:01; Status DC Furosemide (Lasix) 40 mg DAILY PO Last administered on 06/22/18 08:32; Start 06/19/18 at 10:00 Morphine Sulfate (Morphine Sulfate) 2 mg 1X ONCE IV Last administered on 13:31; Start 06/19/18 at 13:30; Stop 06/19/18 at 13:31; Status DC Carvedilol (Coreg) 12.5 mg BIDWMEALS PO Last administered on 06/22/18at 17:17; Start 06/19/18 at 17:00 Isosorbide Mononitrate (Imdur) 30 mg DAILY PO Last administered on 06/22/18at 08 :33; Start 06/19/18 at 14:00 Hydralazine HCl (Apresoline) 25 mg TID PO Last administered on 06/19/18 15:39 ; Start 06/19/18 at 14:00; Stop 06/20/18 at 08:12; Status DC Potassium Chloride (Klor-Con) 40 meq 1X ONCE PO Last administered on 17:39; Start 06/19/18 at 16:30; Stop 06/19/18 at 16:31; Status DC Potassium Chloride (Klor-Con) 20 meq DAILYWBKFT PO Last administered on 08:33; Start 06/20/18 at 08:00 Senna/Docusate Sodium (Senna Plus) 2 tab PRN BID PRN PO CONSTIPATION (1st Choice) Last administered on 06/20/18 16:05; Start 06/20/18 at 08:15 Docusate Sodium (Colace) 100 mg PRN DAILY PRN PO CONSTIPATION (2nd Choice) Last administered on 06/20/18 16:05; Start 06/20/18 at 08:15 Info (Anti-Coagulation Monitoring By Pharmacy) 1 each PRN DAILY PRN MC SEE COMMENTS Last administered on 06/22/18 11:54; Start 06/20/18 at 09:30 Fentanyl Citrate (Fentanyl 2ml Vial) 50 mcg PRN Q3HRS PRN IV SEVERE PAIN Last administered on 06/20/18 23:26; Start 06/20/18 at 23:30 Potassium Chloride (Klor-Con) 40 meq 1X ONCE PO Last administered on 17:04; Start 06/21/18 at 16:30; Stop 06/21/18 at 16:31; Status DC Labetalol HCl (Normodyne Iv Push) 20 mg PRN Q2HR PRN IVP GIVE FOR SBP > 140 Last administered on 06/21/18 22:44; Start 06/21/18 at 22:45 Amlodipine Besylate (Norvasc) 2.5 mg 1X ONCE PO Last administered on at 22:42; Start 06/21/18 at 23:00; Stop 06/21/18 at 23:01; Status DC Iohexol (Omnipaque 350 Mg/ml) 75 ml 1X ONCE IV Last administered on 06/22/18 00:13; Start 06/21/18 at 23:45; Stop 06/21/18 at 23:46; Status DC Info (CONTRAST GIVEN -- Rx MONITORING) 1 each PRN DAILY PRN MC SEE COMMENTS; Start 06/21/18 at 23:45; Stop 06/23/18 at 23:44 Active Scripts Active Clonidine Hcl 0.1 Mg Tablet 0.1 Mg PO BID For high blood pressure Take this with the other medicines you are already taking Reported Hydrochlorothiazide Tablet (Hydrochlorothiazide) 25 Mg Tablet 25 Mg PO DAILY Toprol Xl (Metoprolol Succinate) 50 Mg Tab.er.24h 50 Mg PO DAILY Lisinopril 40 Mg Tablet 40 Mg PO DAILY Viagra (Sildenafil Citrate) 50 Mg Tablet 50 Mg PO ONCE Tylenol (Acetaminophen) 325 Mg Tablet 325 Mg PO Allergies Allergies: Coded Allergies: No Known Drug Allergies (Unverified , 07/14/14) ROS Review of System as per HPI Physical Exam Physical Exam General no acute distress. HEENT: Normocephalic and atraumatic. NECK: Supple without bruit Respiratory: Clear to auscultation bilaterally Heart: Regular rate and rhythm, S1S2 normal NEUROLOGIC: Mental status Alert oriented. Cranial nerve equally reactive pupils, and intact extraocular movements. No facial asymmetry. Palate elevates and tongue protrudes in midline. Reflexes are 1-2 with flexor plantar responses. Coordination no dysmetria Strength able to move all exts equally. Sensory exam is intact for light touch and pinprick. Gait in bed. Vitals VITALS Vital Signs Date Time Temp Pulse Resp B/P (MAP) Pulse Ox O2 Delivery O2 Flow Rate FiO2 06/22/18 17:17 82 131/70 06/22/18 15:41 98.4 18 97 Room Air 98.4 06/22/18 08:00 2.0 Labs Labs Laboratory Tests Test 06/20/18 19:45 06/21/18 01:50 06/21/18 02:00 06/21/18 09:13 Heparin Anti-Xa Act, Unfractionated 0.14 IU/mL (0.30-0.70) 0.38 IU/mL (0.30-0.70) 0.28 IU/mL (0.30-0.70) White Blood Count 10.2 x10^3/uL (4.0-11.0) 10.0 x10^3/uL (4.0-11.0) Red Blood Count 3.86 x10^6/uL (4.30-5.70) 4.17 x10^6/uL (4.30-5.70) Hemoglobin 11.7 g/dL (13.0-17.5) 12.8 g/dL (13.0-17.5) Hematocrit 35.5 % (39.0-53.0) 38.5 % (39.0-53.0) Mean Corpuscular Volume 92 fL (79-100) 92 fL (79-100) Mean Corpuscular Hemoglobin 30 pg (25-35) 31 pg (25-35) Mean Corpuscular Hemoglobin Concent 33 g/dL (31-37) 33 g/dL (31-37) Red Cell Distribution Width 14.7 % (11.5-14.5) 14.5 % (11.5-14.5) Platelet Count 181 x10^3/uL (140-400) 181 x10^3/uL (140-400) Neutrophils (%) (Auto) 71 % (31-73) Lymphocytes (%) (Auto) 16 % (24-48) Monocytes (%) (Auto) 12 % (0-9) Eosinophils (%) (Auto) 1 % (0-3) Basophils (%) (Auto) 0 % (0-3) Neutrophils # (Auto) 7.2 x10^3uL (1.8-7.7) Lymphocytes # (Auto) 1.6 x10^3/uL (1.0-4.8) Monocytes # (Auto) 1.2 x10^3/uL (0.0-1.1) Eosinophils # (Auto) 0.1 x10^3/uL (0.0-0.7) Basophils # (Auto) 0.0 x10^3/uL (0.0-0.2) Sodium Level 136 mmol/L (136-145) Potassium Level 3.3 mmol/L (3.5-5.1) Chloride Level 99 mmol/L (98-107) Carbon Dioxide Level 29 mmol/L (21-32) Anion Gap 8 (6-14) Blood Urea Nitrogen 27 mg/dL (8-26) Creatinine 2.1 mg/dL (0.7-1.3) Estimated GFR (Cockcroft-Gault) 40.3 Glucose Level 146 mg/dL (70-99) Calcium Level 8.0 mg/dL (8.5-10.1) Test 06/21/18 16:25 06/21/18 20:30 06/22/18 06:05 Heparin Anti-Xa Act, Unfractionated 0.44 IU/mL (0.30-0.70) 0.42 IU/mL (0.30-0.70) 0.53 IU/mL (0.30-0.70) White Blood Count 10.7 x10^3/uL (4.0-11.0) Red Blood Count 4.00 x10^6/uL (4.30-5.70) Hemoglobin 12.1 g/dL (13.0-17.5) Hematocrit 36.9 % (39.0-53.0) Mean Corpuscular Volume 92 fL (79-100) Mean Corpuscular Hemoglobin 30 pg (25-35) Mean Corpuscular Hemoglobin Concent 33 g/dL (31-37) Red Cell Distribution Width 14.7 % (11.5-14.5) Platelet Count 211 x10^3/uL (140-400) Neutrophils (%) (Auto) 73 % (31-73) Lymphocytes (%) (Auto) 12 % (24-48) Monocytes (%) (Auto) 13 % (0-9) Eosinophils (%) (Auto) 1 % (0-3) Basophils (%) (Auto) 1 % (0-3) Neutrophils # (Auto) 7.8 x10^3uL (1.8-7.7) Lymphocytes # (Auto) 1.3 x10^3/uL (1.0-4.8) Monocytes # (Auto) 1.4 x10^3/uL (0.0-1.1) Eosinophils # (Auto) 0.1 x10^3/uL (0.0-0.7) Basophils # (Auto) 0.1 x10^3/uL (0.0-0.2) Sodium Level 137 mmol/L (136-145) Potassium Level 4.2 mmol/L (3.5-5.1) Chloride Level 101 mmol/L (98-107) Carbon Dioxide Level 32 mmol/L (21-32) Anion Gap 4 (6-14) Blood Urea Nitrogen 19 mg/dL (8-26) Creatinine 1.5 mg/dL (0.7-1.3) Estimated GFR (Cockcroft-Gault) 59.5 Glucose Level 127 mg/dL (70-99) Calcium Level 8.2 mg/dL (8.5-10.1) Phosphorus Level 3.7 mg/dL (2.6-4.7) Albumin 2.2 g/dL (3.4-5.0) Laboratory Tests Test 06/21/18 20:30 06/22/18 06:05 Heparin Anti-Xa Act, Unfractionated 0.42 IU/mL (0.30-0.70) 0.53 IU/mL (0.30-0.70) White Blood Count 10.7 x10^3/uL (4.0-11.0) Red Blood Count 4.00 x10^6/uL (4.30-5.70) Hemoglobin 12.1 g/dL (13.0-17.5) Hematocrit 36.9 % (39.0-53.0) Mean Corpuscular Volume 92 fL (79-100) Mean Corpuscular Hemoglobin 30 pg (25-35) Mean Corpuscular Hemoglobin Concent 33 g/dL (31-37) Red Cell Distribution Width 14.7 % (11.5-14.5) Platelet Count 211 x10^3/uL (140-400) Neutrophils (%) (Auto) 73 % (31-73) Lymphocytes (%) (Auto) 12 % (24-48) Monocytes (%) (Auto) 13 % (0-9) Eosinophils (%) (Auto) 1 % (0-3) Basophils (%) (Auto) 1 % (0-3) Neutrophils # (Auto) 7.8 x10^3uL (1.8-7.7) Lymphocytes # (Auto) 1.3 x10^3/uL (1.0-4.8) Monocytes # (Auto) 1.4 x10^3/uL (0.0-1.1) Eosinophils # (Auto) 0.1 x10^3/uL (0.0-0.7) Basophils # (Auto) 0.1 x10^3/uL (0.0-0.2) Sodium Level 137 mmol/L (136-145) Potassium Level 4.2 mmol/L (3.5-5.1) Chloride Level 101 mmol/L (98-107) Carbon Dioxide Level 32 mmol/L (21-32) Anion Gap 4 (6-14) Blood Urea Nitrogen 19 mg/dL (8-26) Creatinine 1.5 mg/dL (0.7-1.3) Estimated GFR (Cockcroft-Gault) 59.5 Glucose Level 127 mg/dL (70-99) Calcium Level 8.2 mg/dL (8.5-10.1) Phosphorus Level 3.7 mg/dL (2.6-4.7) Albumin 2.2 g/dL (3.4-5.0) Assessment/Plan Assessment/Plan Patient is 52 a year old man with prior history of thoracic aortic aneurysm rupture repair. Patient also has history of hypertension. Patient presented with chest pain, shortness of breath. Patient denies any difficulty speaking tingling numbness on the face. Patient denies any focal extremity weakness. Patient denies any complaint of dizziness lightheadedness, headache nausea or vomiting. 52-year-old man with past medical history of multiple medical problems with history of thoracic aortic aneurysm repair, hypertension, presented with complaint of chest pain, shortness of breath. Patient is currently being evaluated for for chest pain, aortic aneurysm dissection. Patient does not have any symptoms of stroke. Will get CT scan brain to evaluate for any acute intracranial etiology, carotid Doppler. Further workup depending on initial imaging results. Cardiac recommendations noted. Patient is on anticoagulation. PT OT evaluation. Continue medical management. Plan discussed with patient, patient's family in detail. BOLIVAR ARCHER MD Jun 22, 2018 19:42
[2018-06-22 20:28] VITALS: BP 130/81
[2018-06-22] MEDS: ATORVASTATIN CALCIUM 40 MG TABLET. PO SCH (20:34)
[2018-06-23] VITALS (7 sets, daily range): BP systolic 141–161; BP diastolic 77–99
[2018-06-23 06:29] LABS: BASO % 0 % (0-3); EOS # 0.2 x10^3/uL (0.0-0.7); EOS % 2 % (0-3); HEMATOCRIT 38.2 % (39.0-53.0); HEMOGLOBIN 12.7 g/dL (13.0-17.5); LYMPH # 1.3 x10^3/uL (1.0-4.8); LYMPH % 14 % (24-48); MEAN CORPUSCULAR HEMOGLOBIN 31 pg (25-35); MEAN CORPUSCULAR HGB CONC 33 g/dL (31-37); MEAN CORPUSCULAR VOLUME 93 fL (79-100); MONO # 1.2 x10^3/uL (0.0-1.1); MONO % 12 % (0-9); NEUT % 72 % (31-73); PLATELET COUNT 218 x10^3/uL (140-400); RED BLOOD COUNT 4.13 x10^6/uL (4.30-5.70); RED CELL DISTRIBUTION WIDTH 14.5 % (11.5-14.5); WHITE BLOOD COUNT 9.8 x10^3/uL (4.0-11.0)
[2018-06-23 06:42] LABS: CALCIUM 8.5 mg/dL (8.5-10.1); CREATININE 1.5 mg/dL (0.7-1.3); GFR 59.5; POTASSIUM 4.2 mmol/L (3.5-5.1)
[2018-06-23] MEDS: POTASSIUM CHLORIDE 20 MEQ TABLET.ER. PO SCH (07:33)
[2018-06-23] MEDS: hydroCHLOROthiazide 25 MG TABLET PO SCH (07:33)
[2018-06-23] MEDS: ASPIRIN ENTERIC COATED 81 MG TABLET.DR. PO SCH (07:34)
[2018-06-23] MEDS: CETIRIZINE HCL 10 MG TABLET. PO SCH (07:34)
[2018-06-23] MEDS: FUROSEMIDE 40 MG TABLET. PO SCH (07:34)
[2018-06-23] MEDS: ISOSORBIDE MONONITRATE ER 30 MG TAB.ER.24H PO SCH (07:34)
[2018-06-23] MEDS: LISINOPRIL 20 MG TABLET PO SCH (07:35)
[2018-06-23] MEDS: CARVEDILOL 12.5 MG TABLET. PO SCH ×2 (07:35→17:17)
[2018-06-23] MEDS: HEPARIN for IV BOLUS 10,000 UNIT/10 ML VIAL. IV PRN (07:42)
--- NOTE | 2018-06-23 08:42 | RAD ---
PQRS Compliance statement: One or more of the following individualized dose reduction techniques were utilized for this examination: 1. Automated exposure control. 2. Adjustment of the mA and/or kV according to patient size. 3. Use of iterative reconstruction technique. Indication:STROKE RISK TECHNIQUE: CT head without IV contrast COMPARISON:05/17/2016 FINDINGS: No pathologic extra-axial or intra-axial fluid collection. The ventricles and basal cisterns are within normal limits. No acute intracranial bleed. No focal loss of ortega-white differentiation. Orbits within normal limits. No suspicious bony lesion. Visualized paranasal sinuses and mastoid air cells are clear. IMPRESSION: No acute intracranial process. If concern for acute ischemic stroke is high, please consider MRI brain. Electronically signed by: Deng Banegas DO (06/23/2018 8:39 AM) [facility]
--- NOTE | 2018-06-23 08:51 | RAD ---
DOPPLER CAROTID BILAT Clinical Indication: STROKE RISK, PT HAS HX OF AORTIC DISSECTION, PT CAME IN BECAUSE SOB FOR PNEUMONIA . Procedure: Pulsed wave and color-flow duplex imaging was utilized to evaluate the extracranial carotid arteries. Comparison: None. Findings: RIGHT SIDE: Mild atherosclerotic plaque on ortega-scale images. Distal CCA peak systolic velocity 66 cm/sec. ICA peak systolic velocity 71 cm/sec. The right ICA/CCA ratio is 1.1. Flow within the right vertebral artery and right ECA is directed antegrade. LEFT SIDE: Mild atherosclerotic plaque on ortega-scale images. Distal CCA peak systolic velocity 44 cm/sec. ICA peak systolic velocity 82 cm/sec. The left ICA/CCA ratio is 1.9. Flow within the left vertebral artery and left ECA is directed antegrade. Questionable echogenic septation is seen in the left mid to distal common carotid artery. Carotid legend: CCA = common carotid artery ICA = internal carotid artery ECA = external carotid artery IMPRESSION: 1. No hemodynamically significant stenosis. 2. Questionable echogenic septa in the mid and distal left common carotid artery may represent a dissection flap. Further evaluation with CT angiogram of the neck is recommended. Electronically signed by: Deng Banegas DO (06/23/2018 8:47 AM) [facility]
[2018-06-23] MEDS: FLUTICASONE 50MCG/NASAL SPRAY 16GM BOTTLE. NS SCH (09:00)
--- NOTE | 2018-06-23 11:34 | PDOC ---
CARDIO Progress Notes Date and Time Date of Service 06/23/18 Time of Evaluation 1115 Subjective Subjective: No Chest Pain, No shortness of breath, No Palpitations Vitals Vitals Vital Signs Date Time Temp Pulse Resp B/P (MAP) Pulse Ox O2 Delivery O2 Flow Rate FiO2 06/23/18 10:50 98.7 80 18 144/77 (99) 98 Room Air 98.7 06/22/18 08:00 2.0 Weight Weight [ ] Input and Output Intake and Output Intake and Output 06/23/18 07:00 Intake Total 1053 ml Output Total 2350 ml Balance -1297 ml Intake Oral 620 ml Blood Product IV Normal Saline Flush 433 ml Output Urine Total 2350 ml Laboratory Labs Laboratory Tests Test 06/23/18 06:10 White Blood Count 9.8 x10^3/uL (4.0-11.0) Red Blood Count 4.13 x10^6/uL (4.30-5.70) Hemoglobin 12.7 g/dL (13.0-17.5) Hematocrit 38.2 % (39.0-53.0) Mean Corpuscular Volume 93 fL (79-100) Mean Corpuscular Hemoglobin 31 pg (25-35) Mean Corpuscular Hemoglobin Concent 33 g/dL (31-37) Red Cell Distribution Width 14.5 % (11.5-14.5) Platelet Count 218 x10^3/uL (140-400) Neutrophils (%) (Auto) 72 % (31-73) Lymphocytes (%) (Auto) 14 % (24-48) Monocytes (%) (Auto) 12 % (0-9) Eosinophils (%) (Auto) 2 % (0-3) Basophils (%) (Auto) 0 % (0-3) Neutrophils # (Auto) 7.0 x10^3uL (1.8-7.7) Lymphocytes # (Auto) 1.3 x10^3/uL (1.0-4.8) Monocytes # (Auto) 1.2 x10^3/uL (0.0-1.1) Eosinophils # (Auto) 0.2 x10^3/uL (0.0-0.7) Basophils # (Auto) 0.0 x10^3/uL (0.0-0.2) Heparin Anti-Xa Act, Unfractionated 0.19 IU/mL (0.30-0.70) Sodium Level 136 mmol/L (136-145) Potassium Level 4.2 mmol/L (3.5-5.1) Chloride Level 101 mmol/L (98-107) Carbon Dioxide Level 28 mmol/L (21-32) Anion Gap 7 (6-14) Blood Urea Nitrogen 15 mg/dL (8-26) Creatinine 1.5 mg/dL (0.7-1.3) Estimated GFR (Cockcroft-Gault) 59.5 Glucose Level 148 mg/dL (70-99) Calcium Level 8.5 mg/dL (8.5-10.1) Physical Exam HEENT: Neck Supple W Full Motion Chest: Symmetric LUNGS: Other (diminished bases) Heart: S1S2, RRR (SR without ectopies) Abdomen: Soft N/T Extremities: No Edema Neurology: alert, oriented, follow commands Assessment Assessment 1. Aortic dissection, chronic; stable. CTS following. surveillance recommended 2. NSTEMI: likely embolic in etiology. LHC revealed nonobstructive CAD. On heparin gtt 3. NICM: EF at 10-15%, clinically compensated 4. Hypertension; controlled 5. Acute systolic CHF 6. KORY on CKD; improved Recommendations Start Eliquis 2.5mgf BID for anticoagulation Stop heparin Continue BB, ACEi, Imdur, statin, ASA, lasix, and HCTZ F/u in our office with Dr. Gil in 4 weeks. JOSE ANTONIO PETTY APRN Jun 23, 2018 11:34
--- NOTE | 2018-06-23 11:42 | NUR ---
SS following up with discharge planning. SS met with pt's RN and pt's spouse, Myron, , in room. Pt's spouse reported that pt is needing to go to for surgery but cannot without insurance. Pt's spouse requesting to meet with Estephania Agustin from [facility], [id number], to apply for Medicaid and Disability due to pt's low EF. SS contacted Estephania Agustin and provided her with pt's spouse contact information. Estephania reported that she would contact pt's spouse to discuss.
--- NOTE | 2018-06-23 14:41 | PDOC ---
PROGRESS NOTES Assessment Problems Medical Problems: (1) Acute renal failure Status: Acute (2) Chest pain Status: Acute (3) Hypertension Status: Acute (4) NSTEMI (non-ST elevated myocardial infarction) Status: Acute Aortic dissection, possible involvement of left carotid, no sign of acute stroke History of thoracic aortic aneurysm rupture repair. Hypertension. Plan As per cardiothoracic surgery Neurologically "cleared' for surgery Will follow Discussed with family Subjective no complaints Objective Vital Signs Date Time Temp Pulse Resp B/P (MAP) Pulse Ox O2 Delivery O2 Flow Rate FiO2 06/23/18 10:50 98.7 80 18 144/77 (99) 98 Room Air 98.7 06/22/18 08:00 2.0 Intake and Output 06/23/18 06:59 Intake Total 1053 ml Output Total 2350 ml Balance -1297 ml Intake Oral 620 ml Blood Product IV Normal Saline Flush 433 ml Output Urine Total 2350 ml PHYSICAL EXAM Alert. Oriented to time, place and person. PERRL. EOMI. CN: no focal findings. Muscle tone: normal. Muscle strength: 5/5 DTR: 2+ Plantar reflex: flexor Gait: not examined in bed. Sensory exam: no abnormal findings. No cerebellar signs elicited. Review of Relevant I have reviewed the following items josh (where applicable) has been applied. Labs Laboratory Tests Test 06/21/18 16:25 06/21/18 20:30 06/22/18 06:05 06/23/18 06:10 Heparin Anti-Xa Act, Unfractionated 0.44 IU/mL (0.30-0.70) 0.42 IU/mL (0.30-0.70) 0.53 IU/mL (0.30-0.70) 0.19 IU/mL (0.30-0.70) White Blood Count 10.7 x10^3/uL (4.0-11.0) 9.8 x10^3/uL (4.0-11.0) Red Blood Count 4.00 x10^6/uL (4.30-5.70) 4.13 x10^6/uL (4.30-5.70) Hemoglobin 12.1 g/dL (13.0-17.5) 12.7 g/dL (13.0-17.5) Hematocrit 36.9 % (39.0-53.0) 38.2 % (39.0-53.0) Mean Corpuscular Volume 92 fL (79-100) 93 fL (79-100) Mean Corpuscular Hemoglobin 30 pg (25-35) 31 pg (25-35) Mean Corpuscular Hemoglobin Concent 33 g/dL (31-37) 33 g/dL (31-37) Red Cell Distribution Width 14.7 % (11.5-14.5) 14.5 % (11.5-14.5) Platelet Count 211 x10^3/uL (140-400) 218 x10^3/uL (140-400) Neutrophils (%) (Auto) 73 % (31-73) 72 % (31-73) Lymphocytes (%) (Auto) 12 % (24-48) 14 % (24-48) Monocytes (%) (Auto) 13 % (0-9) 12 % (0-9) Eosinophils (%) (Auto) 1 % (0-3) 2 % (0-3) Basophils (%) (Auto) 1 % (0-3) 0 % (0-3) Neutrophils # (Auto) 7.8 x10^3uL (1.8-7.7) 7.0 x10^3uL (1.8-7.7) Lymphocytes # (Auto) 1.3 x10^3/uL (1.0-4.8) 1.3 x10^3/uL (1.0-4.8) Monocytes # (Auto) 1.4 x10^3/uL (0.0-1.1) 1.2 x10^3/uL (0.0-1.1) Eosinophils # (Auto) 0.1 x10^3/uL (0.0-0.7) 0.2 x10^3/uL (0.0-0.7) Basophils # (Auto) 0.1 x10^3/uL (0.0-0.2) 0.0 x10^3/uL (0.0-0.2) Sodium Level 137 mmol/L (136-145) 136 mmol/L (136-145) Potassium Level 4.2 mmol/L (3.5-5.1) 4.2 mmol/L (3.5-5.1) Chloride Level 101 mmol/L (98-107) 101 mmol/L (98-107) Carbon Dioxide Level 32 mmol/L (21-32) 28 mmol/L (21-32) Anion Gap 4 (6-14) 7 (6-14) Blood Urea Nitrogen 19 mg/dL (8-26) 15 mg/dL (8-26) Creatinine 1.5 mg/dL (0.7-1.3) 1.5 mg/dL (0.7-1.3) Estimated GFR (Cockcroft-Gault) 59.5 59.5 Glucose Level 127 mg/dL (70-99) 148 mg/dL (70-99) Calcium Level 8.2 mg/dL (8.5-10.1) 8.5 mg/dL (8.5-10.1) Phosphorus Level 3.7 mg/dL (2.6-4.7) Albumin 2.2 g/dL (3.4-5.0) Test 06/23/18 12:05 Heparin Anti-Xa Act, Unfractionated 1.01 IU/mL (0.30-0.70) Laboratory Tests Test 06/23/18 06:10 06/23/18 12:05 White Blood Count 9.8 x10^3/uL (4.0-11.0) Red Blood Count 4.13 x10^6/uL (4.30-5.70) Hemoglobin 12.7 g/dL (13.0-17.5) Hematocrit 38.2 % (39.0-53.0) Mean Corpuscular Volume 93 fL (79-100) Mean Corpuscular Hemoglobin 31 pg (25-35) Mean Corpuscular Hemoglobin Concent 33 g/dL (31-37) Red Cell Distribution Width 14.5 % (11.5-14.5) Platelet Count 218 x10^3/uL (140-400) Neutrophils (%) (Auto) 72 % (31-73) Lymphocytes (%) (Auto) 14 % (24-48) Monocytes (%) (Auto) 12 % (0-9) Eosinophils (%) (Auto) 2 % (0-3) Basophils (%) (Auto) 0 % (0-3) Neutrophils # (Auto) 7.0 x10^3uL (1.8-7.7) Lymphocytes # (Auto) 1.3 x10^3/uL (1.0-4.8) Monocytes # (Auto) 1.2 x10^3/uL (0.0-1.1) Eosinophils # (Auto) 0.2 x10^3/uL (0.0-0.7) Basophils # (Auto) 0.0 x10^3/uL (0.0-0.2) Heparin Anti-Xa Act, Unfractionated 0.19 IU/mL (0.30-0.70) 1.01 IU/mL (0.30-0.70) Sodium Level 136 mmol/L (136-145) Potassium Level 4.2 mmol/L (3.5-5.1) Chloride Level 101 mmol/L (98-107) Carbon Dioxide Level 28 mmol/L (21-32) Anion Gap 7 (6-14) Blood Urea Nitrogen 15 mg/dL (8-26) Creatinine 1.5 mg/dL (0.7-1.3) Estimated GFR (Cockcroft-Gault) 59.5 Glucose Level 148 mg/dL (70-99) Calcium Level 8.5 mg/dL (8.5-10.1) Medications Current Medications Aspirin ([employer] Aspirin) 325 mg 1X ONCE PO Last administered on 06/18/18at 08:51 ; Start 06/18/18 at 08:15; Stop 06/18/18 at 08:22; Status DC Nitroglycerin (Nitrostat) 0.4 mg PRN Q5MIN PRN SL CP RATING > 1/10 Last administered on 06/18/18at 09:21; Start 06/18/18 at 08:15; Stop 06/19/18 at 08:14 ; Status DC Morphine Sulfate (Morphine Sulfate) 2 mg PRN Q15MIN PRN IV/SQ PAIN GREATER THAN 3/10 Last administered on 06/18/18at 09:03; Start 06/18/18 at 08:15; Stop at 18:00; Status DC Metoprolol Tartrate (Lopressor Vial) 5 mg 1X ONCE IVP Last administered on at 08:53; Start 06/18/18 at 08:45; Stop 06/18/18 at 08:46; Status DC Albuterol/ Ipratropium (Duoneb) 3 ml 1X ONCE NEB Last administered on at 09:09; Start 06/18/18 at 09:00; Stop 06/18/18 at 09:01; Status DC Furosemide (Lasix) 40 mg 1X ONCE IVP Last administered on 06/18/18at 11:12; Start 06/18/18 at 10:30; Stop 06/18/18 at 10:31; Status DC Ondansetron HCl (Zofran) 4 mg PRN Q8HRS PRN IV NAUSEA/VOMITING; Start 06/18/18 at 10:30; Stop 06/18/18 at 10:39; Status DC Morphine Sulfate (Morphine Sulfate) 4 mg PRN Q2HR PRN IV PAIN Last administered on 06/19/18at 04:04; Start 06/18/18 at 10:30; Stop 06/19/18 at 10:29 ; Status DC Nitroglycerin (Nitrostat) 0.4 mg PRN Q5MIN PRN SL CHEST PAIN; Start 06/18/18 at 10:30; Stop 06/19/18 at 10:29; Status Cancel Ondansetron HCl (Zofran) 4 mg PRN Q6HRS PRN IV NAUSEA/VOMITING; Start 06/18/18 at 10:45 Acetaminophen (Tylenol) 500 mg PRN Q6HRS PRN PO MILD PAIN / TEMP; Start at 10:45 Acetaminophen/ Codeine Phosphate (Tylenol #3) 1 tab PRN Q6HRS PRN PO MODERATE PAIN Last administered on 06/22/18at 00:50; Start 06/18/18 at 10:45 Labetalol HCl (Normodyne Iv Push) 10 mg PRN Q2HR PRN IVP GIVE FOR SBP > 160 Last administered on 06/18/18at 19:20; Start 06/18/18 at 10:45; Stop 06/21/18 at 22:34; Status DC Acetaminophen (Tylenol) 325 mg DAILY PO Last administered on 06/19/18at 10:17; Start 06/19/18 at 09:00; Stop 06/19/18 at 16:26; Status DC Clonidine HCl (Catapres) 0.1 mg BID PO Last administered on 06/19/18at 08:58; Start 06/18/18 at 11:00; Stop 06/19/18 at 16:26; Status DC Hydrochlorothiazide (Hydrodiuril) 25 mg DAILY PO Last administered on 07:33; Start 06/18/18 at 11:00 Lisinopril (Prinivil) 40 mg DAILY PO Last administered on 06/23/18 07:35; Start 06/18/18 at 11:00 Metoprolol Succinate (Toprol Xl) 50 mg DAILY PO Last administered on 06/19/18 08:57; Start 06/18/18 at 11:00; Stop 06/19/18 at 14:02; Status DC Non-Formulary Medication (Sildenafil Citrate (Viagra)) 50 mg ONCE PO ; Start at 10:45; Status UNV Fluticasone Propionate (Flonase) 2 spray DAILY NS Last administered on 09:00; Start 06/19/18 at 09:00 Guaifenesin (Robitussin Dm) 10 ml PRN Q6HRS PRN PO COUGH; Start 06/18/18 at 12: 15; Stop 06/19/18 at 16:26; Status DC Cetirizine HCl (ZyrTEC) 10 mg DAILY PO Last administered on 06/23/18 07:34; Start 06/18/18 at 12:15 Heparin Sodium/ Dextrose 500 ml @ 20 mls/hr CONT PRN IV SEE I/O RECORD Last administered on 06/22/18 23:33; Start 06/18/18 at 15:15; Stop 06/23/18 at 14:00 ; Status DC Heparin Sodium (Porcine) (Heparin Sodium) 2,350 unit PRN Q6HRS PRN IV FOR UFH LEVEL LESS THAN 0.2 Last administered on 06/23/18 07:42; Start 06/18/18 at 15: 15; Stop 06/23/18 at 14:00; Status DC Nitroglycerin (Nitro-Bid Oint) 1 inch Q6HRS TP Last administered on 06/18/18 16:04; Start 06/18/18 at 16:00; Stop 06/19/18 at 09:34; Status DC Sodium Chloride 1,000 ml @ 60 mls/hr [id number] IV Last administered on 16:15; Start 06/18/18 at 15:17; Stop 06/19/18 at 00:41; Status DC Hydralazine HCl (Apresoline Inj) 10 mg PRN Q4HRS PRN IVP ELEVATED BP, SEE COMMENTS Last administered on 06/18/18at 17:05; Start 06/18/18 at 15:30; Stop at 08:13; Status DC Heparin Sodium (Porcine) (Heparin Sodium) 4,000 unit 1X ONCE IV Last administered on 06/18/18at 16:04; Start 06/18/18 at 16:15; Stop 06/18/18 at 16:16 ; Status DC Nitroglycerin/ Dextrose 250 ml @ 9 mls/hr 1X ONCE IV Last administered on 06/18at 22:17; Start 06/18/18 at 19:45; Stop 06/19/18 at 23:31; Status DC Iodixanol (Visipaque 320) 100 ml STK-MED ONCE .ROUTE ; Start 06/18/18 at 20:56; Stop 06/18/18 at 20:57; Status DC Lidocaine HCl (Lidocaine 1% 20ml Vial) 20 ml STK-MED ONCE .ROUTE ; Start at 20:56; Stop 06/18/18 at 20:57; Status DC Heparin Sodium/ Sodium Chloride 1,500 ml @ As Directed STK-MED ONCE .ROUTE ; Start 06/18/18 at 20:56; Stop 06/18/18 at 20:57; Status DC Fentanyl Citrate (Fentanyl 2ml Vial) 100 mcg STK-MED ONCE .ROUTE ; Start at 20:57; Stop 06/18/18 at 20:58; Status DC Midazolam HCl (Versed) 5 mg STK-MED ONCE .ROUTE ; Start 06/18/18 at 20:58; Stop 06/18/18 at 20:59; Status DC Heparin Sodium (Porcine) (Heparin Sodium) 10,000 unit STK-MED ONCE .ROUTE ; Start 06/18/18 at 20:58; Stop 06/18/18 at 20:59; Status DC Verapamil HCl (Verapamil) 5 mg STK-MED ONCE .ROUTE ; Start 06/18/18 at 20:58; Stop 06/18/18 at 20:59; Status DC Nitroglycerin (Nitroglycerin) 200 mcg STK-MED ONCE .ROUTE ; Start 06/18/18 at 20 :58; Stop 06/18/18 at 20:59; Status DC Hydralazine HCl (Apresoline Inj) 20 mg STK-MED ONCE .ROUTE ; Start 06/18/18 at 21:28; Stop 06/18/18 at 21:29; Status DC Heparin Sodium/ Sodium Chloride (HEPARIN for ARTERIAL LINE FLUSH) 1,000 unit 1X ONCE IART Last administered on 06/18/18at 22:13; Start 06/18/18 at 22:00; Stop 06/18/18 at 22:01; Status DC Heparin Sodium/ Sodium Chloride (HEPARIN for ARTERIAL LINE FLUSH) 1,000 unit 1X ONCE IART Last administered on 06/18/18at 22:13; Start 06/18/18 at 22:00; Stop 06/18/18 at 22:01; Status DC Midazolam HCl (Versed) 5 mg 1X ONCE IV Last administered on 06/18/18 22:15; Start 06/18/18 at 21:45; Stop 06/18/18 at 21:47; Status DC Fentanyl Citrate (Fentanyl 2ml Vial) 100 mcg 1X ONCE IV Last administered on 22:15; Start 06/18/18 at 22:00; Stop 06/18/18 at 22:01; Status DC Iodixanol (Visipaque 320) 100 ml 1X ONCE IART Last administered on 06/18/18 22:13; Start 06/18/18 at 22:00; Stop 06/18/18 at 22:01; Status DC Lidocaine HCl (Lidocaine 1% 20ml Vial) 20 ml 1X ONCE INJ Last administered on 06/18/18at 22:14; Start 06/18/18 at 22:00; Stop 06/18/18 at 22:01; Status DC Hydralazine HCl (Apresoline Inj) 20 mg 1X ONCE IVP Last administered on at 22:15; Start 06/18/18 at 22:00; Stop 06/18/18 at 22:01; Status DC Nitroglycerin/ Dextrose 250 ml @ As Directed STK-MED ONCE IV ; Start 06/18/18 at 21:48; Stop 06/18/18 at 21:49; Status DC Furosemide (Lasix) 40 mg 1X ONCE IVP Last administered on 06/18/18 22:50; Start 06/18/18 at 23:00; Stop 06/18/18 at 23:01; Status DC Nitroglycerin/ Dextrose 250 ml @ 1.5 mls/hr CONT PRN IV SEE I/O RECORD Last administered on 06/19/18 03:24; Start 06/19/18 at 03:30; Stop 06/19/18 at 09:27 ; Status DC Verapamil HCl (Verapamil) 5 mg STK-MED ONCE .ROUTE ; Start 06/18/18 at 21:00; Stop 06/19/18 at 08:56; Status DC Aspirin (Ecotrin) 81 mg DAILYWBKFT PO Last administered on 06/23/18 07:34; Start 06/19/18 at 10:00 Atorvastatin Calcium (Lipitor) 40 mg QHS PO Last administered on 06/22/18 20: 34; Start 06/19/18 at 21:00 Potassium Chloride (Klor-Con) 40 meq Q4H PO Last administered on 06/19/18 15: 38; Start 06/19/18 at 10:00; Stop 06/19/18 at 14:01; Status DC Furosemide (Lasix) 40 mg DAILY PO Last administered on 06/23/18 07:34; Start 06/19/18 at 10:00 Morphine Sulfate (Morphine Sulfate) 2 mg 1X ONCE IV Last administered on 13:31; Start 06/19/18 at 13:30; Stop 06/19/18 at 13:31; Status DC Carvedilol (Coreg) 12.5 mg BIDWMEALS PO Last administered on 06/23/18 07:35; Start 06/19/18 at 17:00 Isosorbide Mononitrate (Imdur) 30 mg DAILY PO Last administered on 06/23/18 07 :34; Start 06/19/18 at 14:00 Hydralazine HCl (Apresoline) 25 mg TID PO Last administered on 06/19/18 15:39 ; Start 06/19/18 at 14:00; Stop 06/20/18 at 08:12; Status DC Potassium Chloride (Klor-Con) 40 meq 1X ONCE PO Last administered on 17:39; Start 06/19/18 at 16:30; Stop 06/19/18 at 16:31; Status DC Potassium Chloride (Klor-Con) 20 meq DAILYWBKFT PO Last administered on at 07:33; Start 06/20/18 at 08:00 Senna/Docusate Sodium (Senna Plus) 2 tab PRN BID PRN PO CONSTIPATION (1st Choice) Last administered on 06/20/18 16:05; Start 06/20/18 at 08:15 Docusate Sodium (Colace) 100 mg PRN DAILY PRN PO CONSTIPATION (2nd Choice) Last administered on 06/20/18 16:05; Start 06/20/18 at 08:15 Info (Anti-Coagulation Monitoring By Pharmacy) 1 each PRN DAILY PRN MC SEE COMMENTS Last administered on 06/22/18 11:54; Start 06/20/18 at 09:30 Fentanyl Citrate (Fentanyl 2ml Vial) 50 mcg PRN Q3HRS PRN IV SEVERE PAIN Last administered on 06/20/18 23:26; Start 06/20/18 at 23:30 Potassium Chloride (Klor-Con) 40 meq 1X ONCE PO Last administered on 17:04; Start 06/21/18 at 16:30; Stop 06/21/18 at 16:31; Status DC Labetalol HCl (Normodyne Iv Push) 20 mg PRN Q2HR PRN IVP GIVE FOR SBP > 140 Last administered on 06/21/18at 22:44; Start 06/21/18 at 22:45 Amlodipine Besylate (Norvasc) 2.5 mg 1X ONCE PO Last administered on at 22:42; Start 06/21/18 at 23:00; Stop 06/21/18 at 23:01; Status DC Iohexol (Omnipaque 350 Mg/ml) 75 ml 1X ONCE IV Last administered on 06/22/18at 00:13; Start 06/21/18 at 23:45; Stop 06/21/18 at 23:46; Status DC Info (CONTRAST GIVEN -- Rx MONITORING) 1 each PRN DAILY PRN MC SEE COMMENTS; Start 06/21/18 at 23:45; Stop 06/23/18 at 23:44 Apixaban (Eliquis) 5 mg BID PO ; Start 06/23/18 at 14:30 Active Scripts Active Clonidine Hcl 0.1 Mg Tablet 0.1 Mg PO BID For high blood pressure Take this with the other medicines you are already taking Reported Hydrochlorothiazide Tablet (Hydrochlorothiazide) 25 Mg Tablet 25 Mg PO DAILY Toprol Xl (Metoprolol Succinate) 50 Mg Tab.er.24h 50 Mg PO DAILY Lisinopril 40 Mg Tablet 40 Mg PO DAILY Viagra (Sildenafil Citrate) 50 Mg Tablet 50 Mg PO ONCE Tylenol (Acetaminophen) 325 Mg Tablet 325 Mg PO Vitals/I & O Vital Sign - Last 24 Hours 06/22/18 06/22/18 06/22/18 06/22/18 15:41 17:17 19:40 20:28 Temp 98.4 98.3 98.4 98.3 Pulse 82 82 84 Resp 18 17 B/P (MAP) 131/70 (90) 131/70 130/81 (97) Pulse Ox 97 96 O2 Delivery Room Air Room Air Room Air 06/23/18 06/23/18 06/23/18 06/23/18 00:02 03:31 07:34 07:35 Temp 98.8 98.9 98.8 98.9 Pulse 82 73 76 75 Resp 18 18 B/P (MAP) 141/77 (98) 161/96 (117) 166/98 166/98 Pulse Ox 96 95 O2 Delivery Room Air Room Air 06/23/18 06/23/18 06/23/18 06/23/18 07:35 08:00 08:15 10:50 Temp 98.3 98.7 98.3 98.7 Pulse 76 72 80 Resp 18 B/P (MAP) 166/98 151/90 (110) 144/77 (99) Pulse Ox 94 98 O2 Delivery Room Air Room Air Room Air Intake and Output 06/22/18 06/22/18 06/23/18 14:59 22:59 06:59 Intake Total 420 ml 633 ml 0 ml Output Total 800 ml 400 ml 1150 ml Balance -380 ml 233 ml -1150 ml Images DOPPLER CAROTID BILAT Clinical Indication: STROKE RISK, PT HAS HX OF AORTIC DISSECTION, PT CAME IN BECAUSE SOB FOR PNEUMONIA . Procedure: Pulsed wave and color-flow duplex imaging was utilized to evaluate the extracranial carotid arteries. Comparison: None. Findings: RIGHT SIDE: Mild atherosclerotic plaque on ortega-scale images. Distal CCA peak systolic velocity 66 cm/sec. ICA peak systolic velocity 71 cm/sec. The right ICA/CCA ratio is 1.1. Flow within the right vertebral artery and right ECA is directed antegrade. LEFT SIDE: Mild atherosclerotic plaque on ortega-scale images. Distal CCA peak systolic velocity 44 cm/sec. ICA peak systolic velocity 82 cm/sec. The left ICA/CCA ratio is 1.9. Flow within the left vertebral artery and left ECA is directed antegrade. Questionable echogenic septation is seen in the left mid to distal common carotid artery. Carotid legend: CCA = common carotid artery ICA = internal carotid artery ECA = external carotid artery IMPRESSION: 1. No hemodynamically significant stenosis. 2. Questionable echogenic septa in the mid and distal left common carotid artery may represent a dissection flap. Further evaluation with CT angiogram of the neck is recommended. CT head: No pathologic extra-axial or intra-axial fluid collection. The ventricles and basal cisterns are within normal limits. No acute intracranial bleed. No focal loss of ortega-white differentiation. Orbits within normal limits. No suspicious bony lesion. Visualized paranasal sinuses and mastoid air cells are clear. IMPRESSION: No acute intracranial process. If concern for acute ischemic stroke is high, please consider MRI brain. KAI LERMA MD Jun 23, 2018 14:41
[2018-06-23] MEDS: APIXABAN 5 MG TABLET. PO SCH ×2 (15:29→22:59)
[2018-06-23] MEDS: ATORVASTATIN CALCIUM 40 MG TABLET. PO SCH (20:11)
[2018-06-24] VITALS (7 sets, daily range): BP systolic 119–168; BP diastolic 65–99
[2018-06-24] MEDS: ASPIRIN ENTERIC COATED 81 MG TABLET.DR. PO SCH (07:45)
[2018-06-24] MEDS: ISOSORBIDE MONONITRATE ER 30 MG TAB.ER.24H PO SCH (07:45)
[2018-06-24] MEDS: POTASSIUM CHLORIDE 20 MEQ TABLET.ER. PO SCH (07:45)
[2018-06-24] MEDS: CETIRIZINE HCL 10 MG TABLET. PO SCH (07:46)
[2018-06-24] MEDS: hydroCHLOROthiazide 25 MG TABLET PO SCH (07:46)
[2018-06-24] MEDS: FUROSEMIDE 40 MG TABLET. PO SCH (07:46)
[2018-06-24] MEDS: APIXABAN 5 MG TABLET. PO SCH ×2 (07:46→20:52)
[2018-06-24] MEDS: LISINOPRIL 20 MG TABLET PO SCH (07:48)
[2018-06-24] MEDS: CARVEDILOL 12.5 MG TABLET. PO SCH ×2 (07:49→17:20)
[2018-06-24] MEDS: FLUTICASONE 50MCG/NASAL SPRAY 16GM BOTTLE. NS SCH (07:50)
[2018-06-24] MEDS: ANTI-COAG MONITOR BY PHARMACY. MC PRN (10:13)
--- NOTE | 2018-06-24 12:13 | PDOC ---
PROGRESS NOTES Assessment Problems Medical Problems: (1) Acute renal failure Status: Acute (2) Chest pain Status: Acute (3) Hypertension Status: Acute (4) NSTEMI (non-ST elevated myocardial infarction) Status: Acute Aortic dissection, possible involvement of left carotid, no sign of acute stroke History of thoracic aortic aneurysm rupture repair. Hypertension. Plan As per cardiothoracic surgery Neurologically "cleared' for surgery Will follow Discussed with family Subjective No complaints Objective Vital Signs Date Time Temp Pulse Resp B/P (MAP) Pulse Ox O2 Delivery O2 Flow Rate FiO2 06/24/18 11:00 98.0 86 18 119/71 (87) 95 Room Air 98.0 Intake and Output 06/24/18 06:59 Intake Total 1560.94 ml Output Total 1050 ml Balance 510.94 ml Intake Oral 1100 ml IV Total 460.94 ml Output Urine Total 1050 ml PHYSICAL EXAM Alert. Oriented to time, place and person. PERRL. EOMI. CN: no focal findings. Muscle tone: normal. Muscle strength: 5/5 DTR: 2+ Plantar reflex: flexor Gait: not examined in bed. Sensory exam: no abnormal findings. No cerebellar signs elicited. Review of Relevant I have reviewed the following items josh (where applicable) has been applied. Labs Laboratory Tests Test 06/23/18 06:10 06/23/18 12:05 06/23/18 18:15 White Blood Count 9.8 x10^3/uL (4.0-11.0) Red Blood Count 4.13 x10^6/uL (4.30-5.70) Hemoglobin 12.7 g/dL (13.0-17.5) Hematocrit 38.2 % (39.0-53.0) Mean Corpuscular Volume 93 fL (79-100) Mean Corpuscular Hemoglobin 31 pg (25-35) Mean Corpuscular Hemoglobin Concent 33 g/dL (31-37) Red Cell Distribution Width 14.5 % (11.5-14.5) Platelet Count 218 x10^3/uL (140-400) Neutrophils (%) (Auto) 72 % (31-73) Lymphocytes (%) (Auto) 14 % (24-48) Monocytes (%) (Auto) 12 % (0-9) Eosinophils (%) (Auto) 2 % (0-3) Basophils (%) (Auto) 0 % (0-3) Neutrophils # (Auto) 7.0 x10^3uL (1.8-7.7) Lymphocytes # (Auto) 1.3 x10^3/uL (1.0-4.8) Monocytes # (Auto) 1.2 x10^3/uL (0.0-1.1) Eosinophils # (Auto) 0.2 x10^3/uL (0.0-0.7) Basophils # (Auto) 0.0 x10^3/uL (0.0-0.2) Heparin Anti-Xa Act, Unfractionated 0.19 IU/mL (0.30-0.70) 1.01 IU/mL (0.30-0.70) > 1.10 IU/mL (0.30-0.70) Sodium Level 136 mmol/L (136-145) Potassium Level 4.2 mmol/L (3.5-5.1) Chloride Level 101 mmol/L (98-107) Carbon Dioxide Level 28 mmol/L (21-32) Anion Gap 7 (6-14) Blood Urea Nitrogen 15 mg/dL (8-26) Creatinine 1.5 mg/dL (0.7-1.3) Estimated GFR (Cockcroft-Gault) 59.5 Glucose Level 148 mg/dL (70-99) Calcium Level 8.5 mg/dL (8.5-10.1) Laboratory Tests Test 06/23/18 18:15 Heparin Anti-Xa Act, Unfractionated > 1.10 IU/mL (0.30-0.70) Medications Current Medications Aspirin (Plain Vanilla Aspirin) 325 mg 1X ONCE PO Last administered on 06/18/18at 08:51 ; Start 06/18/18 at 08:15; Stop 06/18/18 at 08:22; Status DC Nitroglycerin (Nitrostat) 0.4 mg PRN Q5MIN PRN SL CP RATING > 1/10 Last administered on 06/18/18at 09:21; Start 06/18/18 at 08:15; Stop 06/19/18 at 08:14 ; Status DC Morphine Sulfate (Morphine Sulfate) 2 mg PRN Q15MIN PRN IV/SQ PAIN GREATER THAN 3/10 Last administered on 06/18/18at 09:03; Start 06/18/18 at 08:15; Stop at 18:00; Status DC Metoprolol Tartrate (Lopressor Vial) 5 mg 1X ONCE IVP Last administered on at 08:53; Start 06/18/18 at 08:45; Stop 06/18/18 at 08:46; Status DC Albuterol/ Ipratropium (Duoneb) 3 ml 1X ONCE NEB Last administered on at 09:09; Start 06/18/18 at 09:00; Stop 06/18/18 at 09:01; Status DC Furosemide (Lasix) 40 mg 1X ONCE IVP Last administered on 06/18/18at 11:12; Start 06/18/18 at 10:30; Stop 06/18/18 at 10:31; Status DC Ondansetron HCl (Zofran) 4 mg PRN Q8HRS PRN IV NAUSEA/VOMITING; Start 06/18/18 at 10:30; Stop 06/18/18 at 10:39; Status DC Morphine Sulfate (Morphine Sulfate) 4 mg PRN Q2HR PRN IV PAIN Last administered on 06/19/18at 04:04; Start 06/18/18 at 10:30; Stop 06/19/18 at 10:29 ; Status DC Nitroglycerin (Nitrostat) 0.4 mg PRN Q5MIN PRN SL CHEST PAIN; Start 06/18/18 at 10:30; Stop 06/19/18 at 10:29; Status Cancel Ondansetron HCl (Zofran) 4 mg PRN Q6HRS PRN IV NAUSEA/VOMITING; Start 06/18/18 at 10:45 Acetaminophen (Tylenol) 500 mg PRN Q6HRS PRN PO MILD PAIN / TEMP; Start at 10:45 Acetaminophen/ Codeine Phosphate (Tylenol #3) 1 tab PRN Q6HRS PRN PO MODERATE PAIN Last administered on 06/22/18at 00:50; Start 06/18/18 at 10:45 Labetalol HCl (Normodyne Iv Push) 10 mg PRN Q2HR PRN IVP GIVE FOR SBP > 160 Last administered on 06/18/18at 19:20; Start 06/18/18 at 10:45; Stop 06/21/18 at 22:34; Status DC Acetaminophen (Tylenol) 325 mg DAILY PO Last administered on 06/19/18at 10:17; Start 06/19/18 at 09:00; Stop 06/19/18 at 16:26; Status DC Clonidine HCl (Catapres) 0.1 mg BID PO Last administered on 06/19/18 08:58; Start 06/18/18 at 11:00; Stop 06/19/18 at 16:26; Status DC Hydrochlorothiazide (Hydrodiuril) 25 mg DAILY PO Last administered on 07:46; Start 06/18/18 at 11:00; Stop 06/24/18 at 11:19; Status DC Lisinopril (Prinivil) 40 mg DAILY PO Last administered on 06/24/18 07:48; Start 06/18/18 at 11:00 Metoprolol Succinate (Toprol Xl) 50 mg DAILY PO Last administered on 06/19/18 08:57; Start 06/18/18 at 11:00; Stop 06/19/18 at 14:02; Status DC Non-Formulary Medication (Sildenafil Citrate (Viagra)) 50 mg ONCE PO ; Start at 10:45; Status UNV Fluticasone Propionate (Flonase) 2 spray DAILY NS Last administered on at 07:50; Start 06/19/18 at 09:00 Guaifenesin (Robitussin Dm) 10 ml PRN Q6HRS PRN PO COUGH; Start 06/18/18 at 12: 15; Stop 06/19/18 at 16:26; Status DC Cetirizine HCl (ZyrTEC) 10 mg DAILY PO Last administered on 06/24/18 07:46; Start 06/18/18 at 12:15 Heparin Sodium/ Dextrose 500 ml @ 20 mls/hr CONT PRN IV SEE I/O RECORD Last administered on 06/22/18at 23:33; Start 06/18/18 at 15:15; Stop 06/23/18 at 14:00 ; Status DC Heparin Sodium (Porcine) (Heparin Sodium) 2,350 unit PRN Q6HRS PRN IV FOR UFH LEVEL LESS THAN 0.2 Last administered on 06/23/18at 07:42; Start 06/18/18 at 15: 15; Stop 06/23/18 at 14:00; Status DC Nitroglycerin (Nitro-Bid Oint) 1 inch Q6HRS TP Last administered on 06/18/18at 16:04; Start 06/18/18 at 16:00; Stop 06/19/18 at 09:34; Status DC Sodium Chloride 1,000 ml @ 60 mls/hr [id number] IV Last administered on at 16:15; Start 06/18/18 at 15:17; Stop 06/19/18 at 00:41; Status DC Hydralazine HCl (Apresoline Inj) 10 mg PRN Q4HRS PRN IVP ELEVATED BP, SEE COMMENTS Last administered on 06/18/18at 17:05; Start 06/18/18 at 15:30; Stop at 08:13; Status DC Heparin Sodium (Porcine) (Heparin Sodium) 4,000 unit 1X ONCE IV Last administered on 06/18/18at 16:04; Start 06/18/18 at 16:15; Stop 06/18/18 at 16:16 ; Status DC Nitroglycerin/ Dextrose 250 ml @ 9 mls/hr 1X ONCE IV Last administered on 06/18at 22:17; Start 06/18/18 at 19:45; Stop 06/19/18 at 23:31; Status DC Iodixanol (Visipaque 320) 100 ml STK-MED ONCE .ROUTE ; Start 06/18/18 at 20:56; Stop 06/18/18 at 20:57; Status DC Lidocaine HCl (Lidocaine 1% 20ml Vial) 20 ml STK-MED ONCE .ROUTE ; Start at 20:56; Stop 06/18/18 at 20:57; Status DC Heparin Sodium/ Sodium Chloride 1,500 ml @ As Directed STK-MED ONCE .ROUTE ; Start 06/18/18 at 20:56; Stop 06/18/18 at 20:57; Status DC Fentanyl Citrate (Fentanyl 2ml Vial) 100 mcg STK-MED ONCE .ROUTE ; Start at 20:57; Stop 06/18/18 at 20:58; Status DC Midazolam HCl (Versed) 5 mg STK-MED ONCE .ROUTE ; Start 06/18/18 at 20:58; Stop 06/18/18 at 20:59; Status DC Heparin Sodium (Porcine) (Heparin Sodium) 10,000 unit STK-MED ONCE .ROUTE ; Start 06/18/18 at 20:58; Stop 06/18/18 at 20:59; Status DC Verapamil HCl (Verapamil) 5 mg STK-MED ONCE .ROUTE ; Start 06/18/18 at 20:58; Stop 06/18/18 at 20:59; Status DC Nitroglycerin (Nitroglycerin) 200 mcg STK-MED ONCE .ROUTE ; Start 06/18/18 at 20 :58; Stop 06/18/18 at 20:59; Status DC Hydralazine HCl (Apresoline Inj) 20 mg STK-MED ONCE .ROUTE ; Start 06/18/18 at 21:28; Stop 06/18/18 at 21:29; Status DC Heparin Sodium/ Sodium Chloride (HEPARIN for ARTERIAL LINE FLUSH) 1,000 unit 1X ONCE IART Last administered on 06/18/18at 22:13; Start 06/18/18 at 22:00; Stop 06/18/18 at 22:01; Status DC Heparin Sodium/ Sodium Chloride (HEPARIN for ARTERIAL LINE FLUSH) 1,000 unit 1X ONCE IART Last administered on 06/18/18at 22:13; Start 06/18/18 at 22:00; Stop 06/18/18 at 22:01; Status DC Midazolam HCl (Versed) 5 mg 1X ONCE IV Last administered on 06/18/18at 22:15; Start 06/18/18 at 21:45; Stop 06/18/18 at 21:47; Status DC Fentanyl Citrate (Fentanyl 2ml Vial) 100 mcg 1X ONCE IV Last administered on at 22:15; Start 06/18/18 at 22:00; Stop 06/18/18 at 22:01; Status DC Iodixanol (Visipaque 320) 100 ml 1X ONCE IART Last administered on 06/18/18at 22:13; Start 06/18/18 at 22:00; Stop 06/18/18 at 22:01; Status DC Lidocaine HCl (Lidocaine 1% 20ml Vial) 20 ml 1X ONCE INJ Last administered on 06/18/18at 22:14; Start 06/18/18 at 22:00; Stop 06/18/18 at 22:01; Status DC Hydralazine HCl (Apresoline Inj) 20 mg 1X ONCE IVP Last administered on at 22:15; Start 06/18/18 at 22:00; Stop 06/18/18 at 22:01; Status DC Nitroglycerin/ Dextrose 250 ml @ As Directed STK-MED ONCE IV ; Start 06/18/18 at 21:48; Stop 06/18/18 at 21:49; Status DC Furosemide (Lasix) 40 mg 1X ONCE IVP Last administered on 06/18/18at 22:50; Start 06/18/18 at 23:00; Stop 06/18/18 at 23:01; Status DC Nitroglycerin/ Dextrose 250 ml @ 1.5 mls/hr CONT PRN IV SEE I/O RECORD Last administered on 06/19/18at 03:24; Start 06/19/18 at 03:30; Stop 06/19/18 at 09:27 ; Status DC Verapamil HCl (Verapamil) 5 mg STK-MED ONCE .ROUTE ; Start 06/18/18 at 21:00; Stop 06/19/18 at 08:56; Status DC Aspirin (Ecotrin) 81 mg DAILYWBKFT PO Last administered on 06/24/18at 07:45; Start 06/19/18 at 10:00 Atorvastatin Calcium (Lipitor) 40 mg QHS PO Last administered on 06/23/18at 20: 11; Start 06/19/18 at 21:00 Potassium Chloride (Klor-Con) 40 meq Q4H PO Last administered on 06/19/18at 15: 38; Start 06/19/18 at 10:00; Stop 06/19/18 at 14:01; Status DC Furosemide (Lasix) 40 mg DAILY PO Last administered on 06/24/18at 07:46; Start 06/19/18 at 10:00 Morphine Sulfate (Morphine Sulfate) 2 mg 1X ONCE IV Last administered on 13:31; Start 06/19/18 at 13:30; Stop 06/19/18 at 13:31; Status DC Carvedilol (Coreg) 12.5 mg BIDWMEALS PO Last administered on 06/24/18at 07:49; Start 06/19/18 at 17:00; Stop 06/24/18 at 11:19; Status DC Isosorbide Mononitrate (Imdur) 30 mg DAILY PO Last administered on 06/24/18 07 :45; Start 06/19/18 at 14:00 Hydralazine HCl (Apresoline) 25 mg TID PO Last administered on 06/19/18 15:39 ; Start 06/19/18 at 14:00; Stop 06/20/18 at 08:12; Status DC Potassium Chloride (Klor-Con) 40 meq 1X ONCE PO Last administered on 17:39; Start 06/19/18 at 16:30; Stop 06/19/18 at 16:31; Status DC Potassium Chloride (Klor-Con) 20 meq DAILYWBKFT PO Last administered on 07:45; Start 06/20/18 at 08:00 Senna/Docusate Sodium (Senna Plus) 2 tab PRN BID PRN PO CONSTIPATION (1st Choice) Last administered on 06/20/18 16:05; Start 06/20/18 at 08:15 Docusate Sodium (Colace) 100 mg PRN DAILY PRN PO CONSTIPATION (2nd Choice) Last administered on 06/20/18 16:05; Start 06/20/18 at 08:15 Info (Anti-Coagulation Monitoring By Pharmacy) 1 each PRN DAILY PRN MC SEE COMMENTS Last administered on 06/24/18 10:13; Start 06/20/18 at 09:30 Fentanyl Citrate (Fentanyl 2ml Vial) 50 mcg PRN Q3HRS PRN IV SEVERE PAIN Last administered on 06/20/18 23:26; Start 06/20/18 at 23:30 Potassium Chloride (Klor-Con) 40 meq 1X ONCE PO Last administered on 17:04; Start 06/21/18 at 16:30; Stop 06/21/18 at 16:31; Status DC Labetalol HCl (Normodyne Iv Push) 20 mg PRN Q2HR PRN IVP GIVE FOR SBP > 140 Last administered on 06/21/18 22:44; Start 06/21/18 at 22:45 Amlodipine Besylate (Norvasc) 2.5 mg 1X ONCE PO Last administered on 22:42; Start 06/21/18 at 23:00; Stop 06/21/18 at 23:01; Status DC Iohexol (Omnipaque 350 Mg/ml) 75 ml 1X ONCE IV Last administered on 06/22/18at 00:13; Start 06/21/18 at 23:45; Stop 06/21/18 at 23:46; Status DC Info (CONTRAST GIVEN -- Rx MONITORING) 1 each PRN DAILY PRN MC SEE COMMENTS; Start 06/21/18 at 23:45; Stop 06/23/18 at 23:44; Status DC Apixaban (Eliquis) 5 mg BID PO Last administered on 06/24/18at 07:46; Start at 14:30 Carvedilol (Coreg) 25 mg BIDWMEALS PO ; Start 06/24/18 at 17:00 Active Scripts Active Clonidine Hcl 0.1 Mg Tablet 0.1 Mg PO BID For high blood pressure Take this with the other medicines you are already taking Reported Hydrochlorothiazide Tablet (Hydrochlorothiazide) 25 Mg Tablet 25 Mg PO DAILY Toprol Xl (Metoprolol Succinate) 50 Mg Tab.er.24h 50 Mg PO DAILY Lisinopril 40 Mg Tablet 40 Mg PO DAILY Viagra (Sildenafil Citrate) 50 Mg Tablet 50 Mg PO ONCE Tylenol (Acetaminophen) 325 Mg Tablet 325 Mg PO Vitals/I & O Vital Sign - Last 24 Hours 06/23/18 06/23/18 06/23/18 06/23/18 15:35 17:17 19:20 20:33 Temp 97.4 98.7 97.4 98.7 Pulse 80 83 83 Resp 20 18 B/P (MAP) 153/91 (111) 151/89 142/82 (102) Pulse Ox 97 95 O2 Delivery Room Air Room Air Room Air 06/23/18 06/24/18 06/24/18 06/24/18 23:01 03:00 07:00 07:45 Temp 99.6 98.7 98.4 99.6 98.7 98.4 Pulse 87 88 79 88 Resp 18 18 20 B/P (MAP) 154/99 (117) 167/99 (121) 168/97 (120) 168/97 Pulse Ox 93 95 98 O2 Delivery Room Air Room Air 06/24/18 06/24/18 06/24/18 06/24/18 07:48 07:49 08:00 08:59 Pulse 89 87 B/P (MAP) 168/97 168/97 131/77 (95) O2 Delivery Room Air 06/24/18 11:00 Temp 98.0 98.0 Pulse 86 Resp 18 B/P (MAP) 119/71 (87) Pulse Ox 95 O2 Delivery Room Air Intake and Output 06/23/18 06/23/18 06/24/18 14:59 22:59 06:59 Intake Total 460.94 ml 800 ml 300 ml Output Total 300 ml 350 ml 400 ml Balance 160.94 ml 450 ml -100 ml KAI LERMA MD Jun 24, 2018 12:13
--- NOTE | 2018-06-24 16:03 | PDOC ---
PROGRESS NOTES Chief Complaint Chief Complaint Assessment/Plan Chest pain, unstable LVEDP 33 mm Hg consistent with severe left ventricular volume overload. 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 sinus congestion Recent diagnosis of pneumonia, currently with no further symptoms Elevated total Bili with no abd symptoms Elevated BNP CK D stage III-4 CR NOW 2.1 Accelerated hypertension POA improved History of aortic rupture with open heart surgery 2009 abdominal aorta again shows a dissection with contrast seen both in the true and false lumen. The celiac axis, superior mesenteric arteries, renal arteries and inferior mesenteric artery arise from the true lumen. The dissection continues into the left common iliac artery with the false lumen providing flow to the left external iliac artery and common femoral artery. The intestinal tract shows no abnormally dilated or thickened rajput and no bowel obstruction is seen. No abnormality seen at the stomach. Culprit for patient's chest pain is likely embolic disease from LV into the coronaries due to severe LV dysfunction rather than chronic dissection. acute FL, embolic hypokalemia PLAN: CTS CONSULTED recommendations noted and surveillance has been recommended no surgical intervention lifevest has been recommended given his decrease in ejection fraction currently he has no insurance and is unable to pay for the service cards following trend cardiac enzymes Avoid nephrotoxins flu NEG Address high BP, discuss with [facility] consultant but will monitor overnight and hopefully discharge in the a.m. if better control H1 antagonists for sinus symptoms very high risk patient for sudden cardiac PROCEDURE NARRATIVE After explaining the risks and benefits of the procedure and alternatives, informed consent was obtained. The patient was brought electively to the cardiac catheterization lab in a fasting state. A timeout was performed confirming the patient's name, date of , procedure, and site of procedure. All necessary personnel were wearing the appropriate protective equipment and radiation monitor devices. (See nursing notes for medications administered). The right groin was sterilely prepped and draped in the usual fashion. The right groin was infiltrated with 10 mL of 2% lidocaine for subcutaneous anesthesia. A 6 F sheath was inserted into the right femoral artery without difficulty. Right and left coronary angiography was performed using a JR4 and JL4 catheter. Left ventricular end diastolic pressure was obtained with a pigtail catheter and pullback was performed and supravalvular aortography was performed. All catheter exchanges and advancements were performed over a guidewire. At case completion the right femoral sheath was removed and hemostasis was achieved with an Angioseal Device after limited femoral angiography confirmed adequate vessel size and anatomy. There were no acute complications. HEMODYNAMICS: AO: 160/80 LVEDP 32 mm Hg No gradient on LV to aortic pullback. LEFT VENTRICULOGRAM: Deferred due to renal insufficiency. SUPRAVALVULAR AORTOGRAPHY: The aortic sinuses are enlarged, the proximal ascending aorta is normal in caliber, no staining or obvious dissection is evident. CORONARY ANGIOGRAPHY: LM is a large caliber vessel with normal angiographic appearance. LAD is a large caliber vessel with normal angiographic appearance. LCx is a large caliber non-dominant vessel with normal angiographic appearance. OM1 is a moderate caliber vessel with normal angiographic appearance. LPL1 is a large caliber vessel with thrombus noted in the apical segments, likely culprit for NSTEMI. RCA is a large caliber dominant vessel with a mid 50% stenosis. RPDA is a moderate caliber vessels with normal angiographic appearance. Conclusion 1. Severe non-ischemic CMP with culprit for NSTEMI likely embolic. 2. LVEDP 33 mm Hg consistent with severe left ventricular volume overload. 3. Mild to moderate non-obstructive coronary disease. Recommendations Aggressive Medical Therapy Signed by : Armando Galarza, Electronically Approved : 06/19/2018 10:29:37 DICTATED and SIGNED BY: ARMANDO GALARZA MD DATE: 06/19/18 1029 [id number] CC: ARMANDO GALARZA MD; NO PCP; ISMAEL SHAH MD ~ Page of History of Present Illness History of Present Illness Patient seems to be doing better he denies any chest pain palpitations he didn' t have an episode during the night of hypertension and breaking out in a sweat. Doubt that this an infectious process even though he has had pneumonia in the past but has been treated appropriately on 2 occasions. Patient does not seem toxic rate is controlled I have discussed with [facility] consultant hopefully will be able to dismiss. in the a.m. Vitals Vitals Vital Signs Date Time Temp Pulse Resp B/P (MAP) Pulse Ox O2 Delivery O2 Flow Rate FiO2 06/24/18 11:00 98.0 86 18 119/71 (87) 95 Room Air 98.0 Physical Exam General: Alert, Oriented X3, Cooperative, No acute distress Heart: Regular rate, Normal S1, Normal S2, Other (no gallops, clicks or rubs) Lungs: Clear Abdomen: Normal bowel sounds, Soft, No tenderness Extremities: No clubbing, No cyanosis, No edema, Normal pulses Skin: No rashes, No breakdown, No significant lesion Labs LABS Laboratory Tests Test 06/23/18 18:15 Heparin Anti-Xa Act, Unfractionated > 1.10 IU/mL (0.30-0.70) Assessment and Plan Assessmemt and Plan Problems Medical Problems: (1) Acute renal failure Status: Acute (2) Chest pain Status: Acute (3) Hypertension Status: Acute (4) NSTEMI (non-ST elevated myocardial infarction) Status: Acute Comment Review of Relevant I have reviewed the following items josh (where applicable) has been applied. Labs Laboratory Tests Test 06/23/18 06:10 06/23/18 12:05 06/23/18 18:15 White Blood Count 9.8 x10^3/uL (4.0-11.0) Red Blood Count 4.13 x10^6/uL (4.30-5.70) Hemoglobin 12.7 g/dL (13.0-17.5) Hematocrit 38.2 % (39.0-53.0) Mean Corpuscular Volume 93 fL (79-100) Mean Corpuscular Hemoglobin 31 pg (25-35) Mean Corpuscular Hemoglobin Concent 33 g/dL (31-37) Red Cell Distribution Width 14.5 % (11.5-14.5) Platelet Count 218 x10^3/uL (140-400) Neutrophils (%) (Auto) 72 % (31-73) Lymphocytes (%) (Auto) 14 % (24-48) Monocytes (%) (Auto) 12 % (0-9) Eosinophils (%) (Auto) 2 % (0-3) Basophils (%) (Auto) 0 % (0-3) Neutrophils # (Auto) 7.0 x10^3uL (1.8-7.7) Lymphocytes # (Auto) 1.3 x10^3/uL (1.0-4.8) Monocytes # (Auto) 1.2 x10^3/uL (0.0-1.1) Eosinophils # (Auto) 0.2 x10^3/uL (0.0-0.7) Basophils # (Auto) 0.0 x10^3/uL (0.0-0.2) Heparin Anti-Xa Act, Unfractionated 0.19 IU/mL (0.30-0.70) 1.01 IU/mL (0.30-0.70) > 1.10 IU/mL (0.30-0.70) Sodium Level 136 mmol/L (136-145) Potassium Level 4.2 mmol/L (3.5-5.1) Chloride Level 101 mmol/L (98-107) Carbon Dioxide Level 28 mmol/L (21-32) Anion Gap 7 (6-14) Blood Urea Nitrogen 15 mg/dL (8-26) Creatinine 1.5 mg/dL (0.7-1.3) Estimated GFR (Cockcroft-Gault) 59.5 Glucose Level 148 mg/dL (70-99) Calcium Level 8.5 mg/dL (8.5-10.1) Laboratory Tests Test 06/23/18 18:15 Heparin Anti-Xa Act, Unfractionated > 1.10 IU/mL (0.30-0.70) Medications Current Medications Aspirin (Monitor My Meds Aspirin) 325 mg 1X ONCE PO Last administered on 06/18/18at 08:51 ; Start 06/18/18 at 08:15; Stop 06/18/18 at 08:22; Status DC Nitroglycerin (Nitrostat) 0.4 mg PRN Q5MIN PRN SL CP RATING > 1/10 Last administered on 06/18/18at 09:21; Start 06/18/18 at 08:15; Stop 06/19/18 at 08:14 ; Status DC Morphine Sulfate (Morphine Sulfate) 2 mg PRN Q15MIN PRN IV/SQ PAIN GREATER THAN 3/10 Last administered on 06/18/18at 09:03; Start 06/18/18 at 08:15; Stop at 18:00; Status DC Metoprolol Tartrate (Lopressor Vial) 5 mg 1X ONCE IVP Last administered on at 08:53; Start 06/18/18 at 08:45; Stop 06/18/18 at 08:46; Status DC Albuterol/ Ipratropium (Duoneb) 3 ml 1X ONCE NEB Last administered on at 09:09; Start 06/18/18 at 09:00; Stop 06/18/18 at 09:01; Status DC Furosemide (Lasix) 40 mg 1X ONCE IVP Last administered on 06/18/18at 11:12; Start 06/18/18 at 10:30; Stop 06/18/18 at 10:31; Status DC Ondansetron HCl (Zofran) 4 mg PRN Q8HRS PRN IV NAUSEA/VOMITING; Start 06/18/18 at 10:30; Stop 06/18/18 at 10:39; Status DC Morphine Sulfate (Morphine Sulfate) 4 mg PRN Q2HR PRN IV PAIN Last administered on 06/19/18at 04:04; Start 06/18/18 at 10:30; Stop 06/19/18 at 10:29 ; Status DC Nitroglycerin (Nitrostat) 0.4 mg PRN Q5MIN PRN SL CHEST PAIN; Start 06/18/18 at 10:30; Stop 06/19/18 at 10:29; Status Cancel Ondansetron HCl (Zofran) 4 mg PRN Q6HRS PRN IV NAUSEA/VOMITING; Start 06/18/18 at 10:45 Acetaminophen (Tylenol) 500 mg PRN Q6HRS PRN PO MILD PAIN / TEMP; Start at 10:45 Acetaminophen/ Codeine Phosphate (Tylenol #3) 1 tab PRN Q6HRS PRN PO MODERATE PAIN Last administered on 06/22/18at 00:50; Start 06/18/18 at 10:45 Labetalol HCl (Normodyne Iv Push) 10 mg PRN Q2HR PRN IVP GIVE FOR SBP > 160 Last administered on 06/18/18at 19:20; Start 06/18/18 at 10:45; Stop 06/21/18 at 22:34; Status DC Acetaminophen (Tylenol) 325 mg DAILY PO Last administered on 06/19/18at 10:17; Start 06/19/18 at 09:00; Stop 06/19/18 at 16:26; Status DC Clonidine HCl (Catapres) 0.1 mg BID PO Last administered on 06/19/18at 08:58; Start 06/18/18 at 11:00; Stop 06/19/18 at 16:26; Status DC Hydrochlorothiazide (Hydrodiuril) 25 mg DAILY PO Last administered on 07:46; Start 06/18/18 at 11:00; Stop 06/24/18 at 11:19; Status DC Lisinopril (Prinivil) 40 mg DAILY PO Last administered on 06/24/18 07:48; Start 06/18/18 at 11:00 Metoprolol Succinate (Toprol Xl) 50 mg DAILY PO Last administered on 06/19/18 08:57; Start 06/18/18 at 11:00; Stop 06/19/18 at 14:02; Status DC Non-Formulary Medication (Sildenafil Citrate (Viagra)) 50 mg ONCE PO ; Start at 10:45; Status UNV Fluticasone Propionate (Flonase) 2 spray DAILY NS Last administered on 07:50; Start 06/19/18 at 09:00 Guaifenesin (Robitussin Dm) 10 ml PRN Q6HRS PRN PO COUGH; Start 06/18/18 at 12: 15; Stop 06/19/18 at 16:26; Status DC Cetirizine HCl (ZyrTEC) 10 mg DAILY PO Last administered on 06/24/18 07:46; Start 06/18/18 at 12:15 Heparin Sodium/ Dextrose 500 ml @ 20 mls/hr CONT PRN IV SEE I/O RECORD Last administered on 06/22/18 23:33; Start 06/18/18 at 15:15; Stop 06/23/18 at 14:00 ; Status DC Heparin Sodium (Porcine) (Heparin Sodium) 2,350 unit PRN Q6HRS PRN IV FOR UFH LEVEL LESS THAN 0.2 Last administered on 06/23/18 07:42; Start 06/18/18 at 15: 15; Stop 06/23/18 at 14:00; Status DC Nitroglycerin (Nitro-Bid Oint) 1 inch Q6HRS TP Last administered on 06/18/18 16:04; Start 06/18/18 at 16:00; Stop 06/19/18 at 09:34; Status DC Sodium Chloride 1,000 ml @ 60 mls/hr [id number] IV Last administered on 16:15; Start 06/18/18 at 15:17; Stop 06/19/18 at 00:41; Status DC Hydralazine HCl (Apresoline Inj) 10 mg PRN Q4HRS PRN IVP ELEVATED BP, SEE COMMENTS Last administered on 06/18/18at 17:05; Start 06/18/18 at 15:30; Stop at 08:13; Status DC Heparin Sodium (Porcine) (Heparin Sodium) 4,000 unit 1X ONCE IV Last administered on 06/18/18at 16:04; Start 06/18/18 at 16:15; Stop 06/18/18 at 16:16 ; Status DC Nitroglycerin/ Dextrose 250 ml @ 9 mls/hr 1X ONCE IV Last administered on 06/18at 22:17; Start 06/18/18 at 19:45; Stop 06/19/18 at 23:31; Status DC Iodixanol (Visipaque 320) 100 ml STK-MED ONCE .ROUTE ; Start 06/18/18 at 20:56; Stop 06/18/18 at 20:57; Status DC Lidocaine HCl (Lidocaine 1% 20ml Vial) 20 ml STK-MED ONCE .ROUTE ; Start at 20:56; Stop 06/18/18 at 20:57; Status DC Heparin Sodium/ Sodium Chloride 1,500 ml @ As Directed STK-MED ONCE .ROUTE ; Start 06/18/18 at 20:56; Stop 06/18/18 at 20:57; Status DC Fentanyl Citrate (Fentanyl 2ml Vial) 100 mcg STK-MED ONCE .ROUTE ; Start at 20:57; Stop 06/18/18 at 20:58; Status DC Midazolam HCl (Versed) 5 mg STK-MED ONCE .ROUTE ; Start 06/18/18 at 20:58; Stop 06/18/18 at 20:59; Status DC Heparin Sodium (Porcine) (Heparin Sodium) 10,000 unit STK-MED ONCE .ROUTE ; Start 06/18/18 at 20:58; Stop 06/18/18 at 20:59; Status DC Verapamil HCl (Verapamil) 5 mg STK-MED ONCE .ROUTE ; Start 06/18/18 at 20:58; Stop 06/18/18 at 20:59; Status DC Nitroglycerin (Nitroglycerin) 200 mcg STK-MED ONCE .ROUTE ; Start 06/18/18 at 20 :58; Stop 06/18/18 at 20:59; Status DC Hydralazine HCl (Apresoline Inj) 20 mg STK-MED ONCE .ROUTE ; Start 06/18/18 at 21:28; Stop 06/18/18 at 21:29; Status DC Heparin Sodium/ Sodium Chloride (HEPARIN for ARTERIAL LINE FLUSH) 1,000 unit 1X ONCE IART Last administered on 06/18/18at 22:13; Start 06/18/18 at 22:00; Stop 06/18/18 at 22:01; Status DC Heparin Sodium/ Sodium Chloride (HEPARIN for ARTERIAL LINE FLUSH) 1,000 unit 1X ONCE IART Last administered on 06/18/18at 22:13; Start 06/18/18 at 22:00; Stop 06/18/18 at 22:01; Status DC Midazolam HCl (Versed) 5 mg 1X ONCE IV Last administered on 06/18/18 22:15; Start 06/18/18 at 21:45; Stop 06/18/18 at 21:47; Status DC Fentanyl Citrate (Fentanyl 2ml Vial) 100 mcg 1X ONCE IV Last administered on 22:15; Start 06/18/18 at 22:00; Stop 06/18/18 at 22:01; Status DC Iodixanol (Visipaque 320) 100 ml 1X ONCE IART Last administered on 06/18/18 22:13; Start 06/18/18 at 22:00; Stop 06/18/18 at 22:01; Status DC Lidocaine HCl (Lidocaine 1% 20ml Vial) 20 ml 1X ONCE INJ Last administered on 06/18/18at 22:14; Start 06/18/18 at 22:00; Stop 06/18/18 at 22:01; Status DC Hydralazine HCl (Apresoline Inj) 20 mg 1X ONCE IVP Last administered on 22:15; Start 06/18/18 at 22:00; Stop 06/18/18 at 22:01; Status DC Nitroglycerin/ Dextrose 250 ml @ As Directed STK-MED ONCE IV ; Start 06/18/18 at 21:48; Stop 06/18/18 at 21:49; Status DC Furosemide (Lasix) 40 mg 1X ONCE IVP Last administered on 06/18/18 22:50; Start 06/18/18 at 23:00; Stop 06/18/18 at 23:01; Status DC Nitroglycerin/ Dextrose 250 ml @ 1.5 mls/hr CONT PRN IV SEE I/O RECORD Last administered on 06/19/18 03:24; Start 06/19/18 at 03:30; Stop 06/19/18 at 09:27 ; Status DC Verapamil HCl (Verapamil) 5 mg STK-MED ONCE .ROUTE ; Start 06/18/18 at 21:00; Stop 06/19/18 at 08:56; Status DC Aspirin (Ecotrin) 81 mg DAILYWBKFT PO Last administered on 06/24/18 07:45; Start 06/19/18 at 10:00 Atorvastatin Calcium (Lipitor) 40 mg QHS PO Last administered on 06/23/18 20: 11; Start 06/19/18 at 21:00 Potassium Chloride (Klor-Con) 40 meq Q4H PO Last administered on 06/19/18 15: 38; Start 06/19/18 at 10:00; Stop 06/19/18 at 14:01; Status DC Furosemide (Lasix) 40 mg DAILY PO Last administered on 06/24/18 07:46; Start 06/19/18 at 10:00 Morphine Sulfate (Morphine Sulfate) 2 mg 1X ONCE IV Last administered on 13:31; Start 06/19/18 at 13:30; Stop 06/19/18 at 13:31; Status DC Carvedilol (Coreg) 12.5 mg BIDWMEALS PO Last administered on 06/24/18 07:49; Start 06/19/18 at 17:00; Stop 06/24/18 at 11:19; Status DC Isosorbide Mononitrate (Imdur) 30 mg DAILY PO Last administered on 06/24/18 07 :45; Start 06/19/18 at 14:00 Hydralazine HCl (Apresoline) 25 mg TID PO Last administered on 06/19/18 15:39 ; Start 06/19/18 at 14:00; Stop 06/20/18 at 08:12; Status DC Potassium Chloride (Klor-Con) 40 meq 1X ONCE PO Last administered on 17:39; Start 06/19/18 at 16:30; Stop 06/19/18 at 16:31; Status DC Potassium Chloride (Klor-Con) 20 meq DAILYWBKFT PO Last administered on 07:45; Start 06/20/18 at 08:00 Senna/Docusate Sodium (Senna Plus) 2 tab PRN BID PRN PO CONSTIPATION (1st Choice) Last administered on 06/20/18 16:05; Start 06/20/18 at 08:15 Docusate Sodium (Colace) 100 mg PRN DAILY PRN PO CONSTIPATION (2nd Choice) Last administered on 06/20/18 16:05; Start 06/20/18 at 08:15 Info (Anti-Coagulation Monitoring By Pharmacy) 1 each PRN DAILY PRN MC SEE COMMENTS Last administered on 06/24/18 10:13; Start 06/20/18 at 09:30 Fentanyl Citrate (Fentanyl 2ml Vial) 50 mcg PRN Q3HRS PRN IV SEVERE PAIN Last administered on 06/20/18 23:26; Start 06/20/18 at 23:30 Potassium Chloride (Klor-Con) 40 meq 1X ONCE PO Last administered on 17:04; Start 06/21/18 at 16:30; Stop 06/21/18 at 16:31; Status DC Labetalol HCl (Normodyne Iv Push) 20 mg PRN Q2HR PRN IVP GIVE FOR SBP > 140 Last administered on 06/21/18at 22:44; Start 06/21/18 at 22:45 Amlodipine Besylate (Norvasc) 2.5 mg 1X ONCE PO Last administered on at 22:42; Start 06/21/18 at 23:00; Stop 06/21/18 at 23:01; Status DC Iohexol (Omnipaque 350 Mg/ml) 75 ml 1X ONCE IV Last administered on 06/22/18 00:13; Start 06/21/18 at 23:45; Stop 06/21/18 at 23:46; Status DC Info (CONTRAST GIVEN -- Rx MONITORING) 1 each PRN DAILY PRN MC SEE COMMENTS; Start 06/21/18 at 23:45; Stop 06/23/18 at 23:44; Status DC Apixaban (Eliquis) 5 mg BID PO Last administered on 06/24/18at 07:46; Start at 14:30 Carvedilol (Coreg) 25 mg BIDWMEALS PO ; Start 06/24/18 at 17:00 Active Scripts Active Clonidine Hcl 0.1 Mg Tablet 0.1 Mg PO BID For high blood pressure Take this with the other medicines you are already taking Reported Hydrochlorothiazide Tablet (Hydrochlorothiazide) 25 Mg Tablet 25 Mg PO DAILY Toprol Xl (Metoprolol Succinate) 50 Mg Tab.er.24h 50 Mg PO DAILY Lisinopril 40 Mg Tablet 40 Mg PO DAILY Viagra (Sildenafil Citrate) 50 Mg Tablet 50 Mg PO ONCE Tylenol (Acetaminophen) 325 Mg Tablet 325 Mg PO Vitals/I & O Vital Sign - Last 24 Hours 06/23/18 06/23/18 06/23/18 06/23/18 17:17 19:20 20:33 23:01 Temp 98.7 99.6 98.7 99.6 Pulse 83 83 87 Resp 18 18 B/P (MAP) 151/89 142/82 (102) 154/99 (117) Pulse Ox 95 93 O2 Delivery Room Air Room Air Room Air 06/24/18 06/24/18 06/24/18 06/24/18 03:00 07:00 07:45 07:48 Temp 98.7 98.4 98.7 98.4 Pulse 88 79 88 89 Resp 18 20 B/P (MAP) 167/99 (121) 168/97 (120) 168/97 168/97 Pulse Ox 95 98 O2 Delivery Room Air 06/24/18 06/24/18 06/24/18 06/24/18 07:49 08:00 08:59 11:00 Temp 98.0 98.0 Pulse 87 86 Resp 18 B/P (MAP) 168/97 131/77 (95) 119/71 (87) Pulse Ox 95 O2 Delivery Room Air Room Air Intake and Output 06/23/18 06/23/18 06/24/18 15:00 23:00 07:00 Intake Total 460.94 ml 800 ml 300 ml Output Total 300 ml 350 ml 400 ml Balance 160.94 ml 450 ml -100 ml INNA GEORGES MD Jun 24, 2018 16:03
[2018-06-24] MEDS: ATORVASTATIN CALCIUM 40 MG TABLET. PO SCH (20:52)
[2018-06-25] VITALS (8 sets, daily range): BP systolic 86–142; BP diastolic 41–82
[2018-06-25] MEDS: POTASSIUM CHLORIDE 20 MEQ TABLET.ER. PO SCH (08:13)
[2018-06-25] MEDS: ASPIRIN ENTERIC COATED 81 MG TABLET.DR. PO SCH (08:13)
[2018-06-25] MEDS: APIXABAN 5 MG TABLET. PO SCH (08:13)
[2018-06-25] MEDS: ISOSORBIDE MONONITRATE ER 30 MG TAB.ER.24H PO SCH (08:14)
[2018-06-25] MEDS: LISINOPRIL 20 MG TABLET PO SCH (08:15)
[2018-06-25] MEDS: CARVEDILOL 12.5 MG TABLET. PO SCH (08:16)
[2018-06-25] MEDS: CETIRIZINE HCL 10 MG TABLET. PO SCH (08:16)
[2018-06-25] MEDS: FUROSEMIDE 40 MG TABLET. PO SCH (08:16)
[2018-06-25] MEDS: FLUTICASONE 50MCG/NASAL SPRAY 16GM BOTTLE. NS SCH (08:17)
--- NOTE | 2018-06-25 09:50 | PDOC ---
PROGRESS NOTES Assessment Problems Medical Problems: (1) Acute renal failure Status: Acute (2) Chest pain Status: Acute (3) Hypertension Status: Acute (4) NSTEMI (non-ST elevated myocardial infarction) Status: Acute Aortic dissection, possible involvement of left carotid, no sign of acute stroke History of thoracic aortic aneurysm rupture repair. Hypertension. Plan As per cardiothoracic surgery Agree with Apixaban Okay for discharge Followup with neurology as needed Discussed with family Subjective No complaints Objective Vital Signs Date Time Temp Pulse Resp B/P (MAP) Pulse Ox O2 Delivery O2 Flow Rate FiO2 06/25/18 08:16 77 143/86 06/25/18 08:00 Room Air 06/25/18 07:09 97.9 18 94 97.9 Intake and Output 06/25/18 06:59 Intake Total 600 ml Output Total 900 ml Balance -300 ml Intake Oral 600 ml Output Urine Total 900 ml PHYSICAL EXAM Alert. Oriented to time, place and person. PERRL. EOMI. CN: no focal findings. Muscle tone: normal. Muscle strength: 5/5 DTR: 2+ Plantar reflex: flexor Gait: not examined in bed. Sensory exam: no abnormal findings. No cerebellar signs elicited. Review of Relevant I have reviewed the following items josh (where applicable) has been applied. Labs Laboratory Tests Test 06/23/18 12:05 06/23/18 18:15 Heparin Anti-Xa Act, Unfractionated 1.01 IU/mL (0.30-0.70) > 1.10 IU/mL (0.30-0.70) Medications Current Medications Aspirin (Dorinda Aspirin) 325 mg 1X ONCE PO Last administered on 06/18/18at 08:51 ; Start 06/18/18 at 08:15; Stop 06/18/18 at 08:22; Status DC Nitroglycerin (Nitrostat) 0.4 mg PRN Q5MIN PRN SL CP RATING > 1/10 Last administered on 06/18/18at 09:21; Start 06/18/18 at 08:15; Stop 06/19/18 at 08:14 ; Status DC Morphine Sulfate (Morphine Sulfate) 2 mg PRN Q15MIN PRN IV/SQ PAIN GREATER THAN 3/10 Last administered on 06/18/18at 09:03; Start 06/18/18 at 08:15; Stop at 18:00; Status DC Metoprolol Tartrate (Lopressor Vial) 5 mg 1X ONCE IVP Last administered on at 08:53; Start 06/18/18 at 08:45; Stop 06/18/18 at 08:46; Status DC Albuterol/ Ipratropium (Duoneb) 3 ml 1X ONCE NEB Last administered on at 09:09; Start 06/18/18 at 09:00; Stop 06/18/18 at 09:01; Status DC Furosemide (Lasix) 40 mg 1X ONCE IVP Last administered on 06/18/18at 11:12; Start 06/18/18 at 10:30; Stop 06/18/18 at 10:31; Status DC Ondansetron HCl (Zofran) 4 mg PRN Q8HRS PRN IV NAUSEA/VOMITING; Start 06/18/18 at 10:30; Stop 06/18/18 at 10:39; Status DC Morphine Sulfate (Morphine Sulfate) 4 mg PRN Q2HR PRN IV PAIN Last administered on 06/19/18at 04:04; Start 06/18/18 at 10:30; Stop 06/19/18 at 10:29 ; Status DC Nitroglycerin (Nitrostat) 0.4 mg PRN Q5MIN PRN SL CHEST PAIN; Start 06/18/18 at 10:30; Stop 06/19/18 at 10:29; Status Cancel Ondansetron HCl (Zofran) 4 mg PRN Q6HRS PRN IV NAUSEA/VOMITING; Start 06/18/18 at 10:45 Acetaminophen (Tylenol) 500 mg PRN Q6HRS PRN PO MILD PAIN / TEMP; Start at 10:45 Acetaminophen/ Codeine Phosphate (Tylenol #3) 1 tab PRN Q6HRS PRN PO MODERATE PAIN Last administered on 06/22/18at 00:50; Start 06/18/18 at 10:45 Labetalol HCl (Normodyne Iv Push) 10 mg PRN Q2HR PRN IVP GIVE FOR SBP > 160 Last administered on 06/18/18at 19:20; Start 06/18/18 at 10:45; Stop 06/21/18 at 22:34; Status DC Acetaminophen (Tylenol) 325 mg DAILY PO Last administered on 06/19/18 10:17; Start 06/19/18 at 09:00; Stop 06/19/18 at 16:26; Status DC Clonidine HCl (Catapres) 0.1 mg BID PO Last administered on 06/19/18 08:58; Start 06/18/18 at 11:00; Stop 06/19/18 at 16:26; Status DC Hydrochlorothiazide (Hydrodiuril) 25 mg DAILY PO Last administered on 07:46; Start 06/18/18 at 11:00; Stop 06/24/18 at 11:19; Status DC Lisinopril (Prinivil) 40 mg DAILY PO Last administered on 06/25/18 08:15; Start 06/18/18 at 11:00 Metoprolol Succinate (Toprol Xl) 50 mg DAILY PO Last administered on 06/19/18 08:57; Start 06/18/18 at 11:00; Stop 06/19/18 at 14:02; Status DC Non-Formulary Medication (Sildenafil Citrate (Viagra)) 50 mg ONCE PO ; Start at 10:45; Status UNV Fluticasone Propionate (Flonase) 2 spray DAILY NS Last administered on 08:17; Start 06/19/18 at 09:00 Guaifenesin (Robitussin Dm) 10 ml PRN Q6HRS PRN PO COUGH; Start 06/18/18 at 12: 15; Stop 06/19/18 at 16:26; Status DC Cetirizine HCl (ZyrTEC) 10 mg DAILY PO Last administered on 06/25/18at 08:16; Start 06/18/18 at 12:15 Heparin Sodium/ Dextrose 500 ml @ 20 mls/hr CONT PRN IV SEE I/O RECORD Last administered on 06/22/18at 23:33; Start 06/18/18 at 15:15; Stop 06/23/18 at 14:00 ; Status DC Heparin Sodium (Porcine) (Heparin Sodium) 2,350 unit PRN Q6HRS PRN IV FOR UFH LEVEL LESS THAN 0.2 Last administered on 06/23/18at 07:42; Start 06/18/18 at 15: 15; Stop 06/23/18 at 14:00; Status DC Nitroglycerin (Nitro-Bid Oint) 1 inch Q6HRS TP Last administered on 06/18/18at 16:04; Start 06/18/18 at 16:00; Stop 06/19/18 at 09:34; Status DC Sodium Chloride 1,000 ml @ 60 mls/hr [id number] IV Last administered on at 16:15; Start 06/18/18 at 15:17; Stop 06/19/18 at 00:41; Status DC Hydralazine HCl (Apresoline Inj) 10 mg PRN Q4HRS PRN IVP ELEVATED BP, SEE COMMENTS Last administered on 06/18/18at 17:05; Start 06/18/18 at 15:30; Stop at 08:13; Status DC Heparin Sodium (Porcine) (Heparin Sodium) 4,000 unit 1X ONCE IV Last administered on 06/18/18at 16:04; Start 06/18/18 at 16:15; Stop 06/18/18 at 16:16 ; Status DC Nitroglycerin/ Dextrose 250 ml @ 9 mls/hr 1X ONCE IV Last administered on 06/18at 22:17; Start 06/18/18 at 19:45; Stop 06/19/18 at 23:31; Status DC Iodixanol (Visipaque 320) 100 ml STK-MED ONCE .ROUTE ; Start 06/18/18 at 20:56; Stop 06/18/18 at 20:57; Status DC Lidocaine HCl (Lidocaine 1% 20ml Vial) 20 ml STK-MED ONCE .ROUTE ; Start at 20:56; Stop 06/18/18 at 20:57; Status DC Heparin Sodium/ Sodium Chloride 1,500 ml @ As Directed STK-MED ONCE .ROUTE ; Start 06/18/18 at 20:56; Stop 06/18/18 at 20:57; Status DC Fentanyl Citrate (Fentanyl 2ml Vial) 100 mcg STK-MED ONCE .ROUTE ; Start at 20:57; Stop 06/18/18 at 20:58; Status DC Midazolam HCl (Versed) 5 mg STK-MED ONCE .ROUTE ; Start 06/18/18 at 20:58; Stop 06/18/18 at 20:59; Status DC Heparin Sodium (Porcine) (Heparin Sodium) 10,000 unit STK-MED ONCE .ROUTE ; Start 06/18/18 at 20:58; Stop 06/18/18 at 20:59; Status DC Verapamil HCl (Verapamil) 5 mg STK-MED ONCE .ROUTE ; Start 06/18/18 at 20:58; Stop 06/18/18 at 20:59; Status DC Nitroglycerin (Nitroglycerin) 200 mcg STK-MED ONCE .ROUTE ; Start 06/18/18 at 20 :58; Stop 06/18/18 at 20:59; Status DC Hydralazine HCl (Apresoline Inj) 20 mg STK-MED ONCE .ROUTE ; Start 06/18/18 at 21:28; Stop 06/18/18 at 21:29; Status DC Heparin Sodium/ Sodium Chloride (HEPARIN for ARTERIAL LINE FLUSH) 1,000 unit 1X ONCE IART Last administered on 06/18/18at 22:13; Start 06/18/18 at 22:00; Stop 06/18/18 at 22:01; Status DC Heparin Sodium/ Sodium Chloride (HEPARIN for ARTERIAL LINE FLUSH) 1,000 unit 1X ONCE IART Last administered on 06/18/18at 22:13; Start 06/18/18 at 22:00; Stop 06/18/18 at 22:01; Status DC Midazolam HCl (Versed) 5 mg 1X ONCE IV Last administered on 06/18/18at 22:15; Start 06/18/18 at 21:45; Stop 06/18/18 at 21:47; Status DC Fentanyl Citrate (Fentanyl 2ml Vial) 100 mcg 1X ONCE IV Last administered on at 22:15; Start 06/18/18 at 22:00; Stop 06/18/18 at 22:01; Status DC Iodixanol (Visipaque 320) 100 ml 1X ONCE IART Last administered on 06/18/18at 22:13; Start 06/18/18 at 22:00; Stop 06/18/18 at 22:01; Status DC Lidocaine HCl (Lidocaine 1% 20ml Vial) 20 ml 1X ONCE INJ Last administered on 06/18/18at 22:14; Start 06/18/18 at 22:00; Stop 06/18/18 at 22:01; Status DC Hydralazine HCl (Apresoline Inj) 20 mg 1X ONCE IVP Last administered on at 22:15; Start 06/18/18 at 22:00; Stop 06/18/18 at 22:01; Status DC Nitroglycerin/ Dextrose 250 ml @ As Directed STK-MED ONCE IV ; Start 06/18/18 at 21:48; Stop 06/18/18 at 21:49; Status DC Furosemide (Lasix) 40 mg 1X ONCE IVP Last administered on 06/18/18at 22:50; Start 06/18/18 at 23:00; Stop 06/18/18 at 23:01; Status DC Nitroglycerin/ Dextrose 250 ml @ 1.5 mls/hr CONT PRN IV SEE I/O RECORD Last administered on 06/19/18at 03:24; Start 06/19/18 at 03:30; Stop 06/19/18 at 09:27 ; Status DC Verapamil HCl (Verapamil) 5 mg STK-MED ONCE .ROUTE ; Start 06/18/18 at 21:00; Stop 06/19/18 at 08:56; Status DC Aspirin (Ecotrin) 81 mg DAILYWBKFT PO Last administered on 06/25/18at 08:13; Start 06/19/18 at 10:00 Atorvastatin Calcium (Lipitor) 40 mg QHS PO Last administered on 06/24/18 20: 52; Start 06/19/18 at 21:00 Potassium Chloride (Klor-Con) 40 meq Q4H PO Last administered on 06/19/18at 15: 38; Start 06/19/18 at 10:00; Stop 06/19/18 at 14:01; Status DC Furosemide (Lasix) 40 mg DAILY PO Last administered on 06/25/18 08:16; Start 06/19/18 at 10:00 Morphine Sulfate (Morphine Sulfate) 2 mg 1X ONCE IV Last administered on 13:31; Start 06/19/18 at 13:30; Stop 06/19/18 at 13:31; Status DC Carvedilol (Coreg) 12.5 mg BIDWMEALS PO Last administered on 06/24/18 07:49; Start 06/19/18 at 17:00; Stop 06/24/18 at 11:19; Status DC Isosorbide Mononitrate (Imdur) 30 mg DAILY PO Last administered on 06/25/18 08 :14; Start 06/19/18 at 14:00 Hydralazine HCl (Apresoline) 25 mg TID PO Last administered on 06/19/18 15:39 ; Start 06/19/18 at 14:00; Stop 06/20/18 at 08:12; Status DC Potassium Chloride (Klor-Con) 40 meq 1X ONCE PO Last administered on 17:39; Start 06/19/18 at 16:30; Stop 06/19/18 at 16:31; Status DC Potassium Chloride (Klor-Con) 20 meq DAILYWBKFT PO Last administered on 08:13; Start 06/20/18 at 08:00 Senna/Docusate Sodium (Senna Plus) 2 tab PRN BID PRN PO CONSTIPATION (1st Choice) Last administered on 06/20/18 16:05; Start 06/20/18 at 08:15 Docusate Sodium (Colace) 100 mg PRN DAILY PRN PO CONSTIPATION (2nd Choice) Last administered on 06/20/18 16:05; Start 06/20/18 at 08:15 Info (Anti-Coagulation Monitoring By Pharmacy) 1 each PRN DAILY PRN MC SEE COMMENTS Last administered on 06/24/18 10:13; Start 06/20/18 at 09:30 Fentanyl Citrate (Fentanyl 2ml Vial) 50 mcg PRN Q3HRS PRN IV SEVERE PAIN Last administered on 06/20/18 23:26; Start 06/20/18 at 23:30 Potassium Chloride (Klor-Con) 40 meq 1X ONCE PO Last administered on 17:04; Start 06/21/18 at 16:30; Stop 06/21/18 at 16:31; Status DC Labetalol HCl (Normodyne Iv Push) 20 mg PRN Q2HR PRN IVP GIVE FOR SBP > 140 Last administered on 06/21/18 22:44; Start 06/21/18 at 22:45 Amlodipine Besylate (Norvasc) 2.5 mg 1X ONCE PO Last administered on 22:42; Start 06/21/18 at 23:00; Stop 06/21/18 at 23:01; Status DC Iohexol (Omnipaque 350 Mg/ml) 75 ml 1X ONCE IV Last administered on 06/22/18 00:13; Start 06/21/18 at 23:45; Stop 06/21/18 at 23:46; Status DC Info (CONTRAST GIVEN -- Rx MONITORING) 1 each PRN DAILY PRN MC SEE COMMENTS; Start 06/21/18 at 23:45; Stop 06/23/18 at 23:44; Status DC Apixaban (Eliquis) 5 mg BID PO Last administered on 06/25/18at 08:13; Start at 14:30 Carvedilol (Coreg) 25 mg BIDWMEALS PO Last administered on 06/25/18 08:16; Start 06/24/18 at 17:00 Hydralazine HCl (Apresoline) 50 mg BID PO Last administered on 06/25/18at 08:13 ; Start 06/24/18 at 21:00 Active Scripts Active Clonidine Hcl 0.1 Mg Tablet 0.1 Mg PO BID For high blood pressure Take this with the other medicines you are already taking Reported Hydrochlorothiazide Tablet (Hydrochlorothiazide) 25 Mg Tablet 25 Mg PO DAILY Toprol Xl (Metoprolol Succinate) 50 Mg Tab.er.24h 50 Mg PO DAILY Lisinopril 40 Mg Tablet 40 Mg PO DAILY Viagra (Sildenafil Citrate) 50 Mg Tablet 50 Mg PO ONCE Tylenol (Acetaminophen) 325 Mg Tablet 325 Mg PO Vitals/I & O Vital Sign - Last 24 Hours 06/24/18 06/24/18 06/24/18 06/24/18 11:00 15:00 17:20 19:04 Temp 98.0 99.3 98.0 98.0 99.3 98.0 Pulse 86 82 82 78 Resp 18 18 18 B/P (MAP) 119/71 (87) 149/73 (98) 160/93 150/70 (96) Pulse Ox 95 94 94 O2 Delivery Room Air Room Air Room Air 06/24/18 06/24/18 06/24/18 06/25/18 20:00 20:52 22:26 03:00 Temp 97.9 97.9 Pulse 78 80 72 Resp 18 18 B/P (MAP) 150/70 144/65 (91) 142/80 (100) Pulse Ox 97 97 O2 Delivery Room Air Room Air Room Air 3/2006/25/18 06/25/18 06/25/18 07:09 08:00 08:13 08:14 Temp 97.9 97.9 Pulse 75 75 77 Resp 18 B/P (MAP) 123/82 (96) 143/86 143/86 Pulse Ox 94 O2 Delivery Room Air Room Air 06/25/18 06/25/18 08:15 08:16 Pulse 77 77 B/P (MAP) 143/86 143/86 Intake and Output 06/24/18 06/24/18 06/25/18 14:59 22:59 06:59 Intake Total 600 ml Output Total 300 ml 200 ml 400 ml Balance -300 ml -200 ml 200 ml KAI LERMA MD Jun 25, 2018 09:50
[2018-06-25] MEDS ORDERED: CARV25TA2 PO (10:46)
[2018-06-25] MEDS ORDERED: ASPI-612 PO (10:46)
[2018-06-25] MEDS ORDERED: ISOS30TA4 PO (10:46)
[2018-06-25] MEDS ORDERED: LISI-130 PO (10:46)
[2018-06-25] MEDS ORDERED: ATOR40TA59 PO (10:46)
[2018-06-25] MEDS ORDERED: APIX5TAB PO (10:46)
[2018-06-25] MEDS ORDERED: HYDR-2145 PO (10:46)
--- NOTE | 2018-06-25 11:16 | PDOC ---
CARDIO Progress Notes Date and Time Date of Service 06/25/2018 Time of Evaluation 1110 Subjective Subjective: No Chest Pain, No shortness of breath, No Palpitations, Other ( dizzy spells with positional changes) Vitals Vitals Vital Signs Date Time Temp Pulse Resp B/P (MAP) Pulse Ox O2 Delivery O2 Flow Rate FiO2 06/25/18 08:16 77 143/86 06/25/18 08:00 Room Air 06/25/18 07:09 97.9 18 94 97.9 Weight Weight [ ] Input and Output Intake and Output Intake and Output 06/25/18 07:00 Intake Total 600 ml Output Total 900 ml Balance -300 ml Intake Oral 600 ml Output Urine Total 900 ml Physical Exam HEENT: Neck Supple W Full Motion Chest: Symmetric LUNGS: Other (diminished bases) Heart: S1S2, RRR (SR without ectopies) Abdomen: Soft N/T Extremities: No Edema Neurology: alert, oriented, follow commands Assessment Assessment 1. Aortic dissection, chronic; stable. CTS following. surveillance recommended 2. NSTEMI: likely embolic in etiology. LHC revealed nonobstructive CAD 3. NICM: EF at 10-15%, clinically compensated 4. Hypertension; low end 5. Acute systolic CHF: compensated 6. KORY on CKD; improved 7. Orthostasis: better after IV bolus Recommendations 1. Continue with eliquis. 1 mo sample and 1 mo free card provided 2. Continue BB, ACEi (lower dose), Imdur, statin, ASA, lasix. DC hydralazine. 3. F/u in our office in 4 weeks 4. Encouraged HBPM and to call if beyond parameters. 5. CHF education provided. 6. [employer] is ideal but pt wont be able to afford. SS/CM working with pt in regards to disability. OSCAR AGUILERA APRN Jun 25, 2018 11:16
[2018-06-25] MEDS ORDERED: LISI-334 PO (11:46)
[2018-06-25] MEDS ORDERED: POTA20TA82 PO (11:53)
[2018-06-25] MEDS ORDERED: FURO40TA4 PO (11:56)
[2018-06-25] MEDS ORDERED: FLUT16SP NS (11:59)
[2018-06-25] MEDS ORDERED: CETI10TA16 PO (11:59)
[2018-06-25] MEDS ORDERED: IV NORMAL SALINE 500ML BAG 500 ML IV ONE (13:00)
--- NOTE | 2018-06-25 13:20 | NUR ---
Patient complaining of dizziness & blurriness. BP low. Dr. Mari notified. 500cc bolus running. Will continue to monitor.
--- NOTE | 2018-06-25 14:51 | PDOC3 ---
Discharge Summary Visit Information Date of Admission: Jun 18, 2018 Date of Discharge: Jun 25, 2018 Admitting Diagnosis Comment: Chest pain, sinus congestion Recent diagnosis of pneumonia, 2 spots urgent care Elevated total Bili with no abd symptoms Elevated BNP CK D stage III Accel hypertension POA History of aortic rupture with open heart surgery 2009 Trop leak Final Diagnosis 1. Aortic dissection, chronic; stable. CTS following. surveillance recommended 2. NSTEMI: likely embolic in etiology. LHC revealed nonobstructive CAD 3. NICM: EF at 10-15%, clinically compensated 4. Hypertension; controlled 5. Acute systolic CHF: compensated 6. KORY on CKD; improved Brief Hospital Course Allergies Allergies Coded Allergies Type Severity Reaction Last Updated Verified No Known Drug Allergies 07/14/14 No Vital Signs Vital Signs Date Time Temp Pulse Resp B/P (MAP) Pulse Ox O2 Delivery O2 Flow Rate FiO2 06/25/18 13:35 115/67 (83) 06/25/18 12:05 78 06/25/18 11:25 97.7 18 96 Room Air 97.7 Lab Results Laboratory Tests Test 06/23/18 18:15 Heparin Anti-Xa Act, Unfractionated > 1.10 IU/mL (0.30-0.70) Brief Hospital Course 52-year-old -[place] male known patient of Dr. Gil, history of aortic rupture needed open heart surgery 2009. Maintained on lisinopril beta jeanne and other medications- no aspirin. Comes in because of chest pain and high blood pressure. His symptoms are actually more like infectious in origin he claims he thinks he has a pneumonia, sinus congestion, coughing, no fever, maybe pleuritic chest pain. But admitted because troponin is 0.06 with a BNP of 27,000. He maintains compliance with his beta jeanne and lisinopril. Total bili is 1.8 no abd sxs. . His aortic rupture surgery was in 2009. He was just seen by cards as OP 3 months ago or 3 weeks ago and was everything was okay. Blood pressure on the high side today Looking at May 28 records when he was last here, creatinine was already elevated and diagnosis of CK D stage III which he is unaware of. Creatinine today is 1.9. I did discuss with's with patient and family at bedside about long-standing hypertension and CKD We will admit, cards consulted, avoid nephrotoxins, resume ROD inhibitor and beta jeanne. Treat symptomatically for sinus congestion and some URI symptoms. Can check for flu. He tells me few days ago he was at urgent care was told units 2 spots of pneumonia diagnosed by 2 views of chest x-ray. We'll treat for now, if symptoms persist and may be warranted to repeat a chest x-ray 2 views this time. Plan of care discussed with family, family and is agreeable. Hospital stay was quite prolonged. initially presented with the above- mentioned diagnosis of approximately 80 chest pain related to bouts of cough secondary to the pneumonia that was diagnosed in the outpatient setting. On 313 late in the evening the patient complaining of persistent chest discomfort and he was taken to the cardiac catheter lab to his symptoms. He was started on heparin drip at that point. The patient was diagnosed with a non-STEMI likely embolic in etiology the left heart catheter revealed nonobstructive coronary artery disease he did have a nonischemic cardiomyopathy with a severely depressed ejection fraction at been 15% which was clinically compensated. The patient was taken off heparin drip and transitioned to Eliquis Results of his echocardiogram are as follows EXAM: Two-dimensional and M-mode echocardiogram with Doppler and color Doppler. Other Information Quality : Good HR: 77bpm Rhythm : NSR INDICATION Chest Pain RISK FACTORS Hypertension 2D DIMENSIONS RVDd 3.6 (2.9-3.5cm) Left Atrium(2D) 3.5 (1.6-4.0cm) IVSd 1.8 (0.7-1.1cm) Aortic Root(2D) 3.6 (2.0-3.7cm) LVDd 6.3 (3.9-5.9cm) LVOT Diameter 2.3 (1.8-2.4cm) PWd 1.5 (0.7-1.1cm) LVDs 4.7 (2.5-4.0cm) FS (%) 25.6 % SV 98.6 ml Aortic Valve AoV Peak Mainor. 99.2cm/s AoV VTI 17.9cm AO Peak GR. 3.9mmHg LVOT VTI 11.04cm AO Mean GR. 3mmHg AI P 1/2 Time 623ms Mitral Valve MV E Velocity 90.7cm/s MV DECEL TIME 106ms MV A Velocity 39.8cm/s E/A Ratio 2.3 TDI Lateral E' P. V 3.96cm/s Medial E' P. V 4.57cm/s E/Lateral E' 22.9 E/Medial E' 19.8 Tricuspid Valve TR P. Velocity 266cm/s RAP ESTIMATE 8mmHg TR Peak Gr. 28mmHg RVSP 36mmHg Pulmonary Vein S1 Velocity 38.5cm/s S2 Velocity 35.40cm/s D2 Velocity 35.4cm/s PVa duration 88msec LEFT VENTRICLE The Left Ventricle is mildly dilated. There is moderate to severe concentric left ventricular hypertrophy. The left ventricular systolic function is severely impaired. The Ejection Fraction is 10-15%. There is global hypokinesis of the left ventricle. The left ventricular diastolic function and filling is normal for age. RIGHT VENTRICLE The right ventricle is normal size. There is normal right ventricular wall thickness. The right ventricular systolic function is normal. ATRIA The left atrium is mildly dilated. The right atrium is mildly dilated. The interatrial septum is intact with no evidence for an atrial septal defect or patent foramen ovale as noted on 2-D or Doppler imaging. AORTIC VALVE The aortic valve is normal in structure and function. Doppler and Color Flow revealed mild aortic regurgitation. There is no significant aortic valvular stenosis. MITRAL VALVE The mitral valve is normal in structure and function. There is no evidence of mitral valve prolapse. There is no mitral valve stenosis. Doppler and Color- flow revealed trace mitral regurgitation. TRICUSPID VALVE The tricuspid valve is normal in structure and function. Doppler and Color Flow revealed trace tricuspid regurgitation. There is no tricuspid valve stenosis. PULMONIC VALVE The pulmonary valve is normal in structure and function. Doppler and Color Flow revealed trace pulmonic valvular regurgitation. GREAT VESSELS The aortic root is normal in size. The IVC is dilated and collapses >50% with inspiration. PERICARDIAL EFFUSION There is no evidence of significant pericardial effusion. Critical Notification Physician Notified Date: 06/18/2018 Time: 17:07 Critical Value: Yes <Conclusion> The left ventricular systolic function is severely impaired. The Ejection Fraction is 10-15%. Mild aortic regurgitation. Trace mitral regurgitation. Trace tricuspid regurgitation. There is no evidence of significant pericardial effusion. Patient seen in consultation by Dr. Caruso, he reviewed his CTA and commented on the chronic nature of his type B dissection which has been stable since 2013. No aneurysmal degeneration. Re-entry tear just distal to the takeoff of the left subclavian, but no flow in the false lumen. No issues with his aortic root and ascending aortic graft. Known to have chronic renal insufficiency. Creatinine now back to baseline after slight increase to 2,1. No other malperfusion phenomena. His blood pressure was somewhat difficult to control and adjustments were made throughout his hospital stay. Cardiology has giventhere recommendations and he will be following up with Dr. Guillermo in the outpatient setting. All his concerns were addressed to the best of my abilities disability paperwork filled out as well Gen.: well-developed well-nourished in no apparent distress Head: Normal shape atraumatic Eyes: Pupils equal reactive to light and accommodation, normal conjunctivae and lids Ears: Normal shape Nose: Normal shape no trauma Mouth: No exudates of the back of throat no thrush no lesions Neck: Supple no JVD no carotid bruit or lymphadenopathy no thyromegaly Chest: Lungs clear to auscultation with good inspiratory effort no crackles rales or rhonchi Cardiovascular: S1-S2 regular rhythm no murmurs gallops or rubs Abdomen: Bowel sounds present soft nontender no hepatosplenomegaly appreciated sign Extremities: No clubbing no cyanosis no edema peripheral pulses palpated bilaterally Neurological: Alert awake oriented in person time place and situation, cranial nerves II through XII intact, no motor or sensory deficits appreciated Psych: Appropriate mood, cooperative Discharge Information Condition at Discharge: Improved Follow Up: Weeks Disposition/Orders: D/C to Home Scheduled Apixaban (Eliquis) 5 Mg Tablet, 5 MG PO BID for anticoagulation for 30 Days, # 60 Ref 3 Prescribed by: INNA GEORGES MD on 06/25/18 1046 Aspirin (Aspirin Ec) 81 Mg Tablet.dr, 81 MG PO DAILYWBKFT for antiplatelet for 30 Days, #30 Prescribed by: INNA GEORGES MD on 06/25/18 1046 Atorvastatin Calcium (Atorvastatin Calcium) 40 Mg Tablet, 40 MG PO QHS for dyslipidemia for 30 Days, #30 Ref 3 Prescribed by: INNA GEORGES MD on 06/25/18 1046 Carvedilol (Carvedilol) 25 Mg Tablet, 25 MG PO BIDWMEALS for CARDIAC for 30 Days , #60 Ref 3 Prescribed by: INNA GEORGES MD on 06/25/18 1046 Cetirizine Hcl (Cetirizine Hcl) 10 Mg Tablet, 1 TAB PO DAILY for allergies for 30 Days, #30 (Reported) Entered as Reported by: SHEYLA VILLAVICENCIO on 06/25/18 1159 Fluticasone Propionate (Fluticasone Propionate Nasal Olema) 16 Gm Olema.susp, 2 SPRAY NS DAILY for allergies for 30 Days, #1 (Reported) Entered as Reported by: SHEYLA VILLAVICENCIO on 06/25/18 1159 Furosemide (Furosemide) 40 Mg Tablet, 1 TAB PO DAILY for CHF for 30 Days, #30 Ref 3 (Reported) Entered as Reported by: SHEYLA VILLAVICENCIO on 06/25/18 1156 Isosorbide Mononitrate (Isosorbide Mononitrate Er) 30 Mg Tab.er.24h, 30 MG PO DAILY for angina for 30 Days, #30 Ref 3 Prescribed by: INNA GEORGES MD on 06/25/18 1046 Lisinopril (Lisinopril) 20 Mg Tablet, 1 TAB PO DAILY for HTN for 30 Days, #30 Ref 3 (Reported) Entered as Reported by: SHEYLA VILLAVICENCIO on 06/25/18 1146 Potassium Chloride (Potassium Chloride) 20 Meq Tablet.er, 20 MEQ PO DAILYWBKFT for hypokalemia for 30 Days, #30 Ref 3 (Reported) Entered as Reported by: SHEYLA VILLAVICENCIO on 06/25/18 1153 Sildenafil Citrate (Viagra) 50 Mg Tablet, 50 MG PO ONCE, (Reported) Entered as Reported by: IONA OVALLE on 07/14/141131 Last Action: Converted on 06/18/18 1038 by ISMAEL SHAH Miscellaneous Medications Acetaminophen (Tylenol) 325 Mg Tablet, 325 MG PO, (Reported) Entered as Reported by: IONA OVALLE on 07/14/141131 Last Action: Continued on 06/18/18 1038 by ISMAEL SHAH Discontinued Medications Hydrochlorothiazide (Hydrochlorothiazide Tablet ) 25 Mg Tablet, 25 MG PO DAILY for DIURETIC, Ref 0 (Reported) Discontinued Reason: Prescription changed Entered as Reported by: IONA OVALLE on 07/14/141131 Last Action: Continued on 06/18/18 1038 by ISMAEL SHAH Lisinopril (Lisinopril) 40 Mg Tablet, 40 MG PO DAILY for FOR HYPERTENSION, #30 Ref 0 (Reported) Discontinued Reason: Prescription changed Entered as Reported by: IONA OVALLE on 07/14/141131 Last Action: Continued on 06/18/18 1038 by ISMAEL SHAH Metoprolol Succinate (Toprol Xl) 50 Mg Tab.er.24h, 50 MG PO DAILY for FOR HYPERTENSION, #30 Ref 0 (Reported) Entered as Reported by: IONA OVALLE on 07/14/141131 Last Action: Converted on 06/18/18 1038 by INNA AQUINO MD Jun 25, 2018 14:51
--- NOTE | 2018-06-25 17:20 | NUR ---
Discharge Note: [facility]IN[facility] [address] [place] Discharge instructions and discharge home medications reviewed with Patient and a copy given. All questions have been answered and understanding verbalized. The following instructions and handouts were given: discharge instructions, medication info, CHF info, heart failure info, HTN info, aortic dissection info. Discontinued lines and drains: Peripheral IV intact. Patient discharged to Home or Self Care with Spouse via Wheelchair at 1720. Patient in stable condition at time of discharge.
== END 2018-06-25 17:20 | disposition home or self-care (01) | DRG 280 ==
LOC: ER 08:03 → ED HOLD 10:08 → 2 SOUTH 14:57 → 1 WEST ICU 22:12 → 2 NORTH 06-20 19:18
PROVIDERS: ADMIT Internal Medicine; ATTEND Internal Medicine
PROC: 4A023N7 Measurement of Cardiac Sampling and Pressure, Left Heart, Percutaneous Approach (ICD-10-PCS; principal; 2018-06-19)
PROC: B3101ZZ Fluoroscopy of Thoracic Aorta using Low Osmolar Contrast (ICD-10-PCS; 2018-06-19)
PROC: B2111ZZ Fluoroscopy of Multiple Coronary Arteries using Low Osmolar Contrast (ICD-10-PCS; 2018-06-19)
DX: I21.4 Non-ST elevation (NSTEMI) myocardial infarction (principal); I50.21 Acute systolic (congestive) heart failure; N17.9 Acute kidney failure, unspecified; I42.9 Cardiomyopathy, unspecified; J98.11 Atelectasis; I13.0 Hypertensive heart and chronic kidney disease with heart failure and stage 1 through stage 4 chronic kidney disease, or unspecified chronic kidney disease; E78.5 Hyperlipidemia, unspecified; I25.110 Atherosclerotic heart disease of native coronary artery with unstable angina pectoris; E87.6 Hypokalemia; K21.9 Gastro-esophageal reflux disease without esophagitis; K44.9 Diaphragmatic hernia without obstruction or gangrene; M19.90 Unspecified osteoarthritis, unspecified site; Z82.49 Family history of ischemic heart disease and other diseases of the circulatory system; Z86.79 Personal history of other diseases of the circulatory system; Z79.01 Long term (current) use of anticoagulants; Z87.01 Personal history of pneumonia (recurrent); N18.3 Chronic kidney disease, stage 3 (moderate)
CPT/HCPCS: 36415; 70450; 71045; 71275; 74018; 74174; 76700; 80048; 80053; 80061; 80069; 80307; 81001; 82553; 83735; 83880; 84443; 84484; 85025; 85027; 85520; 85610; 87641; 87804; 93005; 93306; 93458; 93567; 93880; 96374; 96375; 99152; 99153; C1760; C1769; C1892; J0360; J1644; J1940; J2250; J2270; J3010; J3490; J7040; J7620; Q9967; 99285-25; C1771